=== PATIENT | female | born 1930 | race Caucasian/White ===

== ENCOUNTER 2016-12-11 10:25 | Inpatient (IN) | payer OTHER ==
--- NOTE | 2016-12-11 10:34 | PDOC ---
History of Present Illness - General History Source: EMS, Old Records Exam Limitations: Clinical Condition - History of Present Illness Initial Comments: 12/11/16 10:40 The patient is a year old female, BIBA from [facility] with a significant past medical history of HTN, lung cancer, dementia, schizophrenia, respiratory failure s/p tracheostomy, and peg tube who presents to the emergency department with rapid heartbeat. EMS reports being called originally for an outpatient G tube replacement due to dislodgement (12/08/16). EMS reports when put on a monitor her HR was elevated, which prompted EMS diversion to the ER. Upon ED arrival the patient is febrile. PCP: Dr. Cruz <Jorje Doherty - Last Filed: 12/11/16 11:03> - General History Source: EMS, Old Records Exam Limitations: Clinical Condition <Angy Willis - Last Filed: 12/12/16 16:24> - General Stated Complaint: A FIB Past History <Jorje Doherty - Last Filed: 12/11/16 11:03> - Past Medical History Anemia: No Asthma: No Cancer: No Cardiac Disorders: No CVA: No COPD: No CHF: No Dementia: Yes Diabetes: No GI Disorders: No Disorders: Yes (UTI) HTN: Yes Hypercholesterolemia: No Liver Disease: No Psychiatric Problems: Yes (Psychosis) Seizures: No Thyroid Disease: No - Psycho/Social/Smoking Cessation Hx Anxiety: No Suicidal Ideation: No Smoking Status: No Smoking History: Never smoked Have you smoked in the past 12 months: No Number of Cigarettes Smoked Daily: 0 Hx Alcohol Use: No Drug/Substance Use Hx: No Substance Use Type: None Hx Substance Use Treatment: No <Angy Willis - Last Filed: 12/12/16 16:24> - Past Medical History Allergies/Adverse Reactions: Allergies Allergy/AdvReac Type Severity Reaction Status Date / Time cefuroxime axetil Allergy Mild Rash Verified 12/11/16 10:43 [From Ceftin] Home Medications: Ambulatory Orders Acetaminophen [Tylenol .Regular Strength -] 325 mg PO Q6H PRN 01/29/14 Vit A/Vitamin D3/E/Aloe V/Znox [Periguard Ointment] 5 gm TP TID 01/29/14 Zinc Oxide 20% Topical Oint 454 gm TP DAILY 10/15/15 Zinc Sulfate 220 mg GT DAILY 10/15/15 Ascorbate Calcium [Vitamin C] 500 mg PEG DAILY #0 11/17/15 Aspirin [ASA -] 81 mg PO DAILY #30 tab.chew 11/17/15 Diltiazem [Cardizem -] 60 mg NGT Q6HPO #30 tablet 11/17/15 Metoprolol Tartrate [Lopressor -] 50 mg NGT TID #60 tablet 11/17/15 Nystatin Cream [Mycostatin Cream -] 1 applic TP BID applic 11/17/15 Polyethylene Glycol 3350 [Miralax 119 gm Btl -] 17 gm PEG DAILY #14 bottle 11/17 Docusate Liquid [Colace Liquid -] 50 mg GT DAILY 12/11/16 Review of Systems - Review of Systems Able to Perform ROS?: No (Clincal condition.) <Jorje Doherty - Last Filed: 12/11/16 11:03> *Physical Exam - Physical Exam Comments: 12/11/16 10:55 GENERAL: The patient is in no acute distress. HEAD: Normal with no signs of trauma. EYES: PERRLA, EOMI, sclera anicteric, conjunctiva clear. ENT: Ears normal, nares patent, oropharynx clear without exudates. Dry mucous membranes. Trach is in place. NECK: Normal range of motion, supple without lymphadenopathy, JVD, or masses. CHEST: Bilateral mastectomy LUNGS: Rhonchorous breath sounds. No wheezes, and no crackles. HEART: Tachycardia, Irregular, normal S1 and S2 without murmur, rub or gallop. ABDOMEN: Soft, nontender, normoactive bowel sounds. No guarding, no rebound. No masses palpable. Rectal temp was 102. EXTREMITIES: Normal range of motion, no edema. No clubbing or cyanosis. No erythema, or tenderness. NEUROLOGICAL: Cranial nerves II through XII grossly intact. MUSCULOSKELETAL: Back non-tender to palpation, no CVA tenderness SKIN: Warm, Dry, normal turgor, or lesions noted. Some erythema of her scarum but no skin breakdown. <Jorje Doherty - Last Filed: 12/11/16 11:03> Heart Score/ECG Review #1 ECG reviewed & interpreted by me at: 10:55 12/11/16 10:55 Twelve-lead EKG was performed and reviewed by me. Afib with rapid ventricular response, rate of 174bpm. The axis is normal. The intervals are normal - QRS: 72ms, QTc:364ms. There are no ST elevations. ST depressions v4-v6. No T wave abnormalities. <Angy Willis - Last Filed: 12/12/16 16:24> ED Treatment Course - LABORATORY CBC & Chemistry Diagram: 12/11/16 10:50 12/11/16 10:50 - RADIOLOGY Radiograph Interpretation: 12/11/16 11:03 CHEST X-RAY impressions reported by : Increasing left base density and left pleural effusion. Right upper lobe opacity is now noted and possibly also left uper lobe opacity. <Jorje Doherty - Last Filed: 12/11/16 11:03> - LABORATORY CBC & Chemistry Diagram: 12/12/16 05:20 12/12/16 13:30 <Angy Willis - Last Filed: 12/12/16 16:24> Medical Decision Making - Critical Care Time Total Critical Care Time (minutes): 60 Critical Care Statement: The care of this patient involved high complexity decision making to prevent further life threatening deterioration of the patient 's condition and/or to evalute & treat vital organ system(s) failure or risk of failure. - Medical Decision Making 12/11/16 10:34 A portion of this note was documented by scribe services under my direction. I have reviewed the details of the note, within reason, and agree with the documentation with the following case summary and management plan written by me. Nursing documentation reviewed and incorporated into medical decision making 12/11/16 10:43 THis is an 86 yo F, resident of [facility] H/o HTN, HTN, lung cancer, dementia, schizophrenia, respiratory failure s/p tracheostomy, and peg tube who presents to the emergency department vai EMS due to rapid heart rate. Briefly, the patient's g tube fell out There was an order placed for g tube replacement on 12/08 Consent obtained on 12/09 Pt was supposed to come to the hospital today for g tube replacement When EMS assesed this patient, they noted an elevated heart rate She was given Adenosine 6, 12, 12 enroute with minimal improvement in her heart rate On examination Pt is irregularly irregular Pt is tachycardiac Pt is not responsive to pain or verbal stimulation Heart is irregularly irregular and tachycardiac no murmur appreciated lungs rhoncherous bilaterally no abd tenderness? No skin break doawn 12/11/16 10:45 Pt rectal temp 102. 4 Per chart review, pt has had MRSA When she was previously admitted for sepsis, she had a drug reaction to Cephalosporins, will avoid today Will give Tylenol for fever Pt septic Source unknow at this time Awaiting CXR, UA Possibly CT abd and pelvis 12/11/16 11:08 Laboratory Tests 12/11/16 11:00 VBG pH 7.35 POC VBG pCO2 43.1 D POC VBG pO2 38.4 D 12/11/16 11:09 CXR: left basilar density, RUL opacity Prior CXR: LLL nodule and pleural effusion Given Vanc and Doripenem (given new CXR findings and fever) 12/11/16 11:11 EKG today Afib with RVR Afib not listed in her PMD Prior EKG pulled, pt had Afib on this EKG Will given small dose cardizem with improvement of HR from 180s to 120s 12/11/16 11:14 12/11/16 11:44 Laboratory Tests 12/11/16 12/11/16 10:50 10:50 Sodium 158 H D Potassium 5.7 H D Chloride 125 H D Carbon Dioxide 24 BUN 74 H D Creatinine 1.3 H D Random Glucose 134 H Lactic Acid 3.068 H* AST 248 H D ALT 147 H D Troponin I 0.24 H Call placed to Dr. Zenaida Cruz requests hospitalist admission case reviewed with Dr Baldwin Will admit to ICU CTs of head, chest abd and pelvis ordered Pt placed on cardizem drip given persistent elevation of HR despite cardizem pushes and NO means of giving po medications <Angy Willis - Last Filed: 12/12/16 16:24> *DC/Admit/Observation/Transfer - Attestations Scribe Attestion: 12/11/16 10:40 Documentation prepared by Jorje Doherty, acting as medical transport specialist for Emergency Dept,Physician, . <Jorje Doherty - Last Filed: 12/11/16 11:03> - Discharge Dispostion Admit: Yes <Angy Willis - Last Filed: 12/12/16 16:24> Diagnosis at time of Disposition: Severe sepsis Pneumonia Qualifiers: Pneumonia type: due to unspecified organism Laterality: unspecified laterality Lung location: unspecified part of lung Qualified Code(s): J18.9 - Pneumonia, unspecified organism - Discharge Dispostion Condition at time of disposition: Guarded - Referrals
[2016-12-11] MEDS ORDERED: ACETAMINOPHEN 1000 MG/100 ML VIAL (NON FORMULARY) IVPB ONE (10:36)
[2016-12-11] MEDS ORDERED: SODIUM CHLORIDE 1,000 ML IV STA (10:39)
[2016-12-11] MEDS ORDERED: VANCOMYCIN 1,000 MG in DEXTROSE 5%-WATER - 250 ML IVPB ONE (10:40)
[2016-12-11] MEDS ORDERED: DORIPENEM 500 MG in SODIUM CHLORIDE 100 ML IVPB ONE (10:41)
[2016-12-11] MEDS ORDERED: dilTIAZem HCL 50 MG/10 ML - 10 ML VIAL IVPUSH ONE ×2 (10:44→11:56)
[2016-12-11] MEDS ORDERED: ADENOSINE 6 MG/2 ML VIAL IVPUSH ONE (10:55)
[2016-12-11] MEDS ORDERED: VANCOMYCIN 1 GRAM (PRE-DOCKED) 250 ML IVPB ONE (10:59)
[2016-12-11] MEDS ORDERED: ACETAMINOPHEN INJECTION 100 ML IVPB ONE (10:59)
[2016-12-11] MEDS ORDERED: dilTIAZem HCL 125 MG/25 ML - 25 ML VIAL ONE (11:00)
[2016-12-11 11:06] LABS: VENOUS PH 7.35 (7.31-7.41)
[2016-12-11 11:27] LABS: ALBUMIN 2.2 g/dl (3.4-5.0); BILIRUBIN,TOTAL 2.4 mg/dL (0.2-1.0); CALCIUM 11.4 mg/dL (8.5-10.1); CREATININE 1.3 mg/dL (0.55-1.02); TOT PROT 8.1 g/dl (6.4-8.2)
[2016-12-11 11:29] LABS: TROPONIN I 0.24 ng/ml (0.00-0.05)
[2016-12-11 11:46] LABS: MCH 27.9 pg (25.7-33.7); MCHC 29.8 g/dl (32.0-36.0); MEAN CELL VOLUME 93.8 fl (80-96); MEAN PLT VOLUME 11.4 fl (7.5-11.1); PLATELET COUNT 138 K/MM3 (134-434); RDW 19.4 % (11.6-15.6)
[2016-12-11 11:47] LABS: WHITE BLOOD COUNT 37.2 K/mm3 (4.0-10.0)
[2016-12-11 11:57] LABS: URINE APPEARANCE CLOUDY; URINE BILIRUBIN NEGATIVE (NEGATIVE); URINE COLOR AMBER; URINE GLUCOSE (UA) NEGATIVE (NEGATIVE); URINE KETONE NEGATIVE (NEGATIVE); URINE NITRITE NEGATIVE (NEGATIVE); URINE UROBILINOGEN 4.0 E.U/dl E.U./dl (0.2-1.0)
[2016-12-11 11:59] LABS: URINE BLOOD 2+ (NEGATIVE); URINE LEUK ESTERASE 3+ (NEGATIVE); URINE PROTEIN 1+ (NEGATIVE)
[2016-12-11 12:06] LABS: URINE BACTERIA MANY /hpf (NONE SEEN); URINE HYALINE CAST 23 /lpf; URINE MUCUS MODERATE; URINE RBC 7 /hpf (0-3); URINE WBC 994 /hpf (3-5)
[2016-12-11] MEDS ORDERED: ONDANSETRON 4 MG/2 ML VIAL IVPB PRN (12:07)
[2016-12-11] MEDS ORDERED: ACETAMINOPHEN 325 MG SUPP.RECT PR PRN (12:07)
--- NOTE | 2016-12-11 12:12 | HP ---
PCP: Zenaida Cruz CHIEF COMPLAINT: Tachycardia HISTORY OF PRESENT ILLNESS: This is an 86-year-old woman who resides at [facility] and was being sent to the hospital today for G-tube replacement when EMS noted she was tachycardic. She was given Adenosine 6 mg, 6 mg, 12 mg then brought to the ER. She is unable to provide any history which is obtained from prior records. The patient's PEG was noted to be dislodged and replacement was ordered on 12/08. She was scheduled to have it done today. PAST MEDICAL HISTORY Severe dementia Lung cancer Hypertension Schizophrenia Anxiety Aortic stenosis Mitral regurgitation Atrial fibrillation Chronic diastolic heart failure Chronic respiratory failure PAST SURGICAL HISTORY Tracheostomy PEG Allergies cefuroxime axetil [From Ceftin] Allergy (Mild, Verified 12/11/16 10:43) Rash HOME MEDICATIONS 3 Medication Instructions Recorded Acetaminophen [Tylenol .Regular 325 mg PO Q6H PRN 01/29/14 Strength -] Vit A/Vitamin D3/E/Aloe V/Znox 5 gm TP TID 01/29/14 [Periguard Ointment] Zinc Oxide 20% Topical Oint 454 gm TP DAILY 10/15/15 Zinc Sulfate 220 mg PO DAILY 10/15/15 Ascorbate Calcium [Vitamin C] 500 mg PEG DAILY #0 11/17/15 Aspirin [ASA -] 81 mg PO DAILY #30 tab.chew 11/17/15 Cefuroxime Axetil Suspension 250 mg PO BID 6 Days 11/17/15 [Ceftin Oral Suspension -] Diltiazem [Cardizem -] 60 mg NGT Q6HPO #30 tablet 11/17/15 Metoprolol Tartrate [Lopressor -] 50 mg NGT TID #60 tablet 11/17/15 Nystatin Cream [Mycostatin Cream -] 1 applic TP BID applic 11/17/15 Polyethylene Glycol 3350 [Miralax 17 gm PEG DAILY #14 bottle 11/17/15 119 gm Btl -] Social History: Smoking: Never smoked Alcohol: None Drugs: None Recent Travel: No Family History: Unobtainable REVIEW OF SYSTEMS Unable to obtain PHYSICAL EXAMINATION Vital Signs Period Temp Pulse Resp BP Sys/Chase Pulse Ox Last 24 Hr 102.4 F 149-184 16-20 149/106 100-100 GENERAL: Cachectic, unresponsive, in no acute distress. HEAD: Normal with no signs of trauma. EYES: Unable to assess. EARS, NOSE, THROAT: Ears normal, nares patent, oropharynx not visualized. NECK: Normal range of motion, supple without lymphadenopathy, JVD, or masses. LUNGS: Bilateral rhonchi. HEART: Irregular, tachycardic, (+) 2/6 systolic murmur. ABDOMEN: Soft, not distended, normoactive bowel sounds, [place] catheter in G- tube site. MUSCULOSKELETAL: Normal range of motion at all joints. No bony deformities or tenderness. No CVA tenderness. UPPER EXTREMITIES: 2+ pulses, warm, well-perfused. No cyanosis. No clubbing. Cap refill <2 seconds. No peripheral edema. LOWER EXTREMITIES: 2+ pulses, warm, well-perfused. No calf tenderness. No peripheral edema. NEUROLOGICAL: Unable to assess. PSYCHIATRIC: Unable to assess. SKIN: Warm, dry, normal turgor, no rashes or lesions noted. Laboratory Results - last 24 hr 12/11/16 12/11/16 12/11/16 10:50 10:50 10:50 WBC 37.2 H* D RBC 4.74 D Hgb 13.2 D Hct 44.4 D MCV 93.8 MCHC 29.8 L RDW 19.4 H Plt Count 138 MPV 11.4 H Neutrophils % Y Lymphocytes % Y INR Cancelled PTT (Actin FS) Cancelled VBG pH POC VBG pCO2 POC VBG pO2 Sodium 158 H D Potassium 5.7 H D Chloride 125 H D Carbon Dioxide 24 Anion Gap 9 BUN 74 H D Creatinine 1.3 H D Creat Clearance w eGFR 38.66 Random Glucose 134 H Lactic Acid Calcium 11.4 H D Total Bilirubin 2.4 H D AST 248 H D ALT 147 H D Alkaline Phosphatase 153 H D Creatine Kinase 151 D CK-MB (CK-2) 1.352 Troponin I 0.24 H Total Protein 8.1 D Albumin 2.2 L D Urine Color Urine Appearance Urine pH Ur Specific [place] Urine Protein Urine Glucose (UA) Urine Ketones Urine Blood Urine Nitrite Urine Bilirubin Urine Urobilinogen Ur Leukocyte Esterase Urine RBC Urine WBC Ur Epithelial Cells Urine Bacteria Hyaline Casts Urine Mucus Blood Type Antibody Screen 12/11/16 12/11/16 12/11/16 10:50 10:50 11:00 WBC RBC Hgb Hct MCV MCHC RDW Plt Count MPV Neutrophils % Lymphocytes % INR PTT (Actin FS) VBG pH 7.35 POC VBG pCO2 43.1 D POC VBG pO2 38.4 D Sodium Potassium Chloride Carbon Dioxide Anion Gap BUN Creatinine Creat Clearance w eGFR Random Glucose Lactic Acid 3.068 H* Calcium Total Bilirubin AST ALT Alkaline Phosphatase Creatine Kinase CK-MB (CK-2) Troponin I Total Protein Albumin Urine Color Urine Appearance Urine pH Ur Specific [place] Urine Protein Urine Glucose (UA) Urine Ketones Urine Blood Urine Nitrite Urine Bilirubin Urine Urobilinogen Ur Leukocyte Esterase Urine RBC Urine WBC Ur Epithelial Cells Urine Bacteria Hyaline Casts Urine Mucus Blood Type O POSITIVE Antibody Screen Negative 12/11/16 11:50 WBC RBC Hgb Hct MCV MCHC RDW Plt Count MPV Neutrophils % Lymphocytes % INR PTT (Actin FS) VBG pH POC VBG pCO2 POC VBG pO2 Sodium Potassium Chloride Carbon Dioxide Anion Gap BUN Creatinine Creat Clearance w eGFR Random Glucose Lactic Acid Calcium Total Bilirubin AST ALT Alkaline Phosphatase Creatine Kinase CK-MB (CK-2) Troponin I Total Protein Albumin Urine Color Yen Urine Appearance Cloudy Urine pH 5.0 Ur Specific [place] 1.015 Urine Protein 1+ H Urine Glucose (UA) Negative Urine Ketones Negative Urine Blood 2+ H Urine Nitrite Negative Urine Bilirubin Negative Urine Urobilinogen 4.0 e.u/dl H Ur Leukocyte Esterase 3+ H Urine RBC 7 Urine WBC 994 Ur Epithelial Cells Rare Urine Bacteria Many Hyaline Casts 23 Urine Mucus Moderate Blood Type Antibody Screen Chest x-ray: Increasing left base density and left pleural effusion. Right upper lobe opacity. Possible left upper lobe opacity. Head CT: Extensive periventricular white matter chronic microvascular ischemic changes. Left subinsular and left thalamic old lacunar infarct. Encephalomalacia /old infarct medial right occipital lobe. Acute/subacute infarct right temporal lobe. CT chest/abdomen/pelvis: Two large masses in RUL and JING. 7 mm RML nodule. Extensive LLL atelectasis and pleural effusion. Small right pleural effusion with basilar atelectasis. 3.7 cm distal AAA. EKG: Atrial fibrillation, ventricular response 174, old septal infarct. ASSESSMENT/PLAN: This is an 86-year-old woman from [facility] with a history of severe dementia, lung cancer, HTN, schizophrenia, anxiety, aortic stenosis, mitral regurgitation , atrial fibrillation, chronic diastolic heart failure, chronic respiratory failure who was brought in to the ER today after being found to be tachycardic. She was treated with Adenosine. She was found to have temp 102.4, HR WBC 37.2, Na 158, K 5.7, BUN 74, creatinine 1.3, calcium 11.4, total bilirubin 2.4, AST 248, ALT 147, alk phos 153, lactic acid 3.068. Urinalysis shows 1+ protein, 2+ blood, urobilinogen 4.0, 3+ leukocyte esterase, 994 WBC, many bacteria. 1. Severe sepsis secondary to UTI, possible healthcare-associated pneumonia - Admit to ICU - Doripenem, Vancomycin given in ER - IV fluid - Recheck lactic acid - Follow up CT chest - ID consult 2. Atrial fibrillation, permanent, with rapid ventricular response - Tachycardia secondary to sepsis and not receiving medications - Unable to give meds via G-tube at this time - Cardizem 5 mg IV x 2 given in ER - Cardizem IV drip - Cardiology consult 3. Acute kidney injury secondary to dehydration - IV fluid - Monitor BUN, creatinine 4. Elevated troponin, likely demand ischemia secondary to sepsis, tachycardia - Serial troponins 5. Hypernatremia, hyperkalemia, hypercalcemia secondary to dehydration - IV fluid - Monitor electrolytes, calcium 6. Hepatic transaminitis, hyperbilirubinemia - Possibly secondary to sepsis, metastatic disease - Follow up CT abdomen 7. Hypertension 8. Lung cancer 9. Dementia 10. Schizophrenia 11. Anxiety 12. Aortic stenosis, mitral regurgitation 12. Chronic diastolic heart failure - Stable 13. Chronic hypoxic respiratory failure - Patient is on vent via tracheostomy Problem List - Problem (1) Acute kidney injury Code(s): N17.9 - ACUTE KIDNEY FAILURE, UNSPECIFIED (2) Atrial fibrillation with rapid ventricular response Code(s): I48.91 - UNSPECIFIED ATRIAL FIBRILLATION (3) Dehydration Code(s): E86.0 - DEHYDRATION (4) Chronic respiratory failure with hypoxia Code(s): J96.11 - CHRONIC RESPIRATORY FAILURE WITH HYPOXIA (5) Hypercalcemia Code(s): E83.52 - HYPERCALCEMIA (6) Hyperkalemia Code(s): E87.5 - HYPERKALEMIA (7) Hypernatremia Code(s): E87.0 - HYPEROSMOLALITY AND HYPERNATREMIA (8) Chronic diastolic heart failure Code(s): I50.32 - CHRONIC DIASTOLIC (CONGESTIVE) HEART FAILURE Visit type - Emergency Visit Emergency Visit: Yes ED Registration Date: 12/11/16 Care time: The patient presented to the Emergency Department on the above date and was hospitalized for further evaluation of their emergent condition. - New Patient This patient is new to me today: Yes Date on this admission: 12/11/16 - Critical Care Critical Care patient: Yes Total Critical Care Time (in minutes): 45 Critical Care Statement: The care of this patient involved high complexity decision making to prevent further life threatening deterioration of the patient 's condition and/or to evalute & treat vital organ system(s) failure or risk of failure.
[2016-12-11 12:23] LABS: PLATELET ESTIMATE ADEQUATE (NORMAL)
[2016-12-11 12:26] LABS: INR 2.08 (0.82-1.09); PROTHROMBIN TIME (PATIENT) 23.2 SEC (9.98-11.88)
[2016-12-11 12:29] LABS: ANISOCYTOSIS 1+; POLYCHROMASIA 1+
[2016-12-11] MEDS: SODIUM CHLORIDE 1,000 ML IV SCH (12:55)
[2016-12-11] MEDS ORDERED: dilTIAZem HCL 50 MG/10 ML - 10 ML VIAL ONE (13:12)
[2016-12-11] MEDS: DILTIAZEM INJECTION 125 MG in DEXTROSE 5%-WATER - 100 ML IVPB SCH (13:29)
--- NOTE | 2016-12-11 15:01 | PN ---
Progress Note, Physician Chief Complaint: ID Full note dictated and discussed with Dr Baldwin - Current Medication List Current Medications: Active Medications Acetaminophen (Tylenol Suppository -) 325 mg AK Q4H PRN PRN Reason: FEVER OR PAIN Chlorhexidine Gluconate (Hibiclens For Decolonization -) 1 applic TP HS SELVIN Heparin Sodium (Porcine) (Heparin -) 5,000 unit SQ TID SELVIN Sodium Chloride (Normal Saline -) 1,000 mls @ 100 mls/hr IV ASDIR SELVIN Last Admin: 12/11/16 12:55 Dose: 100 mls/hr Diltiazem HCl 125 mg/ Dextrose 125 mls @ 5 mls/hr IVPB TITR SELVIN; 5 MG/HR PRN Reason: Protocol Last Admin: 12/11/16 13:29 Dose: 5 mls/hr Mupirocin (Bactroban Ointment (For Decolonization) -) 1 applic NS BID SELVIN Stop: 12/16/16 21:59 Ondansetron HCl (Zofran Injection) 4 mg IVPB Q6H PRN PRN Reason: NAUSEA - Objective Vital Signs: Vital Signs Temperature 99.2 F 12/11/16 12:59 Pulse Rate 130 H 12/11/16 13:29 Respiratory Rate 18 12/11/16 12:56 Blood Pressure 150/95 12/11/16 13:29 O2 Sat by Pulse Oximetry (%) 98 12/11/16 12:56 Labs: INR, PTT INR 2.08 (0.82-1.09) H D 12/11/16 12:00 Assessment/Plan Microbiology 11/20/15 13:00 Sputum - Endotracheal Suction W/O Vent Gram Stain - Final 11/20/15 13:00 Sputum - Endotracheal Suction W/O Vent Sputum Culture - Final Mr S Aureus 11/20/15 13:00 Nares - Mrsa Screen - Right MRSA Screen - Final Mr S Aureus 11/20/15 13:00 Nares - Mrsa Screen - Left MRSA Screen - Final Mr S Aureus 11/05/15 20:00 Sputum - Endotrachea Suction/Ventilator Gram Stain - Final 11/05/15 20:00 Sputum - Endotrachea Suction/Ventilator Sputum Culture - Final Proteus Mirabilis Mr S Aureus Laboratory Tests 12/11/16 12/11/16 12/11/16 10:50 10:50 10:50 Hgb 13.2 D Plt Count 138 BUN 74 H D Creatinine 1.3 H D Creat Clearance w eGFR 38.66 Lactic Acid 3.068 H* Total Bilirubin 2.4 H D AST 248 H D ALT 147 H D Alkaline Phosphatase 153 H D Ur Leukocyte Esterase Urine RBC Urine WBC Urine Bacteria 12/11/16 11:50 Hgb Plt Count BUN Creatinine Creat Clearance w eGFR Lactic Acid Total Bilirubin AST ALT Alkaline Phosphatase Ur Leukocyte Esterase 3+ H Urine RBC 7 Urine WBC 994 Urine Bacteria Many Assessment Sepsis UTI Pneumonia History of Lung CA MRSA colonization Elevated LFT History of cephalosporin rash in past Plan CulturesVancomyhcin 1 gr given and continue Doripenen pending c/s Avi VENTURA
--- NOTE | 2016-12-11 15:09 | CON.CARD ---
Consult Consult Specialty:: Cardiology Referred by:: Hospitalist Medicine Reason for Consultation:: Rapid afib - History of Present Illness Chief Complaint: PEG tube dislodged History of Present Illness: This is an 86-year-old woman who resides at [facility] and referred to the hospital today for G-tube replacement when EMS noted she was tachycardic. She was given Adenosine 6 mg, 6 mg, 12 mg then brought to the ER. She is unable to provide any history which is obtained from prior records. The patient's PEG was noted to be dislodged and replacement was ordered on 12/08. She was scheduled to have it done today. 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 Cardio/Vascular: Yes: HTN Pulmonary: Yes: Cancer (unsure about treatment) Psych: Yes: Anxiety, Schizophrenia - Alcohol/Substance Use Hx Alcohol Use: No - Smoking History Smoking history: Never smoked Have you smoked in the past 12 months: No Aproximately how many cigarettes per day: 0 Home Medications - Allergies Allergies/Adverse Reactions: Allergies Allergy/AdvReac Type Severity Reaction Status Date / Time cefuroxime axetil Allergy Mild Rash Verified 12/11/16 10:43 [From Ceftin] - Home Medications Home Medications: Ambulatory Orders Acetaminophen [Tylenol .Regular Strength -] 325 mg PO Q6H PRN 01/29/14 Vit A/Vitamin D3/E/Aloe V/Znox [Periguard Ointment] 5 gm TP TID 01/29/14 Zinc Oxide 20% Topical Oint 454 gm TP DAILY 10/15/15 Zinc Sulfate 220 mg GT DAILY 10/15/15 Ascorbate Calcium [Vitamin C] 500 mg PEG DAILY #0 11/17/15 Aspirin [ASA -] 81 mg PO DAILY #30 tab.chew 11/17/15 Diltiazem [Cardizem -] 60 mg NGT Q6HPO #30 tablet 11/17/15 Metoprolol Tartrate [Lopressor -] 50 mg NGT TID #60 tablet 11/17/15 Nystatin Cream [Mycostatin Cream -] 1 applic TP BID applic 11/17/15 Polyethylene Glycol 3350 [Miralax 119 gm Btl -] 17 gm PEG DAILY #14 bottle 11/17 Docusate Liquid [Colace Liquid -] 50 mg GT DAILY 12/11/16 Review of Systems Unable to obtain ROS, reason: Dementia Vital Signs: Vital Signs Temperature 99.2 F 12/11/16 12:59 Pulse Rate 130 H 12/11/16 13:29 Respiratory Rate 18 12/11/16 12:56 Blood Pressure 150/95 12/11/16 13:29 O2 Sat by Pulse Oximetry (%) 98 12/11/16 12:56 Respiratory: Yes: Regular, Diminished, Rhonchi Gastrointestinal: Yes: Normal Bowel Sounds, Soft Cardiovascular: Yes: Tachycardia, Pulse Irregular JVD: No Carotid Bruit: No Heart Sounds: Yes: S1, S2 Murmur: Yes: Systolic Murmur, Grade 2 Edema: No - Other Data Labs, Other Data: INR, PTT INR 2.08 (0.82-1.09) H D 12/11/16 12:00 Afib @ 120 Imaging - Results Chest X-ray: Report Reviewed (RUL, JING opacity) Cat Scan: Report Reviewed (2 large pulm masses RUL and JING, extensive LLL pleural effusion, 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) EKG: Report Reviewed (Afib) Problem List - Problems (1) Pneumonia Code(s): J18.9 - PNEUMONIA, UNSPECIFIED ORGANISM Qualifiers: Pneumonia type: due to unspecified organism Laterality: unspecified laterality Lung location: unspecified part of lung Qualified Code(s): J18.9 - Pneumonia, unspecified organism (2) Aortic stenosis Code(s): Q25.3 - SUPRAVALVULAR AORTIC STENOSIS (3) CVA (cerebral vascular accident) Code(s): I63.9 - CEREBRAL INFARCTION, UNSPECIFIED Qualifiers: CVA mechanism: unspecified Qualified Code(s): I63.9 - Cerebral infarction, unspecified (4) Dementia Code(s): F03.90 - UNSPECIFIED DEMENTIA WITHOUT BEHAVIORAL DISTURBANCE Qualifiers: Dementia type: unspecified type Dementia behavioral disturbance: without behavioral disturbance Qualified Code(s): F03.90 - Unspecified dementia without behavioral disturbance (5) Dysphagia Code(s): R13.10 - DYSPHAGIA, UNSPECIFIED (6) Hypertension Code(s): I10 - ESSENTIAL (PRIMARY) HYPERTENSION Qualifiers: Hypertension type: essential hypertension Qualified Code(s): I10 - Essential (primary) hypertension (7) Metastatic breast cancer Code(s): C50.919 - MALIGNANT NEOPLASM OF UNSP SITE OF UNSPECIFIED FEMALE BREAST C79.9 - SECONDARY MALIGNANT NEOPLASM OF UNSPECIFIED SITE (8) Mitral regurgitation Code(s): I34.0 - NONRHEUMATIC MITRAL (VALVE) INSUFFICIENCY Qualifiers: Cardiac valve disease etiology: nonrheumatic Qualified Code(s): I34.0 - Nonrheumatic mitral (valve) insufficiency (9) Tricuspid regurgitation Code(s): I07.1 - RHEUMATIC TRICUSPID INSUFFICIENCY Qualifiers: Cardiac valve disease etiology: nonrheumatic Qualified Code(s): I36.1 - Nonrheumatic tricuspid (valve) insufficiency (10) UTI (urinary tract infection) Code(s): N39.0 - URINARY TRACT INFECTION, SITE NOT SPECIFIED Qualifiers: Urinary tract infection type: site unspecified Hematuria presence: without hematuria Qualified Code(s): N39.0 - Urinary tract infection, site not specified (11) Atrial fibrillation Code(s): I48.91 - UNSPECIFIED ATRIAL FIBRILLATION Qualifiers: Atrial fibrillation type: persistent Qualified Code(s): I48.1 - Persistent atrial fibrillation (12) PEG tube malfunction Code(s): K94.23 - GASTROSTOMY MALFUNCTION (13) Demand ischemia Code(s): I24.8 - OTHER FORMS OF ACUTE ISCHEMIC HEART DISEASE Assessment/Plan 10/16/2015 Echo: Normal LV size and fxn, mild LOLY, mod-severe MR, severe TR, severe , mild AR, pleural effusion 1. Ventilator-dependent respiratory failure s/p trach with PEG dislodgment 2. Chronic LV diastolic dysfunction 3. Moderate-severe MR 4. Severe 5. Severe TR 6. Persistent atrial fibrillation on no A/C 7. HTN 8. H/o stroke 9. 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 History of schizophrenia 12. UTI, sepsis, PNA, h/o lung ca 13. Demand ischemia referable to above PLAN: 1. Continue ASA qd, ideally patient should be A/C unless it is absolutely contraindicated considering her [id number] score of 6 2. Continue Cardizem gtt for rate-control with titration to maintain HR<120 pending reinstatement of enteral feeds 4. Vent management as per primary team, PEG tube replacement once HR controlled 5. Empiric abx course per ID, f/u C&S 6. DVT/GI prophylaxis 7. Thank you for consultatuve opportunity
--- NOTE | 2016-12-11 15:48 | EKG ---
Test Reason : Blood Pressure : / mmHG Vent. Rate : 174 BPM Atrial Rate : 130 BPM P-R Int : 000 ms QRS Dur : 072 ms QT Int : 214 ms P-R-T Axes : 000 005 199 degrees QTc Int : 364 ms ATRIAL FIBRILLATION WITH RAPID VENTRICULAR RESPONSE SEPTAL INFARCT (CITED ON OR BEFORE 23-OCT-2015) MARKED ST ABNORMALITY, POSSIBLE ANTEROLATERAL SUBENDOCARDIAL INJURY ABNORMAL ECG Confirmed by RUBY JOHNS MD ([id number]) on 12/11/2016 3:47:36 PM Referred By: Confirmed By:RUBY JOHNS MD
[2016-12-11] MEDS: HEPARIN NA (PORCINE) 5,000 UNITS/ML 1ML VIAL SQ SCH ×2 (15:50→21:01)
[2016-12-11] MEDS ORDERED: HEPARIN NA (PORCINE) 5,000 UNITS/ML 1ML VIAL ONE (15:58)
--- NOTE | 2016-12-11 16:57 | CONS ---
DATE OF CONSULTATION: DATE OF DICTATION: 12/11/2016 INFECTIOUS DISEASE CONSULTATION HISTORY OF PRESENT ILLNESS: This is an 86-year-old female from [facility] sent to the hospital for G-tube replacement when she was noted to be tachycardic. She was apparently treated with adenosine according to the notes and brought to the emergency room. She can offer no history, but apparently has a known history of lung cancer, along with multiple other comorbidities including severe dementia, hypertension, schizophrenia, aortic stenosis, mitral regurgitation, atrial fibrillation, chronic diastolic heart failure, and chronic ventilatory failure with a tracheostomy. She also has a PEG tube. Here she was noted to have a markedly elevated WBC count. She apparently has a history of a prior admission to [facility], during which she developed a rash while on cephalosporins, specifically cefuroxime. The case was discussed with Dr. Baldwin who noted giving her vancomycin and a dose of carbapenem which appears perfectly appropriate. She has a history of MRSA from respiratory cultures in the past. PAST MEDICAL HISTORY: As noted above. HOME MEDICATIONS: Including diltiazem, Lopressor. ALLERGIES: CEPHALOSPORINS. SOCIAL HISTORY: Never smoked. No history of alcohol, drugs. FAMILY HISTORY: Unobtainable. REVIEW OF SYSTEMS: Respiratory: Tracheostomy with history of lung cancer. Cardiac: history of atrial fibrillation. No palpitations, syncope. Gastrointestinal: PEG feeding tube. No abdominal pain, vomiting, diarrhea, bleeding per rectum. Genitourinary: Incontinent of urine. PHYSICAL EXAMINATION: General: Revealed a chronically ill elderly woman. Vital signs: Temperature 102.4, pulse 150, respirations 16, blood pressure 149/106, oximetry 100%. Neck: With a tracheostomy. Lungs: Bilateral rhonchi. Heart: Irregular, tachycardic, 2/6 systolic murmur. Abdomen: The abdomen catheter G-tube site nondistended, normoactive bowel sounds, nontender. Extremities: Without clubbing, cyanosis, or edema. LABORATORY: The white count is 37.2, hemoglobin 13.2, platelets 138, INR of 2.08, BUN 74, creatinine 1.3, lactic acid 3.06, bilirubin 2.4, AST 248, ALT 147, alkaline phosphatase 153. Urinalysis with 3+ leukocyte esterase, 7 RBCs, [address] scan of the abdomen currently unable to access report. CT of the chest was reviewed, shows possible masses consistent with her diagnosis of lung cancer. ASSESSMENT: Sepsis syndrome. 2. Urinary tract infection. 3. Possible pneumonia. 4. History of lung cancer. 5. Elevated white blood cells. 6. History of CEPHALOSPORIN allergies. PLAN: Blood, urine and sputum cultures. Empiric therapy with vancomycin and doripenem. Pending multiple cultures, contact isolation. MRSA screening of nares. SYLVIE ADKINS M.D. KARRIE/[id number]
[2016-12-11 17:13] VITALS: BMI 22.6
[2016-12-11] MEDS: DEXTROSE 5% IVPB SCH (20:30)
[2016-12-11] MEDS: DORIPENEM IVPB SCH (20:30)
[2016-12-11] MEDS: WATER IVPB SCH (20:30)
[2016-12-11] MEDS: CHLORHEXIDINE GLUCONATE 4% CLEANSER FOR DECOLONIZATION TP SCH (21:01)
[2016-12-11] MEDS: MUPIROCIN 2% TOPICAL OINTMENT FOR DECOLONIZATION NS SCH (21:01)
--- NOTE | 2016-12-11 22:06 | CONSULT ---
Consult Consult Specialty:: Pulm/CCM Reason for Consultation:: urosepsis - History of Present Illness Chief Complaint: tachycardia History of Present Illness: 86-year-old woman, resident at [facility] for advanced dementia and chronic resp failure s/p trach and peg, non verbal at baseline, Was referred to the hospital today for G-tube dislodgement, due to be replaced today. EMS noted she was tachycardic, conversion with Adenosine 6 mg, 6 mg, 12 mg without effect, then brought to the ER. She is unable to provide any history which is obtained from prior records. In ED pt was tachycardic, UA was >182 WBC, +LE, CXR with bilateral opacifications---> CT showing likely lung CA without clear metastases. Leukocytosis with WBC 36K. Stable on her baseline MV settings. Lactate of 3 but with stable BP. ELLIE with hypernatremia, Cr 1.3, BUN 70. Started on volume resusitation and ABX. Started on Cardizem gtt by cardiology. Admitted to ICU. Down trending Lactate with volume. 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 Cardio/Vascular: Yes: HTN Pulmonary: Yes: Cancer (unsure about treatment) ...: No Psych: Yes: Anxiety, Schizophrenia - Alcohol/Substance Use Hx Alcohol Use: No - Smoking History Smoking history: Never smoked Have you smoked in the past 12 months: No Aproximately how many cigarettes per day: 0 - Social History Usual Living Arrangement: [facility] ADL: Support Services History of Recent Travel: No Home Medications - Allergies Allergies/Adverse Reactions: Allergies Allergy/AdvReac Type Severity Reaction Status Date / Time cefuroxime axetil Allergy Mild Rash Verified 12/11/16 10:43 [From Ceftin] - Home Medications Home Medications: Ambulatory Orders Acetaminophen [Tylenol .Regular Strength -] 325 mg PO Q6H PRN 01/29/14 Vit A/Vitamin D3/E/Aloe V/Znox [Periguard Ointment] 5 gm TP TID 01/29/14 Zinc Oxide 20% Topical Oint 454 gm TP DAILY 10/15/15 Zinc Sulfate 220 mg GT DAILY 10/15/15 Ascorbate Calcium [Vitamin C] 500 mg PEG DAILY #0 11/17/15 Aspirin [ASA -] 81 mg PO DAILY #30 tab.chew 11/17/15 Diltiazem [Cardizem -] 60 mg NGT Q6HPO #30 tablet 11/17/15 Metoprolol Tartrate [Lopressor -] 50 mg NGT TID #60 tablet 11/17/15 Nystatin Cream [Mycostatin Cream -] 1 applic TP BID applic 11/17/15 Polyethylene Glycol 3350 [Miralax 119 gm Btl -] 17 gm PEG DAILY #14 bottle 11/17 Docusate Liquid [Colace Liquid -] 50 mg GT DAILY 12/11/16 Family Disease History - Family Disease History Family History: Unable to Obtain Review of Systems Unable to obtain ROS, reason: Intubated, dementia Physical Exam Vital Signs: Vital Signs Temperature 98.5 F 12/11/16 18:00 Pulse Rate 91 H 12/11/16 20:00 Respiratory Rate 14 12/11/16 20:00 Blood Pressure 135/81 12/11/16 20:00 O2 Sat by Pulse Oximetry (%) 98 12/11/16 17:48 Constitutional: Yes: Other (Chronically critically ill appearing) Eyes: Yes: Conjunctiva Clear, EOM Intact HENT: Yes: Atraumatic Neck: Yes: Trachea Midline, Other (Trach CDI) Cardiovascular: Yes: Pulse Irregular, Murmur Respiratory: Yes: Diminished, Mechanically Ventilated, Rales (scattered rales). No: Accessory Muscle Use, Tachypnea, Wheezes Gastrointestinal: Yes: Normal Bowel Sounds, Soft. No: Tenderness ...Rectal Exam: Yes: Deferred Renal/: Yes: [place] Present Breast(s): Yes: WNL Musculoskeletal: Yes: Other (mild contracture) Extremities: No: Delayed Capillary Refill Edema: No (thin frail ) Integumentary: Yes: WNL Neurological: Yes: Unresponsive, Other (only withdrawal to noxious stimuli) ...Motor Strength: WNL Imaging - Results Chest X-ray: Report Reviewed, Image Reviewed Cat Scan: Report Reviewed, Image Reviewed EKG: Image Reviewed (Afib, no evidence of new ischemic changes, Rate 110) Problem List - Problems (1) Acute kidney injury Code(s): N17.9 - ACUTE KIDNEY FAILURE, UNSPECIFIED (2) Atrial fibrillation with rapid ventricular response Code(s): I48.91 - UNSPECIFIED ATRIAL FIBRILLATION (3) Dehydration Code(s): E86.0 - DEHYDRATION (4) Demand ischemia Code(s): I24.8 - OTHER FORMS OF ACUTE ISCHEMIC HEART DISEASE (5) Hypercalcemia Code(s): E83.52 - HYPERCALCEMIA (6) Hyperkalemia Code(s): E87.5 - HYPERKALEMIA (7) Hypernatremia Code(s): E87.0 - HYPEROSMOLALITY AND HYPERNATREMIA (8) PEG tube malfunction Code(s): K94.23 - GASTROSTOMY MALFUNCTION Assessment/Plan PULM/CCM Pt seen and examined in the ICU 86 y/o woman, chronic vent dependant with advanced dementia, psych disorder presented from [place] for replacement of PEG, noted to be tachycardic, Chest imaging with bilateral masses, ? PNA, + UTI, lactic acidosis and leukocytosis P/ -cont vent support, not candidate for weaning -Abx per ID, started on Echo -Cardizem gtt for rate control -trend lactate and Trop -volume resusitation, electrolytes and free water, likely chronic, correct slowly -restart BB in am once have PO access and titrate off cardizem as tolerated -given advanced dementia and poor funtional status further workup of lung mass not indicated -DVT prophy -OK for vent floor once off cardizem gtt David Saldaña ACNP [id number] CCT
[2016-12-12] MEDS: WATER IVPB SCH ×3 (02:03→17:39)
[2016-12-12] MEDS: DEXTROSE 5% IVPB SCH ×3 (02:03→17:39)
[2016-12-12] MEDS: DORIPENEM IVPB SCH ×3 (02:03→17:39)
[2016-12-12] MEDS ORDERED: dilTIAZem HCL 125 MG/25 ML - 5 ML VIAL ONE ×2 (02:07→16:07)
[2016-12-12] MEDS: DILTIAZEM INJECTION 125 MG in DEXTROSE 5%-WATER - 100 ML IVPB SCH ×2 (02:11→16:16)
[2016-12-12] MEDS: SODIUM CHLORIDE 1,000 ML IV SCH (04:19)
[2016-12-12] MEDS: HEPARIN NA (PORCINE) 5,000 UNITS/ML 1ML VIAL SQ SCH ×3 (06:17→22:00)
[2016-12-12 06:35] LABS: ALBUMIN 1.8 g/dl (3.4-5.0); ALK PHOS 127 U/L (45-117); ANION GAP 9 (8-16); BILIRUBIN,TOTAL 1.9 mg/dL (0.2-1.0); CALCIUM 10.4 mg/dL (8.5-10.1); CO2 24 mmol/L (21-32); CREATININE 0.7 mg/dL (0.55-1.02); GLUCOSE,RANDOM 128 mg/dL (74-106); SGOT/AST 68 U/L (15-37); SGPT/ALT 87 U/L (12-78); TOT PROT 6.4 g/dl (6.4-8.2)
[2016-12-12 06:40] LABS: TROPONIN I 0.15 ng/ml (0.00-0.05)
--- NOTE | 2016-12-12 07:09 | PN ---
Progress Note (short form) - Note Progress Note: Chief Complaint: Events noted, note reviewed, non responsive, remains in atrial fibrillation with periods of rapid ventricular response History of Present Illness: Seen and examined in the ICU. Events noted, note reviewed, non responsive, remains in atrial fibrillation with periods of rapid ventricular response Echocardiography dated 10/16/2015 revealed Normal LV size and function, mild bi- atrial enlargement, moderate-severe MR, severe TR, severe , mild AR Medications: Current Medications Acetaminophen (Tylenol Suppository -) 325 mg [place] Q4H PRN PRN Reason: FEVER OR PAIN Chlorhexidine Gluconate (Hibiclens For Decolonization -) 1 applic TP HS [facility] Last Admin: 12/11/16 21:01 Dose: 1 applic Heparin Sodium (Porcine) (Heparin -) 5,000 unit SQ TID SELVIN Last Admin: 12/12/16 06:17 Dose: 5,000 unit Diltiazem HCl 125 mg/ Dextrose 125 mls @ 5 mls/hr IVPB TITR SELVIN; 5 MG/HR PRN Reason: Protocol Last Admin: 12/12/16 02:11 Dose: 10 mls/hr Doripenem 250 mg/ Dextrose 100 mls @ 100 mls/hr IVPB Q8H-IV SELVIN Last Admin: 12/12/16 02:03 Dose: 100 mls/hr Mupirocin (Bactroban Ointment (For Decolonization) -) 1 applic NS BID SELVIN Stop: 12/16/16 21:59 Last Admin: 12/11/16 21:01 Dose: 1 applic Ondansetron HCl (Zofran Injection) 4 mg IVPB Q6H PRN PRN Reason: NAUSEA Review of Systems Unable to obtain ROS, reason: Advanced Dementia Vital Signs: Last Vital Signs Temp Pulse Resp BP Pulse Ox 98.6 F 106 H 20 124/80 95 12/12/16 06:00 12/12/16 06:00 12/12/16 06:36 12/12/16 06:00 12/11/16 22:00 Neck: Supple Negative JVD No Bruit Respiratory: Diminished Breath Sounds at the Bases Cardiovascular: S1 S2 Irregularly Irregular Grade 2-3/6 DYLAN Gastrointestinal: Soft Benign Normal Bowel Sounds Ext: No Edema Labs: Troponin, BNP 12/11/16 12/12/16 10:50 05:20 Troponin I 0.24 H 0.15 H CBC, BMP 12/12/16 05:20 Hepatic Panel Total Bilirubin 1.9 mg/dL (0.2-1.0) H D 12/12/16 05:20 AST 68 U/L (15-37) H D 12/12/16 05:20 ALT 87 U/L (12-78) H D 12/12/16 05:20 Alkaline Phosphatase 127 U/L (45-117) H 12/12/16 05:20 Albumin 1.8 g/dl (3.4-5.0) L 12/12/16 05:20 CBC from this AM pending Assessment/Plan ASSESSMENT: 1. Ventilator-dependent respiratory failure post trach, pneumonia 2. 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 Chronic LV diastolic dysfunction with class I NYHA classification LV failure , compensated 4. Moderate-severe MR 5. Severe 6. Severe TR 7. Persistent atrial fibrillation [id number] score of 7, on no A/C 8. HTN 9. 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 Pre-renal ELLIE with Hypernatremia and Hypokalemia PLAN: 1. Correction of Hypernatremia and Hypokalemia, switch fluids to D5W 1/3 NS with KCL + supplemental KCL 2. Ideally should be A/C unless it is absolutely contraindicated otherwise Continue ASA 3. Continue IV Cardizem for rate-control pending re-utilization of PEG tube at which point initiate B-Blockers +/- Cardizem 4. Vent management as per primary/critical care teams 5. Antibiotics as per the ID team 6. Repeat BMP later toroger Lord M.D.
[2016-12-12] MEDS ORDERED: D5-1/3NS+20 MEQ KCL - 1,000 ML IV SCH (07:15)
[2016-12-12 07:30] LABS: BASOPHIL 0.2 % (0-2.0); EOSINOPHIL 0.1 % (0-4.5); MCH 28.1 pg (25.7-33.7); MCHC 30.5 g/dl (32.0-36.0); MEAN CELL VOLUME 92.1 fl (80-96); MEAN PLT VOLUME 10.5 fl (7.5-11.1); NEUTROPHILS 93.6 % (42.8-82.8); PLATELET COUNT 92 K/MM3 (134-434); RDW 19.5 % (11.6-15.6); WHITE BLOOD COUNT 24.3 K/mm3 (4.0-10.0)
--- NOTE | 2016-12-12 08:23 | PN ---
Progress Note, Physician Chief Complaint: ID Case was discussed wit Dr Baldwin admitted with sepsis diagnosis Empiric Vancomcyin and Doripenem day 1 therapy - Current Medication List Current Medications: Active Medications Acetaminophen (Tylenol Suppository -) 325 mg [place] Q4H PRN PRN Reason: FEVER OR PAIN Chlorhexidine Gluconate (Hibiclens For Decolonization -) 1 applic TP HS [facility] Last Admin: 12/11/16 21:01 Dose: 1 applic Heparin Sodium (Porcine) (Heparin -) 5,000 unit SQ TID [facility] Last Admin: 12/12/16 06:17 Dose: 5,000 unit Diltiazem HCl 125 mg/ Dextrose 125 mls @ 5 mls/hr IVPB TITR SELVIN; 5 MG/HR PRN Reason: Protocol Last Admin: 12/12/16 02:11 Dose: 10 mls/hr Doripenem 250 mg/ Dextrose 100 mls @ 100 mls/hr IVPB Q8H-IV [facility] Last Admin: 12/12/16 02:03 Dose: 100 mls/hr Dextrose/Sodium Chloride (D5-1/3ns+20 Meq Kcl -) 1,000 mls @ 100 mls/hr IV ASDIR SELVIN Potassium Chloride (Potassium Chloride 10 Meq Premix Ivpb -) 100 mls @ 100 mls/ hr IVPB Q60M [facility] Stop: 12/12/16 09:14 Mupirocin (Bactroban Ointment (For Decolonization) -) 1 applic NS BID [facility] Stop: 12/16/16 21:59 Last Admin: 12/11/16 21:01 Dose: 1 applic Ondansetron HCl (Zofran Injection) 4 mg IVPB Q6H PRN PRN Reason: NAUSEA - Objective Vital Signs: Vital Signs Temperature 98.6 F 12/12/16 06:00 Pulse Rate 106 H 12/12/16 06:00 Respiratory Rate 20 12/12/16 06:36 Blood Pressure 124/80 12/12/16 06:00 O2 Sat by Pulse Oximetry (%) 95 12/11/16 22:00 Neck: Yes: Other (Trach) Cardiovascular: Yes: Pulse Irregular, S1, S2 Respiratory: Yes: Rhonchi Gastrointestinal: Yes: Soft Edema: No Labs: CBC, BMP 12/12/16 05:20 12/12/16 05:20 INR, PTT INR 2.08 (0.82-1.09) H D 12/11/16 12:00 Assessment/Plan Laboratory Tests 12/11/16 12/11/16 12/12/16 10:50 11:50 05:20 WBC 37.2 H* D 24.3 H D Hgb 12.7 Hct 41.8 Plt Count 92 L D BUN Creatinine Creat Clearance w eGFR Calcium Total Bilirubin AST ALT Alkaline Phosphatase Troponin I Ur Leukocyte Esterase 3+ H Urine RBC 7 Urine WBC 994 12/12/16 12/12/16 05:20 05:20 WBC Hgb Hct Plt Count BUN 53 H D Creatinine 0.7 D Creat Clearance w eGFR > 60 Calcium 10.4 H Total Bilirubin 1.9 H D AST 68 H D ALT 87 H D Alkaline Phosphatase 127 H Troponin I 0.15 H Ur Leukocyte Esterase Urine RBC Urine WBC Assessment Respiratory failure Atrial fibrillation Sepsis syndrome ( blood cultures neg this morning) urinary source History of MRSA culture positive Elevated LFT sepsis related Lung CA with lung masses and effusions seen on CT chest Plan Continue current antibiotics pending final c/s 38 minutes spent critical care time Avi VENTURA
[2016-12-12] MEDS: KCL 10 MEQ IVPB 100 ML IVPB SCH ×5 (08:47→18:29)
[2016-12-12] MEDS: POTASSIUM CHLORIDE 10 MEQ in DEXTROSE 5%-1/3 NS - 500 ML IVPB SCH ×3 (10:17→17:43)
[2016-12-12] MEDS ORDERED: PT OWN MED DRAWER 7, Y5N ONE (10:52)
[2016-12-12] MEDS: MUPIROCIN 2% TOPICAL OINTMENT FOR DECOLONIZATION NS SCH ×2 (10:56→22:00)
--- NOTE | 2016-12-12 11:01 | PN ---
Progress Note (short form) - Note Progress Note: PULMONARY/CCM Pt seen and examined in the ICU. Vented on volume assist control, poorly responsive. No fevers since admission. Remains on cardizem gtt. Last Vital Signs Temp Pulse Resp BP Pulse Ox 98.6 F 103 H 20 128/87 97 12/12/16 06:00 12/12/16 09:49 12/12/16 09:49 12/12/16 08:00 12/12/16 09:49 Intake & Output 12/09/16 12/10/16 12/11/16 12/12/16 23:59 23:59 23:59 23:59 Intake Total 2610 870 Output Total 800 400 Balance 1810 470 Weight 123 lb 11.2 oz 119 lb 11.2 oz Gen: vented, poorly responsive Heart: tachycardic, +systolic murmur at base Lung: scattered rhonchi Abd: soft, nontender Ext: no edema CBC, BMP 12/12/16 05:20 12/12/16 05:20 Active Medications Acetaminophen (Tylenol Suppository -) 325 mg [place] Q4H PRN PRN Reason: FEVER OR PAIN Aspirin (Asa -) 81 mg NC DAILY SELVIN Chlorhexidine Gluconate (Hibiclens For Decolonization -) 1 applic TP HS [facility] Last Admin: 12/11/16 21:01 Dose: 1 applic Heparin Sodium (Porcine) (Heparin -) 5,000 unit SQ TID [facility] Last Admin: 12/12/16 06:17 Dose: 5,000 unit Diltiazem HCl 125 mg/ Dextrose 125 mls @ 5 mls/hr IVPB TITR SELVIN; 5 MG/HR PRN Reason: Protocol Last Admin: 12/12/16 02:11 Dose: 10 mls/hr Doripenem 250 mg/ Dextrose 100 mls @ 100 mls/hr IVPB Q8H-IV [facility]EL[facility] Last Admin: 12/12/16 10:56 Dose: 100 mls/hr Potassium Chloride 10 meq/ (Dextrose/Sodium Chloride) 505 mls @ 100 mls/hr IVPB Q5H [facility]EL[facility] Last Admin: 12/12/16 10:17 Dose: 100 mls/hr Mupirocin (Bactroban Ointment (For Decolonization) -) 1 applic NS BID [facility]IN Stop: 12/16/16 21:59 Last Admin: 12/12/16 10:56 Dose: 1 applic Ondansetron HCl (Zofran Injection) 4 mg IVPB Q6H PRN PRN Reason: NAUSEA A/P Chronic Respiratory Failure UTI r/o Pneumonia Severe Sepsis Lactic Acidosis Acute Kidney Injury Hypernatremia/Dehydration Atrial Fibrillation with RVR Hypokalemia LV Diastolic Dysfunction Pleural Effusion HTN Severe h/o CVA Lung Masses likely malignant Dementia - continue antibiotics - f/u cultures - IVF - monitor urine output, creatinine - cardizem gtt - increase free water replacement - replete lytes - continue volume assist control - poor candidate for weaning at this time - enteral feeds - DVT/GI prophylaxis
[2016-12-12] MEDS ORDERED: ASPIRIN 300 MG SUPP.RECT RC SCH (11:25)
--- NOTE | 2016-12-12 11:30 | PN ---
Physical Exam: SUBJECTIVE: Patient seen and examined in the ICU. She slept for the entire exam. Appeared comfortable, no pain behaviours She is vented on volume assist control. On a Cardizem drip. I attempted to call her daughter Amada Bryan [phone], did not leave voicemail. Will attempt to call daughter later. OBJECTIVE Vital Signs Period Temp Pulse Resp BP Sys/Chase Pulse Ox Last 24 Hr 98.3 F-99.2 F 16-130 14-20 120-168/71-100 95-98 GENERAL: Lethargic, minimally responsive to tactile stimuli HEAD: Normal with no signs of trauma. ENT: Ears normal, nares patent, oropharynx clear without exudates NECK:She is vented on volume assist control. LUNGS: anterior breath sounds diminished but clear HEART: heart rate irregular, on cardizem drip ABDOMEN: Soft, nontender, nondistended, G tube present EXTREMITIES: 2+ pulses, warm, well-perfused, no edema. NEUROLOGICAL: minimally responsive to tactile stimuli PSYCH:Minimall responsive SKIN: G tube present Laboratory Results - last 24 hr 12/11/16 12/11/16 12/12/16 12:00 12:00 05:20 WBC 24.3 H D RBC 4.54 Hgb 12.7 Hct 41.8 MCV 92.1 MCHC 30.5 L RDW 19.5 H Plt Count 92 L D MPV 10.5 Neutrophils % 93.6 H Lymphocytes % 2.4 L D Monocytes % 3.7 L Eosinophils % 0.1 D Basophils % 0.2 INR 2.08 H D Sodium Potassium Chloride Carbon Dioxide Anion Gap BUN Creatinine Creat Clearance w eGFR Random Glucose Lactic Acid 2.245 H* Calcium Total Bilirubin AST ALT Alkaline Phosphatase Creatine Kinase Troponin I Total Protein Albumin Random Vancomycin 12/12/16 12/12/16 12/12/16 05:20 05:20 08:15 WBC RBC Hgb Hct MCV MCHC RDW Plt Count MPV Neutrophils % Lymphocytes % Monocytes % Eosinophils % Basophils % INR Sodium 162 H* Potassium 2.2 L* D Chloride 129 H Carbon Dioxide 24 Anion Gap 9 BUN 53 H D Creatinine 0.7 D Creat Clearance w eGFR > 60 Random Glucose 128 H Lactic Acid 1.374 Calcium 10.4 H Total Bilirubin 1.9 H D AST 68 H D ALT 87 H D Alkaline Phosphatase 127 H Creatine Kinase 28 Troponin I 0.15 H Total Protein 6.4 D Albumin 1.8 L Random Vancomycin 12/12/16 09:00 WBC RBC Hgb Hct MCV MCHC RDW Plt Count MPV Neutrophils % Lymphocytes % Monocytes % Eosinophils % Basophils % INR Sodium Potassium Chloride Carbon Dioxide Anion Gap BUN Creatinine Creat Clearance w eGFR Random Glucose Lactic Acid Calcium Total Bilirubin AST ALT Alkaline Phosphatase Creatine Kinase Troponin I Total Protein Albumin Random Vancomycin 8.086 Active Medications Generic Name Dose Route Start Last Admin Trade Name Freq PRN Reason Stop Dose Admin Acetaminophen 325 mg 12/11/16 12:07 Tylenol Suppository - ID Q4H PRN FEVER OR PAIN Aspirin 300 mg 12/12/16 11:25 Asa - RC DAILY SELVIN Chlorhexidine Gluconate 1 applic 12/11/16 22:00 12/11/16 21:01 Hibiclens For Decolonization - TP 1 applic HS SELVIN Administration Heparin Sodium (Porcine) 5,000 unit 12/11/16 14:00 12/12/16 06:17 Heparin - SQ 5,000 unit TID SELVIN Administration Diltiazem HCl 125 mg/ Dextrose 125 mls @ 5 mls/hr 12/11/16 13:15 12/12/16 02:11 IVPB 10 mls/hr TITR SELVIN Administration Protocol 5 MG/HR Doripenem 250 mg/ Dextrose 100 mls @ 100 mls/hr 12/11/16 18:00 12/12/16 10:56 IVPB 100 mls/hr Q8H-IV SELVIN Administration Potassium Chloride 10 meq/ 505 mls @ 100 mls/hr 12/12/16 09:00 12/12/16 10:17 Dextrose/Sodium Chloride IVPB 100 mls/hr Q5H SELVIN Administration Pantoprazole Sodium 40 mg/ 100 mls @ 200 mls/hr 12/13/16 10:00 Sodium Chloride IVPB DAILY SELVIN Mupirocin 1 applic 12/11/16 22:00 12/12/16 10:56 Bactroban Ointment (For Decolonization) - NS 12/16/16 21:59 1 applic BID SELVIN Administration Ondansetron HCl 4 mg 12/11/16 12:07 Zofran Injection IVPB Q6H PRN NAUSEA Potassium Chloride 40 meq 12/12/16 11:15 Kcl Oral Solution - PO 12/12/16 15:16 Q4H SELVIN ASSESSMENT/PLAN: Patient is an 86 year old female who resides at the [facility]. She has a significant past medical history of severe dementia, lung cancer ( stage?), hypertension, schizophrenia, anxiety, aortic stenosis, mitral regurgitation, atrial fibrillation, chronic diastolic heart failure and chronic respiratory failure (had percutaneous trach placed on 11/12/2015). She was being sent to the hospital via EMS for a scheduled G tube replacement when EMS noted patient to have tachycardia. She was given Adenosine various times and then brought into the ER. In the ER, she was found to have a temperature of 102.4 and a WBC of 37.2. Her electrolytes on admission: Sodium 158, K 5.7, BUN 74, creatinine 1.3, calcium 11.4 and lactic acid was 3.068. Further her UA showed 1+ protein, 2+ blood, urobilinogen 4.0, 3+ leukocyte esterase and WBC of 994. She was admitted to the ICU. Imaging: Chest Xray - 12/11/16 increasing left bone density and left pleural effusion, right upper lobe opacity is now noted and possbility also left upper lobe opacity. CT/Head CT without contrast 12/11/16 - extensive periventricular white matter chronic microvascular ischemic changes. left subinsular and left thalamic old lacunar infarct. Encephalomalacia/old infarct in the right occipital lobe, medially. Findings suspicious for interval acute/subacute infarct in the right temporal lobe. CT/Abdomen & Pelvis CT w/o contrast 12/11/2016 CT/Chest CT without contrast 12/11/2016 (1) 2 large pulmonary masses w/in the right and left upper lobes consistent with malignancy with additional 7mm right mid lobe nodule (2) extensive left lower lobe atelectasis and pleural effusion (3) small right pleural effusion with basilar atelactasis (4) 3.7cm distal AAA (5) no acute evidence of metastatic disease or acute path. within abdomen/ pelvis. ID: Severe sepsis likely secondary to UTI and/or Health care associated pneumonia Assessment/Plan: Lactic acidosis on admission, now has since resolved. Leukocytosis with some improvement 37.2 > 24.3 She was started on Vancomycin and Doripenum in the ER. ID following Urinary Tract Infection - acute Assessment/Plan: UA showed 1+ protein, 2+ blood, urobilinogen 4.0, 3+ leukocyte esterase and WBC of 994. Afebrile since admission Urine culture with non lactose fermenting grib - pending organism Pneumonia - possible health care associated - acute Assessment/Plan: Chest Xray - 12/11/16 increasing left bone density and left pleural effusion, right upper lobe opacity is now noted and possibility also left upper lobe opacity. On Doripenum as per ID She is vented on volume assist control for chronic hypoxic respiratory failure - had trach placed 11/2015 Cardiology: Hypertension - chronic Assessment/Plan: HTN currently controlled Monitor BP trend Aortic stenosis, mitral regurgitation/CHF - chronic Assessment/Plan: On IV Cardizem for rate control pending PEG tube replacement when stable beta blockers as per cardiology Neuro: CT/Head CT without contrast with Encephalomalacia/old infarct in the right occipital lobe, medially. Findings suspicious for interval acute/subacute infarct in the right temporal lobe. Assessment/Plan: CT suggestive of acute/subacute infart in right temporal lobe. Started on ASA 300mg ID Neurology consulted : Acute Kidney Injury - improving Assessment/Plan: BUN 74 > 53, Creatinine 1.3 > 0.7 Monitor trend Psyche: Anxiety/Schizophrenia Assessment/Plan: Monitor, for now, unable to assess as pt is lethargic Oncology: Lung cancer - chronic Assessment/Plan: Not on any active chemo/treatment F.E.N. Fluids: D5W 1/3 NS with 10 MEQ Electrolytes: Hypernatremia: treat with D5W 1/3 NS with 10 MEQ HypoKalemia: supplemental KCL riders ordered by cardiology and on IVF with continuous K- recheck BMP this afternoon Nutrition: NPO Prophylaxis: DVT: Heparin TID GI: Protonix Visit type - Emergency Visit Emergency Visit: Yes ED Registration Date: 12/11/16 Care time: The patient presented to the Emergency Department on the above date and was hospitalized for further evaluation of their emergent condition. - New Patient This patient is new to me today: Yes Date on this admission: 12/12/16 - Critical Care Critical Care patient: Yes Total Critical Care Time (in minutes): 60 Critical Care Statement: The care of this patient involved high complexity decision making to prevent further life threatening deterioration of the patient 's condition and/or to evalute & treat vital organ system(s) failure or risk of failure.
[2016-12-12 14:26] LABS: ALBUMIN 1.8 g/dl (3.4-5.0); ALK PHOS 120 U/L (45-117); ANION GAP 8 (8-16); BILIRUBIN,TOTAL 1.7 mg/dL (0.2-1.0); CALCIUM 10.4 mg/dL (8.5-10.1); CO2 22 mmol/L (21-32); CREATININE 0.7 mg/dL (0.55-1.02); GLUCOSE,RANDOM 168 mg/dL (74-106); SGOT/AST 48 U/L (15-37); SGPT/ALT 72 U/L (12-78); TOT PROT 6.3 g/dl (6.4-8.2)
[2016-12-12] MEDS ORDERED: KCL 10 MEQ IVPB 100 ML IVPB SCH (15:00)
[2016-12-12] MEDS: POTASSIUM CHLORIDE 40 MEQ/30 ML UNIT DOSE CUP PO SCH ×2 (16:04→16:24)
[2016-12-12] MEDS: ASPIRIN 300 MG SUPP.RECT RC SCH (17:21)
--- NOTE | 2016-12-12 19:54 | CONSULT ---
Consult Consult Specialty:: Neurology Reason for Consultation:: subacute temporal lobe infarction - History of Present Illness History of Present Illness: 86 yo with atrial fib., lung cancer and severe dementia, likely multi-infarct with CT demonstrating multiple large vessel territory infrarction likely embolic admitted with sepsis and respiratory failure. She was noted to be more lethargic with CT of head revealing new subacute infarct in right temporal lobe. 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 Cardio/Vascular: Yes: HTN Pulmonary: Yes: Cancer (unsure about treatment) ...: No Psych: Yes: Anxiety, Schizophrenia - Alcohol/Substance Use Hx Alcohol Use: No - Smoking History Smoking history: Never smoked Have you smoked in the past 12 months: No Aproximately how many cigarettes per day: 0 - Social History Usual Living Arrangement: Senior Care ADL: Support Services History of Recent Travel: No Home Medications - Allergies Allergies/Adverse Reactions: Allergies Allergy/AdvReac Type Severity Reaction Status Date / Time cefuroxime axetil Allergy Mild Rash Verified 12/11/16 10:43 [From Ceftin] - Home Medications Home Medications: Ambulatory Orders Acetaminophen [Tylenol .Regular Strength -] 325 mg PO Q6H PRN 01/29/14 Vit A/Vitamin D3/E/Aloe V/Znox [Periguard Ointment] 5 gm TP TID 01/29/14 Zinc Oxide 20% Topical Oint 454 gm TP DAILY 10/15/15 Zinc Sulfate 220 mg GT DAILY 10/15/15 Ascorbate Calcium [Vitamin C] 500 mg PEG DAILY #0 11/17/15 Aspirin [ASA -] 81 mg PO DAILY #30 tab.chew 11/17/15 Diltiazem [Cardizem -] 60 mg NGT Q6HPO #30 tablet 11/17/15 Metoprolol Tartrate [Lopressor -] 50 mg NGT TID #60 tablet 11/17/15 Nystatin Cream [Mycostatin Cream -] 1 applic TP BID applic 11/17/15 Polyethylene Glycol 3350 [Miralax 119 gm Btl -] 17 gm PEG DAILY #14 bottle 11/17 Docusate Liquid [Colace Liquid -] 50 mg GT DAILY 12/11/16 Physical Exam Vital Signs: Vital Signs Temperature 99.9 F H 12/12/16 17:58 Pulse Rate 100 H 12/12/16 17:58 Respiratory Rate 27 H 12/12/16 19:17 Blood Pressure 116/87 12/12/16 17:58 O2 Sat by Pulse Oximetry (%) 97 12/12/16 09:49 Constitutional: Yes: Other (responds only to pain on the left with grimace and withdrawal) HENT: Yes: Atraumatic (Dolls eyes present. no facial asymmtry. 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 No further neuro-investigative studies are medically necessary. Treatment of embolic stroke per the expertise of cardiology with co-morbid Afib Expect poor neurological outcome
--- NOTE | 2016-12-12 19:55 | CONSULT ---
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 Cardio/Vascular: Yes: HTN Pulmonary: Yes: Cancer (unsure about treatment) ...: No Psych: Yes: Anxiety, Schizophrenia - Alcohol/Substance Use Hx Alcohol Use: No - Smoking History Smoking history: Never smoked Have you smoked in the past 12 months: No Aproximately how many cigarettes per day: 0 - Social History Usual Living Arrangement: Long Term ADL: Support Services History of Recent Travel: No Home Medications - Allergies Allergies/Adverse Reactions: Allergies Allergy/AdvReac Type Severity Reaction Status Date / Time cefuroxime axetil Allergy Mild Rash Verified 12/11/16 10:43 [From Ceftin] - Home Medications Home Medications: Ambulatory Orders Acetaminophen [Tylenol .Regular Strength -] 325 mg PO Q6H PRN 01/29/14 Vit A/Vitamin D3/E/Aloe V/Znox [Periguard Ointment] 5 gm TP TID 01/29/14 Zinc Oxide 20% Topical Oint 454 gm TP DAILY 10/15/15 Zinc Sulfate 220 mg GT DAILY 10/15/15 Ascorbate Calcium [Vitamin C] 500 mg PEG DAILY #0 11/17/15 Aspirin [ASA -] 81 mg PO DAILY #30 tab.chew 11/17/15 Diltiazem [Cardizem -] 60 mg NGT Q6HPO #30 tablet 11/17/15 Metoprolol Tartrate [Lopressor -] 50 mg NGT TID #60 tablet 11/17/15 Nystatin Cream [Mycostatin Cream -] 1 applic TP BID applic 11/17/15 Polyethylene Glycol 3350 [Miralax 119 gm Btl -] 17 gm PEG DAILY #14 bottle 11/17 Docusate Liquid [Colace Liquid -] 50 mg GT DAILY 12/11/16 Physical Exam Vital Signs: Vital Signs Temperature 99.9 F H 12/12/16 17:58 Pulse Rate 100 H 12/12/16 17:58 Respiratory Rate 27 H 12/12/16 19:17 Blood Pressure 116/87 12/12/16 17:58 O2 Sat by Pulse Oximetry (%) 97 12/12/16 09:49 Labs: CBC, BMP 12/12/16 05:20 12/12/16 13:30
[2016-12-12] MEDS: CHLORHEXIDINE GLUCONATE 4% CLEANSER FOR DECOLONIZATION TP SCH (22:00)
[2016-12-13] MEDS ORDERED: PT OWN MED DRAWER 7, Y5N ONE ×3 (01:11→17:19)
[2016-12-13] MEDS: WATER IVPB SCH ×3 (01:14→17:19)
[2016-12-13] MEDS: DEXTROSE 5% IVPB SCH ×3 (01:14→17:19)
[2016-12-13] MEDS: DORIPENEM IVPB SCH ×3 (01:14→17:19)
[2016-12-13] MEDS: POTASSIUM CHLORIDE 10 MEQ in DEXTROSE 5%-1/3 NS - 500 ML IVPB SCH ×3 (01:35→09:57)
[2016-12-13] MEDS ORDERED: dilTIAZem HCL 125 MG/25 ML - 5 ML VIAL ONE ×2 (01:42→16:16)
[2016-12-13] MEDS: HEPARIN NA (PORCINE) 5,000 UNITS/ML 1ML VIAL SQ SCH ×3 (06:00→22:00)
[2016-12-13 06:50] LABS: BASOPHIL 0.6 % (0-2.0); EOSINOPHIL 0.5 % (0-4.5); MCH 28.3 pg (25.7-33.7); MCHC 30.9 g/dl (32.0-36.0); MEAN CELL VOLUME 91.5 fl (80-96); NEUTROPHILS 92.9 % (42.8-82.8); PLATELET COUNT 91 K/MM3 (134-434); RDW 19.7 % (11.6-15.6); WHITE BLOOD COUNT 22.6 K/mm3 (4.0-10.0)
[2016-12-13] MEDS: DILTIAZEM INJECTION 125 MG in DEXTROSE 5%-WATER - 100 ML IVPB SCH ×2 (06:54→13:35)
[2016-12-13 07:09] LABS: CALCIUM 9.8 mg/dL (8.5-10.1); MAGNESIUM 1.9 mg/dL (1.8-2.4)
[2016-12-13 07:19] LABS: CREATININE 0.7 mg/dL (0.55-1.02)
[2016-12-13 07:47] LABS: PHOSPHOROUS 0.8 mg/dL (2.5-4.9)
--- NOTE | 2016-12-13 07:58 | PN ---
Progress Note (short form) - Note Progress Note: Chief Complaint: Events noted, note reviewed, opening eyes and grimaces, remains in atrial fibrillation with periods of rapid ventricular response, remains on IV Cardizem History of Present Illness: Seen and examined in the ICU. Events noted, note reviewed, opening eyes and grimaces, remains in atrial fibrillation with periods of rapid ventricular response, remains on IV Cardizem Echocardiography dated 10/16/2015 revealed Normal LV size and function, mild bi- atrial enlargement, moderate-severe MR, severe TR, severe , mild AR Medications: Current Medications Acetaminophen (Tylenol Suppository -) 325 mg MA Q4H PRN PRN Reason: FEVER OR PAIN Aspirin (Asa -) 300 mg RC DAILY [facility] Last Admin: 12/12/16 17:21 Dose: 300 mg Chlorhexidine Gluconate (Hibiclens For Decolonization -) 1 applic TP HS [facility] Last Admin: 12/12/16 22:00 Dose: 1 applic Heparin Sodium (Porcine) (Heparin -) 5,000 unit SQ TID [facility] Last Admin: 12/13/16 06:00 Dose: 5,000 unit Diltiazem HCl 125 mg/ Dextrose 125 mls @ 5 mls/hr IVPB TITR SELVIN; 5 MG/HR PRN Reason: Protocol Last Admin: 12/13/16 06:54 Dose: 10 mls/hr Doripenem 250 mg/ Dextrose 100 mls @ 100 mls/hr IVPB Q8H-IV [facility] Last Admin: 12/13/16 01:14 Dose: 100 mls/hr Pantoprazole Sodium 40 mg/ (Sodium Chloride) 100 mls @ 200 mls/hr IVPB DAILY [facility] Potassium Chloride 10 meq/ (Dextrose/Sodium Chloride) 505 mls @ 100 mls/hr IVPB Q5H [facility] Last Admin: 12/13/16 06:54 Dose: 100 mls/hr Mupirocin (Bactroban Ointment (For Decolonization) -) 1 applic NS BID [facility] Stop: 12/16/16 21:59 Last Admin: 12/12/16 22:00 Dose: 1 applic Ondansetron HCl (Zofran Injection) 4 mg IVPB Q6H PRN PRN Reason: NAUSEA Review of Systems Unable to obtain ROS, reason: Advanced Dementia Vital Signs: Last Vital Signs Temp Pulse Resp BP Pulse Ox 98.6 F 88 22 136/79 97 12/13/16 06:00 12/13/16 06:00 12/13/16 06:00 12/13/16 06:00 12/12/16 22:00 Neck: Supple Negative JVD No Bruit Respiratory: Diminished Breath Sounds at the Bases Cardiovascular: S1 S2 Irregularly Irregular Grade 2-3/6 DYLAN Gastrointestinal: Soft Benign Normal Bowel Sounds Ext: No Edema Labs: CBC, BMP 12/13/16 05:20 12/13/16 05:20 Assessment/Plan ASSESSMENT: 1. Ventilator-dependent respiratory failure post trach, pneumonia 2. 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 Chronic LV diastolic dysfunction with class I NYHA classification LV failure , compensated 4. Moderate-severe MR 5. Severe 6. Severe TR 7. Persistent atrial fibrillation [id number] score of 7, on no A/C 8. HTN 9. 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 Pre-renal ELLIE with Hypernatremia (persistent) and Hypokalemia (resolved) PLAN: 1. Continue IV fluids as ordered for correction of Hypernatremia repeat BMP later toady 2. Ideally should be A/C unless it is absolutely contraindicated considering the above noted [id number] score of 7 otherwise Continue ASA 3. Continue IV Cardizem for rate-control pending re-utilization of PEG tube at which point initiate B-Blockers +/- Cardizem 4. Vent management as per primary/critical care teams 5. Antibiotics as per the ID team Polina Lord M.D.
[2016-12-13] MEDS ORDERED: ASPIRIN 81 MG CHEWABLE TABLETS ONE (09:24)
[2016-12-13] MEDS: PANTOPRAZOLE SODIUM 100 ML IVPB SCH (09:57)
[2016-12-13] MEDS: MUPIROCIN 2% TOPICAL OINTMENT FOR DECOLONIZATION NS SCH ×2 (09:57→22:00)
[2016-12-13] MEDS ORDERED: ASPIRIN 300 MG SUPP.RECT RC SCH ×2 (10:00)
[2016-12-13] MEDS ORDERED: PANTOPRAZOLE SODIUM 40 MG in SODIUM CHLORIDE 100 ML IVPB SCH (10:00)
[2016-12-13] MEDS ORDERED: ASPIRIN 300 MG SUPP.RECT PR SCH (10:00)
[2016-12-13] MEDS ORDERED: POTASSIUM PHOSPHATE 45 MM in DEXTROSE 5%-WATER - 500 ML IVPB ONE (10:30)
--- NOTE | 2016-12-13 11:24 | PN ---
Progress Note (short form) - Note Progress Note: PULMONARY/CCM Pt seen and examined in the ICU. Vented on volume assist control, poorly responsive but eyes open today. Remains on cardizem gtt with better heart rates. Last Vital Signs Temp Pulse Resp BP Pulse Ox 97.5 F L 84 23 112/80 97 12/13/16 09:35 12/13/16 09:35 12/13/16 11:12 12/13/16 09:35 12/12/16 22:00 Intake & Output 12/10/16 12/11/16 12/12/16 12/13/16 23:59 23:59 23:59 23:59 Intake Total 2610 2530 870 Output Total 800 600 250 Balance 1810 1930 620 Weight 123 lb 11.2 oz 119 lb 11.2 oz 124 lb 9.6 oz Gen: vented, poorly responsive Heart: tachycardic, +systolic murmur at base Lung: scattered rhonchi Abd: soft, nontender Ext: no edema CBC, BMP 12/13/16 05:20 12/13/16 05:20 Active Medications Acetaminophen (Tylenol Suppository -) 325 mg NE Q4H PRN PRN Reason: FEVER OR PAIN Aspirin (Asa -) 300 mg RC DAILY [facility] Last Admin: 12/12/16 17:21 Dose: 300 mg Chlorhexidine Gluconate (Hibiclens For Decolonization -) 1 applic TP HS [facility] Last Admin: 12/12/16 22:00 Dose: 1 applic Heparin Sodium (Porcine) (Heparin -) 5,000 unit SQ TID SELVIN Last Admin: 12/13/16 06:00 Dose: 5,000 unit Diltiazem HCl 125 mg/ Dextrose 125 mls @ 5 mls/hr IVPB TITR SELVIN; 5 MG/HR PRN Reason: Protocol Last Admin: 12/13/16 06:54 Dose: 10 mls/hr Doripenem 250 mg/ Dextrose 100 mls @ 100 mls/hr IVPB Q8H-IV SELVIN Last Admin: 12/13/16 09:48 Dose: 100 mls/hr Potassium Chloride 10 meq/ (Dextrose/Sodium Chloride) 505 mls @ 100 mls/hr IVPB Q5H SELVIN Last Admin: 12/13/16 09:57 Dose: 100 mls/hr Pantoprazole Sodium (Protonix 40mg Ivpb (Pre-Docked)) 100 mls @ 200 mls/hr IVPB DAILY [facility] Last Admin: 12/13/16 09:57 Dose: 200 mls/hr Potassium Phosphate 45 mm/ (Dextrose) 515 mls @ 62.5 mls/hr IVPB ONCE ONE Stop: 12/13/16 18:44 Mupirocin (Bactroban Ointment (For Decolonization) -) 1 applic NS BID [facility] Stop: 12/16/16 21:59 Last Admin: 12/13/16 09:57 Dose: 1 applic Ondansetron HCl (Zofran Injection) 4 mg IVPB Q6H PRN PRN Reason: NAUSEA A/P Chronic Respiratory Failure UTI Pneumonia Severe Sepsis Lactic Acidosis Acute Kidney Injury improving Hypernatremia/Dehydration Atrial Fibrillation with RVR Hypokalemia LV Diastolic Dysfunction Pleural Effusion HTN Severe h/o CVA Lung Masses likely malignant Dementia - continue antibiotics - f/u cultures - IVF - monitor urine output, creatinine - cardizem gtt - increase free water replacement - continue volume assist control - poor candidate for weaning at this time - enteral feeds - DVT/GI prophylaxis - continue discussions regarding advanced directives/goals of care
[2016-12-13] MEDS: ASPIRIN 300 MG SUPP.RECT RC SCH (11:33)
--- NOTE | 2016-12-13 11:41 | PN ---
Physical Exam: SUBJECTIVE: Patient seen and examined. Eyes open, breathing labored. At 11am, again attempted to reach out to patient's daughter Amada Bryan @ [phone], left voice mail. Provided my cell phone no. Purpose of call was to discuss goals of care, advance directives. OBJECTIVE: Vital Signs Period Temp Pulse Resp BP Sys/Chase Pulse Ox Last 24 Hr 97.5 F-100.6 F 62-102 16-27 110-136/72-94 97-100 GENERAL: Lethargic, eyes open today, non verbal HEAD: Normal with no signs of trauma. ENT: Ears normal, nares patent, oropharynx clear without exudates NECK:She is vented on volume assist control. LUNGS: anterior breath sounds with congestion, rhonchi anteriorly HEART: heart rate irregular, on cardizem drip ABDOMEN: Soft, nontender, nondistended, G tube present EXTREMITIES: 2+ pulses, warm, well-perfused, no edema. NEUROLOGICAL: minimally responsive to tactile stimuli PSYCH:lethargic,unable to fully assess SKIN: G tube present Laboratory Results - last 24 hr 12/12/16 12/12/16 12/13/16 13:30 21:39 05:20 WBC 22.6 H RBC 4.30 Hgb 12.2 Hct 39.4 MCV 91.5 MCHC 30.9 L RDW 19.7 H Plt Count 91 L MPV 11.0 Neutrophils % 92.9 H Lymphocytes % 2.5 L Monocytes % 3.5 L Eosinophils % 0.5 D Basophils % 0.6 Sodium 158 H Potassium 2.9 L* D 4.5 D Chloride 128 H Carbon Dioxide 22 Anion Gap 8 BUN 46 H Creatinine 0.7 Creat Clearance w eGFR > 60 Random Glucose 168 H D Calcium 10.4 H Phosphorus Magnesium Total Bilirubin 1.7 H AST 48 H D ALT 72 Alkaline Phosphatase 120 H Total Protein 6.3 L Albumin 1.8 L 12/13/16 05:20 WBC RBC Hgb Hct MCV MCHC RDW Plt Count MPV Neutrophils % Lymphocytes % Monocytes % Eosinophils % Basophils % Sodium 156 H Potassium 4.1 Chloride 126 H Carbon Dioxide 24 Anion Gap 6 L BUN 44 H Creatinine 0.7 Creat Clearance w eGFR Random Glucose 198 H Calcium 9.8 Phosphorus 0.8 L* Magnesium 1.9 Total Bilirubin AST ALT Alkaline Phosphatase Total Protein Albumin Active Medications Generic Name Dose Route Start Last Admin Trade Name Freq PRN Reason Stop Dose Admin Acetaminophen 325 mg 12/11/16 12:07 Tylenol Suppository - KS Q4H PRN FEVER OR PAIN Aspirin 300 mg 12/12/16 16:30 12/13/16 11:33 Asa - RC 300 mg DAILY SELVIN Administration Chlorhexidine Gluconate 1 applic 12/11/16 22:00 12/12/16 22:00 Hibiclens For Decolonization - TP 1 applic HS SELVIN Administration Heparin Sodium (Porcine) 5,000 unit 12/11/16 14:00 12/13/16 06:00 Heparin - SQ 5,000 unit TID SELVIN Administration Diltiazem HCl 125 mg/ Dextrose 125 mls @ 5 mls/hr 12/11/16 13:15 12/13/16 06:54 IVPB 10 mls/hr TITR SELVIN Administration Protocol 5 MG/HR Doripenem 250 mg/ Dextrose 100 mls @ 100 mls/hr 12/11/16 18:00 12/13/16 09:48 IVPB 100 mls/hr Q8H-IV SELVIN Administration Potassium Chloride 10 meq/ 505 mls @ 100 mls/hr 12/12/16 15:30 12/13/16 09:57 Dextrose/Sodium Chloride IVPB 100 mls/hr Q5H SELVIN Administration Pantoprazole Sodium 100 mls @ 200 mls/hr 12/13/16 10:00 12/13/16 09:57 Protonix 40mg Ivpb (Pre-Docked) IVPB 200 mls/hr DAILY SELVIN Administration Potassium Phosphate 45 mm/ 515 mls @ 62.5 mls/hr 12/13/16 10:30 12/13/16 11:32 Dextrose IVPB 12/13/16 18:44 62.5 mls/hr ONCE ONE Administration Mupirocin 1 applic 12/11/16 22:00 12/13/16 09:57 Bactroban Ointment (For Decolonization) - NS 12/16/16 21:59 1 applic BID SELVIN Administration Ondansetron HCl 4 mg 12/11/16 12:07 Zofran Injection IVPB Q6H PRN NAUSEA ASSESSMENT/PLAN Patient is an 86 year old female who resides at the [facility]. She has a significant past medical history of severe dementia, lung cancer ( stage?), hypertension, schizophrenia, anxiety, aortic stenosis, mitral regurgitation, atrial fibrillation, chronic diastolic heart failure and chronic respiratory failure (had percutaneous trach placed on 11/12/2015). She was being sent to the hospital via EMS for a scheduled G tube replacement when EMS noted patient to have tachycardia. She was given Adenosine various times and then brought into the ER. In the ER, she was found to have a temperature of 102.4 and a WBC of 37.2. Her electrolytes on admission: Sodium 158, K 5.7, BUN 74, creatinine 1.3, calcium 11.4 and lactic acid was 3.068. Further her UA showed 1+ protein, 2+ blood, urobilinogen 4.0, 3+ leukocyte esterase and WBC of 994. She was admitted to the ICU. Imaging: Chest Xray - 12/11/16 increasing left bone density and left pleural effusion, right upper lobe opacity is now noted and possbility also left upper lobe opacity. CT/Head CT without contrast 12/11/16 - extensive periventricular white matter chronic microvascular ischemic changes. left subinsular and left thalamic old lacunar infarct. Encephalomalacia/old infarct in the right occipital lobe, medially. Findings suspicious for interval acute/subacute infarct in the right temporal lobe. CT/Abdomen & Pelvis CT w/o contrast 12/11/2016 CT/Chest CT without contrast 12/11/2016 (1) 2 large pulmonary masses w/in the right and left upper lobes consistent with malignancy with additional 7mm right mid lobe nodule (2) extensive left lower lobe atelectasis and pleural effusion (3) small right pleural effusion with basilar atelactasis (4) 3.7cm distal AAA (5) no acute evidence of metastatic disease or acute path. within abdomen/ pelvis. ID: Severe sepsis likely secondary to UTI and/or Health care associated pneumonia Assessment/Plan: Lactic acidosis on admission, now has since resolved. Leukocytosis with some improvement 37.2 > 24.3 > 22.6 On Doripenum per ID Urinary Tract Infection - acute Assessment/Plan: UA showed 1+ protein, 2+ blood, urobilinogen 4.0, 3+ leukocyte esterase and WBC of 994. Afebrile since admission Urine culture with non lactose fermenting grib - pending organism Pneumonia - possible health care associated - acute Assessment/Plan: Chest Xray - 12/11/16 increasing left bone density and left pleural effusion, right upper lobe opacity is now noted and possibility also left upper lobe opacity. On Doripenum as per ID She is vented on volume assist control for chronic hypoxic respiratory failure - had trach placed 11/2015 + MRSA in nares Cardiology: Hypertension - chronic Assessment/Plan: HTN currently controlled Monitor BP trend Aortic stenosis, mitral regurgitation/CHF - chronic Assessment/Plan: On IV Cardizem for rate control pending PEG tube replacement when stable beta blockers as per cardiology Neuro: CT/Head CT without contrast with Encephalomalacia/old infarct in the right occipital lobe, medially. Findings suspicious for interval acute/subacute infarct in the right temporal lobe. Assessment/Plan: CT suggestive of acute/subacute infarct in right temporal lobe. Started on ASA 300mg KS Neurology notes reviewed : Acute Kidney Injury - improving Assessment/Plan: Monitor trend GI: Peg tube dislodgment - acute Assessment/Plan: No meds through peg tube until seen by GI Psyche: Anxiety/Schizophrenia Assessment/Plan: Monitor, for now, unable to assess as pt is lethargic Oncology: Lung cancer - chronic Assessment/Plan: Not on any active chemo/treatment F.E.N. Fluids: D5W 1/3 NS with 10 MEQ Electrolytes: Hypernatremia: slightly improving HypoKalemia: resolved Phosphours: 0.8 - replete with potassium phosphate Nutrition: NPO Prophylaxis: DVT: Heparin TID GI: Protonix Visit type - Emergency Visit Emergency Visit: Yes ED Registration Date: 12/11/16 Care time: The patient presented to the Emergency Department on the above date and was hospitalized for further evaluation of their emergent condition. - New Patient This patient is new to me today: No - Critical Care Critical Care patient: Yes Total Critical Care Time (in minutes): 45 Critical Care Statement: The care of this patient involved high complexity decision making to prevent further life threatening deterioration of the patient 's condition and/or to evalute & treat vital organ system(s) failure or risk of failure. - Discharge Referral Referred to [facility] No
[2016-12-13 18:59] LABS: CALCIUM 9.7 mg/dL (8.5-10.1); CREATININE 0.8 mg/dL (0.55-1.02)
[2016-12-13] MEDS: DEXTROSE 5%-0.45% SALINE 1,000 ML IV SCH (20:00)
[2016-12-13] MEDS: CHLORHEXIDINE GLUCONATE 4% CLEANSER FOR DECOLONIZATION TP SCH (22:00)
[2016-12-14] MEDS: DEXTROSE 5% IVPB SCH (01:55)
[2016-12-14] MEDS: WATER IVPB SCH (01:55)
[2016-12-14] MEDS ORDERED: PT OWN MED DRAWER 7, Y5N ONE ×5 (01:55→23:26)
[2016-12-14] MEDS: DORIPENEM IVPB SCH (01:55)
[2016-12-14] MEDS ORDERED: morphine CARPU-JECT 2 MG/1 ML DISP.SYRIN IVPUSH PRN (02:29)
[2016-12-14] MEDS: DEXTROSE 5%-0.45% SALINE 1,000 ML IV SCH ×2 (05:03→23:45)
[2016-12-14] MEDS: HEPARIN NA (PORCINE) 5,000 UNITS/ML 1ML VIAL SQ SCH (05:04)
[2016-12-14 06:13] LABS: MCH 28.2 pg (25.7-33.7); MCHC 30.7 g/dl (32.0-36.0); MEAN PLT VOLUME 11.3 fl (7.5-11.1); PLATELET COUNT 83 K/MM3 (134-434); RDW 20.4 % (11.6-15.6); WHITE BLOOD COUNT 21.6 K/mm3 (4.0-10.0)
[2016-12-14] MEDS ORDERED: dilTIAZem HCL 125 MG/25 ML - 5 ML VIAL ONE ×3 (06:37→17:48)
[2016-12-14] MEDS: DILTIAZEM INJECTION 125 MG in DEXTROSE 5%-WATER - 100 ML IVPB SCH (06:39)
[2016-12-14 06:49] LABS: CALCIUM 8.7 mg/dL (8.5-10.1); CREATININE 0.8 mg/dL (0.55-1.02); MAGNESIUM 1.6 mg/dL (1.8-2.4); PHOSPHOROUS 3.5 mg/dL (2.5-4.9)
--- NOTE | 2016-12-14 08:09 | PN ---
Progress Note, Physician Chief Complaint: ID Doripenem day 3 therapy with Vanco Respiratory failure/ Trach - Current Medication List Current Medications: Active Medications Acetaminophen (Tylenol Suppository -) 325 mg SC Q4H PRN PRN Reason: FEVER OR PAIN Aspirin (Asa -) 300 mg RC DAILY [facility] Last Admin: 12/13/16 11:33 Dose: 300 mg Chlorhexidine Gluconate (Hibiclens For Decolonization -) 1 applic TP HS [facility] Last Admin: 12/13/16 22:00 Dose: 1 applic Heparin Sodium (Porcine) (Heparin -) 5,000 unit SQ TID [facility] Last Admin: 12/14/16 05:04 Dose: 5,000 unit Diltiazem HCl 125 mg/ Dextrose 125 mls @ 5 mls/hr IVPB TITR SELVIN; 5 MG/HR PRN Reason: Protocol Last Admin: 12/14/16 06:39 Dose: 10 mls/hr Doripenem 250 mg/ Dextrose 100 mls @ 100 mls/hr IVPB Q8H-IV [facility] Last Admin: 12/14/16 01:55 Dose: 100 mls/hr Pantoprazole Sodium (Protonix 40mg Ivpb (Pre-Docked)) 100 mls @ 200 mls/hr IVPB DAILY [facility] Last Admin: 12/13/16 09:57 Dose: 200 mls/hr Dextrose/Sodium Chloride (D5-1/2ns -) 1,000 mls @ 100 mls/hr IV ASDIR [facility] Last Admin: 12/14/16 05:03 Dose: 100 mls/hr Morphine Sulfate (Morphine Injection -) 1 mg IVPUSH Q4H PRN PRN Reason: PAIN Last Admin: 12/14/16 04:54 Dose: 1 mg Mupirocin (Bactroban Ointment (For Decolonization) -) 1 applic NS BID [facility] Stop: 12/16/16 21:59 Last Admin: 12/13/16 22:00 Dose: 1 applic Ondansetron HCl (Zofran Injection) 4 mg IVPB Q6H PRN PRN Reason: NAUSEA - Objective Vital Signs: Vital Signs Temperature 99.8 F H 12/14/16 06:00 Pulse Rate 78 12/14/16 06:39 Respiratory Rate 22 12/14/16 06:10 Blood Pressure 127/61 12/14/16 06:39 O2 Sat by Pulse Oximetry (%) 99 02/12/17 22:00 Constitutional: Yes: Other (Vent dependent) Cardiovascular: Yes: S1, S2 Respiratory: Yes: Rhonchi Gastrointestinal: Yes: WNL, Normal Bowel Sounds, Soft. No: Tenderness, Tenderness, Rebound Edema: No Labs: CBC, BMP 12/14/16 05:00 12/14/16 05:00 INR, PTT INR 2.08 (0.82-1.09) H D 12/11/16 12:00 Problem List - Problems (1) Acute kidney injury Code(s): N17.9 - ACUTE KIDNEY FAILURE, UNSPECIFIED (2) Atrial fibrillation with rapid ventricular response Code(s): I48.91 - UNSPECIFIED ATRIAL FIBRILLATION (3) Lung cancer Code(s): C34.90 - MALIGNANT NEOPLASM OF UNSP PART OF UNSP BRONCHUS OR LUNG (4) UTI (urinary tract infection), bacterial Code(s): N39.0 - URINARY TRACT INFECTION, SITE NOT SPECIFIED A49.9 - BACTERIAL INFECTION, UNSPECIFIED Assessment/Plan Microbiology 12/12/16 06:00 Sputum - Endotrachea Suction/Ventilator Gram Stain - Final 12/12/16 06:00 Nares - Mrsa Screen - Left MRSA Screen - Final Mr S Aureus 12/11/16 16:10 Nose MRSA Screen - Final Mr S Aureus 12/11/16 16:10 Nasopharyngeal Swab Influenza Types A,B Antigen (CRISTINA) - Final 12/11/16 16:10 Nasopharyngeal Swab - Final 12/11/16 11:50 Urine - Urine - Catheterized Urine Culture - Final Klebsiella Pneumoniae 12/12/16 06:00 Sputum - Endotrachea Suction/Ventilator Sputum Culture - Preliminary Proteus Species Lactose Fermenting Neg Bacilli 12/11/16 10:50 Blood - Peripheral Venous Blood Culture - Preliminary NO GROWTH OBTAINED AFTER 48 HOURS, INCUBATION TO CONTINUE FOR 3 DAYS. 12/11/16 10:50 Blood - Peripheral Venous Blood Culture - Preliminary NO GROWTH OBTAINED AFTER 48 HOURS, INCUBATION TO CONTINUE FOR 3 DAYS. Laboratory Tests 12/11/16 12/11/16 12/12/16 11:50 12:00 13:30 WBC Hgb Hct Plt Count INR 2.08 H D BUN Creatinine ALT 72 Alkaline Phosphatase 120 H Ur Leukocyte Esterase 3+ H Urine RBC 7 Urine WBC 994 Urine Bacteria Many 12/14/16 12/14/16 05:00 05:00 WBC 21.6 H Hgb 11.7 Hct 38.2 Plt Count 83 L INR BUN 40 H Creatinine 0.8 ALT Alkaline Phosphatase Ur Leukocyte Esterase Urine RBC Urine WBC Urine Bacteria Assessment Respiratory failure Lung masses malignancy likely Pneumonia MRSA coloniczation vs infection Klebsiella urinary infection Tracheostomy Leukomoid response ? malignancy related LEft pleural effusion Plan Continue antibiotics but stop Doripenem as not needed Ceftriaxone fine her for urineary tract Resume Vancomycin Avi VENTURA
[2016-12-14] MEDS: PANTOPRAZOLE SODIUM 100 ML IVPB SCH (09:01)
[2016-12-14] MEDS: MUPIROCIN 2% TOPICAL OINTMENT FOR DECOLONIZATION NS SCH ×2 (09:02→23:44)
[2016-12-14] MEDS ORDERED: MAGNESIUM SULF 50% (8.12 MEQ/2 ML-1 GM VIAL) IVPB ONE ×2 (09:30→16:55)
[2016-12-14] MEDS: ASPIRIN 300 MG SUPP.RECT RC SCH (10:34)
[2016-12-14] MEDS: IMIPENEM/CILASTATIN SODIUM 500 MG in SODIUM CHLORIDE 100 ML IVPB SCH ×2 (10:34→18:55)
--- NOTE | 2016-12-14 10:43 | PN ---
Progress Note, Physician Chief Complaint: Events noted Remains on vent via trache Atrial fibrillation - rate controlled on Cardizem drip History of Present Illness: Patient was seen and examined in ICU. Remains on vent via trache - underlying dementia. Chart was reviewed - Current Medication List Current Medications: Active Medications Acetaminophen (Tylenol Suppository -) 325 mg [place] Q4H PRN PRN Reason: FEVER OR PAIN Aspirin (Asa -) 300 mg RC DAILY [facility] Last Admin: 12/14/16 10:34 Dose: 300 mg Chlorhexidine Gluconate (Hibiclens For Decolonization -) 1 applic TP HS [facility] Last Admin: 12/13/16 22:00 Dose: 1 applic Heparin Sodium (Porcine) (Heparin -) 5,000 unit SQ TID [facility] Last Admin: 12/14/16 05:04 Dose: 5,000 unit Diltiazem HCl 125 mg/ Dextrose 125 mls @ 5 mls/hr IVPB TITR SELVIN; 5 MG/HR PRN Reason: Protocol Last Admin: 12/14/16 06:39 Dose: 10 mls/hr Pantoprazole Sodium (Protonix 40mg Ivpb (Pre-Docked)) 100 mls @ 200 mls/hr IVPB DAILY [facility] Last Admin: 12/14/16 09:01 Dose: 200 mls/hr Dextrose/Sodium Chloride (D5-1/2ns -) 1,000 mls @ 100 mls/hr IV ASDIR [facility] Last Admin: 12/14/16 05:03 Dose: 100 mls/hr Imipenem/Cilastatin Sodium 500 (mg/ Sodium Chloride) 100 mls @ 100 mls/hr IVPB Q8H-IV SELVIN PRN Reason: Protocol Last Admin: 12/14/16 10:34 Dose: 100 mls/hr Morphine Sulfate (Morphine Injection -) 1 mg IVPUSH Q4H PRN PRN Reason: PAIN Last Admin: 12/14/16 04:54 Dose: 1 mg Mupirocin (Bactroban Ointment (For Decolonization) -) 1 applic NS BID [facility] Stop: 12/16/16 21:59 Last Admin: 12/14/16 09:02 Dose: 1 applic Ondansetron HCl (Zofran Injection) 4 mg IVPB Q6H PRN PRN Reason: NAUSEA - Objective Vital Signs: Vital Signs Temperature 99.8 F H 12/14/16 06:00 Pulse Rate 62 02/13/17 08:00 Respiratory Rate 23 12/14/16 09:40 Blood Pressure 96/56 12/14/16 08:00 O2 Sat by Pulse Oximetry (%) 99 12/13/16 22:00 Cardiovascular: Yes: Pulse Irregular, Murmur (2/6 DYLAN), S1, S2 Respiratory: Yes: Diminished, Mechanically Ventilated Gastrointestinal: Yes: Normal Bowel Sounds, Soft. No: Tenderness Edema: No Labs: CBC, BMP 12/14/16 05:00 12/14/16 05:00 INR, PTT INR 2.08 (0.82-1.09) H D 12/11/16 12:00 Problem List - Problems (1) Atrial fibrillation with rapid ventricular response Code(s): I48.91 - UNSPECIFIED ATRIAL FIBRILLATION (2) Demand ischemia Code(s): I24.8 - OTHER FORMS OF ACUTE ISCHEMIC HEART DISEASE (3) Hyperkalemia Code(s): E87.5 - HYPERKALEMIA (4) Hypernatremia Code(s): E87.0 - HYPEROSMOLALITY AND HYPERNATREMIA (5) PEG tube malfunction Code(s): K94.23 - GASTROSTOMY MALFUNCTION (6) Aortic stenosis Code(s): Q25.3 - SUPRAVALVULAR AORTIC STENOSIS (7) CVA (cerebral vascular accident) Code(s): I63.9 - CEREBRAL INFARCTION, UNSPECIFIED Qualifiers: CVA mechanism: unspecified Qualified Code(s): I63.9 - Cerebral infarction, unspecified (8) Chronic diastolic heart failure Code(s): I50.32 - CHRONIC DIASTOLIC (CONGESTIVE) HEART FAILURE (9) Chronic respiratory failure with hypoxia Code(s): J96.11 - CHRONIC RESPIRATORY FAILURE WITH HYPOXIA (10) Dementia Code(s): F03.90 - UNSPECIFIED DEMENTIA WITHOUT BEHAVIORAL DISTURBANCE Qualifiers: Dementia type: unspecified type Dementia behavioral disturbance: without behavioral disturbance Qualified Code(s): F03.90 - Unspecified dementia without behavioral disturbance (11) Hypertension Code(s): I10 - ESSENTIAL (PRIMARY) HYPERTENSION Qualifiers: Hypertension type: essential hypertension Qualified Code(s): I10 - Essential (primary) hypertension (12) Mitral regurgitation Code(s): I34.0 - NONRHEUMATIC MITRAL (VALVE) INSUFFICIENCY Qualifiers: Cardiac valve disease etiology: nonrheumatic Qualified Code(s): I34.0 - Nonrheumatic mitral (valve) insufficiency (13) Tricuspid regurgitation Code(s): I07.1 - RHEUMATIC TRICUSPID INSUFFICIENCY Qualifiers: Cardiac valve disease etiology: nonrheumatic Qualified Code(s): I36.1 - Nonrheumatic tricuspid (valve) insufficiency (14) Pneumonia Code(s): J18.9 - PNEUMONIA, UNSPECIFIED ORGANISM Qualifiers: Pneumonia type: due to unspecified organism Laterality: unspecified laterality Lung location: unspecified part of lung Qualified Code(s): J18.9 - Pneumonia, unspecified organism Assessment/Plan 1. Ventilator-dependent respiratory failure post tracheostomy - pneumonia 2. 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 Chronic LV diastolic dysfunction with class I NYHA classification LV failure , compensated 4. Moderate to severe MR 5. Severe 6. Severe TR 7. Persistent atrial fibrillation [id number] score of 7 8. HTN 9. 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 Pre-renal ELLIE with Hypernatremia (persistent) and episode of hyperkalemia now better PLAN: 1. Continue IV fluids as ordered for correction of Hypernatremia - follow Na as well as all electrolytes 2. Ideally should be A/C unless it is absolutely contraindicated considering the above noted [id number] score of 7 otherwise Continue ASA - currently with INR of 2.0, but not on Coumadin ?etiology ?liver disease 3. Continue IV Cardizem for rate-control pending re-utilization of PEG tube at which point initiate B-Blockers +/- Cardizem 4. Vent management 5. Antibiotics as per the ID service Further plans are to follow Umer Fritz MD
--- NOTE | 2016-12-14 10:56 | CON.GI ---
Consult Consult Specialty:: Gastroenterology Referred by:: Cary Li NP Reason for Consultation:: G tube change, ? dislodged - History of Present Illness Chief Complaint: Patient offers no history due to OMS History of Present Illness: 86W [place] the [place] the hospital when she was found to be tachycardic and required adenosine. She was found to have leukocytosis and felt to be septic from Klebsiella UTI and possible pneumonias as well. She has a trachestomy and indwelling Barajas catheter gastrostomy tube. She has abdominal RUQ and vertical suprapubic incisions suggesting a cholecystectomy and hysterectomy. 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: Dementia Cardio/Vascular: Yes: AFIB, Aortic Stenosis, CHF, HTN, Mitral Insufficiency Pulmonary: Yes: Cancer (bilatreal suspicious lung masses and effusions as well as infiltates ), Pneumonia, Other (trachestomy for presumed chronic pulmonary probems) Gastrointestinal: Yes: Other (indwelling G tube) ...: No Infectious Disease: Yes: MRSA Psych: Yes: Anxiety, Schizophrenia Dermatology: Yes: Other (suspect excision of left cheek skin cancer by the scar left behind) - Past Surgical History Additional Surgical History: Oblique RUQ and vertical suprapubic incisions suggest GB surgery and a hystrectomy or C section. Has G tube LUQ - Alcohol/Substance Use Hx Alcohol Use: No - Smoking History Smoking history: Never smoked Have you smoked in the past 12 months: No Aproximately how many cigarettes per day: 0 - Social History Usual Living Arrangement: Senior Living ADL: Support Services History of Recent Travel: No Home Medications - Allergies Allergies/Adverse Reactions: Allergies Allergy/AdvReac Type Severity Reaction Status Date / Time cefuroxime axetil Allergy Mild Rash Verified 12/11/16 10:43 [From Ceftin] - Home Medications Home Medications: Ambulatory Orders Acetaminophen [Tylenol .Regular Strength -] 325 mg PO Q6H PRN 01/29/14 Vit A/Vitamin D3/E/Aloe V/Znox [Periguard Ointment] 5 gm TP TID 01/29/14 Zinc Oxide 20% Topical Oint 454 gm TP DAILY 10/15/15 Zinc Sulfate 220 mg GT DAILY 10/15/15 Ascorbate Calcium [Vitamin C] 500 mg PEG DAILY #0 11/17/15 Aspirin [ASA -] 81 mg PO DAILY #30 tab.chew 11/17/15 Diltiazem [Cardizem -] 60 mg NGT Q6HPO #30 tablet 11/17/15 Metoprolol Tartrate [Lopressor -] 50 mg NGT TID #60 tablet 11/17/15 Nystatin Cream [Mycostatin Cream -] 1 applic TP BID applic 11/17/15 Polyethylene Glycol 3350 [Miralax 119 gm Btl -] 17 gm PEG DAILY #14 bottle 11/17 Docusate Liquid [Colace Liquid -] 50 mg GT DAILY 12/11/16 Family Disease History - Family Disease History Family History: Unable to Obtain Review of Systems Unable to obtain ROS, reason: unable to obtain- OMS Physical Exam-GI Vital Signs: Vital Signs Temperature 99.8 F H 12/14/16 06:00 Pulse Rate 62 12/14/16 08:00 Respiratory Rate 23 12/14/16 09:40 Blood Pressure 96/56 12/14/16 08:00 O2 Sat by Pulse Oximetry (%) 99 12/13/16 22:00 CBC,CMP WBC 21.6 K/mm3 (4.0-10.0) H 12/14/16 05:00 RBC 4.15 M/mm3 (3.60-5.2) 12/14/16 05:00 Hgb 11.7 GM/dL (10.7-15.3) 12/14/16 05:00 Hct 38.2 % (32.4-45.2) 12/14/16 05:00 MCV 92.0 fl (80-96) 12/14/16 05:00 MCHC 30.7 g/dl (32.0-36.0) L 12/14/16 05:00 RDW 20.4 % (11.6-15.6) H 12/14/16 05:00 Plt Count 83 K/MM3 (134-434) L 12/14/16 05:00 MPV 11.3 fl (7.5-11.1) H 12/14/16 05:00 Neutrophils % Y 12/14/16 05:00 Lymphocytes % Y 12/14/16 05:00 Monocytes % 3.5 % (3.8-10.2) L 12/13/16 05:20 Eosinophils % 0.5 % (0-4.5) D 12/13/16 05:20 Basophils % 0.6 % (0-2.0) 12/13/16 05:20 Band Neutrophils 5.0 % (0-10) D 12/11/16 10:50 Nucleated RBCs 3 % (0-0) H 12/11/16 10:50 Platelet Estimate Adequate (NORMAL) 12/11/16 10:50 Platelet Comment No clumping noted 12/11/16 10:50 Polychromasia 1+ 12/11/16 10:50 Anisocytosis 1+ 12/11/16 10:50 Macrocytosis 1+ 12/11/16 10:50 Sodium 153 mmol/L (136-145) H 12/14/16 05:00 Potassium 4.9 mmol/L (3.5-5.1) 12/14/16 05:00 Chloride 122 mmol/L (98-107) H 12/14/16 05:00 Carbon Dioxide 22 mmol/L (21-32) 12/14/16 05:00 Anion Gap 9 (8-16) 12/14/16 05:00 BUN 40 mg/dL (7-18) H 12/14/16 05:00 Creatinine 0.8 mg/dL (0.55-1.02) 12/14/16 05:00 Creat Clearance w eGFR > 60 (>60) 12/12/16 13:30 Random Glucose 198 mg/dL (74-106) H 12/14/16 05:00 Lactic Acid 1.374 mmol/L (0.4-2.0) 12/12/16 08:15 Calcium 8.7 mg/dL (8.5-10.1) 12/14/16 05:00 Phosphorus 3.5 mg/dL (2.5-4.9) D 12/14/16 05:00 Magnesium 1.6 mg/dL (1.8-2.4) L 12/14/16 05:00 Total Bilirubin 1.7 mg/dL (0.2-1.0) H 12/12/16 13:30 AST 48 U/L (15-37) H D 12/12/16 13:30 ALT 72 U/L (12-78) 12/12/16 13:30 Alkaline Phosphatase 120 U/L (45-117) H 12/12/16 13:30 Creatine Kinase 28 IU/L (26-192) 12/12/16 05:20 CK-MB (CK-2) 1.352 ng/ml (0.5-3.6) 12/11/16 10:50 Troponin I 0.15 ng/ml (0.00-0.05) H 12/12/16 05:20 Total Protein 6.3 g/dl (6.4-8.2) L 12/12/16 13:30 Albumin 1.8 g/dl (3.4-5.0) L 12/12/16 13:30 Current Medications Generic Name Dose Route Start Last Admin Trade Name Freq PRN Reason Stop Dose Admin Acetaminophen 325 mg 12/11/16 12:07 Tylenol Suppository - MT Q4H PRN FEVER OR PAIN Aspirin 300 mg 12/12/16 16:30 12/14/16 10:34 Asa - RC 300 mg DAILY SELVIN Administration Chlorhexidine Gluconate 1 applic 12/11/16 22:00 12/13/16 22:00 Hibiclens For Decolonization - TP 1 applic HS SELVIN Administration Heparin Sodium (Porcine) 5,000 unit 12/11/16 14:00 12/14/16 05:04 Heparin - SQ 5,000 unit TID SELVIN Administration Diltiazem HCl 125 mg/ Dextrose 125 mls @ 5 mls/hr 12/11/16 13:15 12/14/16 06:39 IVPB 10 mls/hr TITR SELVIN Administration Protocol 5 MG/HR Pantoprazole Sodium 100 mls @ 200 mls/hr 12/13/16 10:00 12/14/16 09:01 Protonix 40mg Ivpb (Pre-Docked) IVPB 200 mls/hr DAILY SELVIN Administration Dextrose/Sodium Chloride 1,000 mls @ 100 mls/hr 12/13/16 19:45 12/14/16 05:03 D5-1/2ns - IV 100 mls/hr ASDIR SELVIN Administration Imipenem/Cilastatin Sodium 500 100 mls @ 100 mls/hr 12/14/16 10:00 12/14/16 10: 34 mg/ Sodium Chloride IVPB 100 mls/hr Q8H-IV SELVIN Administration Protocol Morphine Sulfate 1 mg 12/14/16 02:29 12/14/16 04:54 Morphine Injection - IVPUSH 1 mg Q4H PRN Administration PAIN Mupirocin 1 applic 12/11/16 22:00 12/14/16 09:02 Bactroban Ointment (For Decolonization) - NS 12/16/16 21:59 1 applic BID SELVIN Administration Ondansetron HCl 4 mg 12/11/16 12:07 Zofran Injection IVPB Q6H PRN NAUSEA Constitutional: Yes: Other (Not interactive- advanced dementia) Eyes: Yes: Conjunctiva Clear HENT: Yes: Other (left cheek scar suggesting previous surgery for skin cancer) Neck: Yes: Supple Cardiovascular: Yes: Tachycardia, Murmur (2/6 DYLAN) Respiratory: Yes: Dullness (at bases), Rhonchi (bilaterally) Gastrointestinal Inspection: Yes: Scars (healed oblique RUQ and vertical suprapubic incisions), Other (indwelling LUQ G tube ( Barajas)) ...Auscultate: Yes: Hypoactive Bowel Sounds ...Palpate: Yes: Soft, Other (nontender) ...Percussion: Yes: Tympanitic ...Rectal Exam: Yes: Deferred Edema: No Neurological: Yes: Other (not interactive) Labs: CBC, BMP 12/14/16 05:00 12/14/16 05:00 INR, PTT INR 2.08 (0.82-1.09) H D 12/11/16 12:00 Laboratory Tests 12/11/16 12/11/16 12/12/16 10:50 12:00 13:30 WBC 37.2 H* D Hgb 13.2 D Plt Count 138 INR 2.08 H D Carbon Dioxide 22 BUN 46 H Creatinine 0.7 Total Bilirubin 1.7 H AST 48 H D ALT 72 Alkaline Phosphatase 120 H Albumin 1.8 L 12/14/16 05:00 WBC 21.6 H Hgb 11.7 Plt Count 83 L INR Carbon Dioxide BUN Creatinine Total Bilirubin AST ALT Alkaline Phosphatase Albumin Imaging - Results Cat Scan: Image Reviewed (liver calcifications suggest granulomatous liver disease, AAA) Problem List - Problems (1) Hypoalbuminemia due to protein-calorie malnutrition Code(s): E46 - UNSPECIFIED PROTEIN-CALORIE MALNUTRITION (2) Granuloma of liver Code(s): K75.3 - GRANULOMATOUS HEPATITIS, NOT ELSEWHERE CLASSIFIED Assessment/Plan Klebsiella urosepsis causing tachycardia and apparent DIC with falling platelet count and elevated INR. Will not manipulate G tube until I have replacements in 2 sizes available ( 20 and 24mm ) to replace existing tube. Suspect that LFTs elevations are reactive to sepsis. Liver granulomas raise possibility of sarcoidosis. At this point the patient's prognosis in the with coeistiong lung cancer is grim.
[2016-12-14 12:18] LABS: METAMYELOCYTE 1 % (0-2)
[2016-12-14 12:19] LABS: PLATELET ESTIMATE DECREASED (NORMAL)
--- NOTE | 2016-12-14 13:05 | PN ---
Physical Exam: SUBJECTIVE: Patient seen and examined. She is very lethargic, not opening her eyes today. unresponsive to tactile stimuli OBJECTIVE: GENERAL: Lethargic, not responsive to tactile stimuli HEAD: Normal with no signs of trauma. ENT: Ears normal, nares patent, oropharynx clear without exudates NECK:She is vented on volume assist control. LUNGS: anterior breath sounds with congestion, rhonchi anteriorly HEART: heart rate irregular 60s, on cardizem drip - distant heart sounds ABDOMEN: Soft, nontender, nondistended, G tube present - LUQ EXTREMITIES: 2+ pulses, warm, well-perfused, no edema. NEUROLOGICAL: unresponsive to tactile stimuli PSYCH:lethargic,unable to fully assess SKIN: G tube present LUQ Vital Signs Period Temp Pulse Resp BP Sys/Chase Pulse Ox Last 24 Hr 98 F-100.3 F 62-86 14-28 77-134/22-90 99-99 Laboratory Results - last 24 hr 12/13/16 12/13/16 12/14/16 16:50 18:20 05:00 WBC 21.6 H RBC 4.15 Hgb 11.7 Hct 38.2 MCV 92.0 MCHC 30.7 L RDW 20.4 H Plt Count 83 L MPV 11.3 H Neutrophils % 82.0 Lymphocytes % 10.0 D Monocytes % 5.0 Metamyelocytes 1 D Myelocytes 2 D Differential Comment Manual diff done Platelet Estimate Decreased Sodium Cancelled 153 H Potassium Cancelled 6.1 H* D Chloride Cancelled 125 H Carbon Dioxide Cancelled 19 L D Anion Gap Cancelled 9 BUN Cancelled 42 H Creatinine Cancelled 0.8 Random Glucose Cancelled 210 H Calcium Cancelled 9.7 Phosphorus Magnesium 12/14/16 05:00 WBC RBC Hgb Hct MCV MCHC RDW Plt Count MPV Neutrophils % Lymphocytes % Monocytes % Metamyelocytes Myelocytes Differential Comment Platelet Estimate Sodium 153 H Potassium 4.9 Chloride 122 H Carbon Dioxide 22 Anion Gap 9 BUN 40 H Creatinine 0.8 Random Glucose 198 H Calcium 8.7 Phosphorus 3.5 D Magnesium 1.6 L Active Medications Generic Name Dose Route Start Last Admin Trade Name Freq PRN Reason Stop Dose Admin Acetaminophen 325 mg 12/11/16 12:07 Tylenol Suppository - [place] Q4H PRN FEVER OR PAIN Aspirin 300 mg 12/12/16 16:30 12/14/16 10:34 Asa - RC 300 mg DAILY SELVIN Administration Chlorhexidine Gluconate 1 applic 12/11/16 22:00 12/13/16 22:00 Hibiclens For Decolonization - TP 1 applic HS SELVIN Administration Diltiazem HCl 125 mg/ Dextrose 125 mls @ 5 mls/hr 12/11/16 13:15 12/14/16 06:39 IVPB 10 mls/hr TITR SELVIN Administration Protocol 5 MG/HR Pantoprazole Sodium 100 mls @ 200 mls/hr 12/13/16 10:00 12/14/16 09:01 Protonix 40mg Ivpb (Pre-Docked) IVPB 200 mls/hr DAILY SELVIN Administration Dextrose/Sodium Chloride 1,000 mls @ 100 mls/hr 12/13/16 19:45 12/14/16 05:03 D5-1/2ns - IV 100 mls/hr ASDIR SELVIN Administration Imipenem/Cilastatin Sodium 500 100 mls @ 100 mls/hr 12/14/16 10:00 12/14/16 10: 34 mg/ Sodium Chloride IVPB 100 mls/hr Q8H-IV SELVIN Administration Protocol Morphine Sulfate 1 mg 12/14/16 02:29 12/14/16 04:54 Morphine Injection - IVPUSH 1 mg Q4H PRN Administration PAIN Mupirocin 1 applic 12/11/16 22:00 12/14/16 09:02 Bactroban Ointment (For Decolonization) - NS 12/16/16 21:59 1 applic BID SELVIN Administration Ondansetron HCl 4 mg 12/11/16 12:07 Zofran Injection IVPB Q6H PRN NAUSEA Phytonadione 10 mg 12/15/16 10:00 Aqua Mephyton Injection - IM 12/17/16 10:01 DAILY SELVIN ASSESSMENT/PLAN: Patient is an 86 year old female who resides at the [facility]. She has a significant past medical history of severe dementia,schizophrenia, anxiety, lung cancer (stage?), uterine cancer with hysterectomy, malignant melanoma, hypertension, aortic stenosis, mitral regurgitation, atrial fibrillation, chronic diastolic heart failure and chronic respiratory failure ( had percutaneous trach placed on 11/12/2015). She was being sent to the hospital via EMS for a scheduled G tube replacement when EMS noted patient to have tachycardia. She was given Adenosine various times and then brought into the ER. In the ER, she was found to have a temperature of 102.4 and a WBC of 37.2. Her electrolytes on admission: Sodium 158, K 5.7, BUN 74, creatinine 1.3, calcium 11.4 and lactic acid was 3.068. Further her UA showed 1+ protein, 2+ blood, urobilinogen 4.0, 3+ leukocyte esterase and WBC of 994. She was admitted to the ICU. Imaging: Chest Xray - 12/11/16 increasing left bone density and left pleural effusion, right upper lobe opacity is now noted and possbility also left upper lobe opacity. Chest Xray - 12/14/16 with persistent left pleural effusion and left base density - focal opacity in upper lobes are seen corresponding to pulmonary masses. CT/Head CT without contrast 12/11/16 - extensive periventricular white matter chronic microvascular ischemic changes. left subinsular and left thalamic old lacunar infarct. Encephalomalacia/old infarct in the right occipital lobe, medially. Findings suspicious for interval acute/subacute infarct in the right temporal lobe. CT/Abdomen & Pelvis CT w/o contrast 12/11/2016 CT/Chest CT without contrast 12/11/2016 (1) 2 large pulmonary masses w/in the right and left upper lobes consistent with malignancy with additional 7mm right mid lobe nodule (2) extensive left lower lobe atelectasis and pleural effusion (3) small right pleural effusion with basilar atelactasis (4) 3.7cm distal AAA (5) no acute evidence of metastatic disease or acute path. within abdomen/ pelvis. ID: Severe sepsis likely secondary to UTI and/or Health care associated pneumonia Assessment/Plan: Lactic acidosis on admission, now has since resolved. Leukocytosis with some improvement 37.2 > 24.3 > 22.6 > 21.6 On Imipenem per ID Urinary Tract Infection - acute Assessment/Plan: UA showed 1+ protein, 2+ blood, urobilinogen 4.0, 3+ leukocyte esterase and WBC of 994. Afebrile since admission Urine culture with Klebsilella Pneumoniae Pneumonia - possible health care associated - acute Assessment/Plan: She is vented on volume assist control for chronic hypoxic respiratory failure - had trach placed 11/2015 + Proteus Mirabilis in sputum + MRSA in nares Hematology: Probable DIC Thrombocytopenia - acute Assessment/Plan: heparin stopped secondary to thrombocytopenia INR. 2.08, PTT, fibrinogen ordered Hematology consulted Cardiology: Hypertension - chronic Assessment/Plan: HTN currently controlled Monitor BP trend Aortic stenosis, mitral regurgitation/CHF - chronic Assessment/Plan: On IV Cardizem for rate control Neuro: CT/Head CT without contrast with Encephalomalacia/old infarct in the right occipital lobe, medially. Findings suspicious for interval acute/subacute infarct in the right temporal lobe. Assessment/Plan: CT suggestive of acute/subacute infarct in right temporal lobe. Started on ASA 300mg VT Neurology notes reviewed : Acute Kidney Injury - improving Assessment/Plan: Monitor trend GI: Peg tube dislodgment - acute Assessment/Plan: No meds through peg tube until seen by GI Psyche: Anxiety/Schizophrenia Assessment/Plan: Monitor, for now, unable to assess as pt is lethargic Oncology: Lung cancer - chronic Assessment/Plan: Not on any active chemo/treatment As per her daughter, pt has been treated for uterine cancer and malignant melanoma in the past F.E.N. Fluids: D5 1/2 NS @100cc/hr Electrolytes: Hypernatremia: monitor HypoKalemia: resolved Phosp: within normal limits Nutrition: NPO - peg tube dislodgement Prophylaxis: DVT: SCDs GI: Protonix Visit type - Emergency Visit Emergency Visit: Yes ED Registration Date: 12/11/16 Care time: The patient presented to the Emergency Department on the above date and was hospitalized for further evaluation of their emergent condition. - New Patient This patient is new to me today: No - Critical Care Critical Care patient: Yes Total Critical Care Time (in minutes): 45 Critical Care Statement: The care of this patient involved high complexity decision making to prevent further life threatening deterioration of the patient 's condition and/or to evalute & treat vital organ system(s) failure or risk of failure. - Discharge Referral Referred to [facility] Med [facility].: No
[2016-12-14] MEDS ORDERED: DILTIAZEM INJECTION 125 MG in DEXTROSE 5%-WATER - 100 ML IVPB SCH ×2 (13:13→23:40)
[2016-12-14] MEDS ORDERED: dilTIAZem HCL 50 MG/10 ML - 10 ML VIAL ONE (13:22)
[2016-12-14] MEDS ORDERED: dilTIAZem HCL 125 MG/25 ML - 25 ML VIAL ONE (13:23)
--- NOTE | 2016-12-14 13:30 | PN ---
Teaching Attending Note Name of Resident: Vernon Menezes ATTENDING PHYSICIAN STATEMENT I saw and evaluated the patient. I reviewed the resident's note and discussed the case with the resident. I agree with the resident's findings and plan as documented. SUBJECTIVE: Pt seen and examined in the ICU. Vented on volume assist control. On cardizem gtt. Low grade temp this AM. OBJECTIVE: Last Vital Signs Temp Pulse Resp BP Pulse Ox 98.8 F 68 21 118/69 99 12/14/16 10:00 12/14/16 12:00 12/14/16 12:00 12/14/16 12:00 12/13/16 22:00 Intake & Output 12/11/16 12/12/16 12/13/16 12/14/16 23:59 23:59 23:59 23:59 Intake Total 2610 2530 2130 870 Output Total 800 600 600 200 Balance 1810 1930 1530 670 Weight 123 lb 11.2 oz 119 lb 11.2 oz 124 lb 9.6 oz 127 lb 8 oz Gen: vented, awake Heart: irregular Lung: decreased breath sounds at the bases Abd: soft, nontender Ext: no edema CBC, BMP 12/14/16 05:00 12/14/16 05:00 Active Medications Acetaminophen (Tylenol Suppository -) 325 mg [place] Q4H PRN PRN Reason: FEVER OR PAIN Aspirin (Asa -) 300 mg RC DAILY [facility] Last Admin: 12/14/16 10:34 Dose: 300 mg Chlorhexidine Gluconate (Hibiclens For Decolonization -) 1 applic TP HS [facility] Last Admin: 12/13/16 22:00 Dose: 1 applic Pantoprazole Sodium (Protonix 40mg Ivpb (Pre-Docked)) 100 mls @ 200 mls/hr IVPB DAILY [facility] Last Admin: 12/14/16 09:01 Dose: 200 mls/hr Dextrose/Sodium Chloride (D5-1/2ns -) 1,000 mls @ 100 mls/hr IV ASDIR [facility] Last Admin: 12/14/16 05:03 Dose: 100 mls/hr Imipenem/Cilastatin Sodium 500 (mg/ Sodium Chloride) 100 mls @ 100 mls/hr IVPB Q8H-IV SELVIN PRN Reason: Protocol Last Admin: 12/14/16 10:34 Dose: 100 mls/hr Diltiazem HCl 60 mg/ Dextrose 112 mls @ 9.33 mls/hr IVPB TITR SELVIN; 5 MG/HR PRN Reason: Protocol Morphine Sulfate (Morphine Injection -) 1 mg IVPUSH Q4H PRN PRN Reason: PAIN Last Admin: 12/14/16 04:54 Dose: 1 mg Mupirocin (Bactroban Ointment (For Decolonization) -) 1 applic NS BID SELVIN Stop: 12/16/16 21:59 Last Admin: 12/14/16 09:02 Dose: 1 applic Ondansetron HCl (Zofran Injection) 4 mg IVPB Q6H PRN PRN Reason: NAUSEA Phytonadione (Aqua Mephyton Injection -) 10 mg IM DAILY [facility] Stop: 12/17/16 10:01 ASSESSMENT AND PLAN: Chronic Respiratory Failure UTI Pneumonia Severe Sepsis Lactic Acidosis Acute Kidney Injury improving Hypernatremia/Dehydration Atrial Fibrillation with RVR Hypokalemia LV Diastolic Dysfunction Pleural Effusion HTN Severe h/o CVA Lung Masses likely malignant Dementia - continue antibiotics - IVF - monitor urine output, creatinine - cardizem gtt - increase free water replacement - continue volume assist control - poor candidate for weaning at this time - GI f/u to replace G tube - DVT/GI prophylaxis - continue discussions regarding advanced directives/goals of care
--- NOTE | 2016-12-14 13:55 | PN ---
Progress Note (short form) - Note Progress Note: Neurology follow up note: Patient seen previously by Dr. Khan, seen by me with resident on rounds today. Patient with tracheostomy on vent, remains non verbal, minimally responsive though opened eyes briefly during encounter. Remains in ICU in critical care for sepsis, CVA, respiratory depression, Afib. No significant neurologic changes. Active Medications Acetaminophen (Tylenol Suppository -) 325 mg [place] Q4H PRN PRN Reason: FEVER OR PAIN Aspirin (Asa -) 300 mg RC DAILY [facility] Last Admin: 12/14/16 10:34 Dose: 300 mg Chlorhexidine Gluconate (Hibiclens For Decolonization -) 1 applic TP HS [facility] Last Admin: 12/13/16 22:00 Dose: 1 applic Pantoprazole Sodium (Protonix 40mg Ivpb (Pre-Docked)) 100 mls @ 200 mls/hr IVPB DAILY [facility] Last Admin: 12/14/16 09:01 Dose: 200 mls/hr Dextrose/Sodium Chloride (D5-1/2ns -) 1,000 mls @ 100 mls/hr IV ASDIR [facility] Last Admin: 12/14/16 05:03 Dose: 100 mls/hr Imipenem/Cilastatin Sodium 500 (mg/ Sodium Chloride) 100 mls @ 100 mls/hr IVPB Q8H-IV SELVIN PRN Reason: Protocol Last Admin: 12/14/16 10:34 Dose: 100 mls/hr Diltiazem HCl 60 mg/ Dextrose 112 mls @ 9.33 mls/hr IVPB TITR SELVIN; 5 MG/HR PRN Reason: Protocol Morphine Sulfate (Morphine Injection -) 1 mg IVPUSH Q4H PRN PRN Reason: PAIN Last Admin: 12/14/16 04:54 Dose: 1 mg Mupirocin (Bactroban Ointment (For Decolonization) -) 1 applic NS BID [facility] Stop: 12/16/16 21:59 Last Admin: 12/14/16 09:02 Dose: 1 applic Ondansetron HCl (Zofran Injection) 4 mg IVPB Q6H PRN PRN Reason: NAUSEA Phytonadione (Aqua Mephyton Injection -) 10 mg IM DAILY [facility] Stop: 12/17/16 10:01 Last Vital Signs Temp Pulse Resp BP Pulse Ox 98.8 F 68 21 118/69 99 12/14/16 10:00 02/13/17 12:00 12/14/16 12:00 12/14/16 12:00 12/13/16 22:00 GENERAL: Intubated, sedated, look uncomfortable . HEENT: Normocephalic, atraumatic. Pinpoint pupil, sluggish, dry mucus membrane, right facial droop. CARDIOVASCULAR: irregular S1, S2. rate and rhythm. PULMONARY: b/l ronchi. ABDOMEN: Soft, non-distended, non-tender. peg tube in place EXTREMITIES: limited ROM in all four extremities. b/l hands contracted . SKIN: Warm, dry. No rash NEUROLOGICAL: Awake, respond to tactile stimuli only by open eye. non verbal, no purposeful movement. Unable to assess Cranial nerves 2-12 intact. light touch and temperature .left sided paralysis. plantar reflex intact in right foot. no reflex in left PSYCHIATRIC: Unable to cooperate. No eye contact. Imaging: CT head 12/12/15 Extensive periventricular white matter chronic microvascular ischemic changes. Left subinsular and left thalamic old lacunar infarct. Encephalomalacia/old infarct in the right occipital lobe, medially. Findings suspicious for interval acute/subacute infarct in the right temporal lobe. Correlation with noncontrast MRI of the brain would be the study of choice for further evaluation CT chest/Abdomen/Pelvis 12/12/15: 1. 2 large pulmonary masses within the right and left upper lobes consistent with malignancy. There is an additional 7 mm right middle lobe nodule. 2. Extensive left lower lobe atelectasis and pleural effusion. 3. Small right pleural effusion with basilar atelectasis. 4. 3.7 cm distal AAA. 5. No evidence of metastatic disease or acute pathology within the abdomen or pelvis. Limited study as described above. Assessment/plan 86 year old female with severe Dementia, lung cancer, schizophrenia, multiple CVA, non verbal, on ventilator via tracheostomy is admitted for Sepsis rt UTI/ HCAP, AFIB with RVR, Acute on chronic hypoxic respiratory failure present with Acute/subacute infarct in right temporal lobe. [id number] score 7 Continue ASA 300mg Can Consider anticoagulant though bleed risk does exist Monitor blood pressure, goal <140/90 chronically Continue IV abx for sepsis No acute neurological intervention necessary at this point. No brain MRI necessary Due to severity of overall medical and neurological condition and poor prognosis. Palliative care consult would be appropriate to discuss goal of care and end of life care Critical care 45 mins
--- NOTE | 2016-12-14 14:17 | PN ---
Progress Note (short form) - Note Progress Note: GI: 18Fr. connolly catheter in place maintaining stomal patency: balloon deflated, connolly removed and a 20Fr. BOLD Guidance scientific replcement balloon G-Tube was place through the stoma without difficulty. 6cc of NS was instilled into the balloon. This was tested prior to inserting the G-Tube. The external bolster was noted to be at the 3cm viviana at the level of the abdominal wall. Gastric content was aspirated. - G-tube study to confirm placement - Aspiration precautions. Keep head of bed elevated 35-40degreees at all times - No dressing between external bolster of G-Tube and abdominal wall
--- NOTE | 2016-12-14 17:08 | PN ---
Physical Exam: SUBJECTIVE: Patient seen and examined at bedside in ICU. Low grade fever noted overnight. With trach on vent. OBJECTIVE: Vital Signs Period Temp Pulse Resp BP Sys/Chase Pulse Ox Last 24 Hr 98.8 F-100.3 F 62-80 14-28 96-134/56-82 99-99 GENERAL: The patient is non-verbal, on trach and vent, sedated, minimally responsive LUNGS: bilateral bronchi HEART: Irregularly irregular rate and rhythm without murmur, rub or gallop. ABDOMEN: Soft, nondistended, hypoactive bowel sounds, tympanic, G tube in LUQ, scars in RUQ and suprapubic areas. EXTREMITIES: no edema. Laboratory Results - last 24 hr 12/13/16 12/13/16 12/14/16 16:50 18:20 05:00 WBC 21.6 H RBC 4.15 Hgb 11.7 Hct 38.2 MCV 92.0 MCHC 30.7 L RDW 20.4 H Plt Count 83 L MPV 11.3 H Neutrophils % 82.0 Lymphocytes % 10.0 D Monocytes % 5.0 Metamyelocytes 1 D Myelocytes 2 D Differential Comment Manual diff done Platelet Estimate Decreased Sodium Cancelled 153 H Potassium Cancelled 6.1 H* D Chloride Cancelled 125 H Carbon Dioxide Cancelled 19 L D Anion Gap Cancelled 9 BUN Cancelled 42 H Creatinine Cancelled 0.8 Random Glucose Cancelled 210 H Calcium Cancelled 9.7 Phosphorus Magnesium 12/14/16 05:00 WBC RBC Hgb Hct MCV MCHC RDW Plt Count MPV Neutrophils % Lymphocytes % Monocytes % Metamyelocytes Myelocytes Differential Comment Platelet Estimate Sodium 153 H Potassium 4.9 Chloride 122 H Carbon Dioxide 22 Anion Gap 9 BUN 40 H Creatinine 0.8 Random Glucose 198 H Calcium 8.7 Phosphorus 3.5 D Magnesium 1.6 L Active Medications Generic Name Dose Route Start Last Admin Trade Name Freq PRN Reason Stop Dose Admin Acetaminophen 325 mg 12/11/16 12:07 Tylenol Suppository - ME Q4H PRN FEVER OR PAIN Aspirin 300 mg 12/12/16 16:30 12/14/16 10:34 Asa - RC 300 mg DAILY SELVIN Administration Chlorhexidine Gluconate 1 applic 12/11/16 22:00 12/13/16 22:00 Hibiclens For Decolonization - TP 1 applic HS SELVIN Administration Pantoprazole Sodium 100 mls @ 200 mls/hr 12/13/16 10:00 12/14/16 09:01 Protonix 40mg Ivpb (Pre-Docked) IVPB 200 mls/hr DAILY SELVIN Administration Dextrose/Sodium Chloride 1,000 mls @ 100 mls/hr 12/13/16 19:45 12/14/16 05:03 D5-1/2ns - IV 100 mls/hr ASDIR SELVIN Administration Imipenem/Cilastatin Sodium 500 100 mls @ 100 mls/hr 12/14/16 10:00 12/14/16 10: 34 mg/ Sodium Chloride IVPB 100 mls/hr Q8H-IV SELVIN Administration Protocol Diltiazem HCl 125 mg/ Dextrose 125 mls @ 5 mls/hr 12/14/16 13:13 IVPB TITR SELVIN Protocol 5 MG/HR Morphine Sulfate 1 mg 12/14/16 02:29 12/14/16 04:54 Morphine Injection - IVPUSH 1 mg Q4H PRN Administration PAIN Mupirocin 1 applic 12/11/16 22:00 12/14/16 09:02 Bactroban Ointment (For Decolonization) - NS 12/16/16 21:59 1 applic BID SELVIN Administration Ondansetron HCl 4 mg 12/11/16 12:07 Zofran Injection IVPB Q6H PRN NAUSEA Phytonadione 10 mg 12/15/16 10:00 Aqua Mephyton Injection - IM 12/17/16 10:01 DAILY SELVIN ASSESSMENT/PLAN: 86 year old female w/ h/o severe dementia, lung cancer, hypertension, schizophrenia, anxiety, aortic stenosis, mitral regurgitation, atrial fibrillation, chronic diastolic heart failure and chronic respiratory failure ( had percutaneous trach placed on 11/12/2015). She's admitted to the ICU for severe sepsis 2/2 UTI and pneumonia. Severe sepsis 2/2 UTI and pneumonia - cont. imipenem/cilastatin Atrial fibrillation, rated controlled - cardizem gtt 60 mg IVPB Q6H ELLIE, pre-renal - IVF Hypernatremia, hyperkalemia, hypercalcemia 2/2 dehydration - IV fluid - cont. to monitor electrolytes Elevated troponin, likely demand ischemia 2/2 sepsis - trended down - not in active cardiac distress HTN - restart lopressor 50 mg TID via NGT after PEG confirmed patent h/o CVA - hold asa till PEG confirmed patent FEN - D5-1/2NS 100ml/hr - low Mg2+, replete with 2gm MgSO4 - tube feed jevity Prophylaxis - DVT: heparin - GI: protonix Dispo: transfer to med-surg after PEG placement study and cardio clearance Visit type - Emergency Visit Emergency Visit: No - New Patient This patient is new to me today: Yes Date on this admission: 12/14/16 - Critical Care Critical Care patient: Yes Total Critical Care Time (in minutes): 35 Critical Care Statement: The care of this patient involved high complexity decision making to prevent further life threatening deterioration of the patient 's condition and/or to evalute & treat vital organ system(s) failure or risk of failure. - Discharge Referral Referred to [facility] Med [facility] No
--- NOTE | 2016-12-14 17:12 | CONSULT ---
Consult - text type - Consultation Consultation Note: 86W was being transferred from the [place] to the hospital when she was found to be tachycardic and required adenosine. She was found to have leukocytosis and felt to be septic from Klebsiella UTI and possible pneumonias as well. She has a trachestomy and indwelling Barajas catheter gastrostomy tube. She has abdominal RUQ and vertical suprapubic incisions suggesting a cholecystectomy and hysterectomy. 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 Has G tube LUQ - Smoking History Smoking history: Never smoked - Social History Usual Living Arrangement: Half-Way ADL: Support Services Home Medications - Allergies Allergies/Adverse Reactions: Allergies Allergy/AdvReac Type Severity Reaction Status Date / Time cefuroxime axetil Allergy Mild Rash Verified 12/11/16 10:43 [From Ceftin] - Home Medications Home Medications: Ambulatory Orders Acetaminophen [Tylenol .Regular Strength -] 325 mg PO Q6H PRN 01/29/14 Vit A/Vitamin D3/E/Aloe V/Znox [Periguard Ointment] 5 gm TP TID 01/29/14 Zinc Oxide 20% Topical Oint 454 gm TP DAILY 10/15/15 Zinc Sulfate 220 mg GT DAILY 10/15/15 Ascorbate Calcium [Vitamin C] 500 mg PEG DAILY #0 11/17/15 Aspirin [ASA -] 81 mg PO DAILY #30 tab.chew 11/17/15 Diltiazem [Cardizem -] 60 mg NGT Q6HPO #30 tablet 11/17/15 Metoprolol Tartrate [Lopressor -] 50 mg NGT TID #60 tablet 11/17/15 Nystatin Cream [Mycostatin Cream -] 1 applic TP BID applic 11/17/15 Polyethylene Glycol 3350 [Miralax 119 gm Btl -] 17 gm PEG DAILY #14 bottle 11/17 Docusate Liquid [Colace Liquid -] 50 mg GT DAILY 12/11/16 Current Medications Acetaminophen (Tylenol Suppository -) 325 mg [place] Q4H PRN PRN Reason: FEVER OR PAIN Aspirin (Asa -) 300 mg RC DAILY [facility] Last Admin: 12/14/16 10:34 Dose: 300 mg Chlorhexidine Gluconate (Hibiclens For Decolonization -) 1 applic TP HS [facility] Last Admin: 12/13/16 22:00 Dose: 1 applic Pantoprazole Sodium (Protonix 40mg Ivpb (Pre-Docked)) 100 mls @ 200 mls/hr IVPB DAILY [facility] Last Admin: 12/14/16 09:01 Dose: 200 mls/hr Dextrose/Sodium Chloride (D5-1/2ns -) 1,000 mls @ 100 mls/hr IV ASDIR [facility] Last Admin: 12/14/16 05:03 Dose: 100 mls/hr Imipenem/Cilastatin Sodium 500 (mg/ Sodium Chloride) 100 mls @ 100 mls/hr IVPB Q8H-IV SELVIN PRN Reason: Protocol Last Admin: 12/14/16 10:34 Dose: 100 mls/hr Diltiazem HCl 125 mg/ Dextrose 125 mls @ 5 mls/hr IVPB TITR SELVIN; 5 MG/HR PRN Reason: Protocol Magnesium Sulfate (Magnesium Sulfate) 2 gm IVPB ONCE ONE Stop: 12/14/16 16:56 Morphine Sulfate (Morphine Injection -) 1 mg IVPUSH Q4H PRN PRN Reason: PAIN Last Admin: 12/14/16 04:54 Dose: 1 mg Mupirocin (Bactroban Ointment (For Decolonization) -) 1 applic NS BID [facility] Stop: 12/16/16 21:59 Last Admin: 12/14/16 09:02 Dose: 1 applic Ondansetron HCl (Zofran Injection) 4 mg IVPB Q6H PRN PRN Reason: NAUSEA Phytonadione (Aqua Mephyton Injection -) 10 mg IM DAILY [facility] Stop: 12/17/16 10:01 Physical Exam-GI Last Vital Signs Temp Pulse Resp BP Pulse Ox 98.9 F 65 24 104/62 99 12/14/16 14:00 12/14/16 14:00 12/14/16 16:00 12/14/16 14:00 12/13/16 22:00 Constitutional: Yes: Other (Not interactive- advanced dementia) Eyes: Yes: Conjunctiva Clear HENT: Yes: Other (left cheek scar suggesting previous surgery for skin cancer) Neck: Yes: Supple Cardiovascular: Yes: Tachycardia, Murmur (2/6 DYLAN) Respiratory: Yes: Dullness (at bases), Rhonchi (bilaterally) Gastrointestinal Inspection: Yes: Scars (healed oblique RUQ and vertical suprapubic incisions), Other (indwelling LUQ G tube ( Barajas)) Neurological: Yes: Other (not interactive) Abnormal Lab Results 12/13/16 12/14/16 12/14/16 18:20 05:00 05:00 WBC 21.6 H MCHC 30.7 L RDW 20.4 H Plt Count 83 L MPV 11.3 H Sodium 153 H 153 H Potassium 6.1 H* D Chloride 125 H 122 H Carbon Dioxide 19 L D BUN 42 H 40 H Random Glucose 210 H 198 H Magnesium 1.6 L Assessment/Plan Klebsiella urosepsis causing tachycardia and apparent DIC with falling platelet count and elevated INR. will give trial of Vit. k On imipenem Unlikely HIT given clinical scenario CT scan findings show large Lt. and RUL masses highly suspicious for cancer Also with advanced dementia, age, poor performance status Agree with palliative care consult
[2016-12-14] MEDS: PHYTONADIONE 10 MG/1 ML AMP SQ SCH (18:02)
[2016-12-14] MEDS ORDERED: DILTIAZEM IVPB SCH (21:49)
[2016-12-14] MEDS ORDERED: WATER IVPB SCH (21:49)
[2016-12-14] MEDS ORDERED: DEXTROSE 5% IVPB SCH (21:49)
[2016-12-14] MEDS: NYSTATIN 100,000 UNIT/GM TOPICAL CREAM 15 GM TUBE TP SCH (22:00)
[2016-12-14] MEDS ORDERED: VIT A TP SCH (22:00)
[2016-12-14] MEDS ORDERED: ALOE V TP SCH (22:00)
[2016-12-14] MEDS ORDERED: ZNOX TP SCH (22:00)
[2016-12-14] MEDS ORDERED: VITAMIN D3 TP SCH (22:00)
[2016-12-14] MEDS ORDERED: [UNRECOGNIZED DRUG - OTHER] TP SCH (22:00)
[2016-12-14] MEDS ORDERED: METOPROLOL TARTRATE 25 MG TABLET (FP) ONE (23:27)
[2016-12-14] MEDS: METOPROLOL TARTRATE 50 MG TABLET (FP) NGT SCH (23:30)
[2016-12-14] MEDS: CHLORHEXIDINE GLUCONATE 4% CLEANSER FOR DECOLONIZATION TP SCH (23:43)
[2016-12-15] MEDS: IMIPENEM/CILASTATIN SODIUM 500 MG in SODIUM CHLORIDE 100 ML IVPB SCH ×3 (02:00→17:40)
[2016-12-15] MEDS: METOPROLOL TARTRATE 50 MG TABLET (FP) NGT SCH ×3 (06:00→21:27)
[2016-12-15 06:11] LABS: MCHC 30.8 g/dl (32.0-36.0); MEAN CELL VOLUME 91.1 fl (80-96); PLATELET COUNT 80 K/MM3 (134-434); RDW 21.2 % (11.6-15.6); WHITE BLOOD COUNT 29.2 K/mm3 (4.0-10.0)
[2016-12-15 06:25] LABS: INR 1.34 (0.82-1.09)
--- NOTE | 2016-12-15 06:29 | PN ---
Progress Note (short form) - Note Progress Note: Chief Complaint: Events noted, note reviewed, opening eyes and grimaces, remains in atrial fibrillation with improved ventricular rates, off of IV Cardizem History of Present Illness: Seen and examined in the ICU. Events noted, note reviewed, opening eyes and grimaces, remains in atrial fibrillation with improved ventricular rates, off of IV Cardizem Echocardiography dated 10/16/2015 revealed Normal LV size and function, mild bi- atrial enlargement, moderate-severe MR, severe TR, severe , mild AR Medications: Current Medications Acetaminophen (Tylenol Suppository -) 325 mg [place] Q4H PRN PRN Reason: FEVER OR PAIN Ascorbic Acid (Vitamin C Oral Solution -) 500 mg PEG DAILY [facility] Aspirin (Asa -) 300 mg RC DAILY [facility] Last Admin: 12/14/16 10:34 Dose: 300 mg Chlorhexidine Gluconate (Hibiclens For Decolonization -) 1 applic TP HS [facility] Last Admin: 12/14/16 23:43 Dose: 1 applic Pantoprazole Sodium (Protonix 40mg Ivpb (Pre-Docked)) 100 mls @ 200 mls/hr IVPB DAILY [facility] Last Admin: 12/14/16 09:01 Dose: 200 mls/hr Dextrose/Sodium Chloride (D5-1/2ns -) 1,000 mls @ 100 mls/hr IV ASDIR [facility]ELVIN Last Admin: 12/14/16 23:45 Dose: 100 mls/hr Imipenem/Cilastatin Sodium 500 (mg/ Sodium Chloride) 100 mls @ 100 mls/hr IVPB Q8H-IV SELVIN PRN Reason: Protocol Last Admin: 12/15/16 02:00 Dose: 100 mls/hr Diltiazem HCl 125 mg/ Dextrose 125 mls @ 5 mls/hr IVPB TITR SELVIN; 5 MG/HR PRN Reason: Protocol Metoprolol Tartrate (Lopressor -) 50 mg NGT TID [facility]ELVIN Last Admin: 12/14/16 23:30 Dose: 50 mg Morphine Sulfate (Morphine Injection -) 1 mg IVPUSH Q4H PRN PRN Reason: PAIN Last Admin: 12/14/16 04:54 Dose: 1 mg Multi-Ingredient Ointment (Zinc Oxide) 1 applic TP DAILY [facility] Mupirocin (Bactroban Ointment (For Decolonization) -) 1 applic NS BID [facility] Stop: 12/16/16 21:59 Last Admin: 12/14/16 23:44 Dose: 1 applic Non-Formulary Medication (Docusate Liquid [Colace Liquid -]) 50 mg GT DAILY [facility] Non-Formulary Medication (Vit A/Vitamin D3/E/Aloe V/Znox [Periguard Ointment]) 5 gm TP TID SELVIN Nystatin (Mycostatin Cream -) 1 applic TP BID SELVIN Ondansetron HCl (Zofran Injection) 4 mg IVPB Q6H PRN PRN Reason: NAUSEA Phytonadione (Aqua Mephyton Injection -) 5 mg SQ DAILY [facility] Stop: 12/16/16 10:01 Last Admin: 12/14/16 18:02 Dose: 5 mg Polyethylene Glycol (Miralax (For Daily Use) -) 17 gm PEG DAILY SELVIN Zinc Sulfate (Orazinc -) 220 mg GT DAILY [facility] Review of Systems Unable to obtain ROS, reason: Advanced Dementia Vital Signs: Last Vital Signs Temp Pulse Resp BP Pulse Ox 98.9 F 58 L 26 H 108/60 100 12/15/16 02:00 12/15/16 04:00 12/15/16 04:00 12/15/16 04:00 12/14/16 20:03 Neck: Supple Negative JVD No Bruit Respiratory: Diminished Breath Sounds at the Bases Cardiovascular: S1 S2 Irregularly Irregular Grade 2-3/6 DYLAN Gastrointestinal: Soft Benign Normal Bowel Sounds Ext: No Edema Labs: CBC, BMP 12/15/16 05:00 BMP from this AM pending Assessment/Plan ASSESSMENT: 1. Ventilator-dependent respiratory failure post trach, pneumonia 2. 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 Chronic LV diastolic dysfunction with class I NYHA classification LV failure , compensated 4. Moderate-severe MR 5. Severe 6. Severe TR 7. Persistent atrial fibrillation [id number] score of 7, on no A/C 8. HTN 9. 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 Pre-renal ELLIE with Hypernatremia PLAN: 1. Await AM BMP and adjust IV fluids accordingly 2. As outlined in prior notes ideally should be A/C unless it is absolutely contraindicated considering the above noted [id number] score of 7 otherwise Continue ASA 3. Continue Lopressor 4. Vent management as per primary/critical care teams 5. Antibiotics as per the ID team 6. Echocardiography to evaluate LV size and function and the above noted valvular pathology 7. Can be transferred to floor care from cardiovascular point of view Polina Lord M.D.
[2016-12-15 06:42] LABS: ALBUMIN 1.4 g/dl (3.4-5.0); BILIRUBIN,DIRECT 1.1 mg/dL (0.0-0.2); CALCIUM 8.4 mg/dL (8.5-10.1); CREATININE 0.7 mg/dL (0.55-1.02); MAGNESIUM 2.3 mg/dL (1.8-2.4); PHOSPHOROUS 2.3 mg/dL (2.5-4.9)
[2016-12-15 06:44] LABS: BILIRUBIN,TOTAL 1.6 mg/dL (0.2-1.0); TOT PROT 5.2 g/dl (6.4-8.2)
[2016-12-15 06:46] LABS: ACTIVATED PTT 32.2 SECONDS (26.9-34.4)
[2016-12-15] MEDS ORDERED: METOPROLOL TARTRATE 25 MG TABLET (FP) ONE (07:10)
[2016-12-15 09:32] LABS: POLYCHROMASIA FEW
[2016-12-15] MEDS ORDERED: PT OWN MED DRAWER 7, Y5N ONE ×3 (09:52→21:23)
[2016-12-15] MEDS: PHYTONADIONE 10 MG/1 ML AMP SQ SCH (09:58)
[2016-12-15] MEDS: PANTOPRAZOLE SODIUM 100 ML IVPB SCH (09:59)
[2016-12-15] MEDS: NYSTATIN 100,000 UNIT/GM TOPICAL CREAM 15 GM TUBE TP SCH ×2 (09:59→21:27)
[2016-12-15] MEDS ORDERED: PHYTONADIONE 10 MG/1 ML AMP IM SCH (10:00)
[2016-12-15] MEDS ORDERED: ZINC OXIDE 20% TOPICAL OINTMENT 30 GM TUBE TP SCH (10:00)
[2016-12-15] MEDS ORDERED: ZINC SULFATE 220 MG CAPSULE (FP) GT SCH (10:00)
[2016-12-15] MEDS ORDERED: ASCORBIC ACID 500 MG/5 ML UNIT DOSE CUP PEG SCH (10:00)
[2016-12-15] MEDS ORDERED: POLYETHYLENE GLYCOL 3350 119 GM BTL PEG SCH (10:00)
[2016-12-15] MEDS ORDERED: DOCUSATE GT SCH (10:00)
[2016-12-15] MEDS ORDERED: PATIENT'S OWN MEDICATION (NON-FORMULARY) (Ascorbate Calcium [Vitamin C] 500 MG) PEG SCH (10:00)
[2016-12-15] MEDS: ASPIRIN 300 MG SUPP.RECT RC SCH (10:01)
[2016-12-15] MEDS: MUPIROCIN 2% TOPICAL OINTMENT FOR DECOLONIZATION NS SCH (10:01)
--- NOTE | 2016-12-15 11:30 | PN ---
Progress Note (short form) - Note Progress Note: Neurology follow up note: Patient seen previously by Dr. Khan, seen by me with resident on rounds today. Patient with tracheostomy on vent, remains non verbal, minimally responsive though opened eyes briefly during encounter. Remains in ICU in critical care for sepsis, CVA, respiratory depression, Afib. No significant neurologic changes. Remains on Abx. Active Medications Acetaminophen (Tylenol Suppository -) 325 mg [place] Q4H PRN PRN Reason: FEVER OR PAIN Ascorbic Acid (Vitamin C Oral Solution -) 500 mg PEG DAILY [facility] Last Admin: 12/15/16 10:00 Dose: 500 mg Aspirin (Asa -) 300 mg RC DAILY [facility] Last Admin: 12/15/16 10:01 Dose: 300 mg Chlorhexidine Gluconate (Hibiclens For Decolonization -) 1 applic TP HS [facility] Last Admin: 12/14/16 23:43 Dose: 1 applic Pantoprazole Sodium (Protonix 40mg Ivpb (Pre-Docked)) 100 mls @ 200 mls/hr IVPB DAILY [facility] Last Admin: 12/15/16 09:59 Dose: 200 mls/hr Dextrose/Sodium Chloride (D5-1/2ns -) 1,000 mls @ 100 mls/hr IV ASDIR [facility] Last Admin: 12/14/16 23:45 Dose: 100 mls/hr Imipenem/Cilastatin Sodium 500 (mg/ Sodium Chloride) 100 mls @ 100 mls/hr IVPB Q8H-IV SELVIN PRN Reason: Protocol Last Admin: 12/15/16 09:59 Dose: 100 mls/hr Diltiazem HCl 125 mg/ Dextrose 125 mls @ 5 mls/hr IVPB TITR SELVIN; 5 MG/HR PRN Reason: Protocol Last Admin: 12/14/16 22:00 Dose: Not Given Metoprolol Tartrate (Lopressor -) 50 mg NGT TID [facility] Last Admin: 12/15/16 06:00 Dose: 50 mg Morphine Sulfate (Morphine Injection -) 1 mg IVPUSH Q4H PRN PRN Reason: PAIN Last Admin: 12/14/16 04:54 Dose: 1 mg Multi-Ingredient Ointment (Zinc Oxide) 1 applic TP DAILY [facility] Last Admin: 12/15/16 10:02 Dose: 1 applic Mupirocin (Bactroban Ointment (For Decolonization) -) 1 applic NS BID [facility] Stop: 12/16/16 21:59 Last Admin: 12/15/16 10:01 Dose: 1 applic Nystatin (Mycostatin Cream -) 1 applic TP BID [facility] Last Admin: 12/15/16 09:59 Dose: 1 applic Ondansetron HCl (Zofran Injection) 4 mg IVPB Q6H PRN PRN Reason: NAUSEA Phytonadione (Aqua Mephyton Injection -) 5 mg SQ DAILY [facility] Stop: 12/16/16 10:01 Last Admin: 12/15/16 09:58 Dose: 5 mg Polyethylene Glycol (Miralax (For Daily Use) -) 17 gm PEG DAILY [facility] Last Admin: 12/15/16 10:04 Dose: 17 gm Senna (Senna Oral Solution -) 8.8 mg PO HS [facility] Zinc Sulfate (Orazinc -) 220 mg GT DAILY [facility] Last Admin: 12/15/16 09:59 Dose: 220 mg Last Vital Signs Temp Pulse Resp BP Pulse Ox 99.0 F 77 24 125/71 99 12/15/16 10:00 12/15/16 11:03 12/15/16 10:08 12/15/16 10:00 12/15/16 11:03 GENERAL: Intubated, sedated, look uncomfortable . HEENT: Normocephalic, atraumatic. Pinpoint pupil, sluggish, dry mucus membrane, right facial droop. CARDIOVASCULAR: irregular S1, S2. rate and rhythm. PULMONARY: b/l ronchi. ABDOMEN: Soft, non-distended, non-tender. peg tube in place EXTREMITIES: limited ROM in all four extremities. b/l hands contracted . SKIN: Warm, dry. No rash NEUROLOGICAL: Awake, respond to tactile stimuli only by open eye. non verbal, no purposeful movement. Unable to assess Cranial nerves 2-12 intact. light touch and temperature .left sided paralysis. plantar reflex intact in right foot. no reflex in left PSYCHIATRIC: Unable to cooperate. No eye contact. Imaging: CT head 12/12/15 Extensive periventricular white matter chronic microvascular ischemic changes. Left subinsular and left thalamic old lacunar infarct. Encephalomalacia/old infarct in the right occipital lobe, medially. Findings suspicious for interval acute/subacute infarct in the right temporal lobe. Correlation with noncontrast MRI of the brain would be the study of choice for further evaluation CT chest/Abdomen/Pelvis 12/12/15: 1. 2 large pulmonary masses within the right and left upper lobes consistent with malignancy. There is an additional 7 mm right middle lobe nodule. 2. Extensive left lower lobe atelectasis and pleural effusion. 3. Small right pleural effusion with basilar atelectasis. 4. 3.7 cm distal AAA. 5. No evidence of metastatic disease or acute pathology within the abdomen or pelvis. Limited study as described above. Assessment/plan 86 year old female with severe Dementia, lung cancer, schizophrenia, multiple CVA, non verbal, on ventilator via tracheostomy is admitted for Sepsis rt UTI/ HCAP, AFIB with RVR, Acute on chronic hypoxic respiratory failure present with Acute/subacute infarct in right temporal lobe. [id number] score 7 Continue ASA 300mg Can Consider anticoagulant though bleed risk does exist Monitor blood pressure, goal <140/90 chronically Continue IV abx for sepsis No acute neurological intervention necessary at this point. No brain MRI necessary Due to severity of overall medical and neurological condition and poor prognosis. Palliative care consult would be appropriate to discuss goal of care and end of life care Critical care 35 mins
--- NOTE | 2016-12-15 12:23 | PN ---
Progress Note, Physician History of Present Illness: Intubated No acute distress Low grade temps overnight WBC remains elevated - Current Medication List Current Medications: Active Medications Acetaminophen (Tylenol Suppository -) 325 mg [place] Q4H PRN PRN Reason: FEVER OR PAIN Ascorbic Acid (Vitamin C Oral Solution -) 500 mg PEG DAILY [facility] Last Admin: 12/15/16 10:00 Dose: 500 mg Aspirin (Asa -) 300 mg RC DAILY [facility] Last Admin: 12/15/16 10:01 Dose: 300 mg Chlorhexidine Gluconate (Hibiclens For Decolonization -) 1 applic TP HS [facility] Last Admin: 12/14/16 23:43 Dose: 1 applic Pantoprazole Sodium (Protonix 40mg Ivpb (Pre-Docked)) 100 mls @ 200 mls/hr IVPB DAILY [facility] Last Admin: 12/15/16 09:59 Dose: 200 mls/hr Dextrose/Sodium Chloride (D5-1/2ns -) 1,000 mls @ 100 mls/hr IV ASDIR [facility] Last Admin: 12/14/16 23:45 Dose: 100 mls/hr Imipenem/Cilastatin Sodium 500 (mg/ Sodium Chloride) 100 mls @ 100 mls/hr IVPB Q8H-IV SELVIN PRN Reason: Protocol Last Admin: 12/15/16 09:59 Dose: 100 mls/hr Diltiazem HCl 125 mg/ Dextrose 125 mls @ 5 mls/hr IVPB TITR SELVIN; 5 MG/HR PRN Reason: Protocol Last Admin: 12/14/16 22:00 Dose: Not Given Metoprolol Tartrate (Lopressor -) 50 mg NGT TID [facility] Last Admin: 12/15/16 06:00 Dose: 50 mg Morphine Sulfate (Morphine Injection -) 1 mg IVPUSH Q4H PRN PRN Reason: PAIN Last Admin: 12/14/16 04:54 Dose: 1 mg Multi-Ingredient Ointment (Zinc Oxide) 1 applic TP DAILY [facility] Last Admin: 12/15/16 10:02 Dose: 1 applic Mupirocin (Bactroban Ointment (For Decolonization) -) 1 applic NS BID [facility] Stop: 12/16/16 21:59 Last Admin: 12/15/16 10:01 Dose: 1 applic Nystatin (Mycostatin Cream -) 1 applic TP BID [facility] Last Admin: 12/15/16 09:59 Dose: 1 applic Ondansetron HCl (Zofran Injection) 4 mg IVPB Q6H PRN PRN Reason: NAUSEA Phytonadione (Aqua Mephyton Injection -) 5 mg SQ DAILY [facility] Stop: 12/16/16 10:01 Last Admin: 12/15/16 09:58 Dose: 5 mg Polyethylene Glycol (Miralax (For Daily Use) -) 17 gm PEG DAILY [facility] Last Admin: 12/15/16 10:04 Dose: 17 gm Senna (Senna Oral Solution -) 8.8 mg PO HS [facility] Zinc Sulfate (Orazinc -) 220 mg GT DAILY [facility] Last Admin: 12/15/16 09:59 Dose: 220 mg - Objective Vital Signs: Vital Signs Temperature 99.0 F 12/15/16 10:00 Pulse Rate 77 12/15/16 11:03 Respiratory Rate 21 12/15/16 12:08 Blood Pressure 125/71 12/15/16 10:00 O2 Sat by Pulse Oximetry (%) 99 12/15/16 11:03 Constitutional: Yes: No Distress Eyes: Yes: Conjunctiva Clear Cardiovascular: Yes: Regular Rate and Rhythm, S1, S2 Respiratory: Yes: Mechanically Ventilated Gastrointestinal: Yes: Normal Bowel Sounds, Soft. No: Tenderness Labs: CBC, BMP 12/15/16 05:00 12/15/16 05:00 INR, PTT INR 1.34 (0.82-1.09) H D 12/15/16 05:00 Fibrinogen 350.0 mg/dL (238-498) 12/15/16 05:00 Assessment/Plan Respiratory failure Lung masses/ pneumonia UTI Leukocytosis- possible leukemoid reaction Thrombocytopenia Cephalosporin allergy Continue imipenem/ vancomycin
--- NOTE | 2016-12-15 12:45 | PN ---
Teaching Attending Note Name of Resident: Vernon Menezes ATTENDING PHYSICIAN STATEMENT I saw and evaluated the patient. I reviewed the resident's note and discussed the case with the resident. I agree with the resident's findings and plan as documented. SUBJECTIVE: Pt seen and examined in the ICU. G tube replaced by GI yesterday with xray confirmation. Growing multiresistant acinetobacter in sputum OBJECTIVE: Last Vital Signs Temp Pulse Resp BP Pulse Ox 99.0 F 90 21 146/79 99 12/15/16 10:00 12/15/16 12:00 12/15/16 12:08 12/15/16 12:00 12/15/16 11:03 Intake & Output 12/12/16 12/13/16 12/14/16 12/15/16 23:59 23:59 23:59 23:59 Intake Total 2530 2130 2280 1090.6 Output Total 600 600 900 400 Balance 1930 1530 1380 690.6 Weight 119 lb 11.2 oz 124 lb 9.6 oz 127 lb 8 oz 131 lb 2.801 oz Gen: vented, awake Heart: RRR Lung: decreased breath sounds at the bases Abd: soft, nontender, +g tube Ext: + edema CBC, BMP 12/15/16 05:00 12/15/16 05:00 Active Medications Acetaminophen (Tylenol Suppository -) 325 mg SC Q4H PRN PRN Reason: FEVER OR PAIN Ascorbic Acid (Vitamin C Oral Solution -) 500 mg PEG DAILY [facility] Last Admin: 12/15/16 10:00 Dose: 500 mg Aspirin (Asa -) 300 mg RC DAILY [facility] Last Admin: 12/15/16 10:01 Dose: 300 mg Chlorhexidine Gluconate (Hibiclens For Decolonization -) 1 applic TP HS [facility] Last Admin: 12/14/16 23:43 Dose: 1 applic Diltiazem HCl (Cardizem -) 60 mg PEG Q6HPO [facility] Pantoprazole Sodium (Protonix 40mg Ivpb (Pre-Docked)) 100 mls @ 200 mls/hr IVPB DAILY [facility] Last Admin: 12/15/16 09:59 Dose: 200 mls/hr Dextrose/Sodium Chloride (D5-1/2ns -) 1,000 mls @ 100 mls/hr IV ASDIR [facility] Last Admin: 12/14/16 23:45 Dose: 100 mls/hr Imipenem/Cilastatin Sodium 500 (mg/ Sodium Chloride) 100 mls @ 100 mls/hr IVPB Q8H-IV SELVIN PRN Reason: Protocol Last Admin: 12/15/16 09:59 Dose: 100 mls/hr Vancomycin HCl (Vancomycin (Pre-Docked)) 250 mls @ 200 mls/hr IVPB DAILY@1300 [facility] Metoprolol Tartrate (Lopressor -) 50 mg NGT TID [facility] Last Admin: 12/15/16 06:00 Dose: 50 mg Morphine Sulfate (Morphine Injection -) 1 mg IVPUSH Q4H PRN PRN Reason: PAIN Last Admin: 12/14/16 04:54 Dose: 1 mg Multi-Ingredient Ointment (Zinc Oxide) 1 applic TP DAILY [facility] Last Admin: 12/15/16 10:02 Dose: 1 applic Mupirocin (Bactroban Ointment (For Decolonization) -) 1 applic NS BID [facility] Stop: 12/16/16 21:59 Last Admin: 12/15/16 10:01 Dose: 1 applic Nystatin (Mycostatin Cream -) 1 applic TP BID [facility] Last Admin: 12/15/16 09:59 Dose: 1 applic Ondansetron HCl (Zofran Injection) 4 mg IVPB Q6H PRN PRN Reason: NAUSEA Phytonadione (Aqua Mephyton Injection -) 5 mg SQ DAILY [facility] Stop: 12/16/16 10:01 Last Admin: 12/15/16 09:58 Dose: 5 mg Polyethylene Glycol (Miralax (For Daily Use) -) 17 gm PEG DAILY [facility] Last Admin: 12/15/16 10:04 Dose: 17 gm Senna (Senna Oral Solution -) 8.8 mg PO HS [facility] Zinc Sulfate (Orazinc -) 220 mg GT DAILY [facility] Last Admin: 12/15/16 09:59 Dose: 220 mg ASSESSMENT AND PLAN: Chronic Respiratory Failure UTI Pneumonia Severe Sepsis resolving Lactic Acidosis resolved Acute Kidney Injury improving Hypernatremia/Dehydration Atrial Fibrillation with RVR Hypokalemia resolved LV Diastolic Dysfunction Pleural Effusion HTN Severe h/o CVA Lung Masses likely malignant Dementia - continue antibiotics per ID - monitor urine output, creatinine - rate control with cardizem and metoprolol - d/c IVF - increase free water replacement via G tube - continue volume assist control - poor candidate for weaning at this time - enteral feeds - DVT/GI prophylaxis - continue discussions regarding advanced directives/goals of care - strict contact isolation - can monitor on vent floor
[2016-12-15] MEDS: dilTIAZem HCL 60 MG TABLET (FP) PEG SCH ×2 (12:52→17:40)
[2016-12-15] MEDS ORDERED: VANCOMYCIN 1 GRAM (PRE-DOCKED) 250 ML IVPB SCH (13:00)
--- NOTE | 2016-12-15 14:24 | PN ---
Physical Exam: SUBJECTIVE: Patient seen and examined at bedside in ICU. She's non-verbal and on vent via trach. Per night float nurse, no acute event noted. OBJECTIVE: Vital Signs Period Temp Pulse Resp BP Sys/Chase Pulse Ox Last 24 Hr 98.9 F-99.0 F 58-90 16-27 108-146/58-93 99-100 GENERAL: The patient is non-verbal, on trach and vent, minimally responsive LUNGS: bilateral bronchi HEART: Irregularly irregular with ejection murmur ABDOMEN: Soft, nondistended, hypoactive bowel sounds, tympanic, G tube in LUQ, scars in RUQ and suprapubic areas. EXTREMITIES: no edema. Laboratory Results - last 24 hr 12/15/16 12/15/16 12/15/16 05:00 05:00 05:00 WBC 29.2 H D RBC 4.02 Hgb 11.3 Hct 36.7 MCV 91.1 MCHC 30.8 L RDW 21.2 H Plt Count 80 L MPV 12.0 H Neutrophils % 93.0 H Lymphocytes % 1.0 L D Monocytes % 6.0 Differential Comment Manual diff done Polychromasia Few Macrocytosis 2+ INR 1.34 H D PTT (Actin FS) Fibrinogen 350.0 Fibrin Degrad Products Greater than 40 Sodium 151 H Potassium 3.8 D Chloride 120 H Carbon Dioxide 21 Anion Gap 10 BUN 30 H D Creatinine 0.7 Random Glucose 171 H Calcium 8.4 L Phosphorus 2.3 L D Magnesium 2.3 D Total Bilirubin 1.6 H Direct Bilirubin 1.1 H AST 16 D ALT 27 D Alkaline Phosphatase 133 H Total Protein 5.2 L Albumin 1.4 L D 12/15/16 05:00 WBC RBC Hgb Hct MCV MCHC RDW Plt Count MPV Neutrophils % Lymphocytes % Monocytes % Differential Comment Polychromasia Macrocytosis INR PTT (Actin FS) 32.2 D Fibrinogen Fibrin Degrad Products Sodium Potassium Chloride Carbon Dioxide Anion Gap BUN Creatinine Random Glucose Calcium Phosphorus Magnesium Total Bilirubin Direct Bilirubin AST ALT Alkaline Phosphatase Total Protein Albumin Active Medications Generic Name Dose Route Start Last Admin Trade Name Freq PRN Reason Stop Dose Admin Acetaminophen 325 mg 12/11/16 12:07 Tylenol Suppository - [place] Q4H PRN FEVER OR PAIN Ascorbic Acid 500 mg 12/15/16 10:00 12/15/16 10:00 Vitamin C Oral Solution - PEG 500 mg DAILY [facility] Administration Aspirin 300 mg 12/12/16 16:30 12/15/16 10:01 Asa - RC 300 mg DAILY [facility] Administration Chlorhexidine Gluconate 1 applic 12/11/16 22:00 12/14/16 23:43 Hibiclens For Decolonization - TP 1 applic HS S[facility]IN Administration Diltiazem HCl 60 mg 12/15/16 12:30 12/15/16 12:52 Cardizem - PEG 60 mg Q6HPO SELVIN Administration Pantoprazole Sodium 100 mls @ 200 mls/hr 12/13/16 10:00 12/15/16 09:59 Protonix 40mg Ivpb (Pre-Docked) IVPB 200 mls/hr DAILY [facility] Administration Imipenem/Cilastatin Sodium 500 100 mls @ 100 mls/hr 12/14/16 10:00 12/15/16 09: 59 mg/ Sodium Chloride IVPB 100 mls/hr Q8H-IV S[facility]VIN Administration Protocol Vancomycin HCl 250 mls @ 200 mls/hr 12/15/16 13:00 12/15/16 12:51 Vancomycin (Pre-Docked) IVPB 200 mls/hr DAILY@1300 [facility] Administration Metoprolol Tartrate 50 mg 12/14/16 22:00 12/15/16 13:15 Lopressor - NGT 50 mg TID SELVIN Administration Morphine Sulfate 1 mg 12/14/16 02:29 12/14/16 04:54 Morphine Injection - IVPUSH 1 mg Q4H PRN Administration PAIN Multi-Ingredient Ointment 1 applic 12/15/16 10:00 12/15/16 10:02 Zinc Oxide TP 1 applic DAILY [facility] Administration Mupirocin 1 applic 12/11/16 22:00 12/15/16 10:01 Bactroban Ointment (For Decolonization) - NS 12/16/16 21:59 1 applic BID [facility] Administration Nystatin 1 applic 12/14/16 22:00 12/15/16 09:59 Mycostatin Cream - TP 1 applic BID [facility] Administration Ondansetron HCl 4 mg 12/11/16 12:07 Zofran Injection IVPB Q6H PRN NAUSEA Phytonadione 5 mg 12/14/16 17:30 12/15/16 09:58 Aqua Mephyton Injection - SQ 12/16/16 10:01 5 mg DAILY [facility] Administration Polyethylene Glycol 17 gm 12/15/16 10:00 12/15/16 10:04 Miralax (For Daily Use) - PEG 17 gm DAILY [facility] Administration Senna 8.8 mg 12/15/16 22:00 Senna Oral Solution - PO HS [facility] Zinc Sulfate 220 mg 12/15/16 10:00 12/15/16 09:59 Orazinc - GT 220 mg DAILY [facility] Administration ASSESSMENT/PLAN: 86 year old female w/ h/o severe dementia, lung cancer, hypertension, schizophrenia, anxiety, aortic stenosis, mitral regurgitation, atrial fibrillation, chronic diastolic heart failure and chronic respiratory failure ( had percutaneous trach placed on 11/12/2015). She's admitted to the ICU for severe sepsis 2/2 UTI and pneumonia. Severe sepsis 2/2 UTI and pneumonia - cont. imipenem/cilastatin Atrial fibrillation, rated controlled - cardizem gtt 60 mg PEG Q6H ELLIE, pre-renal - IVF Hypernatremia, hyperkalemia, hypercalcemia 2/2 dehydration - IV fluid discontinued - cont. to monitor electrolytes Elevated troponin, likely demand ischemia 2/2 sepsis - trended down - not in active cardiac distress HTN - on lopressor 50 mg TID via h/o CVA - cont. asa FEN - no IVF - low PO4, replete phos - tube feed jevity Prophylaxis - DVT: heparin - GI: protonix Dispo: transfer to med-surg Visit type - Emergency Visit Emergency Visit: No - New Patient This patient is new to me today: No - Critical Care Critical Care patient: Yes Total Critical Care Time (in minutes): 45 Critical Care Statement: The care of this patient involved high complexity decision making to prevent further life threatening deterioration of the patient 's condition and/or to evalute & treat vital organ system(s) failure or risk of failure.
--- NOTE | 2016-12-15 14:29 | PN ---
Progress Note (short form) - Note Progress Note: Patient seen and examined Non responsive to verbal stimuli Remains on ventilator Last Vital Signs Temp Pulse Resp BP Pulse Ox 99.0 F 90 21 146/79 99 12/15/16 10:00 12/15/16 12:00 12/15/16 12:08 12/15/16 12:00 12/15/16 11:03 HEENT: MACIE, EOM Intact Neck-trach Cor: RSR, No murmurs, No gallops Lungs: Diffuse rhonchi Abd: Soft, Normal bowel sounds, No organomegaly Ext:No significant edema Skin: No rashes, Integument intact [place] with good output C-Xray- Lung Masses reviewed CBC, BMP 12/15/16 05:00 12/15/16 05:00 Abnormal Lab Results 12/15/16 12/15/16 12/15/16 05:00 05:00 05:00 WBC 29.2 H D MCHC 30.8 L RDW 21.2 H Plt Count 80 L MPV 12.0 H Neutrophils % 93.0 H Lymphocytes % 1.0 L D INR 1.34 H D Sodium 151 H Chloride 120 H BUN 30 H D Random Glucose 171 H Calcium 8.4 L Phosphorus 2.3 L D Total Bilirubin 1.6 H Direct Bilirubin 1.1 H Alkaline Phosphatase 133 H Total Protein 5.2 L Albumin 1.4 L D INR, PTT INR 1.34 (0.82-1.09) H D 12/15/16 05:00 Fibrinogen 350.0 mg/dL (238-498) 12/15/16 05:00 Microbiology 12/11/16 10:50 Blood - Peripheral Venous Blood Culture - Preliminary NO GROWTH OBTAINED AFTER 96 HOURS, INCUBATION TO CONTINUE FOR 1 DAYS. 12/11/16 10:50 Blood - Peripheral Venous Blood Culture - Preliminary NO GROWTH OBTAINED AFTER 96 HOURS, INCUBATION TO CONTINUE FOR 1 DAYS. 12/12/16 06:00 Sputum - Endotrachea Suction/Ventilator Gram Stain - Final 12/12/16 06:00 Sputum - Endotrachea Suction/Ventilator Sputum Culture - Final Proteus Mirabilis Current Medications Generic Name Dose Route Start Last Admin Trade Name Freq PRN Reason Stop Dose Admin Acetaminophen 325 mg 12/11/16 12:07 Tylenol Suppository - [place] Q4H PRN FEVER OR PAIN Ascorbic Acid 500 mg 12/15/16 10:00 12/15/16 10:00 Vitamin C Oral Solution - PEG 500 mg DAILY [facility] Administration Aspirin 300 mg 12/12/16 16:30 12/15/16 10:01 Asa - RC 300 mg DAILY [facility] Administration Chlorhexidine Gluconate 1 applic 12/11/16 22:00 12/14/16 23:43 Hibiclens For Decolonization - TP 1 applic HS S[facility]IN Administration Diltiazem HCl 60 mg 12/15/16 12:30 12/15/16 12:52 Cardizem - PEG 60 mg Q6HPO [facility]IN Administration Pantoprazole Sodium 100 mls @ 200 mls/hr 12/13/16 10:00 12/15/16 09:59 Protonix 40mg Ivpb (Pre-Docked) IVPB 200 mls/hr DAILY [facility] Administration Imipenem/Cilastatin Sodium 500 100 mls @ 100 mls/hr 12/14/16 10:00 12/15/16 09: 59 mg/ Sodium Chloride IVPB 100 mls/hr Q8H-IV [facility] Administration Protocol Vancomycin HCl 250 mls @ 200 mls/hr 12/15/16 13:00 12/15/16 12:51 Vancomycin (Pre-Docked) IVPB 200 mls/hr DAILY@1300 [facility] Administration Potassium Phosphate 15 mm/ 255 mls @ 62.5 mls/hr 12/15/16 14:26 Dextrose IVPB 12/15/16 18:30 ONCE ONE Metoprolol Tartrate 50 mg 12/14/16 22:00 12/15/16 13:15 Lopressor - NGT 50 mg TID S[facility]VIN Administration Morphine Sulfate 1 mg 12/14/16 02:29 12/14/16 04:54 Morphine Injection - IVPUSH 1 mg Q4H PRN Administration PAIN Multi-Ingredient Ointment 1 applic 12/15/16 10:00 12/15/16 10:02 Zinc Oxide TP 1 applic DAILY [facility] Administration Mupirocin 1 applic 12/11/16 22:00 12/15/16 10:01 Bactroban Ointment (For Decolonization) - NS 12/16/16 21:59 1 applic BID S[facility]IN Administration Nystatin 1 applic 12/14/16 22:00 12/15/16 09:59 Mycostatin Cream - TP 1 applic BID [facility] Administration Ondansetron HCl 4 mg 12/11/16 12:07 Zofran Injection IVPB Q6H PRN NAUSEA Phytonadione 5 mg 12/14/16 17:30 12/15/16 09:58 Aqua Mephyton Injection - SQ 12/16/16 10:01 5 mg DAILY [facility] Administration Polyethylene Glycol 17 gm 12/15/16 10:00 12/15/16 10:04 Miralax (For Daily Use) - PEG 17 gm DAILY [facility] Administration Senna 8.8 mg 12/15/16 22:00 Senna Oral Solution - PO HS [facility] Zinc Sulfate 220 mg 12/15/16 10:00 12/15/16 09:59 Orazinc - GT 220 mg DAILY [facility] Administration Acinetobacter Baumannii/Haemol Impression: Non responsive ?septic Respiratory Failure Hypernatremia Leucocytosis Thrombocytopenia Coagulopathy Hyperglycemia Lung masses Dementia Suspect sepsis with thrombocytopenia and coagulopathy secondary to same Leucocytosis ?? sepsis ?? secondary to likely malignancy Current treatment Conservative management
--- NOTE | 2016-12-15 15:14 | PN ---
Physical Exam: SUBJECTIVE: She was seen and examined in the ICU. No changes overnight, Spoke to her daughter today via telephone, Amada Bryan @ [phone].and updated her on patient status. I previously discussed advanced directives with daughter, daughter confirm she is the point of contact and HCP She confirmed previously that her mother is a Full Code. OBJECTIVE: Vital Signs Period Temp Pulse Resp BP Sys/Chase Pulse Ox Last 24 Hr 98.9 F-99.0 F 58-90 16-27 108-146/58-93 99-100 GENERAL: Lethargic, opens eyes, non responsive, non verbal HEAD: Normal with no signs of trauma. ENT: Ears normal, nares patent, oropharynx clear without exudates NECK:She is vented on volume assist control. LUNGS: anterior breath sounds with congestion, scattered rhonchi anteriorly HEART: heart rate irregular 60s, - distant heart sounds ABDOMEN: Soft, nontender, nondistended, new G tube present - LUQ EXTREMITIES: 2+ pulses, warm, well-perfused, no edema. NEUROLOGICAL: unresponsive to tactile stimuli - opens eyes intermittently PSYCH:lethargic,unable to fully assess SKIN: G tube present LUQ Laboratory Results - last 24 hr 12/15/16 12/15/16 12/15/16 05:00 05:00 05:00 WBC 29.2 H D RBC 4.02 Hgb 11.3 Hct 36.7 MCV 91.1 MCHC 30.8 L RDW 21.2 H Plt Count 80 L MPV 12.0 H Neutrophils % 93.0 H Lymphocytes % 1.0 L D Monocytes % 6.0 Differential Comment Manual diff done Polychromasia Few Macrocytosis 2+ INR 1.34 H D PTT (Actin FS) Fibrinogen 350.0 Fibrin Degrad Products Greater than 40 Sodium 151 H Potassium 3.8 D Chloride 120 H Carbon Dioxide 21 Anion Gap 10 BUN 30 H D Creatinine 0.7 Random Glucose 171 H Calcium 8.4 L Phosphorus 2.3 L D Magnesium 2.3 D Total Bilirubin 1.6 H Direct Bilirubin 1.1 H AST 16 D ALT 27 D Alkaline Phosphatase 133 H Total Protein 5.2 L Albumin 1.4 L D 12/15/16 05:00 WBC RBC Hgb Hct MCV MCHC RDW Plt Count MPV Neutrophils % Lymphocytes % Monocytes % Differential Comment Polychromasia Macrocytosis INR PTT (Actin FS) 32.2 D Fibrinogen Fibrin Degrad Products Sodium Potassium Chloride Carbon Dioxide Anion Gap BUN Creatinine Random Glucose Calcium Phosphorus Magnesium Total Bilirubin Direct Bilirubin AST ALT Alkaline Phosphatase Total Protein Albumin Active Medications Generic Name Dose Route Start Last Admin Trade Name Freq PRN Reason Stop Dose Admin Acetaminophen 325 mg 12/11/16 12:07 Tylenol Suppository - [place] Q4H PRN FEVER OR PAIN Ascorbic Acid 500 mg 12/15/16 10:00 12/15/16 10:00 Vitamin C Oral Solution - PEG 500 mg DAILY [facility] Administration Aspirin 300 mg 12/12/16 16:30 12/15/16 10:01 Asa - RC 300 mg DAILY S[facility]IN Administration Chlorhexidine Gluconate 1 applic 12/11/16 22:00 12/14/16 23:43 Hibiclens For Decolonization - TP 1 applic HS SELVIN Administration Diltiazem HCl 60 mg 12/15/16 12:30 12/15/16 12:52 Cardizem - PEG 60 mg Q6HPO S[facility]IN Administration Pantoprazole Sodium 100 mls @ 200 mls/hr 12/13/16 10:00 12/15/16 09:59 Protonix 40mg Ivpb (Pre-Docked) IVPB 200 mls/hr DAILY [facility] Administration Imipenem/Cilastatin Sodium 500 100 mls @ 100 mls/hr 12/14/16 10:00 12/15/16 09: 59 mg/ Sodium Chloride IVPB 100 mls/hr Q8H-IV [facility]VIN Administration Protocol Vancomycin HCl 250 mls @ 200 mls/hr 12/15/16 13:00 12/15/16 12:51 Vancomycin (Pre-Docked) IVPB 200 mls/hr DAILY@1300 [facility] Administration Potassium Phosphate 15 mm/ 255 mls @ 62.5 mls/hr 12/15/16 15:30 Dextrose IVPB 12/15/16 19:34 ONCE ONE Metoprolol Tartrate 50 mg 12/14/16 22:00 12/15/16 13:15 Lopressor - NGT 50 mg TID SELVIN Administration Morphine Sulfate 1 mg 12/14/16 02:29 12/14/16 04:54 Morphine Injection - IVPUSH 1 mg Q4H PRN Administration PAIN Multi-Ingredient Ointment 1 applic 12/15/16 10:00 12/15/16 10:02 Zinc Oxide TP 1 applic DAILY [facility] Administration Mupirocin 1 applic 12/11/16 22:00 12/15/16 10:01 Bactroban Ointment (For Decolonization) - NS 12/16/16 21:59 1 applic BID SELVIN Administration Nystatin 1 applic 12/14/16 22:00 12/15/16 09:59 Mycostatin Cream - TP 1 applic BID [facility]IN Administration Ondansetron HCl 4 mg 12/11/16 12:07 Zofran Injection IVPB Q6H PRN NAUSEA Phytonadione 5 mg 12/14/16 17:30 12/15/16 09:58 Aqua Mephyton Injection - SQ 12/16/16 10:01 5 mg DAILY SELVIN Administration Polyethylene Glycol 17 gm 12/15/16 10:00 12/15/16 10:04 Miralax (For Daily Use) - PEG 17 gm DAILY [facility] Administration Senna 8.8 mg 12/15/16 22:00 Senna Oral Solution - PO HS SEL[facility]IN Zinc Sulfate 220 mg 12/15/16 10:00 12/15/16 09:59 Orazinc - GT 220 mg DAILY [facility] Administration ASSESSMENT/PLAN: Patient is an 86 year old female who resides at the [facility]. She has a significant past medical history of severe dementia,schizophrenia, anxiety, lung cancer (stage?), uterine cancer with hysterectomy, malignant melanoma, hypertension, aortic stenosis, mitral regurgitation, atrial fibrillation, chronic diastolic heart failure and chronic respiratory failure ( had percutaneous trach placed on 11/12/2015). She was being sent to the hospital via EMS for a scheduled G tube replacement when EMS noted patient to have tachycardia. She was given Adenosine various times and then brought into the ER. In the ER, she was found to have a temperature of 102.4 and a WBC of 37.2. Her electrolytes on admission: Sodium 158, K 5.7, BUN 74, creatinine 1.3, calcium 11.4 and lactic acid was 3.068. Further her UA showed 1+ protein, 2+ blood, urobilinogen 4.0, 3+ leukocyte esterase and WBC of 994. She was admitted to the ICU. Imaging: Chest Xray - 12/11/16 increasing left bone density and left pleural effusion, right upper lobe opacity is now noted and possibility also left upper lobe opacity. Chest Xray - 12/14/16 with persistent left pleural effusion and left base density - focal opacity in upper lobes are seen corresponding to pulmonary masses. CT/Head CT without contrast 12/11/16 - extensive periventricular white matter chronic microvascular ischemic changes. left subinsular and left thalamic old lacunar infarct. Encephalomalacia/old infarct in the right occipital lobe, medially. Findings suspicious for interval acute/subacute infarct in the right temporal lobe. CT/Abdomen & Pelvis CT w/o contrast 12/11/2016 CT/Chest CT without contrast 12/11/2016 (1) 2 large pulmonary masses w/in the right and left upper lobes consistent with malignancy with additional 7mm right mid lobe nodule (2) extensive left lower lobe atelectasis and pleural effusion (3) small right pleural effusion with basilar atelactasis (4) 3.7cm distal AAA (5) no acute evidence of metastatic disease or acute path. within abdomen/ pelvis. ID: Severe sepsis likely secondary to UTI and/or Health care associated pneumonia Assessment/Plan: Lactic acidosis on admission, now has since resolved. Leukocytosis today @ 29.2 On Imipenem and Vanco per ID Urinary Tract Infection - acute Assessment/Plan: UA showed 1+ protein, 2+ blood, urobilinogen 4.0, 3+ leukocyte esterase and WBC of 994. Afebrile since admission, Urine culture with Klebsilella Pneumoniae Pneumonia - possible health care associated - acute Assessment/Plan: She is vented on volume assist control for chronic hypoxic respiratory failure - had trach placed 11/2015 + Proteus Mirabilis in sputum + MRSA in nares On contact precautions Hematology: Probable DIC Thrombocytopenia - acute, likely secondary to sepsis Assessment/Plan: SC heparin stopped secondary to thrombocytopenia, on SCDs bilaterally Hematology consulted, given Vitamin K for INR of 2.08 HIT panel pending Cardiology: Hypertension/atrial fibrillation/CHF - chronic Assessment/Plan: Started on Lopressor thru GT 50mg TID Neuro: CT/Head CT without contrast with Encephalomalacia/old infarct in the right occipital lobe, medially. Findings suspicious for interval acute/subacute infarct in the right temporal lobe. Assessment/Plan: CT suggestive of acute/subacute infarct in right temporal lobe. Started on ASA 300mg GA, Neurology notes reviewed : Acute Kidney Injury - improving Assessment/Plan: Monitor trend continue connolly catheter GI: Peg tube dislodgment - resolved Assessment/Plan: New peg tube placed, will start Jevity 1.5 feeds @60cc with water flushes Psyche: Anxiety/Schizophrenia Assessment/Plan: Monitor, for now, unable to assess as pt is lethargic Oncology: Lung cancer - chronic Assessment/Plan: Not on any active chemo/treatment As per her daughter, pt has been treated for uterine cancer and malignant melanoma in the past F.E.N. Fluids: no IVF, started on Jevity 1.5 @ 60cc with water flushes Electrolytes: Hypernatremia: monitor - trending down HypoKalemia: resolved Phosp: within normal limits - given potassium phos. - repeat labs in a.m. Nutrition: Jevity 1.5 @60cc/hr with water flushes Prophylaxis: DVT: SCDs - heparin stopped secondary to thrombocytopenia GI: Protonix Disposition: For transfer to medical surgical floor today. Full Code. *Palliative care consulted to continue discussions regarding goals of care and advance directives. Visit type - Emergency Visit Emergency Visit: Yes ED Registration Date: 12/11/16 Care time: The patient presented to the Emergency Department on the above date and was hospitalized for further evaluation of their emergent condition. - New Patient This patient is new to me today: No - Critical Care Critical Care patient: Yes Total Critical Care Time (in minutes): 45 Critical Care Statement: The care of this patient involved high complexity decision making to prevent further life threatening deterioration of the patient 's condition and/or to evalute & treat vital organ system(s) failure or risk of failure. - Discharge Referral Referred to [facility] Med [facility] No
[2016-12-15] MEDS ORDERED: POTASSIUM PHOSPHATE 15 MM in DEXTROSE 5%-WATER - 250 ML IVPB ONE (15:30)
[2016-12-15] MEDS: NAPH,MB-DB/K PH,MBDB POWDER PACKET PEG SCH ×2 (17:40→21:28)
[2016-12-15] MEDS ORDERED: ACETAMINOPHEN 325 MG SUPP.RECT PR PRN (19:31)
[2016-12-15] MEDS ORDERED: ONDANSETRON 4 MG/2 ML VIAL IVPB PRN (19:31)
[2016-12-15] MEDS ORDERED: morphine CARPU-JECT 2 MG/1 ML DISP.SYRIN IVPUSH PRN (19:31)
[2016-12-15] MEDS: SENNOSIDES 8.8 MG/5 ML BULK BOTTLE PO SCH (21:28)
[2016-12-15] MEDS ORDERED: CHLORHEXIDINE GLUCONATE 4% CLEANSER FOR DECOLONIZATION TP SCH (22:00)
[2016-12-15] MEDS ORDERED: SENNOSIDES 8.8 MG/5 ML BULK BOTTLE PO SCH (22:00)
[2016-12-15] MEDS ORDERED: MUPIROCIN 2% TOPICAL OINTMENT FOR DECOLONIZATION NS SCH (22:00)
[2016-12-16] MEDS: dilTIAZem HCL 60 MG TABLET (FP) PEG SCH ×6 (01:00→23:06)
[2016-12-16] MEDS: IMIPENEM/CILASTATIN SODIUM 500 MG in SODIUM CHLORIDE 100 ML IVPB SCH ×3 (03:04→17:48)
[2016-12-16] MEDS: NAPH,MB-DB/K PH,MBDB POWDER PACKET PEG SCH ×3 (07:34→22:49)
[2016-12-16] MEDS: METOPROLOL TARTRATE 50 MG TABLET (FP) NGT SCH ×3 (07:34→22:48)
[2016-12-16 08:00] LABS: MCHC 31.1 g/dl (32.0-36.0); MEAN PLT VOLUME 11.7 fl (7.5-11.1); PLATELET COUNT 68 K/MM3 (134-434); RDW 20.1 % (11.6-15.6); WHITE BLOOD COUNT 27.6 K/mm3 (4.0-10.0)
[2016-12-16 08:20] LABS: INR 1.2 (0.82-1.09); PROTHROMBIN TIME (PATIENT) 13.3 SEC (9.98-11.88)
[2016-12-16 09:16] LABS: HYPOCHROMIA 1+; METAMYELOCYTE 3 % (0-2); POLYCHROMASIA 1+
[2016-12-16 09:17] LABS: ANISOCYTOSIS 2+; FRAGMENTED CELL 1+; MICROCYTOSIS 1+; SCHISTOCYTES 1+; TEAR DROP CELLS RARE
[2016-12-16 09:29] LABS: ALBUMIN 1.3 g/dl (3.4-5.0); ALK PHOS 139 U/L (45-117); ANION GAP 11 (8-16); BILIRUBIN,TOTAL 1.9 mg/dL (0.2-1.0); CALCIUM 8.6 mg/dL (8.5-10.1); CO2 21 mmol/L (21-32); CREATININE 0.6 mg/dL (0.55-1.02); GLUCOSE,RANDOM 175 mg/dL (74-106); MAGNESIUM 1.9 mg/dL (1.8-2.4); PHOSPHOROUS 2.3 mg/dL (2.5-4.9); SGOT/AST 19 U/L (15-37); SGPT/ALT 19 U/L (12-78); TOT PROT 5.2 g/dl (6.4-8.2)
[2016-12-16] MEDS ORDERED: ASPIRIN 300 MG SUPP.RECT RC SCH (10:00)
[2016-12-16] MEDS ORDERED: POLYETHYLENE GLYCOL 3350 119 GM BTL PEG SCH (10:00)
[2016-12-16] MEDS ORDERED: PHYTONADIONE 10 MG/1 ML AMP SQ SCH (10:00)
[2016-12-16] MEDS: ZINC SULFATE 220 MG CAPSULE (FP) GT SCH (10:15)
[2016-12-16] MEDS: ASCORBIC ACID 500 MG/5 ML UNIT DOSE CUP PEG SCH (10:17)
[2016-12-16] MEDS ORDERED: PT OWN MED DRAWER 7, Y5N ONE ×2 (10:53→17:13)
[2016-12-16] MEDS: PANTOPRAZOLE SODIUM 100 ML IVPB SCH (11:18)
--- NOTE | 2016-12-16 11:45 | PN ---
Progress Note, Physician History of Present Illness: Non-verbal, minimal responsive. - Current Medication List Current Medications: Active Medications Acetaminophen (Tylenol Suppository -) 325 mg ID Q4H PRN PRN Reason: FEVER OR PAIN Ascorbic Acid (Vitamin C Oral Solution -) 500 mg PEG DAILY [facility] Last Admin: 12/16/16 10:17 Dose: 500 mg Aspirin (Asa -) 300 mg RC DAILY [facility] Diltiazem HCl (Cardizem -) 60 mg PEG Q6HPO [facility] Last Admin: 12/16/16 11:18 Dose: 60 mg Imipenem/Cilastatin Sodium 500 (mg/ Sodium Chloride) 100 mls @ 100 mls/hr IVPB Q8H-IV [facility] PRN Reason: Protocol Last Admin: 12/16/16 10:16 Dose: 100 mls/hr Pantoprazole Sodium (Protonix 40mg Ivpb (Pre-Docked)) 100 mls @ 200 mls/hr IVPB DAILY [facility] Last Admin: 12/16/16 11:18 Dose: 200 mls/hr Vancomycin HCl (Vancomycin (Pre-Docked)) 250 mls @ 200 mls/hr IVPB DAILY@1300 [facility] Metoprolol Tartrate (Lopressor -) 50 mg NGT TID [facility] Last Admin: 12/16/16 07:34 Dose: Not Given Morphine Sulfate (Morphine Injection -) 1 mg IVPUSH Q4H PRN PRN Reason: PAIN Multi-Ingredient Ointment (Zinc Oxide) 1 applic TP DAILY [facility] Nystatin (Mycostatin Cream -) 1 applic TP BID [facility] Last Admin: 12/15/16 21:27 Dose: 1 applic Ondansetron HCl (Zofran Injection) 4 mg IVPB Q6H PRN PRN Reason: NAUSEA Polyethylene Glycol (Miralax (For Daily Use) -) 17 gm PEG DAILY [facility] Last Admin: 12/16/16 10:13 Dose: 17 gm Potassium Phos/Sodium Phos (Phos-Nak Packet -) 1 packet PEG TID [facility] Last Admin: 12/16/16 07:34 Dose: 1 packet Senna (Senna Oral Solution -) 8.8 mg PO HS [facility] Last Admin: 12/15/16 21:28 Dose: Not Given Zinc Sulfate (Orazinc -) 220 mg GT DAILY [facility] Last Admin: 12/16/16 10:15 Dose: 220 mg - Objective Vital Signs: Vital Signs Temperature 100.5 F H 12/16/16 10:00 Pulse Rate 98 H 12/16/16 10:00 Respiratory Rate 24 12/16/16 10:00 Blood Pressure 105/56 12/16/16 10:00 O2 Sat by Pulse Oximetry (%) 100 12/15/16 21:00 Constitutional: Yes: No Distress, Calm Neck: Yes: Supple Cardiovascular: Yes: Pulse Irregular, Murmur (2/6 SM) Respiratory: Yes: Intubated, Mechanically Ventilated Gastrointestinal: Yes: Normal Bowel Sounds, Soft Edema: No Labs: CBC, BMP 12/16/16 06:15 12/16/16 06:15 INR, PTT INR 1.20 (0.82-1.09) H 12/16/16 06:15 Fibrinogen 350.0 mg/dL (238-498) 12/15/16 05:00 Problem List - Problems (1) Pneumonia Code(s): J18.9 - PNEUMONIA, UNSPECIFIED ORGANISM Qualifiers: Pneumonia type: due to unspecified organism Laterality: unspecified laterality Lung location: unspecified part of lung Qualified Code(s): J18.9 - Pneumonia, unspecified organism (2) Aortic stenosis Code(s): Q25.3 - SUPRAVALVULAR AORTIC STENOSIS (3) CVA (cerebral vascular accident) Code(s): I63.9 - CEREBRAL INFARCTION, UNSPECIFIED Qualifiers: CVA mechanism: unspecified Qualified Code(s): I63.9 - Cerebral infarction, unspecified (4) Dementia Code(s): F03.90 - UNSPECIFIED DEMENTIA WITHOUT BEHAVIORAL DISTURBANCE Qualifiers: Dementia type: unspecified type Dementia behavioral disturbance: without behavioral disturbance Qualified Code(s): F03.90 - Unspecified dementia without behavioral disturbance (5) Dysphagia Code(s): R13.10 - DYSPHAGIA, UNSPECIFIED (6) Hypertension Code(s): I10 - ESSENTIAL (PRIMARY) HYPERTENSION Qualifiers: Hypertension type: essential hypertension Qualified Code(s): I10 - Essential (primary) hypertension (7) Metastatic breast cancer Code(s): C50.919 - MALIGNANT NEOPLASM OF UNSP SITE OF UNSPECIFIED FEMALE BREAST C79.9 - SECONDARY MALIGNANT NEOPLASM OF UNSPECIFIED SITE (8) Mitral regurgitation Code(s): I34.0 - NONRHEUMATIC MITRAL (VALVE) INSUFFICIENCY Qualifiers: Cardiac valve disease etiology: nonrheumatic Qualified Code(s): I34.0 - Nonrheumatic mitral (valve) insufficiency (9) Tricuspid regurgitation Code(s): I07.1 - RHEUMATIC TRICUSPID INSUFFICIENCY Qualifiers: Cardiac valve disease etiology: nonrheumatic Qualified Code(s): I36.1 - Nonrheumatic tricuspid (valve) insufficiency (10) UTI (urinary tract infection) Code(s): N39.0 - URINARY TRACT INFECTION, SITE NOT SPECIFIED Qualifiers: Urinary tract infection type: site unspecified Hematuria presence: without hematuria Qualified Code(s): N39.0 - Urinary tract infection, site not specified (11) Atrial fibrillation Code(s): I48.91 - UNSPECIFIED ATRIAL FIBRILLATION Qualifiers: Atrial fibrillation type: persistent Qualified Code(s): I48.1 - Persistent atrial fibrillation (12) PEG tube malfunction Code(s): K94.23 - GASTROSTOMY MALFUNCTION (13) Demand ischemia Code(s): I24.8 - OTHER FORMS OF ACUTE ISCHEMIC HEART DISEASE Assessment/Plan 10/16/2015 Echo: Normal LV size and fxn, mild LOLY, mod-severe MR, severe TR, severe , mild AR, pleural effusion 12/15/2016 Echo: Normal LV size and fxn, mod MR and TR, mild AR, severe THIAGO 0.7 cm^2 1. Chronic ventilator-dependent respiratory failure post trach, pneumonia, UTI 2. 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 Chronic LV diastolic dysfunction with class I NYHA classification LV failure , compensated 4. Severe 5. Persistent atrial fibrillation [id number] score of 7, on no A/C 6. HTN 7. 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 Pre-renal ELLIE with Hypernatremia improving 10. Thrombocytopenia and Coagulopathy referable to sepsis 11. Lung masses PLAN: 1. Free water repletion with monitor Na, replete K 2. As outlined in prior notes ideally should be A/C unless it is absolutely contraindicated considering the above noted [id number] score of 7 otherwise Continue ASA 81 qd 3. Continue Lopressor 50 tid and cardizem 60 q6 4. Vent management as per primary/critical care teams 5. Antibiotics as per the ID team 6. Enteral feeds, DVT and GI prophylaxis
--- NOTE | 2016-12-16 11:47 | PN ---
Progress Note (short form) - Note Progress Note: Neurology follow up note: Patient seen previously by Dr. Khan. Patient with tracheostomy on vent, remains non verbal, minimally responsive though opened eyes briefly during encounter. Remains in ICU in critical care for sepsis, CVA, respiratory depression, Afib. No significant neurologic changes. Remains on Abx. Spoke with primary team and would consider ASA 81 instead of ASA 300. Platelet count downtrending. Active Medications Acetaminophen (Tylenol Suppository -) 325 mg PA Q4H PRN PRN Reason: FEVER OR PAIN Ascorbic Acid (Vitamin C Oral Solution -) 500 mg PEG DAILY [facility] Last Admin: 12/16/16 10:17 Dose: 500 mg Aspirin (Asa -) 300 mg RC DAILY [facility] Diltiazem HCl (Cardizem -) 60 mg PEG Q6HPO [facility] Last Admin: 12/16/16 11:18 Dose: 60 mg Imipenem/Cilastatin Sodium 500 (mg/ Sodium Chloride) 100 mls @ 100 mls/hr IVPB Q8H-IV [facility] PRN Reason: Protocol Last Admin: 12/16/16 10:16 Dose: 100 mls/hr Pantoprazole Sodium (Protonix 40mg Ivpb (Pre-Docked)) 100 mls @ 200 mls/hr IVPB DAILY [facility] Last Admin: 12/16/16 11:18 Dose: 200 mls/hr Vancomycin HCl (Vancomycin (Pre-Docked)) 250 mls @ 200 mls/hr IVPB DAILY@1300 [facility] Metoprolol Tartrate (Lopressor -) 50 mg NGT TID [facility] Last Admin: 12/16/16 07:34 Dose: Not Given Morphine Sulfate (Morphine Injection -) 1 mg IVPUSH Q4H PRN PRN Reason: PAIN Multi-Ingredient Ointment (Zinc Oxide) 1 applic TP DAILY [facility] Nystatin (Mycostatin Cream -) 1 applic TP BID [facility] Last Admin: 12/15/16 21:27 Dose: 1 applic Ondansetron HCl (Zofran Injection) 4 mg IVPB Q6H PRN PRN Reason: NAUSEA Polyethylene Glycol (Miralax (For Daily Use) -) 17 gm PEG DAILY [facility] Last Admin: 12/16/16 10:13 Dose: 17 gm Potassium Phos/Sodium Phos (Phos-Nak Packet -) 1 packet PEG TID [facility] Last Admin: 02/15/17 07:34 Dose: 1 packet Senna (Senna Oral Solution -) 8.8 mg PO HS [facility] Last Admin: 12/15/16 21:28 Dose: Not Given Zinc Sulfate (Orazinc -) 220 mg GT DAILY [facility] Last Admin: 12/16/16 10:15 Dose: 220 mg Vital Signs Temperature 100.5 F H 12/16/16 10:00 Pulse Rate 98 H 12/16/16 10:00 Respiratory Rate 24 12/16/16 10:00 Blood Pressure 105/56 12/16/16 10:00 O2 Sat by Pulse Oximetry (%) 100 12/15/16 21:00 GENERAL: Intubated, sedated, look uncomfortable . HEENT: Normocephalic, atraumatic. Pinpoint pupil, sluggish, dry mucus membrane, right facial droop. CARDIOVASCULAR: irregular S1, S2. rate and rhythm. PULMONARY: b/l ronchi. ABDOMEN: Soft, non-distended, non-tender. peg tube in place EXTREMITIES: limited ROM in all four extremities. b/l hands contracted . SKIN: Warm, dry. No rash NEUROLOGICAL: Awake, respond to tactile stimuli only by open eye. non verbal, no purposeful movement. Unable to assess Cranial nerves 2-12 intact. light touch and temperature .left sided paralysis. plantar reflex intact in right foot. no reflex in left PSYCHIATRIC: Unable to cooperate. No eye contact. Imaging: CT head 12/12/15 Extensive periventricular white matter chronic microvascular ischemic changes. Left subinsular and left thalamic old lacunar infarct. Encephalomalacia/old infarct in the right occipital lobe, medially. Findings suspicious for interval acute/subacute infarct in the right temporal lobe. Correlation with noncontrast MRI of the brain would be the study of choice for further evaluation CT chest/Abdomen/Pelvis 12/12/15: 1. 2 large pulmonary masses within the right and left upper lobes consistent with malignancy. There is an additional 7 mm right middle lobe nodule. 2. Extensive left lower lobe atelectasis and pleural effusion. 3. Small right pleural effusion with basilar atelectasis. 4. 3.7 cm distal AAA. 5. No evidence of metastatic disease or acute pathology within the abdomen or pelvis. Limited study as described above. Assessment/plan 86 year old female with severe Dementia, lung cancer, schizophrenia, multiple CVA, non verbal, on ventilator via tracheostomy is admitted for Sepsis rt UTI/ HCAP, AFIB with RVR, Acute on chronic hypoxic respiratory failure present with Acute/subacute infarct in right temporal lobe. [id number] score 7 ASA 300 can be decreased to 81 Monitor platelet count Monitor blood pressure, goal <140/90 chronically Continue IV abx for sepsis No acute neurological intervention necessary at this point. No brain MRI necessary
[2016-12-16] MEDS ORDERED: POTASSIUM CHLORIDE 40 MEQ/30 ML UNIT DOSE CUP PO ONE (12:23)
[2016-12-16] MEDS: NYSTATIN 100,000 UNIT/GM TOPICAL CREAM 15 GM TUBE TP SCH ×2 (13:16→22:48)
[2016-12-16] MEDS: VANCOMYCIN 1 GRAM (PRE-DOCKED) 250 ML IVPB SCH (13:17)
[2016-12-16 15:38] LABS: URINE APPEARANCE CLOUDY; URINE BLOOD NEGATIVE (NEGATIVE); URINE COLOR AMBER; URINE GLUCOSE (UA) 1+ (NEGATIVE); URINE KETONE TRACE (NEGATIVE); URINE NITRITE NEGATIVE (NEGATIVE); URINE UROBILINOGEN 4.0 E.U/dl E.U./dl (0.2-1.0)
[2016-12-16 15:42] LABS: URINE PROTEIN 1+ (NEGATIVE)
[2016-12-16 15:43] LABS: URINE LEUK ESTERASE 3+ (NEGATIVE)
[2016-12-16 15:49] LABS: GRANULAR CASTS 7 /lpf; URINE HYALINE CAST 11 /lpf; URINE MUCUS RARE; URINE RBC 27 /hpf (0-3); URINE WBC 192 /hpf (3-5); YEAST MANY
[2016-12-16] MEDS: ZINC OXIDE 20% TOPICAL OINTMENT 30 GM TUBE TP SCH (16:21)
--- NOTE | 2016-12-16 16:25 | PN ---
Progress Note (short form) - Note Progress Note: Subjective: The patient was seen and examined at the bedside, she is non-verbal , on the vent, appears comfortable. coughing noted Current Medications Generic Name Dose Route Start Last Admin Trade Name Freq PRN Reason Stop Dose Admin Acetaminophen 325 mg 12/15/16 19:31 Tylenol Suppository - [place] Q4H PRN FEVER OR PAIN Ascorbic Acid 500 mg 12/16/16 10:00 12/16/16 10:17 Vitamin C Oral Solution - PEG 500 mg DAILY [facility] Administration Diltiazem HCl 60 mg 12/16/16 00:00 12/16/16 11:18 Cardizem - PEG 60 mg Q6HPO [facility] Administration Imipenem/Cilastatin Sodium 500 100 mls @ 100 mls/hr 12/16/16 02:00 12/16/16 10: 16 mg/ Sodium Chloride IVPB 100 mls/hr Q8H-IV [facility] Administration Protocol Pantoprazole Sodium 100 mls @ 200 mls/hr 12/16/16 10:00 12/16/16 11:18 Protonix 40mg Ivpb (Pre-Docked) IVPB 200 mls/hr DAILY [facility] Administration Vancomycin HCl 250 mls @ 200 mls/hr 12/16/16 13:00 12/16/16 13:17 Vancomycin (Pre-Docked) IVPB 200 mls/hr DAILY@1300 [facility] Administration Metoprolol Tartrate 50 mg 12/15/16 22:00 12/16/16 14:03 Lopressor - NGT 50 mg TID [facility] Administration Morphine Sulfate 1 mg 12/15/16 19:31 Morphine Injection - IVPUSH Q4H PRN PAIN Multi-Ingredient Ointment 1 applic 12/16/16 10:00 Zinc Oxide TP DAILY [facility] Nystatin 1 applic 12/15/16 22:00 12/16/16 13:16 Mycostatin Cream - TP 1 applic BID [facility] Administration Ondansetron HCl 4 mg 12/15/16 19:31 Zofran Injection IVPB Q6H PRN [facility] Polyethylene Glycol 17 gm 12/16/16 10:00 12/16/16 10:13 Miralax (For Daily Use) - PEG 17 gm DAILY [facility] Administration Potassium Phos/Sodium Phos 1 packet 12/15/16 15:30 12/16/16 13:18 Phos-Nak Packet - PEG 1 packet TID [facility] Administration Senna 8.8 mg 12/15/16 22:00 12/15/16 21:28 Senna Oral Solution - PO Not Given HS [facility] Zinc Sulfate 220 mg 12/16/16 10:00 12/16/16 10:15 Orazinc - GT 220 mg DAILY [facility] Administration Objective: Vital Signs Period Temp Pulse Resp BP Sys/Chase Pulse Ox Last 24 Hr 97.9 F-100.5 F 68-100 12-27 95-150/46-80 100-100 Physical Exam: General: NAD, Non-verbal, on vent Lungs: Anterior breath sounds with rhonchi throughout Heart: Irregular rate and rhythm Abd: PEG tube in place. Normoactive bowel sounds Ext: Warm, well-perfused, 2+ DP/PT bilaterally Neuro: Opens eyes spontaneously CBCD WBC 27.6 K/mm3 (4.0-10.0) H 12/16/16 06:15 RBC 3.96 M/mm3 (3.60-5.2) 12/16/16 06:15 Hgb 11.1 GM/dL (10.7-15.3) 12/16/16 06:15 Hct 35.7 % (32.4-45.2) 12/16/16 06:15 MCV 90.0 fl (80-96) 12/16/16 06:15 MCHC 31.1 g/dl (32.0-36.0) L 12/16/16 06:15 RDW 20.1 % (11.6-15.6) H 12/16/16 06:15 Plt Count 68 K/MM3 (134-434) L 12/16/16 06:15 MPV 11.7 fl (7.5-11.1) H 12/16/16 06:15 CMP Sodium 148 mmol/L (136-145) H 12/16/16 06:15 Potassium 3.3 mmol/L (3.5-5.1) L 12/16/16 06:15 Chloride 116 mmol/L (98-107) H 12/16/16 06:15 Carbon Dioxide 21 mmol/L (21-32) 12/16/16 06:15 Anion Gap 11 (8-16) 12/16/16 06:15 BUN 24 mg/dL (7-18) H 12/16/16 06:15 Creatinine 0.6 mg/dL (0.55-1.02) 12/16/16 06:15 Creat Clearance w eGFR > 60 (>60) 12/16/16 06:15 Random Glucose 175 mg/dL (74-106) H 12/16/16 06:15 Calcium 8.6 mg/dL (8.5-10.1) 12/16/16 06:15 Total Bilirubin 1.9 mg/dL (0.2-1.0) H 12/16/16 06:15 AST 19 U/L (15-37) 12/16/16 06:15 ALT 19 U/L (12-78) D 12/16/16 06:15 Alkaline Phosphatase 139 U/L (45-117) H 12/16/16 06:15 Total Protein 5.2 g/dl (6.4-8.2) L 12/16/16 06:15 Albumin 1.3 g/dl (3.4-5.0) L 12/16/16 06:15 CARDIAC ENZYMES Creatine Kinase 28 IU/L (26-192) 12/12/16 05:20 Troponin I 0.15 ng/ml (0.00-0.05) H 12/12/16 05:20 Microbiology 12/11/16 10:50 Blood - Peripheral Venous Blood Culture - Final NO GROWTH AFTER 5 DAYS INCUBATION 12/11/16 10:50 Blood - Peripheral Venous Blood Culture - Final NO GROWTH AFTER 5 DAYS INCUBATION 12/11/16 16:10 Nasopharyngeal Swab Respiratory Virus Panel - Preliminary 12/12/16 06:00 Sputum - Endotrachea Suction/Ventilator Gram Stain - Final 12/12/16 06:00 Sputum - Endotrachea Suction/Ventilator Sputum Culture - Final Proteus Mirabilis Acinetobacter Baumannii/Haemol 12/11/16 11:50 Urine - Urine - Catheterized Urine Culture - Final Klebsiella Pneumoniae 12/12/16 06:00 Nares - Mrsa Screen - Right MRSA Screen - Final NO MRSA ISOLATED 12/12/16 06:00 Nares - Mrsa Screen - Left MRSA Screen - Final Mr S Aureus 12/11/16 16:10 Nose MRSA Screen - Final Mr S Aureus 12/11/16 16:10 Nasopharyngeal Swab Influenza Types A,B Antigen (CRISTINA) - Final 12/11/16 16:10 Nasopharyngeal Swab - Final Assessment: This is an 86 year old female with PMHx of severe dementia, lung cancer, HTN, schizophrenia, anxiety, aortic stenosis, mitral regurgitation, atrial fibrillation, chronic diastolic heart failure, chronic respiratory failure (on vent), who presented to the ED with tachycardia Plan: 1) ID: Severe sepsis 2/2 UTI, pneumonia - CT chest with extensive consolidation of the left lower lobe - Continue Primaxin - Continue Vancomycin - Remains febrile today - Chest x-ray on 12/16: remains consolidation with atelectasis in the left lower love with interval airspace disease and moderate pleural effusion. Mild bilateral increased interstitial markings suggestive of mild pulmonary venous congestion - UA still with 3+ leuks - Repeat UA and urine culture - Appreciate ID consult 2) Cardiology: A.fib with RVR - Per RN Carole (game farm supervisor at [facility]), the patient is not on any anticoagulation as an outpatient - Per daughter (Amada), the patient has never taking any anticoagulation for a.fib - [id number] score of 7, should be on anticoagulation, will defer starting to cardiology - Continue Lopressor - Continue Cardizem - Appreciate cardiology consult Elevated troponin - Per cards, trended down 3) : ELLIE - Resolved 4) GI: Transaminitis - Resolving - HCV Ab positive - Per GI, no treatment at this time 5) Pulmonary: Lung cancer, pleural effusions - Not on any active chemotherapy or radiation therapy - Appreciate pulmonary consult 6) Neuro: acute/subacute right temporal lobe infarct - CT head with Encephalomalacia/old infarct in the right occipital lobe, medially. Findings suspicious for interval acute/subacute infarct in the right temporal lobe - Hold ASA 81mg 2/2 thrombocytopenia - Appreciate neuro consult 7) Hematology: Worsening thrombocytopenia - Suspect 2/2 sepsis +/- coagulopathy - Platelets continue to drop, 68 today - Follow-up HIT Ab - Appreciate hematology consult 8) F/E/N: - Hypernatremia: improving, continue to trend. Continue free water flushes via G -tube - Hypokalemia: replete - Hypophosphatemia: replete - Jevity tube feeds 9) Prophylaxis: - Hold all chemical dvt prophylaxis 2/2 thrombocytopenia - SCDs bilaterally 10) Dispo: - Requires continued inpatient care CODE STATUS: FULL CODE Visit type - Emergency Visit Emergency Visit: Yes ED Registration Date: 12/11/16 Care time: The patient presented to the Emergency Department on the above date and was hospitalized for further evaluation of their emergent condition. - New Patient This patient is new to me today: Yes Date on this admission: 12/16/16 - Critical Care Critical Care patient: No
--- NOTE | 2016-12-16 16:36 | PN ---
Progress Note, Physician History of Present Illness: pulmonary no change unresponsive on vent support,ac mode,febrile t 100.5 - Current Medication List Current Medications: Active Medications Acetaminophen (Tylenol Suppository -) 325 mg [place] Q4H PRN PRN Reason: FEVER OR PAIN Last Admin: 12/16/16 16:21 Dose: 325 mg Ascorbic Acid (Vitamin C Oral Solution -) 500 mg PEG DAILY [facility] Last Admin: 12/16/16 10:17 Dose: 500 mg Diltiazem HCl (Cardizem -) 60 mg PEG Q6HPO [facility] Last Admin: 12/16/16 11:18 Dose: 60 mg Imipenem/Cilastatin Sodium 500 (mg/ Sodium Chloride) 100 mls @ 100 mls/hr IVPB Q8H-IV [facility] PRN Reason: Protocol Last Admin: 12/16/16 10:16 Dose: 100 mls/hr Pantoprazole Sodium (Protonix 40mg Ivpb (Pre-Docked)) 100 mls @ 200 mls/hr IVPB DAILY [facility] Last Admin: 12/16/16 11:18 Dose: 200 mls/hr Vancomycin HCl (Vancomycin (Pre-Docked)) 250 mls @ 200 mls/hr IVPB DAILY@1300 [facility] Last Admin: 12/16/16 13:17 Dose: 200 mls/hr Metoprolol Tartrate (Lopressor -) 50 mg NGT TID [facility] Last Admin: 12/16/16 14:03 Dose: 50 mg Morphine Sulfate (Morphine Injection -) 1 mg IVPUSH Q4H PRN PRN Reason: PAIN Multi-Ingredient Ointment (Zinc Oxide) 1 applic TP DAILY [facility] Last Admin: 12/16/16 16:21 Dose: 1 applic Nystatin (Mycostatin Cream -) 1 applic TP BID [facility] Last Admin: 12/16/16 13:16 Dose: 1 applic Ondansetron HCl (Zofran Injection) 4 mg IVPB Q6H PRN PRN Reason: NAUSEA Polyethylene Glycol (Miralax (For Daily Use) -) 17 gm PEG DAILY [facility] Last Admin: 12/16/16 10:13 Dose: 17 gm Potassium Phos/Sodium Phos (Phos-Nak Packet -) 1 packet PEG TID [facility] Last Admin: 12/16/16 13:18 Dose: 1 packet Senna (Senna Oral Solution -) 8.8 mg PO HS [facility] Last Admin: 12/15/16 21:28 Dose: Not Given Zinc Sulfate (Orazinc -) 220 mg GT DAILY [facility] Last Admin: 12/16/16 10:15 Dose: 220 mg - Objective Vital Signs: Vital Signs Temperature 100.5 F H 12/16/16 14:09 Pulse Rate 100 H 12/16/16 14:09 Respiratory Rate 24 12/16/16 14:30 Blood Pressure 95/49 12/16/16 14:09 O2 Sat by Pulse Oximetry (%) 100 12/15/16 21:00 Constitutional: Yes: Thin, Other (unresponsive) Eyes: Yes: WNL HENT: Yes: WNL Neck: Yes: Supple (trach) Cardiovascular: Yes: Pulse Irregular, S1, S2 Respiratory: Yes: Rhonchi (scattered rhonchi) Gastrointestinal: Yes: Normal Bowel Sounds, Soft Extremities: Yes: WNL Edema: No Labs: CBC, BMP 12/16/16 06:15 12/16/16 06:15 INR, PTT INR 1.20 (0.82-1.09) H 12/16/16 06:15 Fibrinogen 350.0 mg/dL (238-498) 12/15/16 05:00 Problem List - Problems (1) Atrial fibrillation with rapid ventricular response Code(s): I48.91 - UNSPECIFIED ATRIAL FIBRILLATION (2) Dehydration Code(s): E86.0 - DEHYDRATION (3) Demand ischemia Code(s): I24.8 - OTHER FORMS OF ACUTE ISCHEMIC HEART DISEASE (4) Hypercalcemia Code(s): E83.52 - HYPERCALCEMIA (5) PEG tube malfunction Code(s): K94.23 - GASTROSTOMY MALFUNCTION (6) UTI (urinary tract infection) Code(s): N39.0 - URINARY TRACT INFECTION, SITE NOT SPECIFIED Qualifiers: Urinary tract infection type: site unspecified Hematuria presence: without hematuria Qualified Code(s): N39.0 - Urinary tract infection, site not specified (7) Aortic stenosis Code(s): Q25.3 - SUPRAVALVULAR AORTIC STENOSIS (8) Atrial fibrillation Code(s): I48.91 - UNSPECIFIED ATRIAL FIBRILLATION Qualifiers: Atrial fibrillation type: persistent Qualified Code(s): I48.1 - Persistent atrial fibrillation (9) CVA (cerebral vascular accident) Code(s): I63.9 - CEREBRAL INFARCTION, UNSPECIFIED Qualifiers: CVA mechanism: unspecified Qualified Code(s): I63.9 - Cerebral infarction, unspecified (10) Chronic diastolic heart failure Code(s): I50.32 - CHRONIC DIASTOLIC (CONGESTIVE) HEART FAILURE (11) Chronic respiratory failure with hypoxia Code(s): J96.11 - CHRONIC RESPIRATORY FAILURE WITH HYPOXIA (12) Dementia Code(s): F03.90 - UNSPECIFIED DEMENTIA WITHOUT BEHAVIORAL DISTURBANCE Qualifiers: Dementia type: unspecified type Dementia behavioral disturbance: without behavioral disturbance Qualified Code(s): F03.90 - Unspecified dementia without behavioral disturbance (13) Dysphagia Code(s): R13.10 - DYSPHAGIA, UNSPECIFIED (14) Metastatic breast cancer Code(s): C50.919 - MALIGNANT NEOPLASM OF UNSP SITE OF UNSPECIFIED FEMALE BREAST C79.9 - SECONDARY MALIGNANT NEOPLASM OF UNSPECIFIED SITE (15) Pneumonia Code(s): J18.9 - PNEUMONIA, UNSPECIFIED ORGANISM Qualifiers: Pneumonia type: due to unspecified organism Laterality: unspecified laterality Lung location: unspecified part of lung Qualified Code(s): J18.9 - Pneumonia, unspecified organism Assessment/Plan ASSESSMENT AND PLAN: Chronic Respiratory Failure UTI Pneumonia Severe Sepsis resolving Lactic Acidosis resolved Acute Kidney Injury improving Hypernatremia/Dehydration Atrial Fibrillation with RVR Hypokalemia resolved LV Diastolic Dysfunction Pleural Effusion HTN Severe h/o CVA Lung Masses likely malignant Dementia - antibiotics per ID - monitor urine output, creatinine - rate control with cardizem and metoprolol - increase free water replacement via G tube - continue volume assist control - poor candidate for weaning at this time - enteral feeds - DVT/GI prophylaxis - continue discussions regarding advanced directives/goals of care - strict contact isolation DR RICHARDS
--- NOTE | 2016-12-16 20:35 | PN ---
Progress Note (short form) - Note Progress Note: PAtient seen and examined Denies any complaints Last Vital Signs Temp Pulse Resp BP Pulse Ox 100.5 F H 90 26 H 95/55 98 12/16/16 14:09 12/16/16 18:00 12/16/16 18:40 12/16/16 18:00 12/16/16 09:00 Cor: RSR, No murmurs, No gallops Lungs: Clear to P&A chest--mastectomies Abd: Soft, Normal bowel sounds, No organomegaly Ext:No significant edema Skin: No rashes, Integument intact Abnormal Lab Results 12/15/16 12/16/16 12/16/16 05:00 06:15 06:15 WBC 27.6 H MCHC 31.1 L RDW 20.1 H Plt Count 68 L MPV 11.7 H Neutrophils % 91.0 H Lymphocytes % 1.0 L Metamyelocytes 3 H D INR 1.20 H Sodium Potassium Chloride BUN Random Glucose Phosphorus Total Bilirubin Alkaline Phosphatase Total Protein Albumin Urine Protein Urine Glucose (UA) Urine Ketones Urine Urobilinogen Ur Leukocyte Esterase Hepatitis C Antibody >11.0 H 12/16/16 12/16/16 06:15 14:30 WBC MCHC RDW Plt Count MPV Neutrophils % Lymphocytes % Metamyelocytes INR Sodium 148 H Potassium 3.3 L Chloride 116 H BUN 24 H Random Glucose 175 H Phosphorus 2.3 L Total Bilirubin 1.9 H Alkaline Phosphatase 139 H Total Protein 5.2 L Albumin 1.3 L Urine Protein 1+ H Urine Glucose (UA) 1+ H Urine Ketones Trace H Urine Urobilinogen 4.0 e.u/dl H Ur Leukocyte Esterase 3+ H Hepatitis C Antibody Current Medications Acetaminophen (Tylenol Suppository -) 325 mg [place] Q4H PRN PRN Reason: FEVER OR PAIN Last Admin: 12/16/16 16:21 Dose: 325 mg Ascorbic Acid (Vitamin C Oral Solution -) 500 mg PEG DAILY [facility] Last Admin: 12/16/16 10:17 Dose: 500 mg Diltiazem HCl (Cardizem -) 60 mg PEG Q6HPO [facility] Last Admin: 12/16/16 17:48 Dose: 60 mg Imipenem/Cilastatin Sodium 500 (mg/ Sodium Chloride) 100 mls @ 100 mls/hr IVPB Q8H-IV [facility] PRN Reason: Protocol Last Admin: 12/16/16 17:48 Dose: 100 mls/hr Pantoprazole Sodium (Protonix 40mg Ivpb (Pre-Docked)) 100 mls @ 200 mls/hr IVPB DAILY [facility] Last Admin: 12/16/16 11:18 Dose: 200 mls/hr Vancomycin HCl (Vancomycin (Pre-Docked)) 250 mls @ 200 mls/hr IVPB DAILY@1300 [facility] Last Admin: 12/16/16 13:17 Dose: 200 mls/hr Metoprolol Tartrate (Lopressor -) 50 mg NGT TID [facility] Last Admin: 12/16/16 14:03 Dose: 50 mg Morphine Sulfate (Morphine Injection -) 1 mg IVPUSH Q4H PRN PRN Reason: PAIN Multi-Ingredient Ointment (Zinc Oxide) 1 applic TP DAILY [facility] Last Admin: 12/16/16 16:21 Dose: 1 applic Nystatin (Mycostatin Cream -) 1 applic TP BID [facility] Last Admin: 12/16/16 13:16 Dose: 1 applic Ondansetron HCl (Zofran Injection) 4 mg IVPB Q6H PRN PRN Reason: NAUSEA Polyethylene Glycol (Miralax (For Daily Use) -) 17 gm PEG DAILY [facility] Potassium Phos/Sodium Phos (Phos-Nak Packet -) 1 packet PEG TID [facility] Last Admin: 12/16/16 13:18 Dose: 1 packet Senna (Senna Oral Solution -) 8.8 mg PO HS [facility] Last Admin: 12/15/16 21:28 Dose: Not Given Zinc Sulfate (Orazinc -) 220 mg GT DAILY [facility] Last Admin: 12/16/16 10:15 Dose: 220 mg A/P 86 y/o patient with klebsiella urosepsis causing tachycardia and apparent DIC with falling platelet count and elevated INR. INR improved with Vit. 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 and RUL masses highly suspicious for cancer Also with advanced dementia, age, poor performance status ongoing discussions regarding goals of care
[2016-12-16] MEDS: SENNOSIDES 8.8 MG/5 ML BULK BOTTLE PO SCH (22:48)
[2016-12-17 00:06] LABS: HEP B SURFACE AB Non Reactive (.); HEPARIN INDUCED PLATELET AB. 0.255 OD (0.000-0.400)
[2016-12-17] MEDS: IMIPENEM/CILASTATIN SODIUM 500 MG in SODIUM CHLORIDE 100 ML IVPB SCH ×2 (01:27→09:39)
[2016-12-17] MEDS: dilTIAZem HCL 60 MG TABLET (FP) PEG SCH ×4 (05:30→23:39)
[2016-12-17] MEDS: METOPROLOL TARTRATE 50 MG TABLET (FP) NGT SCH ×3 (05:30→22:35)
[2016-12-17] MEDS: NAPH,MB-DB/K PH,MBDB POWDER PACKET PEG SCH ×3 (05:30→22:35)
[2016-12-17 08:16] LABS: MCH 28.1 pg (25.7-33.7); MCHC 31.4 g/dl (32.0-36.0); MEAN CELL VOLUME 89.7 fl (80-96); MEAN PLT VOLUME 11.3 fl (7.5-11.1); PLATELET COUNT 43 K/MM3 (134-434); RDW 20.6 % (11.6-15.6); WHITE BLOOD COUNT 14.4 K/mm3 (4.0-10.0)
[2016-12-17 08:38] LABS: ALBUMIN 1.1 g/dl (3.4-5.0); ANION GAP 10 (8-16); CALCIUM 7.5 mg/dL (8.5-10.1); CO2 21 mmol/L (21-32); CREATININE 0.5 mg/dL (0.55-1.02); GLUCOSE,RANDOM 138 mg/dL (74-106); MAGNESIUM 1.6 mg/dL (1.8-2.4); PHOSPHOROUS 1.7 mg/dL (2.5-4.9); SGOT/AST 21 U/L (15-37); SGPT/ALT 14 U/L (12-78)
[2016-12-17 08:40] LABS: ALK PHOS 125 U/L (45-117); BILIRUBIN,TOTAL 1.7 mg/dL (0.2-1.0); TOT PROT 4.5 g/dl (6.4-8.2)
[2016-12-17] MEDS ORDERED: PT OWN MED DRAWER 7, Y5N ONE (09:08)
[2016-12-17] MEDS: POLYETHYLENE GLYCOL 3350 119 GM BTL PEG SCH ×2 (09:39→12:49)
[2016-12-17] MEDS: ZINC SULFATE 220 MG CAPSULE (FP) GT SCH (09:39)
[2016-12-17] MEDS: ASCORBIC ACID 500 MG/5 ML UNIT DOSE CUP PEG SCH (09:40)
--- NOTE | 2016-12-17 10:09 | PN ---
Progress Note (short form) - Note Progress Note: Neurology follow up note: Patient seen previously by Dr. Khan. Patient with tracheostomy on vent, remains non verbal, minimally responsive though opened eyes briefly during encounter. Remains in ICU in critical care for sepsis, CVA, respiratory depression, Afib. No significant neurologic changes. Remains on Abx. Spoke with primary team and would consider ASA 81 instead of ASA 300. Platelet count downtrending and therefore may be help. Neurologically no changes overnight. Active Medications Acetaminophen (Tylenol Suppository -) 325 mg [place] Q4H PRN PRN Reason: FEVER OR PAIN Last Admin: 12/16/16 16:21 Dose: 325 mg Ascorbic Acid (Vitamin C Oral Solution -) 500 mg PEG DAILY [facility] Last Admin: 12/17/16 09:40 Dose: 500 mg Diltiazem HCl (Cardizem -) 60 mg PEG Q6HPO [facility] Last Admin: 12/17/16 05:30 Dose: 60 mg Imipenem/Cilastatin Sodium 500 (mg/ Sodium Chloride) 100 mls @ 100 mls/hr IVPB Q8H-IV [facility] PRN Reason: Protocol Last Admin: 12/17/16 09:39 Dose: 100 mls/hr Pantoprazole Sodium (Protonix 40mg Ivpb (Pre-Docked)) 100 mls @ 200 mls/hr IVPB DAILY [facility] Last Admin: 12/16/16 11:18 Dose: 200 mls/hr Vancomycin HCl (Vancomycin (Pre-Docked)) 250 mls @ 200 mls/hr IVPB DAILY@1300 [facility] Last Admin: 12/16/16 13:17 Dose: 200 mls/hr Metoprolol Tartrate (Lopressor -) 50 mg NGT TID [facility] Last Admin: 12/17/16 05:30 Dose: 50 mg Morphine Sulfate (Morphine Injection -) 1 mg IVPUSH Q4H PRN PRN Reason: PAIN Multi-Ingredient Ointment (Zinc Oxide) 1 applic TP DAILY [facility] Last Admin: 12/16/16 16:21 Dose: 1 applic Nystatin (Mycostatin Cream -) 1 applic TP BID [facility] Last Admin: 12/16/16 22:48 Dose: 1 applic Ondansetron HCl (Zofran Injection) 4 mg IVPB Q6H PRN PRN Reason: NAUSEA Polyethylene Glycol (Miralax (For Daily Use) -) 17 gm PEG DAILY [facility] Last Admin: 02/16/17 09:39 Dose: 17 gm Potassium Phos/Sodium Phos (Phos-Nak Packet -) 1 packet PEG TID [facility] Last Admin: 12/17/16 05:30 Dose: 1 packet Senna (Senna Oral Solution -) 8.8 mg PO HS [facility] Last Admin: 12/16/16 22:48 Dose: 8.8 mg Zinc Sulfate (Orazinc -) 220 mg GT DAILY [facility] Last Admin: 12/17/16 09:39 Dose: 220 mg Vital Signs Temperature 98.9 F 12/16/16 22:00 Pulse Rate 85 12/17/16 05:41 Respiratory Rate 23 12/17/16 06:47 Blood Pressure 141/78 12/17/16 05:41 O2 Sat by Pulse Oximetry (%) 96 12/16/16 22:00 GENERAL: Intubated, sedated, look uncomfortable . HEENT: Normocephalic, atraumatic. Pinpoint pupil, sluggish, dry mucus membrane, right facial droop. CARDIOVASCULAR: irregular S1, S2. rate and rhythm. PULMONARY: b/l ronchi. ABDOMEN: Soft, non-distended, non-tender. peg tube in place EXTREMITIES: limited ROM in all four extremities. b/l hands contracted . SKIN: Warm, dry. No rash NEUROLOGICAL: Awake, respond to tactile stimuli only by open eye. non verbal, no purposeful movement. Unable to assess Cranial nerves 2-12 intact. light touch and temperature .left sided paralysis. plantar reflex intact in right foot. no reflex in left PSYCHIATRIC: Unable to cooperate. No eye contact. CBCD WBC 14.4 K/mm3 (4.0-10.0) H D 12/17/16 06:00 RBC 2.91 M/mm3 (3.60-5.2) L D 12/17/16 06:00 Hgb 8.2 GM/dL (10.7-15.3) L D 12/17/16 06:00 Hct 26.1 % (32.4-45.2) L D 12/17/16 06:00 MCV 89.7 fl (80-96) 12/17/16 06:00 MCHC 31.4 g/dl (32.0-36.0) L 12/17/16 06:00 RDW 20.6 % (11.6-15.6) H 12/17/16 06:00 Plt Count 43 K/MM3 (134-434) L D 12/17/16 06:00 MPV 11.3 fl (7.5-11.1) H 12/17/16 06:00 CMP Sodium 142 mmol/L (136-145) 12/17/16 06:00 Potassium 3.6 mmol/L (3.5-5.1) 12/17/16 06:00 Chloride 111 mmol/L (98-107) H 12/17/16 06:00 Carbon Dioxide 21 mmol/L (21-32) 12/17/16 06:00 Anion Gap 10 (8-16) 12/17/16 06:00 BUN 23 mg/dL (7-18) H 12/17/16 06:00 Creatinine 0.5 mg/dL (0.55-1.02) L 12/17/16 06:00 Creat Clearance w eGFR > 60 (>60) 12/17/16 06:00 Calcium 7.5 mg/dL (8.5-10.1) L 12/17/16 06:00 Total Bilirubin 1.7 mg/dL (0.2-1.0) H 12/17/16 06:00 AST 21 U/L (15-37) 12/17/16 06:00 ALT 14 U/L (12-78) D 12/17/16 06:00 Alkaline Phosphatase 125 U/L (45-117) H 12/17/16 06:00 Total Protein 4.5 g/dl (6.4-8.2) L 12/17/16 06:00 Albumin 1.1 g/dl (3.4-5.0) L 12/17/16 06:00 Imaging: CT head 12/12/15 Extensive periventricular white matter chronic microvascular ischemic changes. Left subinsular and left thalamic old lacunar infarct. Encephalomalacia/old infarct in the right occipital lobe, medially. Findings suspicious for interval acute/subacute infarct in the right temporal lobe. Correlation with noncontrast MRI of the brain would be the study of choice for further evaluation CT chest/Abdomen/Pelvis 12/12/15: 1. 2 large pulmonary masses within the right and left upper lobes consistent with malignancy. There is an additional 7 mm right middle lobe nodule. 2. Extensive left lower lobe atelectasis and pleural effusion. 3. Small right pleural effusion with basilar atelectasis. 4. 3.7 cm distal AAA. 5. No evidence of metastatic disease or acute pathology within the abdomen or pelvis. Limited study as described above. Assessment/plan 86 year old female with severe Dementia, lung cancer, schizophrenia, multiple CVA, non verbal, on ventilator via tracheostomy is admitted for Sepsis rt UTI/ HCAP, AFIB with RVR, Acute on chronic hypoxic respiratory failure present with Acute/subacute infarct in right temporal lobe. ASA 300 can be decreased to 81 or held if needed for Plt count Monitor platelet count Monitor blood pressure, goal <140/90 chronically Continue IV abx for sepsis Neurologically stable at this time
[2016-12-17] MEDS: PANTOPRAZOLE SODIUM 100 ML IVPB SCH (11:38)
[2016-12-17] MEDS: NYSTATIN 100,000 UNIT/GM TOPICAL CREAM 15 GM TUBE TP SCH ×2 (11:38→22:35)
[2016-12-17] MEDS: ZINC OXIDE 20% TOPICAL OINTMENT 30 GM TUBE TP SCH (11:38)
--- NOTE | 2016-12-17 11:56 | PN ---
Progress Note (short form) - Note Progress Note: No significant change in overall condition. Minimally respsonsive on AC mode of vent, 28% FiO2. Intake & Output 12/14/16 12/15/16 12/16/16 12/17/16 23:59 23:59 23:59 23:59 Intake Total 2280 2410.6 1820 1070 Output Total 900 1700 350 350 Balance 1380 710.6 1470 720 Weight 127 lb 8 oz 131 lb 2.801 oz 132 lb 133 lb Last Vital Signs Temp Pulse Resp BP Pulse Ox 98.9 F 80 17 141/78 96 12/16/16 22:00 12/17/16 10:30 12/17/16 10:30 12/17/16 05:41 12/17/16 10:30 Active Medications Acetaminophen (Tylenol Suppository -) 325 mg [place] Q4H PRN PRN Reason: FEVER OR PAIN Last Admin: 12/16/16 16:21 Dose: 325 mg Ascorbic Acid (Vitamin C Oral Solution -) 500 mg PEG DAILY [facility] Last Admin: 12/17/16 09:40 Dose: 500 mg Diltiazem HCl (Cardizem -) 60 mg PEG Q6HPO [facility] Last Admin: 12/17/16 11:39 Dose: 60 mg Imipenem/Cilastatin Sodium 500 (mg/ Sodium Chloride) 100 mls @ 100 mls/hr IVPB Q8H-IV [facility] PRN Reason: Protocol Last Admin: 12/17/16 09:39 Dose: 100 mls/hr Pantoprazole Sodium (Protonix 40mg Ivpb (Pre-Docked)) 100 mls @ 200 mls/hr IVPB DAILY [facility] Last Admin: 12/17/16 11:38 Dose: 200 mls/hr Vancomycin HCl (Vancomycin (Pre-Docked)) 250 mls @ 200 mls/hr IVPB DAILY@1300 [facility] Last Admin: 12/16/16 13:17 Dose: 200 mls/hr Metoprolol Tartrate (Lopressor -) 50 mg NGT TID [facility] Last Admin: 12/17/16 05:30 Dose: 50 mg Morphine Sulfate (Morphine Injection -) 1 mg IVPUSH Q4H PRN PRN Reason: PAIN Multi-Ingredient Ointment (Zinc Oxide) 1 applic TP DAILY [facility] Last Admin: 12/17/16 11:38 Dose: 1 applic Nystatin (Mycostatin Cream -) 1 applic TP BID [facility] Last Admin: 12/17/16 11:38 Dose: 1 applic Ondansetron HCl (Zofran Injection) 4 mg IVPB Q6H PRN PRN Reason: NAUSEA Polyethylene Glycol (Miralax (For Daily Use) -) 17 gm PEG DAILY [facility] Last Admin: 12/17/16 09:39 Dose: 17 gm Potassium Phos/Sodium Phos (Phos-Nak Packet -) 1 packet PEG TID [facility] Last Admin: 12/17/16 05:30 Dose: 1 packet Senna (Senna Oral Solution -) 8.8 mg PO HS [facility] Last Admin: 12/16/16 22:48 Dose: 8.8 mg Zinc Sulfate (Orazinc -) 220 mg GT DAILY [facility] Last Admin: 12/17/16 09:39 Dose: 220 mg Gen: vented, NAD Heart: RRR Lung: decreased breath sounds at the bases Abd: soft, nontender, +g tube Ext: + edema Laboratory Results - last 24 hr 12/15/16 12/15/16 12/16/16 05:00 05:00 14:30 WBC RBC Hgb Hct MCV MCHC RDW Plt Count MPV Sodium Potassium Chloride Carbon Dioxide Anion Gap BUN Creatinine Creat Clearance w eGFR Random Glucose Calcium Phosphorus Magnesium Total Bilirubin AST ALT Alkaline Phosphatase Total Protein Albumin Urine Color Yen Urine Appearance Cloudy Urine pH 5.0 Ur Specific [place] 1.020 Urine Protein 1+ H Urine Glucose (UA) 1+ H Urine Ketones Trace H Urine Blood Negative Urine Nitrite Negative Urine Bilirubin 2.0 Urine Urobilinogen 4.0 e.u/dl H Ur Leukocyte Esterase 3+ H Urine RBC 27 Urine WBC 192 Hyaline Casts 11 Granular Casts 7 Urine Mucus Rare Urine Yeast Many Hep-Induced Plt Ab Rapid 0.255 Hep A IgM Ab Confirm Negative Hepatitis A Ab Total Positive H Hep Bs Antigen Negative Hep Bs Antibody Non reactive Hep B Core Total Ab Negative 12/17/16 12/17/16 06:00 06:00 WBC 14.4 H D RBC 2.91 L D Hgb 8.2 L D Hct 26.1 L D MCV 89.7 MCHC 31.4 L RDW 20.6 H Plt Count 43 L D MPV 11.3 H Sodium 142 Potassium 3.6 Chloride 111 H Carbon Dioxide 21 Anion Gap 10 BUN 23 H Creatinine 0.5 L Creat Clearance w eGFR > 60 Random Glucose 138 H D Calcium 7.5 L Phosphorus 1.7 L D Magnesium 1.6 L Total Bilirubin 1.7 H AST 21 ALT 14 D Alkaline Phosphatase 125 H Total Protein 4.5 L Albumin 1.1 L Urine Color Urine Appearance Urine pH Ur Specific [place] Urine Protein Urine Glucose (UA) Urine Ketones Urine Blood Urine Nitrite Urine Bilirubin Urine Urobilinogen Ur Leukocyte Esterase Urine RBC Urine WBC Hyaline Casts Granular Casts Urine Mucus Urine Yeast Hep-Induced Plt Ab Rapid Hep A IgM Ab Confirm Hepatitis A Ab Total Hep Bs Antigen Hep Bs Antibody Hep B Core Total Ab ASSESSMENT AND PLAN: Chronic Respiratory Failure UTI Pneumonia Severe Sepsis resolving Lactic Acidosis resolved Acute Kidney Injury improving Hypernatremia/Dehydration Atrial Fibrillation with RVR Hypokalemia resolved LV Diastolic Dysfunction Pleural Effusion HTN Severe h/o CVA Lung Masses likely malignant Dementia - continue antibiotics per ID - increase free water replacement via G tube - continue volume assist control - poor candidate for weaning at this time due to poor mental status - enteral feeds - DVT/GI prophylaxis - continue discussions regarding advanced directives/goals of care - contact isolation Dr Kerr
[2016-12-17] MEDS: VANCOMYCIN 1 GRAM (PRE-DOCKED) 250 ML IVPB SCH (14:00)
[2016-12-17] MEDS ORDERED: MAGNESIUM SULF 50% (8.12 MEQ/2 ML-1 GM VIAL) IVPB ONE (14:53)
[2016-12-17] MEDS ORDERED: POTASSIUM PHOSPHATE 15 MM in SODIUM CHLORIDE 250 ML IVPB ONE (14:54)
--- NOTE | 2016-12-17 15:08 | PN ---
Progress Note, Physician Chief Complaint: ID seemingly impossible situation from standpoint of end of life care with possibility of new stroke. From ID standpoint resistant organisms from multiple sites. Currently on Vanco and Imipenem Fevers less then admission but intermittent low grade WBC coming down - Current Medication List Current Medications: Active Medications Acetaminophen (Tylenol Suppository -) 325 mg [place] Q4H PRN PRN Reason: FEVER OR PAIN Last Admin: 12/16/16 16:21 Dose: 325 mg Ascorbic Acid (Vitamin C Oral Solution -) 500 mg PEG DAILY [facility] Last Admin: 12/17/16 09:40 Dose: 500 mg Diltiazem HCl (Cardizem -) 60 mg PEG Q6HPO [facility] Last Admin: 12/17/16 11:39 Dose: 60 mg Imipenem/Cilastatin Sodium 500 (mg/ Sodium Chloride) 100 mls @ 100 mls/hr IVPB Q8H-IV [facility] PRN Reason: Protocol Last Admin: 12/17/16 09:39 Dose: 100 mls/hr Pantoprazole Sodium (Protonix 40mg Ivpb (Pre-Docked)) 100 mls @ 200 mls/hr IVPB DAILY [facility] Last Admin: 12/17/16 11:38 Dose: 200 mls/hr Vancomycin HCl (Vancomycin (Pre-Docked)) 250 mls @ 200 mls/hr IVPB DAILY@1300 [facility] Last Admin: 12/17/16 14:00 Dose: 200 mls/hr Magnesium Sulfate (Magnesium Sulfate) 2 gm IVPB ONCE ONE Stop: 12/17/16 14:54 Metoprolol Tartrate (Lopressor -) 50 mg NGT TID [facility] Last Admin: 12/17/16 13:59 Dose: 50 mg Morphine Sulfate (Morphine Injection -) 1 mg IVPUSH Q4H PRN PRN Reason: PAIN Multi-Ingredient Ointment (Zinc Oxide) 1 applic TP DAILY [facility] Last Admin: 12/17/16 11:38 Dose: 1 applic Nystatin (Mycostatin Cream -) 1 applic TP BID [facility] Last Admin: 12/17/16 11:38 Dose: 1 applic Ondansetron HCl (Zofran Injection) 4 mg IVPB Q6H PRN PRN Reason: NAUSEA Polyethylene Glycol (Miralax (For Daily Use) -) 17 gm PEG DAILY [facility] Last Admin: 12/17/16 12:49 Dose: Not Given Potassium Phos/Sodium Phos (Phos-Nak Packet -) 1 packet PEG TID [facility] Last Admin: 12/17/16 14:01 Dose: 1 packet Senna (Senna Oral Solution -) 8.8 mg PO HS [facility] Last Admin: 12/16/16 22:48 Dose: 8.8 mg Zinc Sulfate (Orazinc -) 220 mg GT DAILY [facility] Last Admin: 12/17/16 09:39 Dose: 220 mg - Objective Vital Signs: Vital Signs Temperature 98.9 F 12/16/16 22:00 Pulse Rate 88 12/17/16 12:00 Respiratory Rate 21 12/17/16 13:55 Blood Pressure 110/60 12/17/16 12:00 O2 Sat by Pulse Oximetry (%) 96 12/17/16 10:30 Constitutional: Yes: Other (Vent dependent) Labs: CBC, BMP 12/17/16 06:00 12/17/16 06:00 INR, PTT INR 1.20 (0.82-1.09) H 12/16/16 06:15 Fibrinogen 350.0 mg/dL (238-498) 12/15/16 05:00 Problem List - Problems (1) Acute kidney injury Code(s): N17.9 - ACUTE KIDNEY FAILURE, UNSPECIFIED (2) Atrial fibrillation with rapid ventricular response Code(s): I48.91 - UNSPECIFIED ATRIAL FIBRILLATION (3) Lung cancer Code(s): C34.90 - MALIGNANT NEOPLASM OF UNSP PART OF UNSP BRONCHUS OR LUNG (4) UTI (urinary tract infection), bacterial Code(s): N39.0 - URINARY TRACT INFECTION, SITE NOT SPECIFIED A49.9 - BACTERIAL INFECTION, UNSPECIFIED Assessment/Plan Microbiology 12/17/16 06:00 Stool Clostridium difficile Antigen (CRISTINA) - Final 12/17/16 06:00 Stool Clostridium difficile Toxin Assay - Final 12/12/16 06:00 Sputum - Endotrachea Suction/Ventilator Gram Stain - Final 12/12/16 06:00 Sputum - Endotrachea Suction/Ventilator Sputum Culture - Final Proteus Mirabilis Acinetobacter Baumannii/Haemol 12/16/16 14:30 Urine - Urine [place] Urine Culture - Preliminary 12/16/16 12:52 Blood - Peripheral Venous Blood Culture - Preliminary NO GROWTH OBTAINED AFTER 24 HOURS, INCUBATION TO CONTINUE FOR 4 DAYS. 02/15/17 12:29 Blood - Peripheral Venous Blood Culture - Preliminary NO GROWTH OBTAINED AFTER 24 HOURS, INCUBATION TO CONTINUE FOR 4 DAYS. 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
[2016-12-17] MEDS ORDERED: AMPICILLIN NA/SULBACTAM NA 1.5 GM in SODIUM CHLORIDE 100 ML IVPB SCH (15:45)
--- NOTE | 2016-12-17 16:03 | PN ---
Progress Note (short form) - Note Progress Note: Subjective: The patient was seen and examined at the bedside, she is non-verbal , on the vent, appears comfortable Platelets continue to drop, 43 today C.diff Ag positive, toxin negative Imipenem and Vancomycin discontinued, Unasyn started per ID Current Medications Generic Name Dose Route Start Last Admin Trade Name Freq PRN Reason Stop Dose Admin Acetaminophen 325 mg 12/15/16 19:31 12/16/16 16:21 Tylenol Suppository - NY 325 mg Q4H PRN Administration FEVER OR PAIN Ascorbic Acid 500 mg 12/16/16 10:00 12/17/16 09:40 Vitamin C Oral Solution - PEG 500 mg DAILY SELVIN Administration Diltiazem HCl 60 mg 12/16/16 00:00 12/17/16 11:39 Cardizem - PEG 60 mg Q6HPO SELVIN Administration Pantoprazole Sodium 100 mls @ 200 mls/hr 12/16/16 10:00 12/17/16 11:38 Protonix 40mg Ivpb (Pre-Docked) IVPB 200 mls/hr DAILY SELVIN Administration Potassium Phosphate 15 mm/ 255 mls @ 63.75 mls/hr 12/17/16 14:54 Sodium Chloride IVPB 12/17/16 18:53 ONCE ONE 15 MM/4 HR Ampicillin Sodium/Sulbactam Sodium 100 mls @ 200 mls/hr 12/17/16 15:50 16:07 Unasyn 1.5 Gm (Pre-Docked) IVPB 200 mls/hr Q6H-IV SELVIN Administration Metoprolol Tartrate 50 mg 12/15/16 22:00 12/17/16 13:59 Lopressor - NGT 50 mg TID SELVIN Administration Morphine Sulfate 1 mg 12/15/16 19:31 Morphine Injection - IVPUSH Q4H PRN PAIN Multi-Ingredient Ointment 1 applic 12/16/16 10:00 12/17/16 11:38 Zinc Oxide TP 1 applic DAILY SELVIN Administration Nystatin 1 applic 12/15/16 22:00 12/17/16 11:38 Mycostatin Cream - TP 1 applic BID SELVIN Administration Ondansetron HCl 4 mg 12/15/16 19:31 Zofran Injection IVPB Q6H PRN NAUSEA Polyethylene Glycol 17 gm 12/16/16 18:35 12/17/16 12:49 Miralax (For Daily Use) - PEG Not Given DAILY SELVIN Potassium Phos/Sodium Phos 1 packet 12/15/16 15:30 12/17/16 14:01 Phos-Nak Packet - PEG 1 packet TID SELVIN Administration Senna 8.8 mg 12/15/16 22:00 12/16/16 22:48 Senna Oral Solution - PO 8.8 mg HS SELVIN Administration Zinc Sulfate 220 mg 12/16/16 10:00 12/17/16 09:39 Orazinc - GT 220 mg DAILY SELVIN Administration Objective: Vital Signs Period Temp Pulse Resp BP Sys/Chase Pulse Ox Last 24 Hr 98.9 F 72-90 17-27 95-141/47-78 96-97 Physical Exam: General: NAD, Non-verbal, on vent Lungs: Anterior breath sounds with rhonchi throughout Heart: Irregular rate and rhythm Abd: PEG tube in place. Normoactive bowel sounds Ext: Warm, well-perfused, 2+ DP/PT bilaterally. B/l upper and lower extremity 2 + pitting edema Neuro: Opens eyes spontaneously CBCD WBC 14.4 K/mm3 (4.0-10.0) H D 12/17/16 06:00 RBC 2.91 M/mm3 (3.60-5.2) L D 12/17/16 06:00 Hgb 8.2 GM/dL (10.7-15.3) L D 12/17/16 06:00 Hct 26.1 % (32.4-45.2) L D 12/17/16 06:00 MCV 89.7 fl (80-96) 12/17/16 06:00 MCHC 31.4 g/dl (32.0-36.0) L 12/17/16 06:00 RDW 20.6 % (11.6-15.6) H 12/17/16 06:00 Plt Count 43 K/MM3 (134-434) L D 12/17/16 06:00 MPV 11.3 fl (7.5-11.1) H 12/17/16 06:00 CMP Sodium 142 mmol/L (136-145) 12/17/16 06:00 Potassium 3.6 mmol/L (3.5-5.1) 12/17/16 06:00 Chloride 111 mmol/L (98-107) H 12/17/16 06:00 Carbon Dioxide 21 mmol/L (21-32) 12/17/16 06:00 Anion Gap 10 (8-16) 12/17/16 06:00 BUN 23 mg/dL (7-18) H 12/17/16 06:00 Creatinine 0.5 mg/dL (0.55-1.02) L 12/17/16 06:00 Creat Clearance w eGFR > 60 (>60) 12/17/16 06:00 Random Glucose 138 mg/dL (74-106) H D 12/17/16 06:00 Calcium 7.5 mg/dL (8.5-10.1) L 12/17/16 06:00 Total Bilirubin 1.7 mg/dL (0.2-1.0) H 12/17/16 06:00 AST 21 U/L (15-37) 12/17/16 06:00 ALT 14 U/L (12-78) D 12/17/16 06:00 Alkaline Phosphatase 125 U/L (45-117) H 12/17/16 06:00 Total Protein 4.5 g/dl (6.4-8.2) L 12/17/16 06:00 Albumin 1.1 g/dl (3.4-5.0) L 12/17/16 06:00 CARDIAC ENZYMES Creatine Kinase 28 IU/L (26-192) 12/12/16 05:20 Troponin I 0.15 ng/ml (0.00-0.05) H 12/12/16 05:20 Microbiology 12/16/16 12:52 Blood - Peripheral Venous Blood Culture - Preliminary NO GROWTH OBTAINED AFTER 24 HOURS, INCUBATION TO CONTINUE FOR 4 DAYS. 12/16/16 12:29 Blood - Peripheral Venous Blood Culture - Preliminary NO GROWTH OBTAINED AFTER 24 HOURS, INCUBATION TO CONTINUE FOR 4 DAYS. 12/17/16 06:00 Stool Clostridium difficile Antigen (CRISTINA) - Final 12/17/16 06:00 Stool Clostridium difficile Toxin Assay - Final 12/16/16 14:30 Urine - Urine [place] Urine Culture - Preliminary 12/11/16 10:50 Blood - Peripheral Venous Blood Culture - Final NO GROWTH AFTER 5 DAYS INCUBATION 12/11/16 10:50 Blood - Peripheral Venous Blood Culture - Final NO GROWTH AFTER 5 DAYS INCUBATION 12/11/16 16:10 Nasopharyngeal Swab Respiratory Virus Panel - Preliminary 12/12/16 06:00 Sputum - Endotrachea Suction/Ventilator Gram Stain - Final 12/12/16 06:00 Sputum - Endotrachea Suction/Ventilator Sputum Culture - Final Proteus Mirabilis Acinetobacter Baumannii/Haemol 12/11/16 11:50 Urine - Urine - Catheterized Urine Culture - Final Klebsiella Pneumoniae 12/12/16 06:00 Nares - Mrsa Screen - Right MRSA Screen - Final NO MRSA ISOLATED 12/12/16 06:00 Nares - Mrsa Screen - Left MRSA Screen - Final S Aureus 12/11/16 16:10 Nose MRSA Screen - Final Mr S Aureus 12/11/16 16:10 Nasopharyngeal Swab Influenza Types A,B Antigen (CRISTINA) - Final 12/11/16 16:10 Nasopharyngeal Swab - Final Assessment: This is an 86 year old female with PMHx of severe dementia, lung cancer, HTN, schizophrenia, anxiety, aortic stenosis, mitral regurgitation, atrial fibrillation, chronic diastolic heart failure, chronic respiratory failure (on vent), who presented to the ED with tachycardia Plan: 1) ID: Severe sepsis 2/ UTI, pneumonia - CT chest with extensive consolidation of the left lower lobe - Primaxin and Vancomycin d/c on 12/17 - Unasyn started on 12/17 - No temps recorded today, Tmax 12/16 100.5 - Chest x-ray on 12/16: remains consolidation with atelectasis in the left lower love with interval airspace disease and moderate pleural effusion. Mild bilateral increased interstitial markings suggestive of mild pulmonary venous congestion - UA still with 3+ leuks - Repeat UA and urine culture - Appreciate ID consult 2) Cardiology: A.fib with RVR - Per SOHAN Lam (supervisor type disk quality control at [facility]), the patient is not on any anticoagulation as an outpatient - Per daughter (Amada), the patient has never taking any anticoagulation for a.fib - [id number] score of 7, should be on anticoagulation, will defer starting to cardiology - Continue Lopressor - Continue Cardizem - Appreciate cardiology consult Elevated troponin - Per cards, trended down 3) : ELLIE - Resolved 4) GI: Transaminitis - Resolving - HCV Ab positive - Per GI, no treatment at this time 5) Pulmonary: Lung cancer, pleural effusions - Not on any active chemotherapy or radiation therapy - Appreciate pulmonary consult 6) Neuro: acute/subacute right temporal lobe infarct - CT head with Encephalomalacia/old infarct in the right occipital lobe, medially. Findings suspicious for interval acute/subacute infarct in the right temporal lobe - Hold ASA 81mg 2/2 thrombocytopenia - Appreciate neuro consult 7) Hematology: Worsening thrombocytopenia - Suspect 2/2 sepsis +/- coagulopathy - Platelets continue to drop, 43 - HIT Ab negative - Appreciate hematology consult 8) F/E/N: - Hypophosphatemia: replete - Hypomagnesemia: replete - Jevity tube feeds, decreased free water flushes to 30ml/hr as sodium has corrected 9) Prophylaxis: - Hold all chemical dvt prophylaxis 2/2 thrombocytopenia - SCDs bilaterally 10) Dispo: - Requires continued inpatient care CODE STATUS: FULL CODE Visit type - Emergency Visit Emergency Visit: Yes ED Registration Date: 12/11/16 Care time: The patient presented to the Emergency Department on the above date and was hospitalized for further evaluation of their emergent condition. - New Patient This patient is new to me today: No - Critical Care Critical Care patient: No
[2016-12-17] MEDS: AMPICILLIN NA/SULBACTAM NA 100 ML IVPB SCH ×2 (16:07→22:34)
--- NOTE | 2016-12-17 16:09 | PN ---
Progress Note, Physician History of Present Illness: Non-verbal, minimal responsive. - Current Medication List Current Medications: Active Medications Acetaminophen (Tylenol Suppository -) 325 mg SD Q4H PRN PRN Reason: FEVER OR PAIN Last Admin: 12/16/16 16:21 Dose: 325 mg Ascorbic Acid (Vitamin C Oral Solution -) 500 mg PEG DAILY [facility] Last Admin: 12/17/16 09:40 Dose: 500 mg Diltiazem HCl (Cardizem -) 60 mg PEG Q6HPO [facility] Last Admin: 12/17/16 11:39 Dose: 60 mg Pantoprazole Sodium (Protonix 40mg Ivpb (Pre-Docked)) 100 mls @ 200 mls/hr IVPB DAILY [facility] Last Admin: 12/17/16 11:38 Dose: 200 mls/hr Potassium Phosphate 15 mm/ (Sodium Chloride) 255 mls @ 63.75 mls/hr IVPB ONCE ONE PRN Reason: 15 MM/4 HR Stop: 12/17/16 18:53 Ampicillin Sodium/Sulbactam Sodium (Unasyn 1.5 Gm (Pre-Docked)) 100 mls @ 200 mls/hr IVPB Q6H-IV [facility] Last Admin: 12/17/16 16:07 Dose: 200 mls/hr Metoprolol Tartrate (Lopressor -) 50 mg NGT TID [facility] Last Admin: 12/17/16 13:59 Dose: 50 mg Morphine Sulfate (Morphine Injection -) 1 mg IVPUSH Q4H PRN PRN Reason: PAIN Multi-Ingredient Ointment (Zinc Oxide) 1 applic TP DAILY [facility] Last Admin: 12/17/16 11:38 Dose: 1 applic Nystatin (Mycostatin Cream -) 1 applic TP BID [facility] Last Admin: 12/17/16 11:38 Dose: 1 applic Ondansetron HCl (Zofran Injection) 4 mg IVPB Q6H PRN PRN Reason: NAUSEA Polyethylene Glycol (Miralax (For Daily Use) -) 17 gm PEG DAILY [facility] Last Admin: 12/17/16 12:49 Dose: Not Given Potassium Phos/Sodium Phos (Phos-Nak Packet -) 1 packet PEG TID [facility] Last Admin: 12/17/16 14:01 Dose: 1 packet Senna (Senna Oral Solution -) 8.8 mg PO HS [facility] Last Admin: 12/16/16 22:48 Dose: 8.8 mg Zinc Sulfate (Orazinc -) 220 mg GT DAILY [facility]EL[facility]IN Last Admin: 12/17/16 09:39 Dose: 220 mg - Objective Vital Signs: Vital Signs Temperature 98.9 F 12/16/16 22:00 Pulse Rate 87 12/17/16 15:34 Respiratory Rate 27 H 12/17/16 15:34 Blood Pressure 102/47 12/17/16 15:34 O2 Sat by Pulse Oximetry (%) 96 12/17/16 10:30 Constitutional: Yes: No Distress, Calm Neck: Yes: Supple Cardiovascular: Yes: Pulse Irregular, Murmur (2/6 SM) Respiratory: Yes: Regular, Diminished Gastrointestinal: Yes: Normal Bowel Sounds, Soft Edema: No Labs: CBC, BMP 12/17/16 06:00 12/17/16 06:00 INR, PTT INR 1.20 (0.82-1.09) H 12/16/16 06:15 Fibrinogen 350.0 mg/dL (238-498) 12/15/16 05:00 Problem List - Problems (1) Pneumonia Code(s): J18.9 - PNEUMONIA, UNSPECIFIED ORGANISM Qualifiers: Pneumonia type: due to unspecified organism Laterality: unspecified laterality Lung location: unspecified part of lung Qualified Code(s): J18.9 - Pneumonia, unspecified organism (2) Aortic stenosis Code(s): Q25.3 - SUPRAVALVULAR AORTIC STENOSIS (3) CVA (cerebral vascular accident) Code(s): I63.9 - CEREBRAL INFARCTION, UNSPECIFIED Qualifiers: CVA mechanism: unspecified Qualified Code(s): I63.9 - Cerebral infarction, unspecified (4) Dementia Code(s): F03.90 - UNSPECIFIED DEMENTIA WITHOUT BEHAVIORAL DISTURBANCE Qualifiers: Dementia type: unspecified type Dementia behavioral disturbance: without behavioral disturbance Qualified Code(s): F03.90 - Unspecified dementia without behavioral disturbance (5) Dysphagia Code(s): R13.10 - DYSPHAGIA, UNSPECIFIED (6) Hypertension Code(s): I10 - ESSENTIAL (PRIMARY) HYPERTENSION Qualifiers: Hypertension type: essential hypertension Qualified Code(s): I10 - Essential (primary) hypertension (7) Metastatic breast cancer Code(s): C50.919 - MALIGNANT NEOPLASM OF UNSP SITE OF UNSPECIFIED FEMALE BREAST C79.9 - SECONDARY MALIGNANT NEOPLASM OF UNSPECIFIED SITE (8) Mitral regurgitation Code(s): I34.0 - NONRHEUMATIC MITRAL (VALVE) INSUFFICIENCY Qualifiers: Cardiac valve disease etiology: nonrheumatic Qualified Code(s): I34.0 - Nonrheumatic mitral (valve) insufficiency (9) Tricuspid regurgitation Code(s): I07.1 - RHEUMATIC TRICUSPID INSUFFICIENCY Qualifiers: Cardiac valve disease etiology: nonrheumatic Qualified Code(s): I36.1 - Nonrheumatic tricuspid (valve) insufficiency (10) UTI (urinary tract infection) Code(s): N39.0 - URINARY TRACT INFECTION, SITE NOT SPECIFIED Qualifiers: Urinary tract infection type: site unspecified Hematuria presence: without hematuria Qualified Code(s): N39.0 - Urinary tract infection, site not specified (11) Atrial fibrillation Code(s): I48.91 - UNSPECIFIED ATRIAL FIBRILLATION Qualifiers: Atrial fibrillation type: persistent Qualified Code(s): I48.1 - Persistent atrial fibrillation (12) PEG tube malfunction Code(s): K94.23 - GASTROSTOMY MALFUNCTION (13) Demand ischemia Code(s): I24.8 - OTHER FORMS OF ACUTE ISCHEMIC HEART DISEASE Assessment/Plan 10/16/2015 Echo: Normal LV size and fxn, mild LOLY, mod-severe MR, severe TR, severe , mild AR, pleural effusion 12/15/2016 Echo: Normal LV size and fxn, mod MR and TR, mild AR, severe THIAGO 0.7 cm^2 CT head 12/12/15 Extensive periventricular white matter chronic microvascular ischemic changes. Left subinsular and left thalamic old lacunar infarct. Encephalomalacia/old infarct in the right occipital lobe, medially. Findings suspicious for interval acute/subacute infarct in the right temporal lobe. Correlation with noncontrast MRI of the brain would be the study of choice for further evaluation CT chest/Abdomen/Pelvis 12/12/15: 1. 2 large pulmonary masses within the right and left upper lobes consistent with malignancy. There is an additional 7 mm right middle lobe nodule. 2. Extensive left lower lobe atelectasis and pleural effusion. 3. Small right pleural effusion with basilar atelectasis. 4. 3.7 cm distal AAA. 5. No evidence of metastatic disease or acute pathology within the abdomen or pelvis. Limited study as described above. Assessment: 1. Chronic ventilator-dependent respiratory failure post trach, pneumonia, UTI 2. 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 Chronic LV diastolic dysfunction with class I NYHA classification LV failure , compensated 4. Severe 5. Persistent atrial fibrillation [id number] score of 7, on no A/C 6. HTN 7. 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 Pre-renal ELLIE with Hypernatremia improving 10. Thrombocytopenia and Coagulopathy referable to sepsis 11. Lung masses PLAN: 1. Free water repletion with monitor Na, replete K 2. As outlined in prior notes ideally should be A/C unless it is absolutely contraindicated considering the above noted [id number] score of 7 otherwise Continue ASA 81 qd 3. Continue Lopressor 50 tid and cardizem 60 q6 4. Vent management as per primary/critical care teams 5. Antibiotics as per the ID team 6. Enteral feeds, DVT and GI prophylaxis, advanced directives/goals of care
[2016-12-18] MEDS: AMPICILLIN NA/SULBACTAM NA 100 ML IVPB SCH ×4 (02:49→22:25)
[2016-12-18] MEDS: dilTIAZem HCL 60 MG TABLET (FP) PEG SCH ×4 (05:43→23:25)
[2016-12-18] MEDS: NAPH,MB-DB/K PH,MBDB POWDER PACKET PEG SCH ×3 (05:43→22:27)
[2016-12-18] MEDS: METOPROLOL TARTRATE 50 MG TABLET (FP) NGT SCH ×3 (05:43→22:32)
[2016-12-18 08:15] LABS: MCH 28.1 pg (25.7-33.7); MCHC 31.7 g/dl (32.0-36.0); MEAN CELL VOLUME 88.7 fl (80-96); MEAN PLT VOLUME 12.4 fl (7.5-11.1); PLATELET COUNT 117 K/MM3 (134-434); RDW 20.4 % (11.6-15.6); WHITE BLOOD COUNT 15.2 K/mm3 (4.0-10.0)
[2016-12-18] MEDS ORDERED: PT OWN MED DRAWER 7, Y5N ONE (08:30)
[2016-12-18 08:40] LABS: ALBUMIN 1.2 g/dl (3.4-5.0); ANION GAP 9 (8-16); BILIRUBIN,TOTAL 1.9 mg/dL (0.2-1.0); CALCIUM 7.1 mg/dL (8.5-10.1); CO2 24 mmol/L (21-32); GLUCOSE,RANDOM 157 mg/dL (74-106); MAGNESIUM 1.8 mg/dL (1.8-2.4); PHOSPHOROUS 2.4 mg/dL (2.5-4.9); SGOT/AST 19 U/L (15-37); TOT PROT 5.1 g/dl (6.4-8.2)
[2016-12-18 08:41] LABS: ALK PHOS 144 U/L (45-117); CREATININE 0.5 mg/dL (0.55-1.02); SGPT/ALT 12 U/L (12-78)
[2016-12-18] MEDS: ZINC SULFATE 220 MG CAPSULE (FP) GT SCH (09:30)
[2016-12-18] MEDS: POLYETHYLENE GLYCOL 3350 119 GM BTL PEG SCH (09:31)
[2016-12-18] MEDS: ASCORBIC ACID 500 MG/5 ML UNIT DOSE CUP PEG SCH (09:31)
--- NOTE | 2016-12-18 10:18 | PN ---
Progress Note (short form) - Note Progress Note: Neurology follow up note: Patient seen previously by Dr. Khan. Patient with tracheostomy on vent, remains non verbal, minimally responsive though opened eyes briefly during encounter. Remains in ICU in critical care for sepsis, CVA, respiratory depression, Afib. No significant neurologic changes. Remains on Abx. Neurologically no changes overnight. Active Medications Acetaminophen (Tylenol Suppository -) 325 mg [place] Q4H PRN PRN Reason: FEVER OR PAIN Last Admin: 12/16/16 16:21 Dose: 325 mg Ascorbic Acid (Vitamin C Oral Solution -) 500 mg PEG DAILY [facility] Last Admin: 12/18/16 09:31 Dose: 500 mg Diltiazem HCl (Cardizem -) 60 mg PEG Q6HPO [facility] Last Admin: 12/18/16 05:43 Dose: 60 mg Pantoprazole Sodium (Protonix 40mg Ivpb (Pre-Docked)) 100 mls @ 200 mls/hr IVPB DAILY [facility] Last Admin: 12/17/16 11:38 Dose: 200 mls/hr Ampicillin Sodium/Sulbactam Sodium (Unasyn 1.5 Gm (Pre-Docked)) 100 mls @ 200 mls/hr IVPB Q6H-IV [facility] Last Admin: 12/18/16 09:30 Dose: 200 mls/hr Metoprolol Tartrate (Lopressor -) 50 mg NGT TID [facility] Last Admin: 12/18/16 05:43 Dose: 50 mg Morphine Sulfate (Morphine Injection -) 1 mg IVPUSH Q4H PRN PRN Reason: PAIN Multi-Ingredient Ointment (Zinc Oxide) 1 applic TP DAILY [facility] Last Admin: 12/17/16 11:38 Dose: 1 applic Nystatin (Mycostatin Cream -) 1 applic TP BID [facility] Last Admin: 12/17/16 22:35 Dose: 1 applic Ondansetron HCl (Zofran Injection) 4 mg IVPB Q6H PRN PRN Reason: NAUSEA Polyethylene Glycol (Miralax (For Daily Use) -) 17 gm PEG DAILY [facility] Last Admin: 12/18/16 09:31 Dose: Not Given Potassium Phos/Sodium Phos (Phos-Nak Packet -) 1 packet PEG TID [facility] Last Admin: 12/18/16 05:43 Dose: 1 packet Zinc Sulfate (Orazinc -) 220 mg GT DAILY [facility] Last Admin: 02/17/17 09:30 Dose: 220 mg Last Vital Signs Temp Pulse Resp BP Pulse Ox 98.2 F 81 28 H 142/76 96 12/18/16 06:00 12/18/16 06:00 12/18/16 06:10 12/18/16 06:00 12/17/16 22:00 GENERAL: Intubated, sedated, look uncomfortable . HEENT: Normocephalic, atraumatic. Pinpoint pupil, sluggish, dry mucus membrane, right facial droop. CARDIOVASCULAR: irregular S1, S2. rate and rhythm. PULMONARY: b/l ronchi. ABDOMEN: Soft, non-distended, non-tender. peg tube in place EXTREMITIES: limited ROM in all four extremities. b/l hands contracted . SKIN: Warm, dry. No rash NEUROLOGICAL: Awake, respond to tactile stimuli only by open eye. non verbal, no purposeful movement. Unable to assess Cranial nerves 2-12 intact. light touch and temperature .left sided paralysis. plantar reflex intact in right foot. no reflex in left PSYCHIATRIC: Unable to cooperate. No eye contact. CBCD WBC 14.4 K/mm3 (4.0-10.0) H D 12/17/16 06:00 RBC 2.91 M/mm3 (3.60-5.2) L D 12/17/16 06:00 Hgb 8.2 GM/dL (10.7-15.3) L D 12/17/16 06:00 Hct 26.1 % (32.4-45.2) L D 12/17/16 06:00 MCV 89.7 fl (80-96) 12/17/16 06:00 MCHC 31.4 g/dl (32.0-36.0) L 12/17/16 06:00 RDW 20.6 % (11.6-15.6) H 12/17/16 06:00 Plt Count 43 K/MM3 (134-434) L D 12/17/16 06:00 MPV 11.3 fl (7.5-11.1) H 12/17/16 06:00 CMP Sodium 142 mmol/L (136-145) 12/17/16 06:00 Potassium 3.6 mmol/L (3.5-5.1) 12/17/16 06:00 Chloride 111 mmol/L (98-107) H 12/17/16 06:00 Carbon Dioxide 21 mmol/L (21-32) 12/17/16 06:00 Anion Gap 10 (8-16) 12/17/16 06:00 BUN 23 mg/dL (7-18) H 12/17/16 06:00 Creatinine 0.5 mg/dL (0.55-1.02) L 12/17/16 06:00 Creat Clearance w eGFR > 60 (>60) 12/17/16 06:00 Calcium 7.5 mg/dL (8.5-10.1) L 12/17/16 06:00 Total Bilirubin 1.7 mg/dL (0.2-1.0) H 12/17/16 06:00 AST 21 U/L (15-37) 12/17/16 06:00 ALT 14 U/L (12-78) D 12/17/16 06:00 Alkaline Phosphatase 125 U/L (45-117) H 12/17/16 06:00 Total Protein 4.5 g/dl (6.4-8.2) L 12/17/16 06:00 Albumin 1.1 g/dl (3.4-5.0) L 12/17/16 06:00 Imaging: CT head 12/12/15 Extensive periventricular white matter chronic microvascular ischemic changes. Left subinsular and left thalamic old lacunar infarct. Encephalomalacia/old infarct in the right occipital lobe, medially. Findings suspicious for interval acute/subacute infarct in the right temporal lobe. Correlation with noncontrast MRI of the brain would be the study of choice for further evaluation CT chest/Abdomen/Pelvis 12/12/15: 1. 2 large pulmonary masses within the right and left upper lobes consistent with malignancy. There is an additional 7 mm right middle lobe nodule. 2. Extensive left lower lobe atelectasis and pleural effusion. 3. Small right pleural effusion with basilar atelectasis. 4. 3.7 cm distal AAA. 5. No evidence of metastatic disease or acute pathology within the abdomen or pelvis. Limited study as described above. Assessment/plan 86 year old female with severe Dementia, lung cancer, schizophrenia, multiple CVA, non verbal, on ventilator via tracheostomy is admitted for Sepsis rt UTI/ HCAP, AFIB with RVR, Acute on chronic hypoxic respiratory failure present with Acute/subacute infarct in right temporal lobe. ASA 300 can be decreased to 81 or held if needed for Plt count, if held, will need to make sure it is restarted Monitor platelet count Monitor blood pressure, goal <140/90 chronically Continue IV abx for sepsis Neurologically stable at this time
[2016-12-18 10:19] LABS: HCV LOG 10 5.961 (.)
[2016-12-18] MEDS: PANTOPRAZOLE SODIUM 100 ML IVPB SCH (11:36)
[2016-12-18] MEDS: NYSTATIN 100,000 UNIT/GM TOPICAL CREAM 15 GM TUBE TP SCH ×2 (11:37→22:33)
[2016-12-18] MEDS: ZINC OXIDE 20% TOPICAL OINTMENT 30 GM TUBE TP SCH (11:37)
[2016-12-18] MEDS: ASPIRIN 81 MG CHEWABLE TABLETS GT SCH (12:20)
--- NOTE | 2016-12-18 13:25 | PN ---
Progress Note (short form) - Note Progress Note: Subjective: The patient was seen and examined at the bedside, she is non-verbal , on the vent, appears comfortable Platelets increased 43->117 WBC trending up 14.4->15.2 ENT consult for possible airleak Current Medications Generic Name Dose Route Start Last Admin Trade Name Freq PRN Reason Stop Dose Admin Acetaminophen 325 mg 12/15/16 19:31 12/16/16 16:21 Tylenol Suppository - GA 325 mg Q4H PRN Administration FEVER OR PAIN Ascorbic Acid 500 mg 12/16/16 10:00 12/18/16 09:31 Vitamin C Oral Solution - PEG 500 mg DAILY SELVIN Administration Aspirin 81 mg 12/18/16 12:00 12/18/16 12:20 Asa - GT 81 mg DAILY SELVIN Administration Diltiazem HCl 60 mg 12/16/16 00:00 12/18/16 11:37 Cardizem - PEG 60 mg Q6HPO SELVIN Administration Pantoprazole Sodium 100 mls @ 200 mls/hr 12/16/16 10:00 12/18/16 11:36 Protonix 40mg Ivpb (Pre-Docked) IVPB 200 mls/hr DAILY SELVIN Administration Ampicillin Sodium/Sulbactam Sodium 100 mls @ 200 mls/hr 12/17/16 15:50 14:33 Unasyn 1.5 Gm (Pre-Docked) IVPB 200 mls/hr Q6H-IV SELVIN Administration Metoprolol Tartrate 50 mg 12/15/16 22:00 12/18/16 14:33 Lopressor - NGT 50 mg TID SELVIN Administration Morphine Sulfate 1 mg 12/15/16 19:31 Morphine Injection - IVPUSH Q4H PRN PAIN Multi-Ingredient Ointment 1 applic 12/16/16 10:00 12/18/16 11:37 Zinc Oxide TP 1 applic DAILY SELVIN Administration Nystatin 1 applic 12/15/16 22:00 12/18/16 11:37 Mycostatin Cream - TP 1 applic BID SELVIN Administration Ondansetron HCl 4 mg 12/15/16 19:31 Zofran Injection IVPB Q6H PRN NAUSEA Polyethylene Glycol 17 gm 12/16/16 18:35 12/18/16 09:31 Miralax (For Daily Use) - PEG Not Given DAILY SELVIN Potassium Phos/Sodium Phos 1 packet 02/14/17 15:30 12/18/16 14:33 Phos-Nak Packet - PEG 1 packet TID SELVIN Administration Zinc Sulfate 220 mg 12/16/16 10:00 12/18/16 09:30 Orazinc - GT 220 mg DAILY SELVIN Administration Objective: Vital Signs Period Temp Pulse Resp BP Sys/Chase Pulse Ox Last 24 Hr 97.7 F-100.6 F 67-88 12-29 102-142/47-78 96-97 Physical Exam: General: NAD, Non-verbal, on vent Lungs: Anterior breath sounds with rhonchi throughout Heart: Irregular rate and rhythm Abd: PEG tube in place. Normoactive bowel sounds Ext: Warm, well-perfused, 2+ DP/PT bilaterally. B/l upper and lower extremity 2 + pitting edema Neuro: Opens eyes spontaneously CBCD WBC 15.2 K/mm3 (4.0-10.0) H 12/18/16 05:48 RBC 3.62 M/mm3 (3.60-5.2) D 12/18/16 05:48 Hgb 10.2 GM/dL (10.7-15.3) L D 12/18/16 05:48 Hct 32.1 % (32.4-45.2) L D 12/18/16 05:48 MCV 88.7 fl (80-96) 12/18/16 05:48 MCHC 31.7 g/dl (32.0-36.0) L 12/18/16 05:48 RDW 20.4 % (11.6-15.6) H 12/18/16 05:48 Plt Count 117 K/MM3 (134-434) L D 12/18/16 05:48 MPV 12.4 fl (7.5-11.1) H 12/18/16 05:48 CMP Sodium 142 mmol/L (136-145) 12/18/16 05:48 Potassium 4.2 mmol/L (3.5-5.1) 12/18/16 05:48 Chloride 109 mmol/L (98-107) H 12/18/16 05:48 Carbon Dioxide 24 mmol/L (21-32) 12/18/16 05:48 Anion Gap 9 (8-16) 12/18/16 05:48 BUN 21 mg/dL (7-18) H 12/18/16 05:48 Creatinine 0.5 mg/dL (0.55-1.02) L 12/18/16 05:48 Creat Clearance w eGFR > 60 (>60) 12/18/16 05:48 Random Glucose 157 mg/dL (74-106) H 12/18/16 05:48 Calcium 7.1 mg/dL (8.5-10.1) L 12/18/16 05:48 Total Bilirubin 1.9 mg/dL (0.2-1.0) H 12/18/16 05:48 AST 19 U/L (15-37) 12/18/16 05:48 ALT 12 U/L (12-78) 12/18/16 05:48 Alkaline Phosphatase 144 U/L (45-117) H 12/18/16 05:48 Total Protein 5.1 g/dl (6.4-8.2) L 12/18/16 05:48 Albumin 1.2 g/dl (3.4-5.0) L 12/18/16 05:48 CARDIAC ENZYMES Creatine Kinase 28 IU/L (26-192) 12/12/16 05:20 Troponin I 0.15 ng/ml (0.00-0.05) H 12/12/16 05:20 Microbiology 12/16/16 14:30 Urine - Urine [place] Urine Culture - Final Yeast Like Organism 12/16/16 12:52 Blood - Peripheral Venous Blood Culture - Preliminary NO GROWTH OBTAINED AFTER 48 HOURS, INCUBATION TO CONTINUE FOR 3 DAYS. 12/16/16 12:29 Blood - Peripheral Venous Blood Culture - Preliminary NO GROWTH OBTAINED AFTER 48 HOURS, INCUBATION TO CONTINUE FOR 3 DAYS. 12/17/16 06:00 Stool Clostridium difficile Antigen (CRISTINA) - Final 12/17/16 06:00 Stool Clostridium difficile Toxin Assay - Final 12/11/16 10:50 Blood - Peripheral Venous Blood Culture - Final NO GROWTH AFTER 5 DAYS INCUBATION 12/11/16 10:50 Blood - Peripheral Venous Blood Culture - Final NO GROWTH AFTER 5 DAYS INCUBATION 12/11/16 16:10 Nasopharyngeal Swab Respiratory Virus Panel - Preliminary 12/12/16 06:00 Sputum - Endotrachea Suction/Ventilator Gram Stain - Final 12/12/16 06:00 Sputum - Endotrachea Suction/Ventilator Sputum Culture - Final Proteus Mirabilis Acinetobacter Baumannii/Haemol 12/11/16 11:50 Urine - Urine - Catheterized Urine Culture - Final Klebsiella Pneumoniae 12/12/16 06:00 Nares - Mrsa Screen - Right MRSA Screen - Final NO MRSA ISOLATED 12/12/16 06:00 Nares - Mrsa Screen - Left MRSA Screen - Final S Aureus 12/11/16 16:10 Nose MRSA Screen - Final S Aureus 12/11/16 16:10 Nasopharyngeal Swab Influenza Types A,B Antigen (CRISTINA) - Final 12/11/16 16:10 Nasopharyngeal Swab - Final Assessment: This is an 86 year old female with PMHx of severe dementia, lung cancer, HTN, schizophrenia, anxiety, aortic stenosis, mitral regurgitation, atrial fibrillation, chronic diastolic heart failure, chronic respiratory failure (on vent), who presented to the ED with tachycardia Plan: 1) ID: Severe sepsis 2/2 UTI, pneumonia - CT chest with extensive consolidation of the left lower lobe - Tmax 100.6 - Primaxin and Vancomycin d/c on 12/17 - Unasyn started on 12/17 - Appreciate ID consult 2) Cardiology: A.fib with RVR - Per SOHAN Lam (supervisor mold construction at [facility]), the patient is not on any anticoagulation as an outpatient - Per daughter (Amada), the patient has never taking any anticoagulation for a.fib - [id number] score of 7, should be on anticoagulation, will defer starting to cardiology - Continue Lopressor - Continue Cardizem - Appreciate cardiology consult Elevated troponin - Management per cards 3) : ELLIE - Resolved 4) GI: Transaminitis - Resolving, total bili and alk phos remain elevated - HCV Ab positive - Per GI, no treatment at this time 5) Pulmonary: Lung cancer, pleural effusions - Not on any active chemotherapy or radiation therapy - Appreciate pulmonary consult 6) Neuro: acute/subacute right temporal lobe infarct - CT head with Encephalomalacia/old infarct in the right occipital lobe, medially. Findings suspicious for interval acute/subacute infarct in the right temporal lobe - Will restart ASA 81mg GT daily - Appreciate neuro consult 7) Hematology: thrombocytopenia - Improving - Suspect 2/2 sepsis +/- coagulopathy +/- Imipenem - HIT Ab negative - Appreciate hematology consult 8) F/E/N: - Hypophosphatemia: replete - Jevity tube feeds, decreased free water flushes to 30ml/hr as sodium has corrected 9) Prophylaxis: - Hold all chemical dvt prophylaxis 2/2 thrombocytopenia - SCDs bilaterally 10) Dispo: - Requires continued inpatient care CODE STATUS: FULL CODE Visit type - Emergency Visit Emergency Visit: Yes ED Registration Date: 12/11/16 Care time: The patient presented to the Emergency Department on the above date and was hospitalized for further evaluation of their emergent condition. - New Patient This patient is new to me today: No - Critical Care Critical Care patient: No
--- NOTE | 2016-12-18 17:01 | PN ---
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
--- NOTE | 2016-12-18 17:32 | PN ---
Progress Note (short form) - Note Progress Note: Patient seen and examined Non verbal On trach- Last Vital Signs Temp Pulse Resp BP Pulse Ox 98.8 F 80 26 H 122/44 97 12/18/16 14:32 12/18/16 14:32 12/18/16 14:32 12/18/16 14:32 12/18/16 10:30 Lungs with rhonchi and upper respiratory sounds Cor-RSR Abd- distension Ext- extensors CBC, BMP 12/18/16 05:48 12/18/16 05:48 Current Medications Generic Name Dose Route Start Last Admin Trade Name Freq PRN Reason Stop Dose Admin Acetaminophen 325 mg 12/15/16 19:31 12/16/16 16:21 Tylenol Suppository - PA 325 mg Q4H PRN Administration FEVER OR PAIN Ascorbic Acid 500 mg 12/16/16 10:00 12/18/16 09:31 Vitamin C Oral Solution - PEG 500 mg DAILY SELVIN Administration Aspirin 81 mg 12/18/16 12:00 12/18/16 12:20 Asa - GT 81 mg DAILY SELVIN Administration Diltiazem HCl 60 mg 12/16/16 00:00 12/18/16 11:37 Cardizem - PEG 60 mg Q6HPO SELVIN Administration Pantoprazole Sodium 100 mls @ 200 mls/hr 12/16/16 10:00 12/18/16 11:36 Protonix 40mg Ivpb (Pre-Docked) IVPB 200 mls/hr DAILY SELVIN Administration Ampicillin Sodium/Sulbactam Sodium 100 mls @ 200 mls/hr 12/17/16 15:50 14:33 Unasyn 1.5 Gm (Pre-Docked) IVPB 200 mls/hr Q6H-IV SELVIN Administration Metoprolol Tartrate 50 mg 12/15/16 22:00 12/18/16 14:33 Lopressor - NGT 50 mg TID SELVIN Administration Morphine Sulfate 1 mg 12/15/16 19:31 Morphine Injection - IVPUSH Q4H PRN PAIN Multi-Ingredient Ointment 1 applic 12/16/16 10:00 12/18/16 11:37 Zinc Oxide TP 1 applic DAILY SELVIN Administration Nystatin 1 applic 12/15/16 22:00 12/18/16 11:37 Mycostatin Cream - TP 1 applic BID SELVIN Administration Ondansetron HCl 4 mg 12/15/16 19:31 Zofran Injection IVPB Q6H PRN NAUSEA Polyethylene Glycol 17 gm 12/16/16 18:35 12/18/16 09:31 Miralax (For Daily Use) - PEG Not Given DAILY SELVIN Potassium Phos/Sodium Phos 1 packet 12/15/16 15:30 12/18/16 14:33 Phos-Nak Packet - PEG 1 packet TID SELVIN Administration Zinc Sulfate 220 mg 12/16/16 10:00 12/18/16 09:30 Orazinc - GT 220 mg DAILY SELVIN Administration Impression: Klebsiella urosepsis Trach - air leak Pneumonia Anemia- chronic disease Thrombocytopenia- improved likely secondary to sepsis Plan: Assess goals of care.
--- NOTE | 2016-12-18 17:54 | PN ---
Progress Note, Physician History of Present Illness: Non-verbal, minimal responsive. - Current Medication List Current Medications: Active Medications Acetaminophen (Tylenol Suppository -) 325 mg DC Q4H PRN PRN Reason: FEVER OR PAIN Last Admin: 12/16/16 16:21 Dose: 325 mg Ascorbic Acid (Vitamin C Oral Solution -) 500 mg PEG DAILY [facility] Last Admin: 12/18/16 09:31 Dose: 500 mg Aspirin (Asa -) 81 mg GT DAILY [facility] Last Admin: 12/18/16 12:20 Dose: 81 mg Diltiazem HCl (Cardizem -) 60 mg PEG Q6HPO SELVIN Last Admin: 12/18/16 11:37 Dose: 60 mg Pantoprazole Sodium (Protonix 40mg Ivpb (Pre-Docked)) 100 mls @ 200 mls/hr IVPB DAILY [facility] Last Admin: 12/18/16 11:36 Dose: 200 mls/hr Ampicillin Sodium/Sulbactam Sodium (Unasyn 1.5 Gm (Pre-Docked)) 100 mls @ 200 mls/hr IVPB Q6H-IV SELVIN Last Admin: 12/18/16 14:33 Dose: 200 mls/hr Metoprolol Tartrate (Lopressor -) 50 mg NGT TID [facility] Last Admin: 12/18/16 14:33 Dose: 50 mg Morphine Sulfate (Morphine Injection -) 1 mg IVPUSH Q4H PRN PRN Reason: PAIN Multi-Ingredient Ointment (Zinc Oxide) 1 applic TP DAILY [facility] Last Admin: 12/18/16 11:37 Dose: 1 applic Nystatin (Mycostatin Cream -) 1 applic TP BID [facility] Last Admin: 12/18/16 11:37 Dose: 1 applic Ondansetron HCl (Zofran Injection) 4 mg IVPB Q6H PRN PRN Reason: NAUSEA Polyethylene Glycol (Miralax (For Daily Use) -) 17 gm PEG DAILY [facility] Last Admin: 12/18/16 09:31 Dose: Not Given Potassium Phos/Sodium Phos (Phos-Nak Packet -) 1 packet PEG TID [facility] Last Admin: 12/18/16 14:33 Dose: 1 packet Zinc Sulfate (Orazinc -) 220 mg GT DAILY [facility] Last Admin: 12/18/16 09:30 Dose: 220 mg - Objective Vital Signs: Vital Signs Temperature 98.8 F 12/18/16 14:32 Pulse Rate 80 12/18/16 14:32 Respiratory Rate 26 H 12/18/16 14:32 Blood Pressure 122/44 12/18/16 14:32 O2 Sat by Pulse Oximetry (%) 97 12/18/16 10:30 Constitutional: Yes: No Distress, Calm Neck: Yes: Supple Cardiovascular: Yes: Pulse Irregular Respiratory: Yes: Intubated, Mechanically Ventilated, Rhonchi Gastrointestinal: Yes: Normal Bowel Sounds, Soft Edema: Yes Labs: CBC, BMP 12/18/16 05:48 12/18/16 05:48 INR, PTT INR 1.20 (0.82-1.09) H 12/16/16 06:15 Fibrinogen 350.0 mg/dL (238-498) 12/15/16 05:00 Problem List - Problems (1) Pneumonia Code(s): J18.9 - PNEUMONIA, UNSPECIFIED ORGANISM Qualifiers: Pneumonia type: due to unspecified organism Laterality: unspecified laterality Lung location: unspecified part of lung Qualified Code(s): J18.9 - Pneumonia, unspecified organism (2) Aortic stenosis Code(s): Q25.3 - SUPRAVALVULAR AORTIC STENOSIS (3) CVA (cerebral vascular accident) Code(s): I63.9 - CEREBRAL INFARCTION, UNSPECIFIED Qualifiers: CVA mechanism: unspecified Qualified Code(s): I63.9 - Cerebral infarction, unspecified (4) Dementia Code(s): F03.90 - UNSPECIFIED DEMENTIA WITHOUT BEHAVIORAL DISTURBANCE Qualifiers: Dementia type: unspecified type Dementia behavioral disturbance: without behavioral disturbance Qualified Code(s): F03.90 - Unspecified dementia without behavioral disturbance (5) Dysphagia Code(s): R13.10 - DYSPHAGIA, UNSPECIFIED (6) Hypertension Code(s): I10 - ESSENTIAL (PRIMARY) HYPERTENSION Qualifiers: Hypertension type: essential hypertension Qualified Code(s): I10 - Essential (primary) hypertension (7) Metastatic breast cancer Code(s): C50.919 - MALIGNANT NEOPLASM OF UNSP SITE OF UNSPECIFIED FEMALE BREAST C79.9 - SECONDARY MALIGNANT NEOPLASM OF UNSPECIFIED SITE (8) Mitral regurgitation Code(s): I34.0 - NONRHEUMATIC MITRAL (VALVE) INSUFFICIENCY Qualifiers: Cardiac valve disease etiology: nonrheumatic Qualified Code(s): I34.0 - Nonrheumatic mitral (valve) insufficiency (9) Tricuspid regurgitation Code(s): I07.1 - RHEUMATIC TRICUSPID INSUFFICIENCY Qualifiers: Cardiac valve disease etiology: nonrheumatic Qualified Code(s): I36.1 - Nonrheumatic tricuspid (valve) insufficiency (10) UTI (urinary tract infection) Code(s): N39.0 - URINARY TRACT INFECTION, SITE NOT SPECIFIED Qualifiers: Urinary tract infection type: site unspecified Hematuria presence: without hematuria Qualified Code(s): N39.0 - Urinary tract infection, site not specified (11) Atrial fibrillation Code(s): I48.91 - UNSPECIFIED ATRIAL FIBRILLATION Qualifiers: Atrial fibrillation type: persistent Qualified Code(s): I48.1 - Persistent atrial fibrillation (12) PEG tube malfunction Code(s): K94.23 - GASTROSTOMY MALFUNCTION (13) Demand ischemia Code(s): I24.8 - OTHER FORMS OF ACUTE ISCHEMIC HEART DISEASE Assessment/Plan 10/16/2015 Echo: Normal LV size and fxn, mild LOLY, mod-severe MR, severe TR, severe , mild AR, pleural effusion 12/15/2016 Echo: Normal LV size and fxn, mod MR and TR, mild AR, severe THIAGO 0.7 cm^2 CT head 12/12/15 Extensive periventricular white matter chronic microvascular ischemic changes. Left subinsular and left thalamic old lacunar infarct. Encephalomalacia/old infarct in the right occipital lobe, medially. Findings suspicious for interval acute/subacute infarct in the right temporal lobe. Correlation with noncontrast MRI of the brain would be the study of choice for further evaluation CT chest/Abdomen/Pelvis 12/12/15: 1. 2 large pulmonary masses within the right and left upper lobes consistent with malignancy. There is an additional 7 mm right middle lobe nodule. 2. Extensive left lower lobe atelectasis and pleural effusion. 3. Small right pleural effusion with basilar atelectasis. 4. 3.7 cm distal AAA. 5. No evidence of metastatic disease or acute pathology within the abdomen or pelvis. Limited study as described above. Assessment: 1. Chronic ventilator-dependent respiratory failure post trach, pneumonia, UTI 2. 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 Chronic LV diastolic dysfunction with class I NYHA classification LV failure , compensated 4. Severe 5. Persistent atrial fibrillation [id number] score of 7, on no A/C 6. HTN 7. 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 Pre-renal ELLIE with Hypernatremia improving 10. Thrombocytopenia and Coagulopathy referable to sepsis 11. Lung masses PLAN: 1. Free water repletion with monitor Na 2. As outlined in prior notes ideally should be A/C unless it is absolutely contraindicated considering the above noted [id number] score of 7 otherwise Continue ASA 81 qd 3. Continue Lopressor 50 tid and cardizem 60 q6 4. Vent management as per primary/critical care teams 5. Antibiotics as per the ID team 6. Enteral feeds, DVT and GI prophylaxis, advanced directives/goals of care
--- NOTE | 2016-12-18 18:55 | CON.ENT ---
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: Dementia Cardio/Vascular: Yes: AFIB, Aortic Stenosis, CHF, HTN, Mitral Insufficiency Pulmonary: Yes: Cancer (bilatreal suspicious lung masses and effusions as well as infiltates ), Pneumonia, Other (trachestomy for presumed chronic pulmonary probems) Gastrointestinal: Yes: Other (indwelling G tube) ...: No Infectious Disease: Yes: MRSA Psych: Yes: Anxiety, Schizophrenia Dermatology: Yes: Other (suspect excision of left cheek skin cancer by the scar left behind) - Past Surgical History Additional Surgical History: Oblique RUQ and vertical suprapubic incisions suggest GB surgery and a hystrectomy or C section. Has G tube LUQ - Alcohol/Substance Use Hx Alcohol Use: No - Smoking History Smoking history: Never smoked Have you smoked in the past 12 months: No Aproximately how many cigarettes per day: 0 - Social History Usual Living Arrangement: [facility] ADL: Support Services History of Recent Travel: No Home Medications - Allergies Allergies/Adverse Reactions: Allergies Allergy/AdvReac Type Severity Reaction Status Date / Time cefuroxime axetil Allergy Mild Rash Verified 12/11/16 10:43 [From Ceftin] - Home Medications Home Medications: Ambulatory Orders Acetaminophen [Tylenol .Regular Strength -] 325 mg PO Q6H PRN 01/29/14 Vit A/Vitamin D3/E/Aloe V/Znox [Periguard Ointment] 5 gm TP TID 01/29/14 Zinc Oxide 20% Topical Oint 454 gm TP DAILY 10/15/15 Zinc Sulfate 220 mg GT DAILY 10/15/15 Ascorbate Calcium [Vitamin C] 500 mg PEG DAILY #0 11/17/15 Aspirin [ASA -] 81 mg PO DAILY #30 tab.chew 11/17/15 Diltiazem [Cardizem -] 60 mg NGT Q6HPO #30 tablet 11/17/15 Metoprolol Tartrate [Lopressor -] 50 mg NGT TID #60 tablet 11/17/15 Nystatin Cream [Mycostatin Cream -] 1 applic TP BID applic 11/17/15 Polyethylene Glycol 3350 [Miralax 119 gm Btl -] 17 gm PEG DAILY #14 bottle 11/17 Docusate Liquid [Colace Liquid -] 50 mg GT DAILY 12/11/16 Physical Exam-ENT Vital Signs: Vital Signs Temperature 98.8 F 12/18/16 14:32 Pulse Rate 80 12/18/16 14:32 Respiratory Rate 31 H 12/18/16 17:55 Blood Pressure 122/44 12/18/16 14:32 O2 Sat by Pulse Oximetry (%) 97 12/18/16 10:30 Constitutional: Yes: No Distress Head: Yes: WNL Face: Yes: WNL Eyes: Yes: Other (closed, no spontaneous eye opening) Nose: Yes: WNL Outer Ear: Yes: WNL Neck: Yes: Other (8 shiley trach, removed Very large stoma and proximal trachea (abnormally large) cuff was inflated and had to be deflated to remove. 7 Portex tube inserted, cuff inflated, functions well but postional, has to be fully inserted. then good exhaled volumes on vent. SaO2 94%) Imaging - Results Chest X-ray: Report Reviewed, Image Reviewed Cat Scan: Report Reviewed, Image Reviewed (CT chest ++tube in place but very dilated proximal trachea, then back to more normal diameter distally.) Problem List - Problems (1) Tracheostomy dependence Assessment/Plan: trach tube changed proximal trachea and stoma are very dilated, suspect Shiley tube cuff was over inflated and perhaps tube not fully inserted. CT scan shows significant tracheal dilation which affects the degree of seal from a standard tracheotomy tube. Recommend: Thoracic surgery or Pulmonology may consider an endotracheal tube to be inserted more distally and secured., Longer term an extra long tracheotomy tube should be ordered. Thank you for consultation Checo Gonzales MD Code(s): Z93.0 - TRACHEOSTOMY STATUS
--- NOTE | 2016-12-18 19:16 | HOSP ---
Physical Examination Vital Signs: Vital Signs Temperature 98.8 F 12/18/16 14:32 Pulse Rate 80 12/18/16 14:32 Respiratory Rate 31 H 12/18/16 17:55 Blood Pressure 122/44 12/18/16 14:32 O2 Sat by Pulse Oximetry (%) 97 12/18/16 10:30 Labs: CBC, BMP 12/18/16 05:48 12/18/16 05:48 Hospitalist Encounter Assessment: Called by RN to evaluate patient for desaturation and "zero" tidal volumes. Per ENT evaluation for cuff leak earlier today, there is significant tracheal dilation affecting the seal of the standard tracheostomy tube. Pulmonary or CT surgery evaluation for insertion/securing of endotracheal tube is recommended; longer term, the patient will require insertion of extra long tracheostomy tube. Respiratory therapy was able to locate extra-long tracheostomy tube and this was inserted. The patient is now pulling 7 mL/kg TV and is saturating 100% with unlabored work of breathing. If again decompensating, attempt to increase MVe by increasing RR. Otherwise, patient may require transfer to ICU and orotracheal intubation. Please re-call if needed. [phone]
[2016-12-19] MEDS: AMPICILLIN NA/SULBACTAM NA 100 ML IVPB SCH ×4 (02:10→20:44)
[2016-12-19] MEDS: dilTIAZem HCL 60 MG TABLET (FP) PEG SCH ×4 (06:30→23:39)
[2016-12-19] MEDS: METOPROLOL TARTRATE 50 MG TABLET (FP) NGT SCH ×3 (06:30→22:05)
[2016-12-19] MEDS: NAPH,MB-DB/K PH,MBDB POWDER PACKET PEG SCH ×3 (06:31→22:03)
[2016-12-19] MEDS ORDERED: PT OWN MED DRAWER 7, Y5N ONE ×2 (07:09→07:50)
[2016-12-19] MEDS ORDERED: INSULIN DETEMIR 100 UNITS/ML MDV SQ ONE (07:50)
[2016-12-19] MEDS: ASPIRIN 81 MG CHEWABLE TABLETS GT SCH (09:50)
[2016-12-19] MEDS: POLYETHYLENE GLYCOL 3350 119 GM BTL PEG SCH (09:50)
[2016-12-19] MEDS: ZINC SULFATE 220 MG CAPSULE (FP) GT SCH (09:50)
[2016-12-19] MEDS: PANTOPRAZOLE SODIUM 100 ML IVPB SCH (09:51)
[2016-12-19] MEDS: ASCORBIC ACID 500 MG/5 ML UNIT DOSE CUP PEG SCH (09:51)
[2016-12-19] MEDS: NYSTATIN 100,000 UNIT/GM TOPICAL CREAM 15 GM TUBE TP SCH ×2 (09:53→22:03)
[2016-12-19 10:08] LABS: ALBUMIN 1.2 g/dl (3.4-5.0); ANION GAP 10 (8-16); CALCIUM 7.3 mg/dL (8.5-10.1); CO2 23 mmol/L (21-32); CREATININE 0.5 mg/dL (0.55-1.02); GLUCOSE,RANDOM 148 mg/dL (74-106); MAGNESIUM 1.7 mg/dL (1.8-2.4); PHOSPHOROUS 2.5 mg/dL (2.5-4.9); SGOT/AST 25 U/L (15-37); SGPT/ALT 12 U/L (12-78)
[2016-12-19 10:10] LABS: ALK PHOS 145 U/L (45-117); BILIRUBIN,TOTAL 2.2 mg/dL (0.2-1.0); TOT PROT 5.3 g/dl (6.4-8.2)
[2016-12-19 10:17] LABS: BASOPHIL 0.6 % (0-2.0); EOSINOPHIL 0.8 % (0-4.5); MCH 27.8 pg (25.7-33.7); MCHC 31.7 g/dl (32.0-36.0); MEAN CELL VOLUME 87.8 fl (80-96); MEAN PLT VOLUME 11.5 fl (7.5-11.1); NEUTROPHILS 90.5 % (42.8-82.8); PLATELET COUNT 148 K/MM3 (134-434); RDW 20.2 % (11.6-15.6); WHITE BLOOD COUNT 17.4 K/mm3 (4.0-10.0)
--- NOTE | 2016-12-19 10:21 | PN ---
[id number] status improved, pulling good tidal volumes. Vital Signs Period Temp Pulse Resp BP Sys/Chase Pulse Ox Last 24 Hr 97.4 F-98.8 F 80-88 21-31 111-124/44-74 97-99 GENERAL: The patient is awake, alert, opens eyes spontaneously. EYES: PERRL, extraocular movements intact, sclera anicteric, conjunctiva clear. No ptosis. ENT: Ears normal, nares patent, oropharynx clear without exudates, moist mucous membranes. NECK: Tacheostomy in place. LUNGS: Scattered ronchi. HEART: Irregular rhythm, S1/S2 without murmur, rub or gallop. ABDOMEN: Soft, nontender, nondistended, normoactive bowel sounds, no guarding, no rebound, no hepatosplenomegaly, no masses, PEG in place. EXTREMITIES: 2+ pulses, warm, well-perfused, 2+ pitting edema in all extremities. NEUROLOGICAL: E 4 V 1 M 4 = 9 SKIN: Warm, dry, normal turgor, no rashes or lesions noted Laboratory Results - last 24 hr 12/19/16 12/19/16 08:50 08:50 WBC Cancelled Corrected WBC (auto) Cancelled RBC Cancelled Hgb Cancelled Hct Cancelled MCV Cancelled MCHC Cancelled RDW Cancelled Plt Count Cancelled MPV Cancelled Add Manual Diff Cancelled Neutrophils % Cancelled Lymphocytes % Cancelled Monocytes % Cancelled Eosinophils % Cancelled Basophils % Cancelled Differential Comment Cancelled Smudge Cells Cancelled Platelet Estimate Cancelled Platelet Comment Cancelled Normal RBC Morphology Cancelled RBC Morphology Cancelled Sodium 140 Potassium 4.7 Chloride 107 Carbon Dioxide 23 Anion Gap 10 BUN 21 H Creatinine 0.5 L Creat Clearance w eGFR > 60 Random Glucose 148 H Calcium 7.3 L Phosphorus 2.5 Magnesium 1.7 L Total Bilirubin 2.2 H AST 25 D ALT 12 Alkaline Phosphatase 145 H Total Protein 5.3 L Albumin 1.2 L Active Medications Generic Name Dose Route Start Last Admin Trade Name Freq PRN Reason Stop Dose Admin Acetaminophen 325 mg 12/15/16 19:31 12/16/16 16:21 Tylenol Suppository - NE 325 mg Q4H PRN Administration FEVER OR PAIN Ascorbic Acid 500 mg 12/16/16 10:00 12/19/16 09:51 Vitamin C Oral Solution - PEG 500 mg DAILY SELVIN Administration Aspirin 81 mg 12/18/16 12:00 12/19/16 09:50 Asa - GT 81 mg DAILY SELVIN Administration Diltiazem HCl 60 mg 12/16/16 00:00 12/19/16 06:30 Cardizem - PEG 60 mg Q6HPO SELVIN Administration Ampicillin Sodium/Sulbactam Sodium 100 mls @ 200 mls/hr 12/17/16 15:50 09:50 Unasyn 1.5 Gm (Pre-Docked) IVPB 200 mls/hr Q6H-IV SELVIN Administration Metoprolol Tartrate 50 mg 12/15/16 22:00 12/19/16 06:30 Lopressor - NGT 50 mg TID SELVIN Administration Multi-Ingredient Ointment 1 applic 12/16/16 10:00 12/18/16 11:37 Zinc Oxide TP 1 applic DAILY SELVIN Administration Nystatin 1 applic 12/15/16 22:00 12/19/16 09:53 Mycostatin Cream - TP 1 applic BID SELVIN Administration Ondansetron HCl 4 mg 12/15/16 19:31 Zofran Injection IVPB Q6H PRN NAUSEA Pantoprazole Sodium 40 mg 12/20/16 10:00 Protonix Packets For Oral Suspension - NGT DAILY SELVIN Polyethylene Glycol 17 gm 12/16/16 18:35 12/19/16 09:50 Miralax (For Daily Use) - PEG Not Given DAILY SELVIN Potassium Phos/Sodium Phos 1 packet 12/15/16 15:30 12/19/16 06:31 Phos-Nak Packet - PEG 1 packet TID SELVIN Administration Zinc Sulfate 220 mg 12/16/16 10:00 12/19/16 09:50 Orazinc - GT 220 mg DAILY SELVIN Administration ASSESSMENT/PLAN: 86 year old female admitted on 12/11 with severe sepsis secondary to pulmonary and sources, Afib with RVR, and ELLIE. 1. ID: Sepsis secondary to UTI, PNA -CT chest with extensive consolidation of the left lower lobe -Primaxin and Vancomycin d/c on 12/17, Unasyn started on 12/17 -WBCs have overall trended down from 37 to 17 -Blood cultures no growth to date -Urine culture shows yeast-like organism: will treat with Diflucan per GT -C diff Ag is positive; do not treat per ID 2. CARDS: A.fib with RVR -[id number] score of 7; will start Eliquis 2.5mg bid (age >80, weight 60kg) -Rate-controlled on Lopressor and Cardizem 3. RENAL: ELLIE - Resolved 4. GI: Transaminitis -Resolving, total bili and alk phos remain elevated -HCV Ab positive -Per GI, no treatment at this time 5. PULM: Lung cancer, pleural effusions -Not on any active chemotherapy or RTX 6. NEURO: Acute/subacute right temporal lobe infarct -CT head with Encephalomalacia/old infarct in the right occipital lobe, medially. Findings suspicious for interval acute/subacute infarct in the right temporal lobe -No need to continue ASA while on NOAC 7. HEME: Thrombocytopenia -Resolved -Suspect 2/2 sepsis +/- Imipenem -HIT Ab negative -Monitor 8. F/E/N: -Hypophosphatemia, resolved -Jevity tube feeds, decreased free water flushes to 30ml/hr as sodium has corrected 9. Prophylaxis: - Hold all chemical dvt prophylaxis 2/2 thrombocytopenia - SCDs bilaterally 10) Dispo: - Requires continued inpatient care; anticipate discharge on Wednesday CODE STATUS: FULL CODE Visit type - Emergency Visit Emergency Visit: Yes ED Registration Date: 12/11/16 Care time: The patient presented to the Emergency Department on the above date and was hospitalized for further evaluation of their emergent condition. - New Patient This patient is new to me today: Yes Date on this admission: 12/19/16 - Critical Care Critical Care patient: No
[2016-12-19] MEDS ORDERED: MAGNESIUM SULF 50% (8.12 MEQ/2 ML-1 GM VIAL) IVPB ONE (11:05)
[2016-12-19] MEDS ORDERED: FLUCONAZOLE 40 MG/ML SUSPENSION 35 ML BOTTLE PO SCH (11:30)
[2016-12-19] MEDS: APIXABAN 2.5 MG TABLET PO SCH ×2 (12:12→22:03)
[2016-12-19] MEDS: ZINC OXIDE 20% TOPICAL OINTMENT 30 GM TUBE TP SCH (12:20)
--- NOTE | 2016-12-19 12:42 | PN ---
Progress Note (short form) - Note Progress Note: PULMONARY CHART REVIEWED PATIENT EXAMINED NO SIGNIFICANT CHANGE IN CLINICAL EXAM TRACH CHANGED VIA RESPIRATORY NO LEAK PRESENTLY Assessment/Plan ASSESSMENT AND PLAN: Chronic Respiratory Failure UTI Pneumonia Severe Sepsis resolving Lactic Acidosis resolved Acute Kidney Injury improving Hypernatremia/Dehydration Atrial Fibrillation with RVR Hypokalemia resolved LV Diastolic Dysfunction Pleural Effusion HTN Severe h/o CVA Lung Masses likely malignant Dementia - antibiotics per ID - monitor urine output, creatinine - rate control with cardizem and metoprolol - increase free water replacement via G tube - continue volume assist control - poor candidate for weaning at this time - enteral feeds - DVT/GI prophylaxis - continue discussions regarding advanced directives/goals of care - strict contact isolation - prognosis is poor Pascual BENITEZ MD
--- NOTE | 2016-12-19 12:42 | PN ---
Progress Note (short form) - Note Progress Note: Neurology follow up note: Patient seen previously by Dr. Khan. Patient with tracheostomy on vent, remains non verbal, minimally responsive though opened eyes briefly during encounter. Was previously critical care for sepsis, CVA, respiratory depression , Afib. Downgraded to floor earlier this week. No significant neurologic changes. Remains on Abx. Neurologically no changes overnight. Being treated for ongoing infection. Active Medications Acetaminophen (Tylenol Suppository -) 325 mg LA Q4H PRN PRN Reason: FEVER OR PAIN Last Admin: 12/16/16 16:21 Dose: 325 mg Apixaban (Eliquis -) 2.5 mg PO BID [facility] Last Admin: 12/19/16 12:12 Dose: 2.5 mg Ascorbic Acid (Vitamin C Oral Solution -) 500 mg PEG DAILY [facility] Last Admin: 12/19/16 09:51 Dose: 500 mg Diltiazem HCl (Cardizem -) 60 mg PEG Q6HPO [facility] Last Admin: 12/19/16 12:20 Dose: 60 mg Fluconazole (Diflucan 10mg/Ml *Pediatric Suspension* -) 150 mg PO ONCE ONE Stop: 12/19/16 13:01 Ampicillin Sodium/Sulbactam Sodium (Unasyn 1.5 Gm (Pre-Docked)) 100 mls @ 200 mls/hr IVPB Q6H-IV [facility] Last Admin: 12/19/16 09:50 Dose: 200 mls/hr Metoprolol Tartrate (Lopressor -) 50 mg NGT TID [facility] Last Admin: 12/19/16 06:30 Dose: 50 mg Multi-Ingredient Ointment (Zinc Oxide) 1 applic TP DAILY [facility] Last Admin: 12/19/16 12:20 Dose: 1 applic Nystatin (Mycostatin Cream -) 1 applic TP BID [facility] Last Admin: 12/19/16 09:53 Dose: 1 applic Ondansetron HCl (Zofran Injection) 4 mg IVPB Q6H PRN PRN Reason: NAUSEA Pantoprazole Sodium (Protonix Packets For Oral Suspension -) 40 mg NGT DAILY [facility] Polyethylene Glycol (Miralax (For Daily Use) -) 17 gm PEG DAILY [facility] Last Admin: 12/19/16 09:50 Dose: Not Given Potassium Phos/Sodium Phos (Phos-Nak Packet -) 1 packet PEG TID [facility] Last Admin: 12/19/16 06:31 Dose: 1 packet Zinc Sulfate (Orazinc -) 220 mg GT DAILY SELVIN Last Admin: 12/19/16 09:50 Dose: 220 mg Last Vital Signs Temp Pulse Resp BP Pulse Ox 98.6 F 69 19 112/56 99 12/19/16 10:00 12/19/16 10:00 12/19/16 10:28 12/19/16 10:00 12/18/16 21:00 GENERAL: Intubated, sedated, look uncomfortable . HEENT: Normocephalic, atraumatic. Pinpoint pupil, sluggish, dry mucus membrane, right facial droop. CARDIOVASCULAR: irregular S1, S2. rate and rhythm. PULMONARY: b/l ronchi. ABDOMEN: Soft, non-distended, non-tender. peg tube in place EXTREMITIES: limited ROM in all four extremities. b/l hands contracted . SKIN: Warm, dry. No rash NEUROLOGICAL: Awake, respond to tactile stimuli only by open eye. non verbal, no purposeful movement. Unable to assess Cranial nerves 2-12 intact. light touch and temperature .left sided paralysis. plantar reflex intact in right foot. no reflex in left PSYCHIATRIC: Unable to cooperate. No eye contact. CBCD WBC 17.4 K/mm3 (4.0-10.0) H 12/19/16 10:00 RBC 3.70 M/mm3 (3.60-5.2) 12/19/16 10:00 Hgb 10.3 GM/dL (10.7-15.3) L 12/19/16 10:00 Hct 32.4 % (32.4-45.2) 12/19/16 10:00 MCV 87.8 fl (80-96) 12/19/16 10:00 MCHC 31.7 g/dl (32.0-36.0) L 12/19/16 10:00 RDW 20.2 % (11.6-15.6) H 12/19/16 10:00 Plt Count 148 K/MM3 (134-434) D 12/19/16 10:00 MPV 11.5 fl (7.5-11.1) H 12/19/16 10:00 CMP Sodium 140 mmol/L (136-145) 12/19/16 08:50 Potassium 4.7 mmol/L (3.5-5.1) 12/19/16 08:50 Chloride 107 mmol/L (98-107) 12/19/16 08:50 Carbon Dioxide 23 mmol/L (21-32) 12/19/16 08:50 Anion Gap 10 (8-16) 12/19/16 08:50 BUN 21 mg/dL (7-18) H 12/19/16 08:50 Creatinine 0.5 mg/dL (0.55-1.02) L 12/19/16 08:50 Creat Clearance w eGFR > 60 (>60) 12/19/16 08:50 Calcium 7.3 mg/dL (8.5-10.1) L 12/19/16 08:50 Total Bilirubin 2.2 mg/dL (0.2-1.0) H 12/19/16 08:50 AST 25 U/L (15-37) D 12/19/16 08:50 ALT 12 U/L (12-78) 12/19/16 08:50 Alkaline Phosphatase 145 U/L (45-117) H 12/19/16 08:50 Total Protein 5.3 g/dl (6.4-8.2) L 12/19/16 08:50 Albumin 1.2 g/dl (3.4-5.0) L 12/19/16 08:50 Imaging: CT head 12/12/15 Extensive periventricular white matter chronic microvascular ischemic changes. Left subinsular and left thalamic old lacunar infarct. Encephalomalacia/old infarct in the right occipital lobe, medially. Findings suspicious for interval acute/subacute infarct in the right temporal lobe. Correlation with noncontrast MRI of the brain would be the study of choice for further evaluation CT chest/Abdomen/Pelvis 12/12/15: 1. 2 large pulmonary masses within the right and left upper lobes consistent with malignancy. There is an additional 7 mm right middle lobe nodule. 2. Extensive left lower lobe atelectasis and pleural effusion. 3. Small right pleural effusion with basilar atelectasis. 4. 3.7 cm distal AAA. 5. No evidence of metastatic disease or acute pathology within the abdomen or pelvis. Limited study as described above. Assessment/plan 86 year old female with severe Dementia, lung cancer, schizophrenia, multiple CVA, non verbal, on ventilator via tracheostomy is admitted for Sepsis rt UTI/ HCAP, AFIB with RVR, Acute on chronic hypoxic respiratory failure present with Acute/subacute infarct in right temporal lobe. ASA 300 can be decreased to 81 or held if needed for Plt count, if held, will need to make sure it is restarted Monitor platelet count Monitor blood pressure, goal <140/90 chronically Continue IV abx for sepsis Neurologically stable at this time
[2016-12-19] MEDS ORDERED: FLUCONAZOLE 10 MG/ML PO ONE (13:00)
--- NOTE | 2016-12-19 14:18 | PN ---
Progress Note, Physician Chief Complaint: Events noted Remains on vent via trache Non-verbal History of Present Illness: Patient was seen and examined on floor. Remains on vent via trache - underlying dementia and nonverbal. Chart was reviewed - Current Medication List Current Medications: Active Medications Acetaminophen (Tylenol Suppository -) 325 mg [place] Q4H PRN PRN Reason: FEVER OR PAIN Last Admin: 12/16/16 16:21 Dose: 325 mg Apixaban (Eliquis -) 2.5 mg PO BID [facility] Last Admin: 12/19/16 12:12 Dose: 2.5 mg Ascorbic Acid (Vitamin C Oral Solution -) 500 mg PEG DAILY [facility] Last Admin: 12/19/16 09:51 Dose: 500 mg Diltiazem HCl (Cardizem -) 60 mg PEG Q6HPO [facility] Last Admin: 12/19/16 12:20 Dose: 60 mg Ampicillin Sodium/Sulbactam Sodium (Unasyn 1.5 Gm (Pre-Docked)) 100 mls @ 200 mls/hr IVPB Q6H-IV [facility] Last Admin: 12/19/16 09:50 Dose: 200 mls/hr Metoprolol Tartrate (Lopressor -) 50 mg NGT TID [facility] Last Admin: 12/19/16 06:30 Dose: 50 mg Multi-Ingredient Ointment (Zinc Oxide) 1 applic TP DAILY [facility] Last Admin: 12/19/16 12:20 Dose: 1 applic Nystatin (Mycostatin Cream -) 1 applic TP BID [facility] Last Admin: 12/19/16 09:53 Dose: 1 applic Ondansetron HCl (Zofran Injection) 4 mg IVPB Q6H PRN PRN Reason: NAUSEA Pantoprazole Sodium (Protonix Packets For Oral Suspension -) 40 mg NGT DAILY [facility] Polyethylene Glycol (Miralax (For Daily Use) -) 17 gm PEG DAILY [facility] Last Admin: 12/19/16 09:50 Dose: Not Given Potassium Phos/Sodium Phos (Phos-Nak Packet -) 1 packet PEG TID [facility] Last Admin: 12/19/16 06:31 Dose: 1 packet Zinc Sulfate (Orazinc -) 220 mg GT DAILY [facility] Last Admin: 12/19/16 09:50 Dose: 220 mg - Objective Vital Signs: Vital Signs Temperature 97.9 F 12/19/16 13:45 Pulse Rate 71 12/19/16 13:45 Respiratory Rate 21 12/19/16 13:45 Blood Pressure 128/65 12/19/16 13:45 O2 Sat by Pulse Oximetry (%) 98 12/19/16 10:00 Cardiovascular: Yes: Pulse Irregular, S1, S2 Respiratory: Yes: Diminished, Mechanically Ventilated Gastrointestinal: Yes: Normal Bowel Sounds, Soft. No: Tenderness Edema: No Labs: CBC, BMP 12/19/16 10:00 12/19/16 08:50 Problem List - Problems (1) Atrial fibrillation with rapid ventricular response Code(s): I48.91 - UNSPECIFIED ATRIAL FIBRILLATION (2) Demand ischemia Code(s): I24.8 - OTHER FORMS OF ACUTE ISCHEMIC HEART DISEASE (3) Hyperkalemia Code(s): E87.5 - HYPERKALEMIA (4) Hypernatremia Code(s): E87.0 - HYPEROSMOLALITY AND HYPERNATREMIA (5) PEG tube malfunction Code(s): K94.23 - GASTROSTOMY MALFUNCTION (6) Aortic stenosis Code(s): Q25.3 - SUPRAVALVULAR AORTIC STENOSIS (7) CVA (cerebral vascular accident) Code(s): I63.9 - CEREBRAL INFARCTION, UNSPECIFIED Qualifiers: CVA mechanism: unspecified Qualified Code(s): I63.9 - Cerebral infarction, unspecified (8) Chronic diastolic heart failure Code(s): I50.32 - CHRONIC DIASTOLIC (CONGESTIVE) HEART FAILURE (9) Chronic respiratory failure with hypoxia Code(s): J96.11 - CHRONIC RESPIRATORY FAILURE WITH HYPOXIA (10) Dementia Code(s): F03.90 - UNSPECIFIED DEMENTIA WITHOUT BEHAVIORAL DISTURBANCE Qualifiers: Dementia type: unspecified type Dementia behavioral disturbance: without behavioral disturbance Qualified Code(s): F03.90 - Unspecified dementia without behavioral disturbance (11) Hypertension Code(s): I10 - ESSENTIAL (PRIMARY) HYPERTENSION Qualifiers: Hypertension type: essential hypertension Qualified Code(s): I10 - Essential (primary) hypertension (12) Mitral regurgitation Code(s): I34.0 - NONRHEUMATIC MITRAL (VALVE) INSUFFICIENCY Qualifiers: Cardiac valve disease etiology: nonrheumatic Qualified Code(s): I34.0 - Nonrheumatic mitral (valve) insufficiency (13) Tricuspid regurgitation Code(s): I07.1 - RHEUMATIC TRICUSPID INSUFFICIENCY Qualifiers: Cardiac valve disease etiology: nonrheumatic Qualified Code(s): I36.1 - Nonrheumatic tricuspid (valve) insufficiency (14) Pneumonia Code(s): J18.9 - PNEUMONIA, UNSPECIFIED ORGANISM Qualifiers: Pneumonia type: due to unspecified organism Laterality: unspecified laterality Lung location: unspecified part of lung Qualified Code(s): J18.9 - Pneumonia, unspecified organism Assessment/Plan 1. Chronic ventilator-dependent respiratory failure post trache and history of pneumonia and UTI 2. 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 Chronic LV diastolic dysfunction with class I NYHA classification LV failure 4. Severe 5. Persistent atrial fibrillation [id number] score of 7 on no A/C 6. HTN 7. 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 Pre-renal ELLIE with Hypernatremia 10. Thrombocytopenia and coagulopathy referable to sepsis 11. Lung masses PLAN: 2. Ideally should be on anticoagulation unless it is absolutely contraindicated considering the above noted [id number] score of 7 otherwise would continue ASA 81 mg QD 3. Continue Lopressor 50 mg TID and cardizem 60 mg Q6hr 4. Vent management 5. Antibiotics as per the ID service 6. Enteral feeds, DVT and GI prophylaxis and advanced directives/goals of care to follow Umer Fritz MD
[2016-12-20] MEDS: AMPICILLIN NA/SULBACTAM NA 100 ML IVPB SCH ×4 (02:11→21:27)
[2016-12-20] MEDS: NAPH,MB-DB/K PH,MBDB POWDER PACKET PEG SCH ×3 (05:21→21:28)
[2016-12-20] MEDS: METOPROLOL TARTRATE 50 MG TABLET (FP) NGT SCH ×3 (05:21→21:28)
[2016-12-20] MEDS: dilTIAZem HCL 60 MG TABLET (FP) PEG SCH ×4 (05:21→23:29)
[2016-12-20 08:05] LABS: MCH 27.6 pg (25.7-33.7); MCHC 31.2 g/dl (32.0-36.0); MEAN CELL VOLUME 88.6 fl (80-96); MEAN PLT VOLUME 11.7 fl (7.5-11.1); PLATELET COUNT 165 K/MM3 (134-434); RDW 20.7 % (11.6-15.6)
[2016-12-20 08:36] LABS: CALCIUM 7.8 mg/dL (8.5-10.1); CREATININE 0.5 mg/dL (0.55-1.02)
[2016-12-20 10:34] LABS: METAMYELOCYTE 1 % (0-2)
[2016-12-20] MEDS ORDERED: PT OWN MED DRAWER 7, Y5N ONE ×4 (10:53→23:10)
[2016-12-20] MEDS: APIXABAN 2.5 MG TABLET PO SCH ×2 (10:59→21:27)
[2016-12-20] MEDS: ZINC SULFATE 220 MG CAPSULE (FP) GT SCH (10:59)
[2016-12-20] MEDS: ZINC OXIDE 20% TOPICAL OINTMENT 30 GM TUBE TP SCH (10:59)
[2016-12-20] MEDS: ASCORBIC ACID 500 MG/5 ML UNIT DOSE CUP PEG SCH (11:00)
[2016-12-20] MEDS: PANTOPRAZOLE SOD 40 MG SUSPENSION PACKET NGT SCH (11:00)
[2016-12-20] MEDS: POLYETHYLENE GLYCOL 3350 119 GM BTL PEG SCH (11:00)
[2016-12-20] MEDS: NYSTATIN 100,000 UNIT/GM TOPICAL CREAM 15 GM TUBE TP SCH ×2 (11:03→21:28)
--- NOTE | 2016-12-20 11:22 | PN ---
Progress Note (short form) - Note Progress Note: Subjective: The patient was seen and examined at the bedside, she is non-verbal , on the vent, appears comfortable Platelets 165 WBC trending up 17.4->18 Current Medications Generic Name Dose Route Start Last Admin Trade Name Freq PRN Reason Stop Dose Admin Acetaminophen 325 mg 12/15/16 19:31 12/16/16 16:21 Tylenol Suppository - [place] 325 mg Q4H PRN Administration FEVER OR PAIN Apixaban 2.5 mg 12/19/16 11:30 12/20/16 10:59 Eliquis - PO 2.5 mg BID SELVIN Administration Ascorbic Acid 500 mg 12/16/16 10:00 12/20/16 11:00 Vitamin C Oral Solution - PEG 500 mg DAILY SELVIN Administration Diltiazem HCl 60 mg 12/16/16 00:00 12/20/16 05:21 Cardizem - PEG 60 mg Q6HPO SELVIN Administration Ampicillin Sodium/Sulbactam Sodium 100 mls @ 200 mls/hr 12/17/16 15:50 10:59 Unasyn 1.5 Gm (Pre-Docked) IVPB 200 mls/hr Q6H-IV SELVIN Administration Metoprolol Tartrate 50 mg 12/15/16 22:00 12/20/16 05:21 Lopressor - NGT 50 mg TID SELVIN Administration Multi-Ingredient Ointment 1 applic 12/16/16 10:00 12/20/16 10:59 Zinc Oxide TP 1 applic DAILY SELVIN Administration Nystatin 1 applic 12/15/16 22:00 12/20/16 11:03 Mycostatin Cream - TP 1 applic BID SELVIN Administration Ondansetron HCl 4 mg 12/15/16 19:31 Zofran Injection IVPB Q6H PRN NAUSEA Pantoprazole Sodium 40 mg 12/20/16 10:00 12/20/16 11:00 Protonix Packets For Oral Suspension - NGT 40 mg DAILY SELVIN Administration Polyethylene Glycol 17 gm 12/16/16 18:35 12/20/16 11:00 Miralax (For Daily Use) - PEG Not Given DAILY [facility]EL[facility]IN Potassium Phos/Sodium Phos 1 packet 12/15/16 15:30 12/20/16 05:21 Phos-Nak Packet - PEG 1 packet TID SELVIN Administration Zinc Sulfate 220 mg 12/16/16 10:00 12/20/16 10:59 Orazinc - GT 220 mg DAILY SELVIN Administration Objective: Vital Signs Period Temp Pulse Resp BP Sys/Chase Pulse Ox Last 24 Hr 97.9 F-98.4 F 68-75 16-23 114-140/57-76 92 Physical Exam: General: NAD, Non-verbal, on vent Lungs: Anterior breath sounds with rhonchi throughout Heart: Irregular rate and rhythm Abd: PEG tube in place. Normoactive bowel sounds Ext: Warm, well-perfused, 2+ DP/PT bilaterally. B/l upper and lower extremity 2 + pitting edema Neuro: Opens eyes spontaneously CBCD WBC 18.0 K/mm3 (4.0-10.0) H 12/20/16 07:15 RBC 3.49 M/mm3 (3.60-5.2) L 12/20/16 07:15 Hgb 9.6 GM/dL (10.7-15.3) L 12/20/16 07:15 Hct 30.9 % (32.4-45.2) L 12/20/16 07:15 MCV 88.6 fl (80-96) 12/20/16 07:15 MCHC 31.2 g/dl (32.0-36.0) L 12/20/16 07:15 RDW 20.7 % (11.6-15.6) H 12/20/16 07:15 Plt Count 165 K/MM3 (134-434) 12/20/16 07:15 MPV 11.7 fl (7.5-11.1) H 12/20/16 07:15 CMP Sodium 141 mmol/L (136-145) 12/20/16 07:15 Potassium 4.6 mmol/L (3.5-5.1) 12/20/16 07:15 Chloride 108 mmol/L (98-107) H 12/20/16 07:15 Carbon Dioxide 25 mmol/L (21-32) 12/20/16 07:15 Anion Gap 8 (8-16) 12/20/16 07:15 BUN 20 mg/dL (7-18) H 12/20/16 07:15 Creatinine 0.5 mg/dL (0.55-1.02) L 12/20/16 07:15 Creat Clearance w eGFR > 60 (>60) 12/19/16 08:50 Random Glucose 159 mg/dL (74-106) H 12/20/16 07:15 Calcium 7.8 mg/dL (8.5-10.1) L 12/20/16 07:15 Total Bilirubin 2.2 mg/dL (0.2-1.0) H 12/19/16 08:50 AST 25 U/L (15-37) D 12/19/16 08:50 ALT 12 U/L (12-78) 12/19/16 08:50 Alkaline Phosphatase 145 U/L (45-117) H 12/19/16 08:50 Total Protein 5.3 g/dl (6.4-8.2) L 12/19/16 08:50 Albumin 1.2 g/dl (3.4-5.0) L 12/19/16 08:50 CARDIAC ENZYMES Creatine Kinase 28 IU/L (26-192) 12/12/16 05:20 Troponin I 0.15 ng/ml (0.00-0.05) H 12/12/16 05:20 Microbiology 12/16/16 12:52 Blood - Peripheral Venous Blood Culture - Preliminary NO GROWTH OBTAINED AFTER 72 HOURS, INCUBATION TO CONTINUE FOR 2 DAYS. 12/16/16 12:29 Blood - Peripheral Venous Blood Culture - Preliminary NO GROWTH OBTAINED AFTER 72 HOURS, INCUBATION TO CONTINUE FOR 2 DAYS. 12/16/16 14:30 Urine - Urine [place] Urine Culture - Final Yeast Like Organism 12/17/16 06:00 Stool Clostridium difficile Antigen (CRISTINA) - Final 12/17/16 06:00 Stool Clostridium difficile Toxin Assay - Final 12/11/16 10:50 Blood - Peripheral Venous Blood Culture - Final NO GROWTH AFTER 5 DAYS INCUBATION 12/11/16 10:50 Blood - Peripheral Venous Blood Culture - Final NO GROWTH AFTER 5 DAYS INCUBATION 12/11/16 16:10 Nasopharyngeal Swab Respiratory Virus Panel - Preliminary 12/12/16 06:00 Sputum - Endotrachea Suction/Ventilator Gram Stain - Final 12/12/16 06:00 Sputum - Endotrachea Suction/Ventilator Sputum Culture - Final Proteus Mirabilis Acinetobacter Baumannii/Haemol 12/11/16 11:50 Urine - Urine - Catheterized Urine Culture - Final Klebsiella Pneumoniae 12/12/16 06:00 Nares - Mrsa Screen - Right MRSA Screen - Final NO MRSA ISOLATED 12/12/16 06:00 Nares - Mrsa Screen - Left MRSA Screen - Final Mr S Aureus 12/11/16 16:10 Nose MRSA Screen - Final Mr S Aureus 12/11/16 16:10 Nasopharyngeal Swab Influenza Types A,B Antigen (CRISTINA) - Final 12/11/16 16:10 Nasopharyngeal Swab - Final Assessment: This is an 86 year old female with PMHx of severe dementia, lung cancer, HTN, schizophrenia, anxiety, aortic stenosis, mitral regurgitation, atrial fibrillation, chronic diastolic heart failure, chronic respiratory failure (on vent), who presented to the ED with tachycardia Plan: 1) ID: Severe sepsis / UTI, pneumonia - CT chest with extensive consolidation of the left lower lobe - Afebrile - WBC trending up - Primaxin and Vancomycin d/c on 12/17 - Unasyn started on 12/17 - Appreciate ID consult C.diff Ag positive, toxin negative - Per ID, will not treat - Patient has more formed stool today per RN 2) Cardiology: A.fib with RVR - Rate controlled now - [id number] score of 7, started on Eliquis 12/19 - Continue Lopressor - Continue Cardizem - Appreciate cardiology consult Elevated troponin - Management per cards 3) : ELLIE - Resolved 4) GI: Transaminitis - Resolving, total bili and alk phos remain elevated - HCV Ab positive - Per GI, no treatment at this time 5) Pulmonary: Lung cancer, pleural effusions - Not on any active chemotherapy or radiation therapy - Appreciate pulmonary consult 6) Neuro: acute/subacute right temporal lobe infarct - CT head with Encephalomalacia/old infarct in the right occipital lobe, medially. Findings suspicious for interval acute/subacute infarct in the right temporal lobe - Continue ASA 81mg GT daily - Appreciate neuro consult 7) Hematology: thrombocytopenia - Resolved - Suspect 2/2 sepsis +/- coagulopathy +/- Imipenem - HIT Ab negative - Appreciate hematology consult 8) F/E/N: - Hypophosphatemia: resolved - Jevity tube feeds 9) Prophylaxis: - On Eliquis - SCDs bilaterally 10) Dispo: - Requires continued inpatient care CODE STATUS: FULL CODE Visit type - Emergency Visit Emergency Visit: Yes ED Registration Date: 12/11/16 Care time: The patient presented to the Emergency Department on the above date and was hospitalized for further evaluation of their emergent condition. - New Patient This patient is new to me today: No - Critical Care Critical Care patient: No
--- NOTE | 2016-12-20 13:01 | PN ---
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
[2016-12-21] MEDS: AMPICILLIN NA/SULBACTAM NA 100 ML IVPB SCH ×4 (02:43→21:56)
[2016-12-21] MEDS: dilTIAZem HCL 60 MG TABLET (FP) PEG SCH ×4 (07:16→23:00)
[2016-12-21] MEDS: METOPROLOL TARTRATE 50 MG TABLET (FP) NGT SCH ×3 (07:17→21:57)
[2016-12-21] MEDS: NAPH,MB-DB/K PH,MBDB POWDER PACKET PEG SCH ×3 (07:17→21:58)
[2016-12-21 08:27] LABS: MCH 28.4 pg (25.7-33.7); MCHC 31.5 g/dl (32.0-36.0); MEAN CELL VOLUME 90.2 fl (80-96); MEAN PLT VOLUME 11.9 fl (7.5-11.1); PLATELET COUNT 174 K/MM3 (134-434); WHITE BLOOD COUNT 17.8 K/mm3 (4.0-10.0)
[2016-12-21] MEDS ORDERED: PT OWN MED DRAWER 7, Y5N ONE ×2 (08:55→21:51)
[2016-12-21] MEDS: PANTOPRAZOLE SOD 40 MG SUSPENSION PACKET NGT SCH (09:00)
[2016-12-21] MEDS: ZINC SULFATE 220 MG CAPSULE (FP) GT SCH (09:00)
[2016-12-21] MEDS: APIXABAN 2.5 MG TABLET PO SCH ×2 (09:00→21:56)
[2016-12-21] MEDS: POLYETHYLENE GLYCOL 3350 119 GM BTL PEG SCH (09:00)
[2016-12-21] MEDS: NYSTATIN 100,000 UNIT/GM TOPICAL CREAM 15 GM TUBE TP SCH ×2 (09:01→21:57)
[2016-12-21] MEDS: ZINC OXIDE 20% TOPICAL OINTMENT 30 GM TUBE TP SCH (09:01)
[2016-12-21] MEDS: ASCORBIC ACID 500 MG/5 ML UNIT DOSE CUP PEG SCH (09:01)
--- NOTE | 2016-12-21 09:32 | PN ---
Progress Note (short form) - Note Progress Note: Patient seen and examined Non verbal, not responsive to painful stimuli On ventilator Last Vital Signs Temp Pulse Resp BP Pulse Ox 97.4 F L 86 24 124/71 97 12/21/16 06:00 12/21/16 06:00 12/21/16 07:16 12/21/16 06:00 12/20/16 09:00 Trach Rhonchi anteriorely and posteriorly Atrial fib, systolic murmur Soft abdomen, Ext- SCD CBC, BMP 12/21/16 05:40 Current Medications Generic Name Dose Route Start Last Admin Trade Name Freq PRN Reason Stop Dose Admin Acetaminophen 325 mg 12/15/16 19:31 12/16/16 16:21 Tylenol Suppository - [place] 325 mg Q4H PRN Administration FEVER OR PAIN Apixaban 2.5 mg 12/19/16 11:30 12/21/16 09:00 Eliquis - PO 2.5 mg BID SELVIN Administration Ascorbic Acid 500 mg 12/16/16 10:00 12/21/16 09:01 Vitamin C Oral Solution - PEG 500 mg DAILY SELVIN Administration Diltiazem HCl 60 mg 12/16/16 00:00 12/21/16 07:16 Cardizem - PEG 60 mg Q6HPO SELVIN Administration Ampicillin Sodium/Sulbactam Sodium 100 mls @ 200 mls/hr 12/17/16 15:50 08:57 Unasyn 1.5 Gm (Pre-Docked) IVPB 200 mls/hr Q6H-IV SELVIN Administration Metoprolol Tartrate 50 mg 12/15/16 22:00 12/21/16 07:17 Lopressor - NGT 50 mg TID SELVIN Administration Multi-Ingredient Ointment 1 applic 12/16/16 10:00 12/21/16 09:01 Zinc Oxide TP 1 applic DAILY SELVIN Administration Nystatin 1 applic 12/15/16 22:00 12/21/16 09:01 Mycostatin Cream - TP 1 applic BID SELVIN Administration Ondansetron HCl 4 mg 12/15/16 19:31 Zofran Injection IVPB Q6H PRN NAUSEA Pantoprazole Sodium 40 mg 12/20/16 10:00 12/21/16 09:00 Protonix Packets For Oral Suspension - NGT 40 mg DAILY SELVIN Administration Polyethylene Glycol 17 gm 12/16/16 18:35 12/21/16 09:00 Miralax (For Daily Use) - PEG Not Given DAILY SELVIN Potassium Phos/Sodium Phos 1 packet 12/15/16 15:30 12/21/16 07:17 Phos-Nak Packet - PEG 1 packet TID SELVIN Administration Zinc Sulfate 220 mg 12/16/16 10:00 12/21/16 09:00 Orazinc - GT 220 mg DAILY SELVIN Administration Impression: Sepsis -antibiotics per ID Pulmonary masses- likely malignant- not suitable for Rx chronic trach Atrial fib Anemia [id number] negative Pneumonia UTI Plan: Antibiotics per I.D. Continue eliquis Goals of care?
[2016-12-21 10:03] LABS: ALBUMIN 1.1 g/dl (3.4-5.0); ALK PHOS 142 U/L (45-117); ANION GAP 8 (8-16); BILIRUBIN,TOTAL 2.5 mg/dL (0.2-1.0); CALCIUM 7.9 mg/dL (8.5-10.1); CO2 27 mmol/L (21-32); CREATININE 0.4 mg/dL (0.55-1.02); GLUCOSE,RANDOM 155 mg/dL (74-106); MAGNESIUM 1.8 mg/dL (1.8-2.4); SGOT/AST 24 U/L (15-37); SGPT/ALT 10 U/L (12-78); TOT PROT 5.2 g/dl (6.4-8.2)
[2016-12-21 10:57] LABS: ANISOCYTOSIS 3+; HYPOCHROMIA 3+; MICROCYTOSIS FEW; OVALOCYTES FEW; PLATELET ESTIMATE ADEQUATE (NORMAL); POLYCHROMASIA 1+; SCHISTOCYTES RARE; TARGET CELLS 2+
--- NOTE | 2016-12-21 12:46 | PN ---
Progress Note, Physician History of Present Illness: pulmonary no change,unresponsive on vent support,ac mode - Current Medication List Current Medications: Active Medications Acetaminophen (Tylenol Suppository -) 325 mg [place] Q4H PRN PRN Reason: FEVER OR PAIN Last Admin: 12/16/16 16:21 Dose: 325 mg Apixaban (Eliquis -) 2.5 mg PO BID [facility] Last Admin: 12/21/16 09:00 Dose: 2.5 mg Ascorbic Acid (Vitamin C Oral Solution -) 500 mg PEG DAILY [facility] Last Admin: 12/21/16 09:01 Dose: 500 mg Diltiazem HCl (Cardizem -) 60 mg PEG Q6HPO [facility] Last Admin: 12/21/16 07:16 Dose: 60 mg Ampicillin Sodium/Sulbactam Sodium (Unasyn 1.5 Gm (Pre-Docked)) 100 mls @ 200 mls/hr IVPB Q6H-IV [facility] Last Admin: 12/21/16 08:57 Dose: 200 mls/hr Metoprolol Tartrate (Lopressor -) 50 mg NGT TID [facility] Last Admin: 12/21/16 07:17 Dose: 50 mg Multi-Ingredient Ointment (Zinc Oxide) 1 applic TP DAILY [facility] Last Admin: 12/21/16 09:01 Dose: 1 applic Nystatin (Mycostatin Cream -) 1 applic TP BID [facility] Last Admin: 12/21/16 09:01 Dose: 1 applic Ondansetron HCl (Zofran Injection) 4 mg IVPB Q6H PRN PRN Reason: NAUSEA Pantoprazole Sodium (Protonix Packets For Oral Suspension -) 40 mg NGT DAILY [facility] Last Admin: 12/21/16 09:00 Dose: 40 mg Polyethylene Glycol (Miralax (For Daily Use) -) 17 gm PEG DAILY [facility] Last Admin: 12/21/16 09:00 Dose: Not Given Potassium Phos/Sodium Phos (Phos-Nak Packet -) 1 packet PEG TID [facility] Last Admin: 12/21/16 07:17 Dose: 1 packet Zinc Sulfate (Orazinc -) 220 mg GT DAILY [facility] Last Admin: 12/21/16 09:00 Dose: 220 mg - Objective Vital Signs: Vital Signs Temperature 98.7 F 12/21/16 10:22 Pulse Rate 77 12/21/16 10:22 Respiratory Rate 26 H 12/21/16 10:30 Blood Pressure 116/73 12/21/16 10:22 O2 Sat by Pulse Oximetry (%) 97 12/20/16 09:00 Constitutional: Yes: Thin, Other (unresponsive) Eyes: Yes: WNL HENT: Yes: WNL Neck: Yes: Supple (trach) Cardiovascular: Yes: Pulse Irregular, S1, S2 Respiratory: Yes: Rhonchi (luzmaria rhonchi) Gastrointestinal: Yes: Normal Bowel Sounds, Soft Extremities: Yes: WNL Edema: No Labs: CBC, BMP 12/21/16 05:40 12/21/16 05:40 INR, PTT INR 1.20 (0.82-1.09) H 12/16/16 06:15 Fibrinogen 350.0 mg/dL (238-498) 12/15/16 05:00 Problem List - Problems (1) Atrial fibrillation with rapid ventricular response Code(s): I48.91 - UNSPECIFIED ATRIAL FIBRILLATION (2) Dehydration Code(s): E86.0 - DEHYDRATION (3) Demand ischemia Code(s): I24.8 - OTHER FORMS OF ACUTE ISCHEMIC HEART DISEASE (4) Hypercalcemia Code(s): E83.52 - HYPERCALCEMIA (5) PEG tube malfunction Code(s): K94.23 - GASTROSTOMY MALFUNCTION (6) UTI (urinary tract infection) Code(s): N39.0 - URINARY TRACT INFECTION, SITE NOT SPECIFIED Qualifiers: Urinary tract infection type: site unspecified Hematuria presence: without hematuria Qualified Code(s): N39.0 - Urinary tract infection, site not specified (7) Aortic stenosis Code(s): Q25.3 - SUPRAVALVULAR AORTIC STENOSIS (8) Atrial fibrillation Code(s): I48.91 - UNSPECIFIED ATRIAL FIBRILLATION Qualifiers: Atrial fibrillation type: persistent Qualified Code(s): I48.1 - Persistent atrial fibrillation (9) CVA (cerebral vascular accident) Code(s): I63.9 - CEREBRAL INFARCTION, UNSPECIFIED Qualifiers: CVA mechanism: unspecified Qualified Code(s): I63.9 - Cerebral infarction, unspecified (10) Chronic diastolic heart failure Code(s): I50.32 - CHRONIC DIASTOLIC (CONGESTIVE) HEART FAILURE (11) Chronic respiratory failure with hypoxia Code(s): J96.11 - CHRONIC RESPIRATORY FAILURE WITH HYPOXIA (12) Dementia Code(s): F03.90 - UNSPECIFIED DEMENTIA WITHOUT BEHAVIORAL DISTURBANCE Qualifiers: Dementia type: unspecified type Dementia behavioral disturbance: without behavioral disturbance Qualified Code(s): F03.90 - Unspecified dementia without behavioral disturbance (13) Dysphagia Code(s): R13.10 - DYSPHAGIA, UNSPECIFIED (14) Metastatic breast cancer Code(s): C50.919 - MALIGNANT NEOPLASM OF UNSP SITE OF UNSPECIFIED FEMALE BREAST C79.9 - SECONDARY MALIGNANT NEOPLASM OF UNSPECIFIED SITE (15) Pneumonia Code(s): J18.9 - PNEUMONIA, UNSPECIFIED ORGANISM Qualifiers: Pneumonia type: due to unspecified organism Laterality: unspecified laterality Lung location: unspecified part of lung Qualified Code(s): J18.9 - Pneumonia, unspecified organism Assessment/Plan ASSESSMENT AND PLAN: Chronic Respiratory Failure UTI Pneumonia Severe Sepsis resolving Lactic Acidosis resolved Acute Kidney Injury improving Hypernatremia/Dehydration Atrial Fibrillation with RVR Hypokalemia resolved LV Diastolic Dysfunction Pleural Effusion HTN Severe h/o CVA 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
--- NOTE | 2016-12-21 13:12 | PN ---
Physical Exam: SUBJECTIVE: Patient seen and examined. She was minimally responsive to tactile stimuli. Minimally opened eyes to sternal rub. OBJECTIVE: GENERAL: Lethargic, opens eyes, non responsive, non verbal HEAD: Normal with no signs of trauma. ENT: Ears normal, nares patent, oropharynx clear without exudates NECK:She is vented on volume assist control. LUNGS: anterior breath sounds with congestion, scattered rhonchi anteriorly HEART: heart rate irregular 60s, - distant heart sounds ABDOMEN: Soft, nontender, nondistended, new G tube present - LUQ EXTREMITIES: 2+ pulses, warm, well-perfused, non pitting edema on bilateral arms NEUROLOGICAL: unresponsive to tactile stimuli - minimally opens eyes PSYCH: lethargic,unable to fully assess SKIN: G tube present LUQ Vital Signs Period Temp Pulse Resp BP Sys/Chase Pulse Ox Last 24 Hr 97.4 F-99.0 F 74-86 16-26 114-129/67-73 Laboratory Results - last 24 hr 12/21/16 12/21/16 05:40 05:40 WBC 17.8 H RBC 3.36 L Hgb 9.5 L Hct 30.3 L MCV 90.2 MCHC 31.5 L RDW 21.0 H Plt Count 174 MPV 11.9 H Neutrophils % 89.0 H Lymphocytes % 6.0 L D Monocytes % 2.0 L Eosinophils % Reservations Clerk Basophils % Reservations Clerk Myelocytes 3 H D Differential Comment Manual diff done Platelet Estimate Adequate Polychromasia 1+ Hypochromic-Microcytic 3+ Anisocytosis 3+ Microcytosis Few Macrocytosis Few Target Cells 2+ Ovalocytes Few Schistocytes Rare Sodium 142 Potassium 4.4 Chloride 107 Carbon Dioxide 27 Anion Gap 8 BUN 19 H Creatinine 0.4 L Creat Clearance w eGFR > 60 Random Glucose 155 H Calcium 7.9 L Phosphorus 3.0 Magnesium 1.8 Total Bilirubin 2.5 H AST 24 ALT 10 L Alkaline Phosphatase 142 H Total Protein 5.2 L Albumin 1.1 L Active Medications Generic Name Dose Route Start Last Admin Trade Name Freq PRN Reason Stop Dose Admin Acetaminophen 325 mg 12/15/16 19:31 12/16/16 16:21 Tylenol Suppository - [place] 325 mg Q4H PRN Administration FEVER OR PAIN Apixaban 2.5 mg 12/19/16 11:30 12/21/16 09:00 Eliquis - PO 2.5 mg BID SELVIN Administration Ascorbic Acid 500 mg 12/16/16 10:00 12/21/16 09:01 Vitamin C Oral Solution - PEG 500 mg DAILY SELVIN Administration Diltiazem HCl 60 mg 12/16/16 00:00 12/21/16 07:16 Cardizem - PEG 60 mg Q6HPO SELVIN Administration Ampicillin Sodium/Sulbactam Sodium 100 mls @ 200 mls/hr 12/17/16 15:50 08:57 Unasyn 1.5 Gm (Pre-Docked) IVPB 200 mls/hr Q6H-IV SELVIN Administration Metoprolol Tartrate 50 mg 12/15/16 22:00 12/21/16 07:17 Lopressor - NGT 50 mg TID SELVIN Administration Multi-Ingredient Ointment 1 applic 12/16/16 10:00 12/21/16 09:01 Zinc Oxide TP 1 applic DAILY SELVIN Administration Nystatin 1 applic 12/15/16 22:00 12/21/16 09:01 Mycostatin Cream - TP 1 applic BID SELVIN Administration Ondansetron HCl 4 mg 12/15/16 19:31 Zofran Injection IVPB Q6H PRN NAUSEA Pantoprazole Sodium 40 mg 12/20/16 10:00 12/21/16 09:00 Protonix Packets For Oral Suspension - NGT 40 mg DAILY SELVIN Administration Polyethylene Glycol 17 gm 12/16/16 18:35 12/21/16 09:00 Miralax (For Daily Use) - PEG Not Given DAILY SELVIN Potassium Phos/Sodium Phos 1 packet 12/15/16 15:30 12/21/16 07:17 Phos-Nak Packet - PEG 1 packet TID SELVIN Administration Zinc Sulfate 220 mg 12/16/16 10:00 12/21/16 09:00 Orazinc - GT 220 mg DAILY SELVIN Administration ASSESSMENT/PLAN: Patient is an 86 year old female who resides at the [facility]. She has a significant past medical history of severe dementia,schizophrenia, anxiety, lung cancer (stage?), uterine cancer with hysterectomy, malignant melanoma, hypertension, aortic stenosis, mitral regurgitation, atrial fibrillation, chronic diastolic heart failure and chronic respiratory failure ( had percutaneous trach placed on 11/12/2015). She was being sent to the hospital via EMS for a scheduled G tube replacement when EMS noted patient to have tachycardia. She was given Adenosine various times and then brought into the ER. In the ER, she was found to have a temperature of 102.4 and a WBC of 37.2. Her electrolytes on admission: Sodium 158, K 5.7, BUN 74, creatinine 1.3, calcium 11.4 and lactic acid was 3.068. Further her UA showed 1+ protein, 2+ blood, urobilinogen 4.0, 3+ leukocyte esterase and WBC of 994. She was admitted to the ICU. Imaging: Chest Xray - 12/11/16 increasing left bone density and left pleural effusion, right upper lobe opacity is now noted and possibility also left upper lobe opacity. Chest Xray - 12/14/16 with persistent left pleural effusion and left base density - focal opacity in upper lobes are seen corresponding to pulmonary masses. Chest Xray - 12/16/16 with focal masslike opacity in the right and left upper lobe again seen - there remains consolidation with atelectasis in the LL lobe with airspace disease in left mid lung as well as a moderate left pleural effusion. CT/Head CT without contrast 12/11/16 - extensive periventricular white matter chronic microvascular ischemic changes. left subinsular and left thalamic old lacunar infarct. Encephalomalacia/old infarct in the right occipital lobe, medially. Findings suspicious for interval acute/subacute infarct in the right temporal lobe. CT/Abdomen & Pelvis CT w/o contrast 12/11/2016 CT/Chest CT without contrast 12/11/2016 (1) 2 large pulmonary masses w/in the right and left upper lobes consistent with malignancy with additional 7mm right mid lobe nodule (2) extensive left lower lobe atelectasis and pleural effusion (3) small right pleural effusion with basilar atelactasis (4) 3.7cm distal AAA (5) no acute evidence of metastatic disease or acute path. within abdomen/ pelvis. ID: Severe sepsis likely secondary to UTI and/or Health care associated pneumonia Assessment/Plan: Lactic acidosis on admission, now has since resolved. WBC 37.2>17.8 On Unasyn q6 per ID Urinary Tract Infection - acute Assessment/Plan: on admission UA showed 1+ protein, 2+ blood, urobilinogen 4.0, 3+ leukocyte esterase and WBC of 994. Urine culture with Klebsilella Pneumoniae TMAX 100.6 12/17 Pneumonia - possible health care associated - acute Assessment/Plan: She is vented on volume assist control for chronic hypoxic respiratory failure - had trach placed 11/2015 + Proteus Mirabilis in sputum, + MRSA in nares, On contact precautions Hematology: Thrombocytopenia - resolved Assessment/Plan: likely secondary to severe sepsis vs. Imipenum HIT panel reviewed Cardiology: Hypertension/atrial fibrillation/CHF - chronic Assessment/Plan: Started on Lopressor thru GT 50mg TID, anticoagulated with Eliquis Neuro: CT/Head CT without contrast with Encephalomalacia/old infarct in the right occipital lobe, medially. Findings suspicious for interval acute/subacute infarct in the right temporal lobe. Assessment/Plan: CT suggestive of acute/subacute infarct in right temporal lobe. Neurology following : Acute Kidney Injury - resolved Assessment/Plan: continue to monitor trend GI: Peg tube dislodgment - resolved, new peg placed by GI on 12/14/2016 Psyche: Anxiety/Schizophrenia Assessment/Plan: Monitor, for now, unable to assess as pt is lethargic Oncology: Lung cancer - chronic Assessment/Plan: Not on any active chemo/treatment As per her daughter, pt has been treated for uterine cancer and malignant melanoma in the past F.E.N. Fluids: no IVF, started on Jevity 1.5 @ 60cc with water flushes Electrolytes: Hypernatremia: resolved HypoKalemia: resolved Phosphorus: within normal limits Nutrition: Jevity 1.5 with water flushes Prophylaxis: DVT: SCDs - on Eliquis, SCDs bilaterally GI: Protonix Disposition: Continues to require inpatient hospitalization. Full Code. Palliative care following to continue to address goals of care with family. Visit type - Emergency Visit Emergency Visit: Yes ED Registration Date: 12/11/16 Care time: The patient presented to the Emergency Department on the above date and was hospitalized for further evaluation of their emergent condition. - New Patient This patient is new to me today: No - Critical Care Critical Care patient: No - Discharge Referral Referred to [facility] No
--- NOTE | 2016-12-21 13:30 | PN ---
Progress Note, Physician Chief Complaint: Events noted Remains on vent via trache Non-verbal History of Present Illness: Patient was seen and examined. Remains on vent via trache - underlying dementia and nonverbal. Chart was reviewed - Current Medication List Current Medications: Active Medications Acetaminophen (Tylenol Suppository -) 325 mg [place] Q4H PRN PRN Reason: FEVER OR PAIN Last Admin: 12/16/16 16:21 Dose: 325 mg Apixaban (Eliquis -) 2.5 mg PO BID [facility] Last Admin: 12/21/16 09:00 Dose: 2.5 mg Ascorbic Acid (Vitamin C Oral Solution -) 500 mg PEG DAILY [facility] Last Admin: 12/21/16 09:01 Dose: 500 mg Diltiazem HCl (Cardizem -) 60 mg PEG Q6HPO [facility] Last Admin: 12/21/16 13:19 Dose: 60 mg Ampicillin Sodium/Sulbactam Sodium (Unasyn 1.5 Gm (Pre-Docked)) 100 mls @ 200 mls/hr IVPB Q6H-IV [facility] Last Admin: 12/21/16 08:57 Dose: 200 mls/hr Metoprolol Tartrate (Lopressor -) 50 mg NGT TID [facility] Last Admin: 12/21/16 13:19 Dose: 50 mg Multi-Ingredient Ointment (Zinc Oxide) 1 applic TP DAILY [facility] Last Admin: 12/21/16 09:01 Dose: 1 applic Nystatin (Mycostatin Cream -) 1 applic TP BID [facility] Last Admin: 12/21/16 09:01 Dose: 1 applic Ondansetron HCl (Zofran Injection) 4 mg IVPB Q6H PRN PRN Reason: NAUSEA Pantoprazole Sodium (Protonix Packets For Oral Suspension -) 40 mg NGT DAILY [facility] Last Admin: 12/21/16 09:00 Dose: 40 mg Polyethylene Glycol (Miralax (For Daily Use) -) 17 gm PEG DAILY [facility] Last Admin: 12/21/16 09:00 Dose: Not Given Potassium Phos/Sodium Phos (Phos-Nak Packet -) 1 packet PEG TID [facility] Last Admin: 12/21/16 13:20 Dose: 1 packet Zinc Sulfate (Orazinc -) 220 mg GT DAILY [facility] Last Admin: 12/21/16 09:00 Dose: 220 mg - Objective Vital Signs: Vital Signs Temperature 98.7 F 12/21/16 10:22 Pulse Rate 77 12/21/16 10:22 Respiratory Rate 26 H 12/21/16 10:30 Blood Pressure 116/73 12/21/16 10:22 O2 Sat by Pulse Oximetry (%) 97 12/20/16 09:00 Cardiovascular: Yes: Regular Rate and Rhythm, S1, S2 Respiratory: Yes: Diminished, Mechanically Ventilated, Rhonchi Gastrointestinal: Yes: Normal Bowel Sounds, Soft. No: Tenderness Edema: No Labs: CBC, BMP 12/21/16 05:40 12/21/16 05:40 Problem List - Problems (1) Atrial fibrillation with rapid ventricular response Code(s): I48.91 - UNSPECIFIED ATRIAL FIBRILLATION (2) Demand ischemia Code(s): I24.8 - OTHER FORMS OF ACUTE ISCHEMIC HEART DISEASE (3) Hyperkalemia Code(s): E87.5 - HYPERKALEMIA (4) Hypernatremia Code(s): E87.0 - HYPEROSMOLALITY AND HYPERNATREMIA (5) PEG tube malfunction Code(s): K94.23 - GASTROSTOMY MALFUNCTION (6) Aortic stenosis Code(s): Q25.3 - SUPRAVALVULAR AORTIC STENOSIS (7) CVA (cerebral vascular accident) Code(s): I63.9 - CEREBRAL INFARCTION, UNSPECIFIED Qualifiers: CVA mechanism: unspecified Qualified Code(s): I63.9 - Cerebral infarction, unspecified (8) Chronic diastolic heart failure Code(s): I50.32 - CHRONIC DIASTOLIC (CONGESTIVE) HEART FAILURE (9) Chronic respiratory failure with hypoxia Code(s): J96.11 - CHRONIC RESPIRATORY FAILURE WITH HYPOXIA (10) Dementia Code(s): F03.90 - UNSPECIFIED DEMENTIA WITHOUT BEHAVIORAL DISTURBANCE Qualifiers: Dementia type: unspecified type Dementia behavioral disturbance: without behavioral disturbance Qualified Code(s): F03.90 - Unspecified dementia without behavioral disturbance (11) Hypertension Code(s): I10 - ESSENTIAL (PRIMARY) HYPERTENSION Qualifiers: Hypertension type: essential hypertension Qualified Code(s): I10 - Essential (primary) hypertension (12) Mitral regurgitation Code(s): I34.0 - NONRHEUMATIC MITRAL (VALVE) INSUFFICIENCY Qualifiers: Cardiac valve disease etiology: nonrheumatic Qualified Code(s): I34.0 - Nonrheumatic mitral (valve) insufficiency (13) Tricuspid regurgitation Code(s): I07.1 - RHEUMATIC TRICUSPID INSUFFICIENCY Qualifiers: Cardiac valve disease etiology: nonrheumatic Qualified Code(s): I36.1 - Nonrheumatic tricuspid (valve) insufficiency (14) Pneumonia Code(s): J18.9 - PNEUMONIA, UNSPECIFIED ORGANISM Qualifiers: Pneumonia type: due to unspecified organism Laterality: unspecified laterality Lung location: unspecified part of lung Qualified Code(s): J18.9 - Pneumonia, unspecified organism Assessment/Plan 1. Chronic ventilator-dependent respiratory failure post trache and history of pneumonia and UTI 2. 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 Chronic LV diastolic dysfunction with class I NYHA classification LV failure 4. Severe 5. Persistent atrial fibrillation [id number] score of 7 on no A/C 6. HTN 7. 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 Pre-renal ELLIE with Hypernatremia 10. Thrombocytopenia and coagulopathy referable to sepsis 11. Lung masses PLAN: 1. Currently on Eliquis 2.5 mg BID 2. Continue Lopressor 50 mg TID and Cardizem 60 mg Q6hr 3. Vent management 4. Antibiotics as per the ID service 5. Enteral feeds, DVT and GI prophylaxis and advanced directives/goals of care to follow. Supportive care. Umer Fritz MD
[2016-12-22] MEDS: AMPICILLIN NA/SULBACTAM NA 100 ML IVPB SCH ×3 (02:10→17:44)
[2016-12-22] MEDS: METOPROLOL TARTRATE 50 MG TABLET (FP) NGT SCH ×3 (06:35→22:19)
[2016-12-22] MEDS: dilTIAZem HCL 60 MG TABLET (FP) PEG SCH ×3 (06:35→23:32)
[2016-12-22] MEDS: NAPH,MB-DB/K PH,MBDB POWDER PACKET PEG SCH ×3 (06:39→22:20)
[2016-12-22 07:19] LABS: MCH 28.7 pg (25.7-33.7); MCHC 32.2 g/dl (32.0-36.0); MEAN CELL VOLUME 89.1 fl (80-96); MEAN PLT VOLUME 11.4 fl (7.5-11.1); PLATELET COUNT 193 K/MM3 (134-434); RDW 20.4 % (11.6-15.6); WHITE BLOOD COUNT 17.8 K/mm3 (4.0-10.0)
[2016-12-22 08:06] LABS: ALBUMIN 1.2 g/dl (3.4-5.0); ALK PHOS 166 U/L (45-117); ANION GAP 6 (8-16); CALCIUM 8.2 mg/dL (8.5-10.1); CO2 30 mmol/L (21-32); CREATININE 0.5 mg/dL (0.55-1.02); GLUCOSE,RANDOM 157 mg/dL (74-106); PHOSPHOROUS 3.1 mg/dL (2.5-4.9); SGOT/AST 31 U/L (15-37); SGPT/ALT 13 U/L (12-78); TOT PROT 5.5 g/dl (6.4-8.2)
[2016-12-22 09:12] LABS: METAMYELOCYTE 3 % (0-2); PLATELET ESTIMATE ADEQUATE (NORMAL)
[2016-12-22] MEDS ORDERED: PT OWN MED DRAWER 7, Y5N ONE ×2 (10:36→21:07)
[2016-12-22] MEDS: NYSTATIN 100,000 UNIT/GM TOPICAL CREAM 15 GM TUBE TP SCH ×2 (10:47→22:20)
[2016-12-22] MEDS: POLYETHYLENE GLYCOL 3350 119 GM BTL PEG SCH (10:47)
[2016-12-22] MEDS: APIXABAN 2.5 MG TABLET PO SCH ×2 (10:47→22:19)
[2016-12-22] MEDS: ZINC SULFATE 220 MG CAPSULE (FP) GT SCH (10:47)
[2016-12-22] MEDS: PANTOPRAZOLE SOD 40 MG SUSPENSION PACKET NGT SCH (10:48)
[2016-12-22] MEDS: ASCORBIC ACID 500 MG/5 ML UNIT DOSE CUP PEG SCH (10:48)
[2016-12-22] MEDS: ZINC OXIDE 20% TOPICAL OINTMENT 30 GM TUBE TP SCH (10:49)
--- NOTE | 2016-12-22 12:39 | PN ---
Progress Note (short form) - Note Progress Note: PULMONARY Vented on volume assist control, poorly responsive but eyes open. No fevers recorded Last Vital Signs Temp Pulse Resp BP Pulse Ox 96.9 F L 79 26 H 125/59 99 12/22/16 10:00 12/22/16 10:00 12/22/16 10:02 12/22/16 10:00 12/22/16 01:47 Gen: vented, poorly responsive Heart: RRR, +systolic murmur at base Lung: scattered rhonchi Abd: soft, nontender Ext: no edema CBC, BMP 12/22/16 05:35 12/22/16 05:35 Active Medications Acetaminophen (Tylenol Suppository -) 325 mg IN Q4H PRN PRN Reason: FEVER OR PAIN Last Admin: 12/16/16 16:21 Dose: 325 mg Apixaban (Eliquis -) 2.5 mg PO BID [facility] Last Admin: 12/22/16 10:47 Dose: 2.5 mg Ascorbic Acid (Vitamin C Oral Solution -) 500 mg PEG DAILY [facility] Last Admin: 12/22/16 10:48 Dose: 500 mg Diltiazem HCl (Cardizem -) 60 mg PEG Q6HPO [facility] Last Admin: 12/22/16 06:35 Dose: 60 mg Ampicillin Sodium/Sulbactam Sodium (Unasyn 1.5 Gm (Pre-Docked)) 100 mls @ 200 mls/hr IVPB Q6H-IV [facility] Last Admin: 12/22/16 09:42 Dose: 200 mls/hr Metoprolol Tartrate (Lopressor -) 50 mg NGT TID [facility] Last Admin: 12/22/16 06:35 Dose: 50 mg Multi-Ingredient Ointment (Zinc Oxide) 1 applic TP DAILY [facility] Last Admin: 12/22/16 10:49 Dose: 1 applic Nystatin (Mycostatin Cream -) 1 applic TP BID [facility] Last Admin: 12/22/16 10:47 Dose: 1 applic Ondansetron HCl (Zofran Injection) 4 mg IVPB Q6H PRN PRN Reason: NAUSEA Pantoprazole Sodium (Protonix Packets For Oral Suspension -) 40 mg NGT DAILY [facility] Last Admin: 12/22/16 10:48 Dose: 40 mg Polyethylene Glycol (Miralax (For Daily Use) -) 17 gm PEG DAILY [facility] Last Admin: 12/22/16 10:47 Dose: Not Given Potassium Phos/Sodium Phos (Phos-Nak Packet -) 1 packet PEG TID [facility] Last Admin: 12/22/16 06:39 Dose: 1 packet Zinc Sulfate (Orazinc -) 220 mg GT DAILY [facility] Last Admin: 12/22/16 10:47 Dose: 220 mg A/P Chronic Respiratory Failure UTI Pneumonia Severe Sepsis resolving Lactic Acidosis resolved Acute Kidney Injury improving Hypernatremia/Dehydration Atrial Fibrillation with RVR Hypokalemia LV Diastolic Dysfunction Pleural Effusion HTN Severe h/o CVA Lung Masses likely malignant Dementia - continue antibiotics per ID - rate control with cardizem, metoprolol - increase free water replacement - continue volume assist control - poor candidate for weaning at this time - enteral feeds - DVT/GI prophylaxis - continue discussions regarding advanced directives/goals of care
--- NOTE | 2016-12-22 14:55 | PN ---
Physical Exam: SUBJECTIVE: Patient seen and examined. She is minimally responsive to sternal rub. May open eyes intermittently but continues to be lethargic, largely non responsive to tactile stimuli. OBJECTIVE: GENERAL: Lethargic, opens eyes, non responsive, non verbal HEAD: Normal with no signs of trauma. ENT: Ears normal, nares patent, oropharynx clear without exudates NECK:She is vented on volume assist control. LUNGS: anterior breath sounds with congestion, scattered rhonchi anteriorly HEART: heart rate irregular 60s, - distant heart sounds ABDOMEN: Soft, nontender, nondistended, new G tube present - LUQ EXTREMITIES: 2+ pulses, warm, well-perfused, non pitting edema on bilateral arms NEUROLOGICAL: unresponsive to tactile stimuli - minimally opens eyes PSYCH: lethargic,unable to fully assess SKIN: G tube present LUQ Vital Signs Period Temp Pulse Resp BP Sys/Chase Pulse Ox Last 24 Hr 96.9 F-98.9 F 76-104 16-30 120-130/59-79 98-99 Laboratory Results - last 24 hr 12/22/16 12/22/16 05:35 05:35 WBC 17.8 H RBC 3.53 L Hgb 10.1 L Hct 31.4 L MCV 89.1 MCHC 32.2 RDW 20.4 H Plt Count 193 MPV 11.4 H Neutrophils % 87.0 H Lymphocytes % 1.0 L D Monocytes % 4.0 D Basophils % 1.0 Band Neutrophils 1.0 D Metamyelocytes 3 H D Myelocytes 3 H Differential Comment Manual diff done Platelet Estimate Adequate Platelet Comment Few giant plts Sodium 141 Potassium 4.5 Chloride 105 Carbon Dioxide 30 Anion Gap 6 L BUN 20 H Creatinine 0.5 L D Creat Clearance w eGFR > 60 Random Glucose 157 H Calcium 8.2 L Phosphorus 3.1 Total Bilirubin 3.0 H AST 31 D ALT 13 D Alkaline Phosphatase 166 H Total Protein 5.5 L Albumin 1.2 L Active Medications Generic Name Dose Route Start Last Admin Trade Name Freq PRN Reason Stop Dose Admin Acetaminophen 325 mg 12/15/16 19:31 12/16/16 16:21 Tylenol Suppository - [place] 325 mg Q4H PRN Administration FEVER OR PAIN Apixaban 2.5 mg 12/19/16 11:30 12/22/16 10:47 Eliquis - PO 2.5 mg BID [facility] Administration Ascorbic Acid 500 mg 12/16/16 10:00 12/22/16 10:48 Vitamin C Oral Solution - PEG 500 mg DAILY [facility] Administration Diltiazem HCl 60 mg 12/16/16 00:00 12/22/16 06:35 Cardizem - PEG 60 mg Q6HPO [facility] Administration Ampicillin Sodium/Sulbactam Sodium 100 mls @ 200 mls/hr 12/17/16 15:50 09:42 Unasyn 1.5 Gm (Pre-Docked) IVPB 200 mls/hr Q6H-IV [facility] Administration Metoprolol Tartrate 50 mg 12/15/16 22:00 12/22/16 06:35 Lopressor - NGT 50 mg TID [facility] Administration Multi-Ingredient Ointment 1 applic 12/16/16 10:00 12/22/16 10:49 Zinc Oxide TP 1 applic DAILY [facility] Administration Nystatin 1 applic 12/15/16 22:00 12/22/16 10:47 Mycostatin Cream - TP 1 applic BID [facility] Administration Ondansetron HCl 4 mg 12/15/16 19:31 Zofran Injection IVPB Q6H PRN NAUSEA Pantoprazole Sodium 40 mg 12/20/16 10:00 12/22/16 10:48 Protonix Packets For Oral Suspension - NGT 40 mg DAILY [facility] Administration Polyethylene Glycol 17 gm 12/16/16 18:35 12/22/16 10:47 Miralax (For Daily Use) - PEG Not Given DAILY [facility] Potassium Phos/Sodium Phos 1 packet 12/15/16 15:30 12/22/16 06:39 Phos-Nak Packet - PEG 1 packet TID [facility] Administration Zinc Sulfate 220 mg 12/16/16 10:00 12/22/16 10:47 Orazinc - GT 220 mg DAILY [facility] Administration ASSESSMENT/PLAN: Patient is an 86 year old female who resides at the [facility]. She has a significant past medical history of severe dementia,schizophrenia, anxiety, lung cancer (stage?), uterine cancer with hysterectomy, malignant melanoma, hypertension, aortic stenosis, mitral regurgitation, atrial fibrillation, chronic diastolic heart failure and chronic respiratory failure ( had percutaneous trach placed on 11/12/2015). She was being sent to the hospital via EMS for a scheduled G tube replacement when EMS noted patient to have tachycardia. She was given Adenosine various times and then brought into the ER. In the ER, she was found to have a temperature of 102.4 and a WBC of 37.2. Her electrolytes on admission: Sodium 158, K 5.7, BUN 74, creatinine 1.3, calcium 11.4 and lactic acid was 3.068. Further her UA showed 1+ protein, 2+ blood, urobilinogen 4.0, 3+ leukocyte esterase and urine WBC of 994 Imaging: Chest Xray - 12/11/16 increasing left bone density and left pleural effusion, right upper lobe opacity is now noted and possibility also left upper lobe opacity. Chest Xray - 12/14/16 with persistent left pleural effusion and left base density - focal opacity in upper lobes are seen corresponding to pulmonary masses. Chest Xray - 12/16/16 with focal masslike opacity in the right and left upper lobe again seen - there remains consolidation with atelectasis in the LL lobe with airspace disease in left mid lung as well as a moderate left pleural effusion. CT/Head CT without contrast 12/11/16 - extensive periventricular white matter chronic microvascular ischemic changes. left subinsular and left thalamic old lacunar infarct. Encephalomalacia/old infarct in the right occipital lobe, medially. Findings suspicious for interval acute/subacute infarct in the right temporal lobe. CT/Abdomen & Pelvis CT w/o contrast 12/11/2016 CT/Chest CT without contrast 12/11/2016 (1) 2 large pulmonary masses w/in the right and left upper lobes consistent with malignancy with additional 7mm right mid lobe nodule (2) extensive left lower lobe atelectasis and pleural effusion (3) small right pleural effusion with basilar atelactasis (4) 3.7cm distal AAA (5) no acute evidence of metastatic disease or acute path. within abdomen/ pelvis. ID: Severe sepsis likely secondary to UTI and/or Health care associated pneumonia - acute Assessment/Plan: On admission noted to have temperature of 102.4 and a WBC of 37.2 and lactic acid was 3.068. Further her UA showed 1+ protein, 2+ blood, urobilinogen 4.0, 3+ leukocyte esterase and urine WBC of 994 Lactic acidosis is now resolved, has remained afebrile since 12/17, WBC trending down 37.2>17.8 On Unasyn q6 per ID Urinary Tract Infection - acute Assessment/Plan: on admission UA showed 1+ protein, 2+ blood, urobilinogen 4.0, 3+ leukocyte esterase and WBC of 994. Urine culture with Klebsilella Pneumoniae TMAX 100.6 12/17 Pneumonia - possible health care associated - acute Assessment/Plan: She is vented on volume assist control for chronic hypoxic respiratory failure - had trach placed 11/2015 + Proteus Mirabilis in sputum, + MRSA in nares, On contact precautions Hematology: Thrombocytopenia - resolved Assessment/Plan: likely secondary to severe sepsis vs. Imipenum HIT panel reviewed Cardiology: Hypertension/atrial fibrillation/CHF - chronic Assessment/Plan: Started on Lopressor thru GT 50mg TID, anticoagulated with Eliquis Neuro: CT/Head CT without contrast with Encephalomalacia/old infarct in the right occipital lobe, medially. Findings suspicious for interval acute/subacute infarct in the right temporal lobe. Assessment/Plan: CT suggestive of acute/subacute infarct in right temporal lobe. Neurology following : Acute Kidney Injury - resolved Assessment/Plan: continue to monitor trend GI: Peg tube dislodgment - resolved, new peg placed by GI on 12/14/2016 Psyche: Anxiety/Schizophrenia Assessment/Plan: Monitor, for now, unable to assess as pt is lethargic Oncology: Lung cancer - chronic Assessment/Plan: Not on any active chemo/treatment As per her daughter, pt has been treated for uterine cancer and malignant melanoma in the past F.E.N. Fluids: no IVF, started on Jevity 1.5 with water flushes Electrolytes: Hypernatremia: resolved HypoKalemia: resolved Phosphorus: within normal limits Nutrition: Jevity 1.5 with water flushes Prophylaxis: DVT: SCDs - on Eliquis, SCDs bilaterally GI: Protonix Disposition: Continues to require inpatient hospitalization. Full Code. Palliative care following to continue to address goals of care with family. Visit type - Emergency Visit Emergency Visit: Yes ED Registration Date: 12/11/16 Care time: The patient presented to the Emergency Department on the above date and was hospitalized for further evaluation of their emergent condition. - New Patient This patient is new to me today: No - Critical Care Critical Care patient: No - Discharge Referral Referred to [facility] No
--- NOTE | 2016-12-22 16:33 | PN ---
Progress Note (short form) - Note Progress Note: asked to followup for persistent leukocytosis HD 11 unresponsive trach to vent no diarrhea Vital Signs Period Temp Pulse Resp BP Sys/Chase Pulse Ox Last 24 Hr 96.9 F-98.9 F 76-104 16-30 120-130/59-79 98-99 cor-rrr lungs decreased bs at bases abd soft, +gt ext +edema weeping arms CBC, BMP 12/22/16 05:35 12/22/16 05:35 Microbiology 12/16/16 12:52 Blood - Peripheral Venous Blood Culture - Final NO GROWTH AFTER 5 DAYS INCUBATION 12/16/16 12:29 Blood - Peripheral Venous Blood Culture - Final NO GROWTH AFTER 5 DAYS INCUBATION 12/16/16 14:30 Urine - Urine [place] Urine Culture - Final Yeast Like Organism 12/17/16 06:00 Stool Clostridium difficile Antigen (CRISTINA) - Final 12/17/16 06:00 Stool Clostridium difficile Toxin Assay - Final 12/11/16 10:50 Blood - Peripheral Venous Blood Culture - Final NO GROWTH AFTER 5 DAYS INCUBATION 12/11/16 10:50 Blood - Peripheral Venous Blood Culture - Final NO GROWTH AFTER 5 DAYS INCUBATION 12/11/16 16:10 Nasopharyngeal Swab Respiratory Virus Panel - Preliminary 12/12/16 06:00 Sputum - Endotrachea Suction/Ventilator Gram Stain - Final 12/12/16 06:00 Sputum - Endotrachea Suction/Ventilator Sputum Culture - Final Proteus Mirabilis Acinetobacter Baumannii/Haemol 12/11/16 11:50 Urine - Urine - Catheterized Urine Culture - Final Klebsiella Pneumoniae 12/12/16 06:00 Nares - Mrsa Screen - Right MRSA Screen - Final NO MRSA ISOLATED 12/12/16 06:00 Nares - Mrsa Screen - Left MRSA Screen - Final Mr S Aureus 12/11/16 16:10 Nose MRSA Screen - Final Mr S Aureus 12/11/16 16:10 Nasopharyngeal Swab Influenza Types A,B Antigen (CRISTINA) - Final 12/11/16 16:10 Nasopharyngeal Swab - Final ccxray unchanged Current Medications Acetaminophen (Tylenol Suppository -) 325 mg [place] Q4H PRN PRN Reason: FEVER OR PAIN Last Admin: 12/16/16 16:21 Dose: 325 mg Apixaban (Eliquis -) 2.5 mg PO BID [facility] Last Admin: 12/22/16 10:47 Dose: 2.5 mg Ascorbic Acid (Vitamin C Oral Solution -) 500 mg PEG DAILY [facility] Last Admin: 12/22/16 10:48 Dose: 500 mg Diltiazem HCl (Cardizem -) 60 mg PEG Q6HPO [facility] Last Admin: 12/22/16 12:32 Dose: 60 mg Ampicillin Sodium/Sulbactam Sodium (Unasyn 1.5 Gm (Pre-Docked)) 100 mls @ 200 mls/hr IVPB Q6H-IV [facility] Last Admin: 12/22/16 09:42 Dose: 200 mls/hr Metoprolol Tartrate (Lopressor -) 50 mg NGT TID [facility] Last Admin: 12/22/16 14:31 Dose: 50 mg Multi-Ingredient Ointment (Zinc Oxide) 1 applic TP DAILY [facility] Last Admin: 12/22/16 10:49 Dose: 1 applic Nystatin (Mycostatin Cream -) 1 applic TP BID [facility] Last Admin: 12/22/16 10:47 Dose: 1 applic Ondansetron HCl (Zofran Injection) 4 mg IVPB Q6H PRN PRN Reason: NAUSEA Pantoprazole Sodium (Protonix Packets For Oral Suspension -) 40 mg NGT DAILY [facility] Last Admin: 12/22/16 10:48 Dose: 40 mg Polyethylene Glycol (Miralax (For Daily Use) -) 17 gm PEG DAILY [facility] Last Admin: 12/22/16 10:47 Dose: Not Given Potassium Phos/Sodium Phos (Phos-Nak Packet -) 1 packet PEG TID [facility] Last Admin: 12/22/16 14:32 Dose: 1 packet Zinc Sulfate (Orazinc -) 220 mg GT DAILY [facility] Last Admin: 12/22/16 10:47 Dose: 220 mg a/p sepsis- s/p 11 days of antibiotics d/c antibiotics and observe, reculture off antibiotics if needed chronic resp failure bilateral lung masses baseline dementia/history of schizophrenia probable cva
[2016-12-23] MEDS: dilTIAZem HCL 60 MG TABLET (FP) PEG SCH ×4 (06:28→23:00)
[2016-12-23] MEDS: METOPROLOL TARTRATE 50 MG TABLET (FP) NGT SCH ×3 (06:29→22:58)
[2016-12-23] MEDS: NAPH,MB-DB/K PH,MBDB POWDER PACKET PEG SCH ×3 (06:30→22:59)
[2016-12-23 08:19] LABS: MCH 28.4 pg (25.7-33.7); MCHC 31.9 g/dl (32.0-36.0); MEAN PLT VOLUME 10.9 fl (7.5-11.1); PLATELET COUNT 198 K/MM3 (134-434); RDW 21.1 % (11.6-15.6); WHITE BLOOD COUNT 17.9 K/mm3 (4.0-10.0)
[2016-12-23 08:49] LABS: ALBUMIN 1.2 g/dl (3.4-5.0); ANION GAP 7 (8-16); CALCIUM 8.2 mg/dL (8.5-10.1); CO2 28 mmol/L (21-32); GLUCOSE,RANDOM 141 mg/dL (74-106)
[2016-12-23 08:53] LABS: ALK PHOS 168 U/L (45-117); BILIRUBIN,TOTAL 2.6 mg/dL (0.2-1.0); CREATININE 0.4 mg/dL (0.55-1.02); PHOSPHOROUS 3.1 mg/dL (2.5-4.9); SGOT/AST 32 U/L (15-37); SGPT/ALT 11 U/L (12-78); TOT PROT 5.5 g/dl (6.4-8.2)
[2016-12-23] MEDS ORDERED: PT OWN MED DRAWER 7, Y5N ONE ×3 (09:56→22:01)
[2016-12-23] MEDS: POLYETHYLENE GLYCOL 3350 119 GM BTL PEG SCH (10:13)
[2016-12-23] MEDS: APIXABAN 2.5 MG TABLET PO SCH ×2 (10:13→22:58)
[2016-12-23] MEDS: PANTOPRAZOLE SOD 40 MG SUSPENSION PACKET NGT SCH (10:14)
[2016-12-23] MEDS: ASCORBIC ACID 500 MG/5 ML UNIT DOSE CUP PEG SCH (10:14)
[2016-12-23] MEDS: ZINC SULFATE 220 MG CAPSULE (FP) GT SCH (10:14)
[2016-12-23] MEDS: NYSTATIN 100,000 UNIT/GM TOPICAL CREAM 15 GM TUBE TP SCH ×2 (11:46→22:59)
[2016-12-23] MEDS: ZINC OXIDE 20% TOPICAL OINTMENT 30 GM TUBE TP SCH (11:46)
[2016-12-23 11:53] LABS: ANISOCYTOSIS 1+; HYPOCHROMIA 1+; METAMYELOCYTE 2 % (0-2); PLATELET ESTIMATE ADEQUATE (NORMAL)
--- NOTE | 2016-12-23 12:24 | PN ---
Progress Note, Physician History of Present Illness: pulmonary no change,poorly responsive on vent support,ac mode - Current Medication List Current Medications: Active Medications Acetaminophen (Tylenol Suppository -) [address] Q4H PRN PRN Reason: FEVER OR PAIN Last Admin: 12/16/16 16:21 Dose: 325 mg Apixaban (Eliquis -) 2.5 mg PO BID [facility] Last Admin: 12/23/16 10:13 Dose: 2.5 mg Ascorbic Acid (Vitamin C Oral Solution -) 500 mg PEG DAILY [facility] Last Admin: 12/23/16 10:14 Dose: 500 mg Diltiazem HCl (Cardizem -) 60 mg PEG Q6HPO [facility] Last Admin: 12/23/16 11:46 Dose: 60 mg Metoprolol Tartrate (Lopressor -) 50 mg NGT TID [facility] Last Admin: 12/23/16 06:29 Dose: 50 mg Multi-Ingredient Ointment (Zinc Oxide) 1 applic TP DAILY [facility] Last Admin: 12/23/16 11:46 Dose: 1 applic Nystatin (Mycostatin Cream -) 1 applic TP BID [facility] Last Admin: 12/23/16 11:46 Dose: 1 applic Ondansetron HCl (Zofran Injection) 4 mg IVPB Q6H PRN PRN Reason: NAUSEA Pantoprazole Sodium (Protonix Packets For Oral Suspension -) 40 mg NGT DAILY [facility] Last Admin: 12/23/16 10:14 Dose: 40 mg Polyethylene Glycol (Miralax (For Daily Use) -) 17 gm PEG DAILY [facility] Last Admin: 12/23/16 10:13 Dose: Not Given Potassium Phos/Sodium Phos (Phos-Nak Packet -) 1 packet PEG TID [facility] Last Admin: 12/23/16 06:30 Dose: 1 packet Zinc Sulfate (Orazinc -) 220 mg GT DAILY [facility] Last Admin: 12/23/16 10:14 Dose: 220 mg - Objective Vital Signs: Vital Signs Temperature 98.7 F 12/23/16 06:00 Pulse Rate 78 12/23/16 10:39 Respiratory Rate 24 12/23/16 10:39 Blood Pressure 134/73 12/23/16 06:00 O2 Sat by Pulse Oximetry (%) 96 12/23/16 10:39 Constitutional: Yes: Thin, Other (unresponsive) Eyes: Yes: Occular Prosthesis HENT: Yes: WNL Neck: Yes: Supple (trach) Cardiovascular: Yes: Pulse Irregular, S1, S2 Respiratory: Yes: Rhonchi (luzmaria rhonchi) Gastrointestinal: Yes: Normal Bowel Sounds, Soft Extremities: Yes: WNL Edema: Yes Labs: CBC, BMP 12/23/16 07:00 12/23/16 07:00 INR, PTT INR 1.20 (0.82-1.09) H 12/16/16 06:15 Fibrinogen 350.0 mg/dL (238-498) 12/15/16 05:00 Problem List - Problems (1) Atrial fibrillation with rapid ventricular response Code(s): I48.91 - UNSPECIFIED ATRIAL FIBRILLATION (2) Dehydration Code(s): E86.0 - DEHYDRATION (3) Demand ischemia Code(s): I24.8 - OTHER FORMS OF ACUTE ISCHEMIC HEART DISEASE (4) Hypercalcemia Code(s): E83.52 - HYPERCALCEMIA (5) PEG tube malfunction Code(s): K94.23 - GASTROSTOMY MALFUNCTION (6) UTI (urinary tract infection) Code(s): N39.0 - URINARY TRACT INFECTION, SITE NOT SPECIFIED Qualifiers: Urinary tract infection type: site unspecified Hematuria presence: without hematuria Qualified Code(s): N39.0 - Urinary tract infection, site not specified (7) Aortic stenosis Code(s): Q25.3 - SUPRAVALVULAR AORTIC STENOSIS (8) Atrial fibrillation Code(s): I48.91 - UNSPECIFIED ATRIAL FIBRILLATION Qualifiers: Atrial fibrillation type: persistent Qualified Code(s): I48.1 - Persistent atrial fibrillation (9) CVA (cerebral vascular accident) Code(s): I63.9 - CEREBRAL INFARCTION, UNSPECIFIED Qualifiers: CVA mechanism: unspecified Qualified Code(s): I63.9 - Cerebral infarction, unspecified (10) Chronic diastolic heart failure Code(s): I50.32 - CHRONIC DIASTOLIC (CONGESTIVE) HEART FAILURE (11) Chronic respiratory failure with hypoxia Code(s): J96.11 - CHRONIC RESPIRATORY FAILURE WITH HYPOXIA (12) Dementia Code(s): F03.90 - UNSPECIFIED DEMENTIA WITHOUT BEHAVIORAL DISTURBANCE Qualifiers: Dementia type: unspecified type Dementia behavioral disturbance: without behavioral disturbance Qualified Code(s): F03.90 - Unspecified dementia without behavioral disturbance (13) Dysphagia Code(s): R13.10 - DYSPHAGIA, UNSPECIFIED (14) Metastatic breast cancer Code(s): C50.919 - MALIGNANT NEOPLASM OF UNSP SITE OF UNSPECIFIED FEMALE BREAST C79.9 - SECONDARY MALIGNANT NEOPLASM OF UNSPECIFIED SITE (15) Pneumonia Code(s): J18.9 - PNEUMONIA, UNSPECIFIED ORGANISM Qualifiers: Pneumonia type: due to unspecified organism Laterality: unspecified laterality Lung location: unspecified part of lung Qualified Code(s): J18.9 - Pneumonia, unspecified organism Assessment/Plan ASSESSMENT AND PLAN: Chronic Respiratory Failure UTI Pneumonia Severe Sepsis resolving Lactic Acidosis resolved Acute Kidney Injury improving Hypernatremia/Dehydration improved Atrial Fibrillation with RVR Hypokalemia resolved LV Diastolic Dysfunction Pleural Effusion HTN Severe h/o CVA Lung Masses likely malignant Dementia - monitor urine output, creatinine - rate control with cardizem and metoprolol - continue volume assist control - poor candidate for weaning at this time - enteral feeds - DVT/GI prophylaxis - strict contact isolation DR RICHARDS
--- NOTE | 2016-12-23 13:31 | PN ---
Progress Note (short form) - Note Progress Note: remains unresponsive trach to vent several soft stools since yesterday Vital Signs Period Temp Pulse Resp BP Sys/Chase Pulse Ox Last 24 Hr 97.4 F-98.7 F 78-101 17-30 120-135/65-90 96-98 cor-rrr lungs decreased bs at bases abd soft,+BS ext +edema ccxray unchanged CBC, BMP 12/23/16 07:00 12/23/16 07:00 Current Medications Acetaminophen (Tylenol Suppository -) 325 mg [place] Q4H PRN PRN Reason: FEVER OR PAIN Last Admin: 12/16/16 16:21 Dose: 325 mg Apixaban (Eliquis -) 2.5 mg PO BID [facility] Last Admin: 12/22/16 10:47 Dose: 2.5 mg Ascorbic Acid (Vitamin C Oral Solution -) 500 mg PEG DAILY [facility] Last Admin: 12/22/16 10:48 Dose: 500 mg Diltiazem HCl (Cardizem -) 60 mg PEG Q6HPO [facility] Last Admin: 12/22/16 12:32 Dose: 60 mg Ampicillin Sodium/Sulbactam Sodium (Unasyn 1.5 Gm (Pre-Docked)) 100 mls @ 200 mls/hr IVPB Q6H-IV [facility] Last Admin: 12/22/16 09:42 Dose: 200 mls/hr Metoprolol Tartrate (Lopressor -) 50 mg NGT TID [facility] Last Admin: 12/22/16 14:31 Dose: 50 mg Multi-Ingredient Ointment (Zinc Oxide) 1 applic TP DAILY [facility] Last Admin: 12/22/16 10:49 Dose: 1 applic Nystatin (Mycostatin Cream -) 1 applic TP BID [facility] Last Admin: 12/22/16 10:47 Dose: 1 applic Ondansetron HCl (Zofran Injection) 4 mg IVPB Q6H PRN PRN Reason: NAUSEA Pantoprazole Sodium (Protonix Packets For Oral Suspension -) 40 mg NGT DAILY [facility] Last Admin: 12/22/16 10:48 Dose: 40 mg Polyethylene Glycol (Miralax (For Daily Use) -) 17 gm PEG DAILY [facility] Last Admin: 12/22/16 10:47 Dose: Not Given Potassium Phos/Sodium Phos (Phos-Nak Packet -) 1 packet PEG TID [facility] Last Admin: 12/22/16 14:32 Dose: 1 packet Zinc Sulfate (Orazinc -) 220 mg GT DAILY [facility] Last Admin: 12/22/16 10:47 Dose: 220 mg a/p sepsis- antibiotics d/lucien yesterday , observe reculture off antibiotics if needed chronic resp failure bilateral lung masses baseline dementia/history of schizophrenia probable cva persistent leukocytosis- repeat stool cdiff
--- NOTE | 2016-12-23 15:50 | PN ---
Physical Exam: SUBJECTIVE: Patient seen and examined. She is opening her eyes intermittently, non verbal. No pain behaviours, having soft stools as per I&Os, ID aware and ordering repeat stool for cdiff. Has persistent leukocytosis. I spoke to primary nurse Caroline at the [facility] who verified that the vent will continue to be managed there on discharge. Last vent settings at the [facility]:AC, Peep 5, Vol. 402, set resp. rate 14, airway pressure 32. OBJECTIVE: Vital Signs Period Temp Pulse Resp BP Sys/Chase Pulse Ox Last 24 Hr 97.5 F-98.7 F 78-101 18-24 120-135/65-90 96-96 GENERAL: Lethargic, opens eyes, non responsive, non verbal HEAD: Normal with no signs of trauma. ENT: Ears normal, nares patent, oropharynx clear without exudates NECK:She is vented on volume assist control. LUNGS: anterior breath sounds with congestion, scattered rhonchi anteriorly HEART: heart rate irregular 60s, - distant heart sounds ABDOMEN: Soft, nontender, nondistended, new G tube present - LUQ EXTREMITIES: 2+ pulses, warm, well-perfused, non pitting edema on bilateral arms NEUROLOGICAL: unresponsive to tactile stimuli - minimally opens eyes PSYCH: lethargic,unable to fully assess SKIN: G tube present LUQ Laboratory Results - last 24 hr 12/23/16 12/23/16 07:00 07:00 WBC 17.9 H RBC 3.36 L Hgb 9.6 L Hct 29.9 L MCV 89.0 MCHC 31.9 L RDW 21.1 H Plt Count 198 MPV 10.9 Neutrophils % 86.0 H Lymphocytes % 4.0 L D Monocytes % 2.0 L Eosinophils % 1.0 Basophils % 0.0 Band Neutrophils 5.0 D Metamyelocytes 2 D Differential Comment Manual diff done Platelet Estimate Adequate Hypochromic-Microcytic 1+ Anisocytosis 1+ Sodium 138 Potassium 4.8 Chloride 103 Carbon Dioxide 28 Anion Gap 7 L BUN 20 H Creatinine 0.4 L Creat Clearance w eGFR > 60 Random Glucose 141 H Calcium 8.2 L Phosphorus 3.1 Total Bilirubin 2.6 H AST 32 ALT 11 L Alkaline Phosphatase 168 H Total Protein 5.5 L Albumin 1.2 L Active Medications Generic Name Dose Route Start Last Admin Trade Name Freq PRN Reason Stop Dose Admin Acetaminophen 325 mg 12/15/16 19:31 12/16/16 16:21 Tylenol Suppository - CO 325 mg Q4H PRN Administration FEVER OR PAIN Apixaban 2.5 mg 12/19/16 11:30 12/23/16 10:13 Eliquis - PO 2.5 mg BID SELVIN Administration Ascorbic Acid 500 mg 12/16/16 10:00 12/23/16 10:14 Vitamin C Oral Solution - PEG 500 mg DAILY SELVIN Administration Diltiazem HCl 60 mg 12/16/16 00:00 12/23/16 11:46 Cardizem - PEG 60 mg Q6HPO SELVIN Administration Metoprolol Tartrate 50 mg 12/15/16 22:00 12/23/16 14:46 Lopressor - NGT 50 mg TID SELVIN Administration Multi-Ingredient Ointment 1 applic 12/16/16 10:00 12/23/16 11:46 Zinc Oxide TP 1 applic DAILY SELVIN Administration Nystatin 1 applic 12/15/16 22:00 12/23/16 11:46 Mycostatin Cream - TP 1 applic BID SELVIN Administration Ondansetron HCl 4 mg 12/15/16 19:31 Zofran Injection IVPB Q6H PRN NAUSEA Pantoprazole Sodium 40 mg 12/20/16 10:00 12/23/16 10:14 Protonix Packets For Oral Suspension - NGT 40 mg DAILY SELVIN Administration Polyethylene Glycol 17 gm 12/16/16 18:35 12/23/16 10:13 Miralax (For Daily Use) - PEG Not Given DAILY SELVIN Potassium Phos/Sodium Phos 1 packet 12/15/16 15:30 12/23/16 14:46 Phos-Nak Packet - PEG 1 packet TID SELVIN Administration Zinc Sulfate 220 mg 12/16/16 10:00 12/23/16 10:14 Orazinc - GT 220 mg DAILY SELVIN Administration ASSESSMENT/PLAN: Patient is an 86 year old female who resides at the [facility]. She has a significant past medical history of severe dementia,schizophrenia, anxiety, lung cancer (stage?), uterine cancer with hysterectomy, malignant melanoma, hypertension, aortic stenosis, mitral regurgitation, atrial fibrillation, chronic diastolic heart failure and chronic respiratory failure ( had percutaneous trach placed on 11/12/2015). She was being sent to the hospital via EMS for a scheduled G tube replacement when EMS noted patient to have tachycardia. She was given Adenosine various times and then brought into the ER. In the ER, she was found to have a temperature of 102.4 and a WBC of 37.2. Her electrolytes on admission: Sodium 158, K 5.7, BUN 74, creatinine 1.3, calcium 11.4 and lactic acid was 3.068. Further her UA showed 1+ protein, 2+ blood, urobilinogen 4.0, 3+ leukocyte esterase and WBC of 994. She was admitted to the ICU. Imaging: Chest Xray - 12/11/16 increasing left bone density and left pleural effusion, right upper lobe opacity is now noted and possibility also left upper lobe opacity. Chest Xray - 12/14/16 with persistent left pleural effusion and left base density - focal opacity in upper lobes are seen corresponding to pulmonary masses. Chest Xray - 12/16/16 with focal masslike opacity in the right and left upper lobe again seen - there remains consolidation with atelectasis in the LL lobe with airspace disease in left mid lung as well as a moderate left pleural effusion. CT/Head CT without contrast 12/11/16 - extensive periventricular white matter chronic microvascular ischemic changes. left subinsular and left thalamic old lacunar infarct. Encephalomalacia/old infarct in the right occipital lobe, medially. Findings suspicious for interval acute/subacute infarct in the right temporal lobe. CT/Abdomen & Pelvis CT w/o contrast 12/11/2016 CT/Chest CT without contrast 12/11/2016 (1) 2 large pulmonary masses w/in the right and left upper lobes consistent with malignancy with additional 7mm right mid lobe nodule (2) extensive left lower lobe atelectasis and pleural effusion (3) small right pleural effusion with basilar atelactasis (4) 3.7cm distal AAA (5) no acute evidence of metastatic disease or acute path. within abdomen/ pelvis. ID: Severe sepsis likely secondary to UTI and/or Health care associated pneumonia Assessment/Plan: Lactic acidosis on admission, now has since resolved. WBC 37.2>17.9 Off antibiotics since yesterday, WBC continues to be elevated, ID aware and ordered repeat Cdiff studies. Urinary Tract Infection - acute Assessment/Plan: on admission UA showed 1+ protein, 2+ blood, urobilinogen 4.0, 3+ leukocyte esterase and WBC of 994. Urine culture with Klebsilella Pneumoniae TMAX 100.6 12/17 Pneumonia - possible health care associated - acute Assessment/Plan: She is vented on volume assist control for chronic hypoxic respiratory failure - had trach placed 11/2015 + Proteus Mirabilis in sputum, + MRSA in nares, On contact precautions Hematology: Thrombocytopenia - resolved Assessment/Plan: likely secondary to severe sepsis vs. Imipenum HIT panel reviewed Cardiology: Hypertension/atrial fibrillation/CHF - chronic Assessment/Plan: Started on Lopressor thru GT 50mg TID, anticoagulated with Eliquis Neuro: CT/Head CT without contrast with Encephalomalacia/old infarct in the right occipital lobe, medially. Findings suspicious for interval acute/subacute infarct in the right temporal lobe. Assessment/Plan: CT suggestive of acute/subacute infarct in right temporal lobe. Neurology following : Acute Kidney Injury - resolved Assessment/Plan: continue to monitor trend GI: Peg tube dislodgment - resolved, new peg placed by GI on 12/14/2016 Psyche: Anxiety/Schizophrenia Assessment/Plan: Monitor, for now, unable to assess as pt is lethargic Oncology: Lung cancer - chronic Assessment/Plan: Not on any active chemo/treatment As per her daughter, pt has been treated for uterine cancer and malignant melanoma in the past F.E.N. Fluids: no IVF, started on Jevity 1.5 @ 60cc with water flushes Electrolytes: Hypernatremia: resolved HypoKalemia: resolved Phosphorus: within normal limits Nutrition: Jevity 1.5 with water flushes Prophylaxis: DVT: SCDs - on Eliquis, SCDs bilaterally GI: Protonix Disposition: Continues to require inpatient hospitalization. Full Code. Palliative care following to continue to address goals of care with family. Visit type - Emergency Visit Emergency Visit: Yes ED Registration Date: 12/11/16 Care time: The patient presented to the Emergency Department on the above date and was hospitalized for further evaluation of their emergent condition. - New Patient This patient is new to me today: No - Critical Care Critical Care patient: No - Discharge Referral Referred to [facility] Med P.C.: No
[2016-12-24] MEDS: METOPROLOL TARTRATE 50 MG TABLET (FP) NGT SCH ×2 (06:52→14:58)
[2016-12-24] MEDS: NAPH,MB-DB/K PH,MBDB POWDER PACKET PEG SCH ×2 (06:53→15:00)
[2016-12-24] MEDS: dilTIAZem HCL 60 MG TABLET (FP) PEG SCH ×2 (06:55→12:27)
[2016-12-24 08:10] LABS: MCH 28.9 pg (25.7-33.7); MCHC 32.2 g/dl (32.0-36.0); MEAN CELL VOLUME 89.7 fl (80-96); MEAN PLT VOLUME 11.2 fl (7.5-11.1); PLATELET COUNT 205 K/MM3 (134-434); RDW 21.2 % (11.6-15.6); WHITE BLOOD COUNT 16.6 K/mm3 (4.0-10.0)
[2016-12-24 08:33] LABS: ALBUMIN 1.2 g/dl (3.4-5.0); ALK PHOS 168 U/L (45-117); ANION GAP 7 (8-16); BILIRUBIN,TOTAL 2.5 mg/dL (0.2-1.0); CALCIUM 8.2 mg/dL (8.5-10.1); CO2 27 mmol/L (21-32); CREATININE 0.4 mg/dL (0.55-1.02); GLUCOSE,RANDOM 128 mg/dL (74-106); SGOT/AST 32 U/L (15-37); SGPT/ALT 13 U/L (12-78); TOT PROT 5.4 g/dl (6.4-8.2)
[2016-12-24] MEDS ORDERED: PT OWN MED DRAWER 7, Y5N ONE (09:25)
[2016-12-24] MEDS: PANTOPRAZOLE SOD 40 MG SUSPENSION PACKET NGT SCH (10:25)
[2016-12-24] MEDS: APIXABAN 2.5 MG TABLET PO SCH (10:25)
[2016-12-24] MEDS: ZINC SULFATE 220 MG CAPSULE (FP) GT SCH (10:25)
[2016-12-24] MEDS: POLYETHYLENE GLYCOL 3350 119 GM BTL PEG SCH (10:26)
[2016-12-24] MEDS: ASCORBIC ACID 500 MG/5 ML UNIT DOSE CUP PEG SCH (10:26)
[2016-12-24] MEDS: NYSTATIN 100,000 UNIT/GM TOPICAL CREAM 15 GM TUBE TP SCH (11:55)
[2016-12-24] MEDS: ZINC OXIDE 20% TOPICAL OINTMENT 30 GM TUBE TP SCH (11:55)
[2016-12-24 12:08] LABS: METAMYELOCYTE 1 % (0-2)
--- NOTE | 2016-12-24 12:08 | PN ---
Progress Note (short form) - Note Progress Note: PULMONARY Vented on volume assist control, poorly responsive but eyes open. No fevers recorded Last Vital Signs Temp Pulse Resp BP Pulse Ox 98.7 F 78 20 128/66 98 12/24/16 06:00 12/24/16 10:30 12/24/16 10:30 12/24/16 06:00 12/24/16 10:30 Gen: vented, poorly responsive Heart: RRR, +systolic murmur at base Lung: scattered rhonchi Abd: soft, nontender Ext: no edema CBC, BMP 12/24/16 07:50 12/24/16 07:50 Active Medications Acetaminophen (Tylenol Suppository -) 325 mg IN Q4H PRN PRN Reason: FEVER OR PAIN Last Admin: 12/16/16 16:21 Dose: 325 mg Apixaban (Eliquis -) 2.[address] [facility] Last Admin: 12/24/16 10:25 Dose: 2.5 mg Ascorbic Acid (Vitamin C Oral Solution -) [address] [facility] Last Admin: 12/24/16 10:26 Dose: 500 mg Diltiazem HCl (Cardizem -) [address] [facility] Last Admin: 12/24/16 06:55 Dose: 60 mg Metoprolol Tartrate (Lopressor -) [address] [facility] Last Admin: 12/24/16 06:52 Dose: 50 mg Multi-Ingredient Ointment (Zinc Oxide) [address] [facility] Last Admin: 12/23/16 11:46 Dose: 1 applic Nystatin (Mycostatin Cream -) [address] [facility] Last Admin: 12/23/16 22:59 Dose: 1 applic Ondansetron HCl (Zofran Injection) 4 mg IVPB Q6H PRN PRN Reason: NAUSEA Pantoprazole Sodium (Protonix Packets For Oral Suspension -) [address] [facility] Last Admin: 12/24/16 10:25 Dose: 40 mg Polyethylene Glycol (Miralax (For Daily Use) -) [address] [facility] Last Admin: 12/24/16 10:26 Dose: Not Given Potassium Phos/Sodium Phos (Phos-Nak Packet -) [address] [facility] Last Admin: 12/24/16 06:53 Dose: 1 packet Zinc Sulfate (Orazinc -) 220 mg GT DAILY SELVIN Last Admin: 12/24/16 10:25 Dose: 220 mg A/P Chronic Respiratory Failure UTI Pneumonia Severe Sepsis resolving Lactic Acidosis resolved Acute Kidney Injury improving Hypernatremia/Dehydration Atrial Fibrillation with RVR Hypokalemia LV Diastolic Dysfunction Pleural Effusion HTN Severe h/o CVA Lung Masses likely malignant Dementia - s/p antibiotics - rate control with cardizem, metoprolol - continue volume assist control - poor candidate for weaning at this time - enteral feeds - DVT/GI prophylaxis - continue discussions regarding advanced directives/goals of care
[2016-12-24] MEDS ORDERED: metroNIDAZOLE 250 MG TABLET PO SCH ×2 (12:15→14:00)
--- NOTE | 2016-12-24 14:27 | DS ---
Physical Exam: SUBJECTIVE: Patient seen and examined. she is awake. appears in nad OBJECTIVE: Vital Signs Period Temp Pulse Resp BP Sys/Chase Pulse Ox Last 24 Hr 97 F-99.7 F 63-85 15-26 97-128/57-66 98-99 PHYSICAL EXAM Neuro: opens eyes, awake Pulm: diminished w/ rhonchi diffusely + trach, vented CV: s1s2 irregular rhythm, + murmur Abd: + peg tube CDI abd soft Ext: Upper Ext weeping + 2 edema Skin: excoriated labia majora, erythema, sacral ulcer stage 2 Laboratory Results - last 24 hr 12/24/16 12/24/16 07:50 07:50 WBC 16.6 H RBC 3.21 L Hgb 9.2 L Hct 28.7 L MCV 89.7 MCHC 32.2 RDW 21.2 H Plt Count 205 MPV 11.2 H Neutrophils % 84.0 H Lymphocytes % 2.0 L D Monocytes % 9.0 D Band Neutrophils 1.0 D Metamyelocytes 1 D Myelocytes 3 H Differential Comment Manual diff done Sodium 137 Potassium 4.7 Chloride 103 Carbon Dioxide 27 Anion Gap 7 L BUN 19 H Creatinine 0.4 L Creat Clearance w eGFR > 60 Random Glucose 128 H Calcium 8.2 L Total Bilirubin 2.5 H AST 32 ALT 13 Alkaline Phosphatase 168 H Total Protein 5.4 L Albumin 1.2 L HOSPITAL COURSE: Date of Admission:12/11/16 Date of Discharge: 12/24/16 Minutes to complete discharge: 35 Discharge Summary Reason For Visit: SEPSIS,PNEUMONIA Current Active Problems Acute kidney injury (Acute) Atrial fibrillation with rapid ventricular response (Acute) Dehydration (Acute) Demand ischemia (Acute) Granuloma of liver (Acute) Hypercalcemia (Acute) Hyperkalemia (Acute) Hypernatremia (Acute) Hypoalbuminemia due to protein-calorie malnutrition (Acute) Lung cancer (Acute) PEG tube malfunction (Acute) Severe sepsis (Acute) Tracheostomy dependence (Acute) UTI (urinary tract infection) (Acute) UTI (urinary tract infection), bacterial (Acute) Aortic stenosis (Chronic) Atrial fibrillation (Chronic) CVA (cerebral vascular accident) (Chronic) Chronic diastolic heart failure (Chronic) Chronic respiratory failure with hypoxia (Chronic) Dementia (Chronic) Dysphagia (Chronic) Hypertension (Chronic) Metastatic breast cancer (Chronic) Mitral regurgitation (Chronic) Schizophrenia (Chronic) Squamous carcinoma of lung (Chronic) Tricuspid regurgitation (Chronic) Hospital Course: Initial Hospital Course: This is an 86 year old female with pmhx of severe dementia, lung cancer, HTN, schizophrenia, anxiety, aortic stenosis, mitral regurgitation, atrial fibrillation, chronic diastolic heart failure, chronic respiratory failure who resides at [facility] and was being sent to the hospital today for G-tube replacement when EMS noted she was tachycardic. She was given Adenosine 6 mg, 6 mg, 12 mg then brought to the ER. She is unable to provide any history which is obtained from prior records. The patient's PEG was noted to be dislodged and replacement was ordered on 12/08. She was scheduled to have it done today. Imaging: - CT/Head CT w/o contrast 12/11/16 - extensive periventricular white matter chronic microvascular ischemic changes. left subinsular and left thalamic old lacunar infarct. Encephalomalacia/old infarct in the right occipital lobe, medially. Findings suspicious for interval acute/subacute infarct in the right temporal lobe. - CTAP, CT chest w/o contrast 12/11/2016 1. 2 large pulmonary masses w/in the right and left upper lobes consistent with malignancy with additional 7mm right mid lobe nodule 2. extensive left lower lobe atelectasis and pleural effusion 3. small right pleural effusion with basilar atelactasis 4. 3.7cm distal AAA 5. no acute evidence of metastatic disease or acute path. within abdomen/pelvis. Subsequent Hospital Course/Progress Note/Discharge Summary by a/p: Plan: 1. Severe sepsis d/t UTI and hospital acquired pna - Improved - Positive proteus Mirabilis in sputum - Imipenem and Vancomycin d/c on 12/17 - s/p 5 days Unasyn - WBC w/ over all downtrend 2. UTI d/t Klebsiella Pneumoniae - Meds above 2. C diff - Repeat cx toxin negative, antigen positive - Due to continue diarrhea, start flagyl 500mg TID x10 days - C diff PCR sent 3. Lung Cancer, pleural effusions - Not a candidate for RXT - Per daughter, uterine cancer and malignant melanoma in the past 4. Chronic Respiratory Failure - Vented on volume AC 5. A.fib with RVR - [id number] score of 7 - Eliquis 2.5mg BID - Rate-controlled on Lopressor and Cardizem 6. Chronic diastolic heart failure - No overload at dc - Continue lopressor 7. ELLIE - d/t dehydration - Resolved 8. Hypernatremia, hyperkalemia, hypercalcemia secondary to dehydration - Corrected with fluids and electrolytes 9. Hepatic transaminitis, hyperbilirubinemia - Possibly secondary to sepsis, metastatic disease 10. Acute/subacute right temporal lobe infarct - No ASA while on NOAC 11. Thrombocytopenia - Resolved - Suspect 12/03 sepsis +/- Imipenem - HIT Ab negative 12. Peg tube dislodgment - Resolved, replaced on 12/14/2016 13. Dementia - Opens eyes 14. Schizophrenia 15. Anxiety 16. Nutrition - Jevity 1.5 @ 60cc with water flushes Dispo: - [facility] transfer - Continue conversation with daughter re goals of care Condition: Stable - Instructions Diet, Activity, Other Instructions: Please return to the ED for any new, persistent, or worsening symptoms. Follow up with your pcp in 1 week Take medications as directed on home medication list Complete course of flagyl until completed Replacement extented long trach has been ordered by [facility], follow up as needed Referrals: [facility] [Outside] Shayy Carranza MD [Staff Physician] - Zenaida Cruz MD [Primary Care Provider] - Brain Ferreira MD, MD [Staff Physician] - Disposition: [facility] - Home Medications Comprehensive Discharge Medication List: Ambulatory Orders Acetaminophen [Tylenol .Regular Strength -] 325 mg PO Q6H PRN 01/29/14 Vit A/Vitamin D3/E/Aloe V/Znox [Periguard Ointment] 5 gm TP TID 01/29/14 Zinc Oxide 20% Topical Oint 454 gm TP DAILY 10/15/15 Zinc Sulfate 220 mg GT DAILY 10/15/15 Ascorbate Calcium [Vitamin C] 500 mg PEG DAILY #0 11/17/15 Aspirin [ASA -] 81 mg PO DAILY #30 tab.chew 11/17/15 Diltiazem [Cardizem -] 60 mg NGT Q6HPO #30 tablet 11/17/15 Metoprolol Tartrate [Lopressor -] 50 mg NGT TID #60 tablet 11/17/15 Nystatin Cream [Mycostatin Cream -] 1 applic TP BID applic 11/17/15 Polyethylene Glycol 3350 [Miralax 119 gm Btl -] 17 gm PEG DAILY #14 bottle 11/17 Docusate Liquid [Colace Liquid -] 50 mg GT DAILY 12/11/16 Apixaban [Eliquis -] 2.5 mg PO BID #60 tablet 12/24/16 Metronidazole [Flagyl -] 500 mg PEG TID #29 tablet 12/24/16 This patient is new to me today: Yes Date on this admission: 12/26/16 Emergency Visit: Yes ED Registration Date: 12/11/16 Care time: The patient presented to the Emergency Department on the above date and was hospitalized for further evaluation of their emergent condition. Critical Care patient: No Total Critical Care Time (in minutes): 35 Critical Care Statement: The care of this patient involved high complexity decision making to prevent further life threatening deterioration of the patient 's condition and/or to evalute & treat vital organ system(s) failure or risk of failure. - Discharge Referral Referred to [facility] Med P.C.: No
[2016-12-24 14:57] VITALS: PULSE 75
[2016-12-24 14:58] VITALS: BP 129/63
[2016-12-24 15:54] VITALS: TEMP 100.3
== END 2016-12-24 16:46 | DRG 870 ==
LOC: JER 10:25 → JERBED 11:53 → JICU 16:53 → J5S 12-15 21:32
PROVIDERS: ADMIT Internal Medicine; ATTEND Nurse Practitioner Acute Care
PROC: 5A1955Z Respiratory Ventilation, Greater than 96 Consecutive Hours (ICD-10-PCS; 2016-12-11)
PROC: 0D20XUZ Change Feeding Device in Upper Intestinal Tract, External Approach (ICD-10-PCS; principal; 2016-12-14)
PROC: 3E0H76Z Introduction of Nutritional Substance into Lower GI, Via Natural or Artificial Opening (ICD-10-PCS; 2016-12-15)
PROC: 0B21XFZ Change Tracheostomy Device in Trachea, External Approach (ICD-10-PCS; 2016-12-18)
DX: A41.89 Other specified sepsis (principal); J18.9 Pneumonia, unspecified organism; I50.32 Chronic diastolic (congestive) heart failure; F20.89 Other schizophrenia; R64 Cachexia; N17.9 Acute kidney failure, unspecified; J96.11 Chronic respiratory failure with hypoxia; E87.0 Hyperosmolality and hypernatremia; I24.8 Other forms of acute ischemic heart disease; E46 Unspecified protein-calorie malnutrition; K94.23 Gastrostomy malfunction; E87.2 Acidosis; J98.11 Atelectasis; C34.90 Malignant neoplasm of unspecified part of unspecified bronchus or lung; D68.8 Other specified coagulation defects; J95.03 Malfunction of tracheostomy stoma; R65.20 Severe sepsis without septic shock; F03.90 Unspecified dementia, unspecified severity, without behavioral disturbance, psychotic disturbance, mood disturbance, and anxiety; I11.0 Hypertensive heart disease with heart failure; Z68.24 Body mass index [BMI] 24.0-24.9, adult; I35.0 Nonrheumatic aortic (valve) stenosis; I34.0 Nonrheumatic mitral (valve) insufficiency; E86.0 Dehydration; K75.3 Granulomatous hepatitis, not elsewhere classified; E87.6 Hypokalemia; E87.5 Hyperkalemia; E83.52 Hypercalcemia; E80.6 Other disorders of bilirubin metabolism; I48.2 Chronic atrial fibrillation; D69.6 Thrombocytopenia, unspecified; R73.9 Hyperglycemia, unspecified; E83.39 Other disorders of phosphorus metabolism; R13.10 Dysphagia, unspecified; E83.42 Hypomagnesemia; D63.8 Anemia in other chronic diseases classified elsewhere; I71.4 Abdominal aortic aneurysm, without rupture; L89.621 Pressure ulcer of left heel, stage 1; L89.611 Pressure ulcer of right heel, stage 1; G93.89 Other specified disorders of brain; Y83.8 Other surgical procedures as the cause of abnormal reaction of the patient, or of later complication, without mention of misadventure at the time of the procedure; Z93.1 Gastrostomy status; Z88.1 Allergy status to other antibiotic agents; Z86.14 Personal history of Methicillin resistant Staphylococcus aureus infection; Z93.0 Tracheostomy status; Z85.42 Personal history of malignant neoplasm of other parts of uterus; Z85.820 Personal history of malignant melanoma of skin
CPT/HCPCS: 36415; 70450-TC; 71010-TC; 71250-TC; 74000-TC; 74176-TC; 80048; 80053; 80076; 81003; 81015; 82550; 82553; 82803; 83605; 83735; 84100; 84132; 84484; 85025; 85027; 85362; 85384; 85610; 85730; 86022; 86704; 86706; 86708; 86850; 86900; 86901; 87040; 87070; 87077; 87081; 87086; 87186; 87205; 87254; 87324; 87340; 87449; 87493; 87522; 87804; 93005; 93010; 93306-TC; 94002; 99285-25; G0480; J1644

== ENCOUNTER 2016-12-27 01:58 | Inpatient (IN) | payer OTHER ==
[2016-12-27 02:18] VITALS: BMI 26.9
[2016-12-27] MEDS ORDERED: SODIUM CHLORIDE 1,000 ML IV SCH (03:00)
[2016-12-27 03:41] LABS: BASOPHIL 0.6 % (0-2.0); EOSINOPHIL 0.6 % (0-4.5); MCH 29.5 pg (25.7-33.7); MCHC 32.2 g/dl (32.0-36.0); MEAN CELL VOLUME 91.6 fl (80-96); MEAN PLT VOLUME 10.9 fl (7.5-11.1); NEUTROPHILS 92.4 % (42.8-82.8); PLATELET COUNT 245 K/MM3 (134-434); RDW 22.4 % (11.6-15.6); WHITE BLOOD COUNT 16.7 K/mm3 (4.0-10.0)
[2016-12-27 03:56] LABS: URINE APPEARANCE SLCLOUDY; URINE BILIRUBIN NEGATIVE (NEGATIVE); URINE BLOOD NEGATIVE (NEGATIVE); URINE COLOR AMBER; URINE GLUCOSE (UA) NEGATIVE (NEGATIVE); URINE KETONE NEGATIVE (NEGATIVE); URINE NITRITE NEGATIVE (NEGATIVE); URINE UROBILINOGEN 4.0 E.U/dl E.U./dl (0.2-1.0)
[2016-12-27 04:05] LABS: INR 1.51 (0.82-1.09); PROTHROMBIN TIME (PATIENT) 16.7 SEC (9.98-11.88)
[2016-12-27 04:16] LABS: ALBUMIN 1.3 g/dl (3.4-5.0); ALK PHOS 181 U/L (45-117); ANION GAP 7 (8-16); BILIRUBIN,TOTAL 2.4 mg/dL (0.2-1.0); CALCIUM 8.5 mg/dL (8.5-10.1); CO2 30 mmol/L (21-32); CREATININE 0.5 mg/dL (0.55-1.02); GLUCOSE,RANDOM 176 mg/dL (74-106); SGOT/AST 35 U/L (15-37); SGPT/ALT 16 U/L (12-78); TOT PROT 5.9 g/dl (6.4-8.2)
[2016-12-27 04:36] LABS: URINE LEUK ESTERASE 3+ (NEGATIVE); URINE PROTEIN 1+ (NEGATIVE)
[2016-12-27 04:41] LABS: URINE RBC 2 /hpf (0-3)
[2016-12-27 04:42] LABS: URINE BACTERIA FEW /hpf (NONE SEEN)
[2016-12-27 04:43] LABS: URINE WBC 200 /hpf (3-5)
[2016-12-27 04:57] LABS: PLATELET COMMENT2 NO CLOTTING DETECTED; PLATELET COMMENT3 MOD LARGE PLTS; PLATELET ESTIMATE ADEQUATE (NORMAL)
[2016-12-27 04:58] LABS: ANISOCYTOSIS 1+; HYPOCHROMIA 1+; POIKILOCYTOSIS 1+; POLYCHROMASIA 1+
[2016-12-27] MEDS ORDERED: LEVOFLOXACIN 750 MG IVPB 150 ML IVPB ONE ×2 (06:18→06:35)
--- NOTE | 2016-12-27 06:35 | PDOC ---
History of Present Illness - General Chief Complaint: Respiratory Stated Complaint: RESPITORY Time Seen by Provider: 12/27/16 02:28 History Source: Care Home Records, Old Records Exam Limitations: Clinical Condition - History of Present Illness Initial Comments: 12/27/16 02:45 86yo Female patient with PmHx: acute respiratory failure with trach, HTN, COPD, Lung CA, Hypoxia, presents to ED via EMS from [facility] for rapid breathing and rapid respiratory rate. No other complaints identified. Patient was last seen in this ED 2 weeks ago according to previous records. Past History - Travel Traveled outside of the country in the last 30 days: No Close contact w/someone who was outside of country & ill: No - Past Medical History Allergies/Adverse Reactions: Allergies Allergy/AdvReac Type Severity Reaction Status Date / Time cefuroxime axetil Allergy Mild Rash Verified 12/11/16 10:43 [From Ceftin] Home Medications: Ambulatory Orders Acetaminophen [Tylenol] 650 mg PO Q6H PRN 01/09/17 Albuterol 2.5/Ipratropium 0.5 [Duoneb -] 1 amp NEB Q4H 01/09/17 Amoxicillin/Potassium Clav [Augmentin 875-125 Tablet] 1 each PO BID MDD 7 DAYS 01/09/17 Apixaban [Eliquis] 2.5 mg GT BID 01/09/17 Ascorbic Acid [Vitamin C -] 500 mg GT DAILY 01/09/17 Ceftriaxone [Rocephin -] 1 gm IVPB ONCE 01/09/17 Diltiazem [Cardizem -] 60 mg PO QID 01/09/17 Ipratropium [place] 0.2 mg IH Q6H 01/09/17 Magnesium Hydroxide [Milk of Magnesia] 30 mg PO PRN PRN 01/09/17 Metoprolol Tartrate [Lopressor] 50 mg PO Q8H 01/09/17 Nystatin Cream [Mycostatin Cream -] 1 applic TP DAILY 01/09/17 Polyethylene Glycol 3350 [Miralax (For Bowel Prep) -] 17 gm PO DAILY 01/09/17 Zinc Oxide 20% Topical Oint 0 gm TP BID 01/09/17 Zinc Sulfate [Zinc-220] 220 mg GT DAILY 01/09/17 Anemia: No Asthma: No Cancer: No Cardiac Disorders: No CVA: No COPD: No CHF: No Dementia: Yes Diabetes: No GI Disorders: No Disorders: Yes (UTI) HTN: Yes Hypercholesterolemia: No Liver Disease: No Psychiatric Problems: Yes (Psychosis) Seizures: No Thyroid Disease: No - Immunization History Immunization Up to Date: Yes - Psycho/Social/Smoking Cessation Hx Anxiety: No Suicidal Ideation: No Smoking Status: No Smoking History: Never smoked Have you smoked in the past 12 months: No Number of Cigarettes Smoked Daily: 0 Information on smoking cessation initiated: No Hx Alcohol Use: No Drug/Substance Use Hx: No Substance Use Type: None Hx Substance Use Treatment: No Respiratory Specific PMHX - Complaint Specific PMHX Angina: No Bronchitis: Yes Pneumonia: Yes Pulmonary Embolus: No TB (Tuberculosis): No Review of Systems - Review of Systems Able to Perform ROS?: No Is the patient limited Bulgarian proficient: Yes Constitutional: Yes: Fever Respiratory: Yes: Cough, Shortness of Breath, Wheezing Cardiac (ROS): No: Chest Pain, Syncope ABD/GI: No: Constipated, Diarrhea, Nausea, Poor Appetite, Poor Fluid Intake, Vomiting : Yes: Incontinence. No: Discharge, Pain Musculoskeletal: No: Back Pain Integumentary: No: Bruising, Erythema, Rash All Other Systems: Reviewed and Negative *Physical Exam - Vital Signs Last Vital Signs Temp Pulse Resp BP Pulse Ox 99.4 F 103 H 24 121/80 99 12/27/16 02:11 12/27/16 02:11 12/27/16 02:13 12/27/16 02:11 12/27/16 02:11 - Physical Exam General Appearance: Yes: Appropriately Dressed, Other. No: Nourished, Apparent Distress, Mild Distress, Moderate Distress, Severe Distress, Intoxicated, Cachetic, Obese Respiratory/Chest: positive: Rales, Rhonchi, Other (Vent dependent.). negative : Chest Tender, Accessory Muscle Use Cardiovascular: positive: Regular Rhythm, Regular Rate Gastrointestinal/Abdominal: positive: Normal Bowel Sounds, Soft, Distended. negative: Guarding, Rebound, Tenderness Musculoskeletal: positive: Normal Inspection. negative: CVA Tenderness Extremity: positive: Normal Range of Motion Integumentary: positive: Dry, Warm, Pale. negative: Hives Neurologic: positive: Alert ED Treatment Course - LABORATORY CBC & Chemistry Diagram: 12/29/16 06:30 12/29/16 06:30 - ADDITIONAL ORDERS Additional order review: Laboratory Results 12/27/16 12/27/16 12/27/16 03:40 03:28 03:28 INR Sodium 138 Potassium 4.4 Chloride 101 Carbon Dioxide 30 Anion Gap 7 L BUN 19 H Creatinine 0.5 L D Creat Clearance w eGFR > 60 Random Glucose 176 H D Lactic Acid 1.779 Calcium 8.5 Total Bilirubin 2.4 H AST 35 ALT 16 D Alkaline Phosphatase 181 H Total Protein 5.9 L Albumin 1.3 L Urine Color Yen Urine Appearance Slcloudy Urine pH 6.0 Ur Specific Williams 1.013 Urine Protein 1+ H Urine Glucose (UA) Negative Urine Ketones Negative Urine Blood Negative Urine Nitrite Negative Urine Bilirubin Negative Urine Urobilinogen 4.0 e.u/dl H Ur Leukocyte Esterase 3+ H Urine RBC 2 Urine WBC 200 Ur Epithelial Cells Few Urine Bacteria Few 12/27/16 03:28 INR 1.51 H Sodium Potassium Chloride Carbon Dioxide Anion Gap BUN Creatinine Creat Clearance w eGFR Random Glucose Lactic Acid Calcium Total Bilirubin AST ALT Alkaline Phosphatase Total Protein Albumin Urine Color Urine Appearance Urine pH Ur Specific Williams Urine Protein Urine Glucose (UA) Urine Ketones Urine Blood Urine Nitrite Urine Bilirubin Urine Urobilinogen Ur Leukocyte Esterase Urine RBC Urine WBC Ur Epithelial Cells Urine Bacteria 12/27/16 03:28 RBC 3.28 L MCV 91.6 MCHC 32.2 RDW 22.4 H MPV 10.9 Neutrophils % 92.4 H Lymphocytes % 1.6 L Monocytes % 4.8 Eosinophils % 0.6 Basophils % 0.6 D - RADIOLOGY Radiology Studies Ordered: Category Date Time Status CHEST X-RAY PORTABLE* [RAD] Stat Radiology 12/27/16 02:57 Taken *DC/Admit/Observation/Transfer Diagnosis at time of Disposition: Pleural effusion - Discharge Dispostion Disposition: ASSISTED FACILITY Condition at time of disposition: Stable Admit: No
[2016-12-27] MEDS ORDERED: ACETAMINOPHEN 650 MG/20.3 ML ORAL SOLUTION (CUPS) NGT PRN (10:27)
[2016-12-27] MEDS: dilTIAZem HCL 60 MG TABLET (FP) NGT SCH ×3 (12:51→23:00)
--- NOTE | 2016-12-27 13:52 | HP ---
Admitting History and Physical - Primary Care Physician PCP: Rosa Isela Soni - Admission History of Present Illness: Pt of Dr. 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: Yes: Dementia Cardiovascular: Yes: AFIB, Aortic Stenosis, CHF, HTN, Mitral Insufficiency Pulmonary: Yes: Cancer (bilatreal suspicious lung masses and effusions as well as infiltates ), Pneumonia, Other (trachestomy for presumed chronic pulmonary probems) Gastrointestinal: Yes: Other (indwelling G tube) Infectious Disease: Yes: MRSA Psych: Yes: Anxiety, Schizophrenia Dermatology: Yes: Other (suspect excision of left cheek skin cancer by the scar left behind) - Smoking History Smoking history: Never smoked Have you smoked in the past 12 months: No Aproximately how many cigarettes per day: 0 - Alcohol/Substance Use Hx Alcohol Use: No - Social History ADL: Support Services History of Recent Travel: No Home Medications - Allergies Allergies/Adverse Reactions: Allergies Allergy/AdvReac Type Severity Reaction Status Date / Time cefuroxime axetil Allergy Mild Rash Verified 12/11/16 10:43 [From Ceftin] - Home Medications Home Medications: Ambulatory Orders Acetaminophen [Tylenol .Regular Strength -] 325 mg GT Q6H PRN 01/29/14 Zinc Oxide 20% Topical Oint 0 gm TP BID 10/15/15 Zinc Sulfate 220 mg GT DAILY 10/15/15 Ascorbate Calcium [Vitamin C] 500 mg PEG DAILY #0 11/17/15 Nystatin Cream [Mycostatin Cream -] 1 applic TP BID applic 11/17/15 Polyethylene Glycol 3350 [Miralax 119 gm Btl -] 17 gm PEG DAILY #14 bottle 11/17 Docusate Liquid [Colace Liquid -] 50 mg GT DAILY 12/11/16 Metronidazole [Flagyl -] 500 mg PEG TID #29 tablet 12/24/16 Albuterol 0.083% Nebulizer Jayla [Ventolin 0.083% Nebulizer Soln -] 1 neb NEB Q6H PRN 12/27/16 Apixaban [Eliquis] 2.5 mg GT BID 12/27/16 Aspirin [ASA -] 81 mg GT DAILY 12/27/16 Clotrimazole [Lotrimin AF] 0 gm TP BID 12/27/16 Diltiazem [Cardizem -] 60 mg GT Q6H 12/27/16 Ipratropium 0.02% Nebulizer [Atrovent] 1 neb NEB Q6H 12/27/16 Magnesium Hydroxide [Milk of Magnesia] 30 ml GT ASDIR 12/27/16 Metoprolol Tartrate 50 mg GT Q8H 12/27/16 Na Phos,M-B/Na Phos,Di-Ba [Fleet Enema] 118 ml RC ASDIR 12/27/16 Physical Examination Vital Signs: Vital Signs Temperature 99.4 F 12/27/16 02:11 Pulse Rate 78 12/27/16 10:30 Respiratory Rate 16 12/27/16 10:30 Blood Pressure 160/90 12/27/16 10:30 O2 Sat by Pulse Oximetry (%) 100 12/27/16 10:30
[2016-12-27] MEDS: METOPROLOL TARTRATE 50 MG TABLET (FP) NGT SCH ×2 (14:20→21:22)
[2016-12-27 14:30] LABS: ARTERIAL BLD GAS O2 SATURATION 98.4 % (90-98.9); ARTERIAL BLOOD GAS BASE EXCESS 4.5 meq/l (-2-2); ARTERIAL BLOOD GAS HCO3 27.8 meq/L (22-26); ARTERIAL BLOOD GAS PO2 98.5 mmHg (68-100); ARTERIAL BLOOD GAS pH 7.48 (7.35-7.45)
[2016-12-27 14:31] LABS: ALLENS TEST POSITIVE; ART PUNCT SITE LEFT RADIAL; LPM/O2% 40%; MECH. VENT. Y; PT. ON O2? YES; TYPE OF O2 VENT; VENT RATE 14; VT/PRESS 400
--- NOTE | 2016-12-27 15:16 | HP ---
Admitting History and Physical - Admission History of Present Illness: 86 year old female with pmhx of severe dementia, lung cancer, HTN, schizophrenia , anxiety, aortic stenosis, mitral regurgitation, atrial fibrillation, chronic diastolic heart failure, chronic hypoxic respiratory failure s/p Trach/PEG sent from [facility] for tachypnea. At time of this evaluation pt is resting comfortably in bed. 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 Cardiovascular: Yes: AFIB, Aortic Stenosis, CHF, HTN, Mitral Insufficiency Pulmonary: Yes: Cancer (bilatreal suspicious lung masses and effusions as well as infiltates ), Pneumonia, Other (trachestomy for presumed chronic pulmonary probems) Gastrointestinal: Yes: Other (indwelling G tube) Infectious Disease: Yes: MRSA Psych: Yes: Anxiety, Schizophrenia Dermatology: Yes: Other (suspect excision of left cheek skin cancer by the scar left behind) - Smoking History Smoking history: Never smoked Have you smoked in the past 12 months: No Aproximately how many cigarettes per day: 0 - Alcohol/Substance Use Hx Alcohol Use: No - Social History ADL: Support Services History of Recent Travel: No Home Medications - Allergies Allergies/Adverse Reactions: Allergies Allergy/AdvReac Type Severity Reaction Status Date / Time cefuroxime axetil Allergy Mild Rash Verified 12/11/16 10:43 [From Ceftin] - Home Medications Home Medications: Ambulatory Orders Acetaminophen [Tylenol .Regular Strength -] 325 mg GT Q6H PRN 01/29/14 Zinc Oxide 20% Topical Oint 0 gm TP BID 10/15/15 Zinc Sulfate 220 mg GT DAILY 10/15/15 Ascorbate Calcium [Vitamin C] 500 mg PEG DAILY #0 11/17/15 Nystatin Cream [Mycostatin Cream -] 1 applic TP BID applic 11/17/15 Polyethylene Glycol 3350 [Miralax 119 gm Btl -] 17 gm PEG DAILY #14 bottle 11/17 Docusate Liquid [Colace Liquid -] 50 mg GT DAILY 12/11/16 Metronidazole [Flagyl -] 500 mg PEG TID #29 tablet 12/24/16 Albuterol 0.083% Nebulizer Jayla [Ventolin 0.083% Nebulizer Soln -] 1 neb NEB Q6H PRN 12/27/16 Apixaban [Eliquis] 2.5 mg GT BID 12/27/16 Aspirin [ASA -] 81 mg GT DAILY 12/27/16 Clotrimazole [Lotrimin AF] 0 gm TP BID 12/27/16 Diltiazem [Cardizem -] 60 mg GT Q6H 12/27/16 Ipratropium 0.02% Nebulizer [Atrovent] 1 neb NEB Q6H 12/27/16 Magnesium Hydroxide [Milk of Magnesia] 30 ml GT ASDIR 12/27/16 Metoprolol Tartrate 50 mg GT Q8H 12/27/16 Na Phos,M-B/Na Phos,Di-Ba [Fleet Enema] 118 ml RC ASDIR 12/27/16 Family Disease History - Family Disease History Family History: Unable to Obtain Review of Systems Unable to obtain ROS, reason: due to dementia Physical Examination Vital Signs: Vital Signs Temperature 99.4 F 12/27/16 02:11 Pulse Rate 78 12/27/16 10:30 Respiratory Rate 24 12/27/16 14:05 Blood Pressure 160/90 12/27/16 10:30 O2 Sat by Pulse Oximetry (%) 100 12/27/16 10:30 Constitutional: Yes: Well Nourished, No Distress, Calm Eyes: Yes: WNL, Conjunctiva Clear, EOM Intact HENT: Yes: Atraumatic, Normocephalic, Other (trach in place) Neck: Yes: Supple, Trachea Midline, Other (trach in place attacted to vent) Cardiovascular: Yes: Tachycardia Respiratory: Yes: Rhonchi Gastrointestinal: Yes: Normal Bowel Sounds, Soft, Other (PEG in place) Musculoskeletal: Yes: WNL Extremities: Yes: WNL Edema: Yes Edema: LUE: 2+, RUE: 2+, LLE: 1+, RLE: 1+ Integumentary: Yes: WNL Neurological: No: Alert, Oriented ...Motor Strength: WNL Psychiatric: Yes: WNL Assessment/Plan 86 year old female with pmhx of severe dementia, lung cancer, HTN, schizophrenia , anxiety, aortic stenosis, mitral regurgitation, atrial fibrillation, chronic diastolic heart failure, chronic hypoxic respiratory failure s/p Trach/PEG sent from [facility] for tachypnea. -was asked by Physician who covers [facility] to accept patient as she was just on [facility] service -At time of this evaluation pt is resting comfortably in bed. -Discussed case with RN who had the patient 3 days ago during last admission and she states that pt looks much better clinically than she did on the day of discharge -no new interventions needed at this time Visit type - Emergency Visit Emergency Visit: Yes ED Registration Date: 12/27/16 Care time: The patient presented to the Emergency Department on the above date and was hospitalized for further evaluation of their emergent condition. - New Patient This patient is new to me today: Yes Date on this admission: 12/27/16 - Critical Care Critical Care patient: No
--- NOTE | 2016-12-27 18:13 | EKG ---
Test Reason : Blood Pressure : / mmHG Vent. Rate : 109 BPM Atrial Rate : 174 BPM P-R Int : 000 ms QRS Dur : 078 ms QT Int : 362 ms P-R-T Axes : 000 020 063 degrees QTc Int : 487 ms ATRIAL FIBRILLATION WITH RAPID VENTRICULAR RESPONSE SEPTAL INFARCT (CITED ON OR BEFORE 23-OCT-2015) ABNORMAL ECG WHEN COMPARED WITH ECG OF 11-DEC-2016 10:37, VENT. RATE HAS DECREASED BY [address] NO LONGER DEPRESSED IN ANTEROLATERAL LEADS T WAVE INVERSION NO LONGER EVIDENT IN INFERIOR LEADS T WAVE INVERSION NO LONGER EVIDENT IN ANTEROLATERAL LEADS Confirmed by JACY BARFIELD MD ([id number]) on 12/27/2016 6:13:18 PM Referred By: Confirmed By:JACY BARFIELD MD
--- NOTE | 2016-12-27 18:35 | PN ---
Progress Note (short form) - Note Progress Note: ID Consult dictated 86 y/o female PMH lung ca, chronic resp failure readmitted from NH with resp distress CXR + bilateral masses/ infiltrates U/A + pyuria Cephalosporin allergy; has tolerated Unasyn and Zosyn in past Await c/s empiric zosyn
[2016-12-27] MEDS: PIPERACILLIN/TAZOB 3.375 GM 50 ML IVPB SCH (18:53)
--- NOTE | 2016-12-27 20:11 | CONS ---
DATE OF CONSULTATION: 12/27/2016 The patient is an 86-year-old female with a history of lung cancer, history of chronic respiratory failure, re-admitted with labored breathing. The patient was recently hospitalized at [facility] for 2 weeks, from December 11 through December 24, 2016. Her course at that time was complicated by pneumonia, respiratory failure, and persistent leukocytosis. She was ultimately taken off antibiotics and observed. She now returns from the group home within 72 hours with labored breathing. Chest x-ray shows bilateral masses and infiltrates. Her white blood cell count remains elevated. Urinalysis shows pyuria. She is unable to give a history secondary to her dementia. Past medical history positive for dementia, chronic respiratory failure, bilateral lung masses, hypertension, COPD, valvular heart disease, atrial fibrillation. PAST SURGICAL HISTORY: Status post tracheostomy and feeding gastrostomy. Allergies to CEFTIN (rash). The patient has tolerated Unasyn and Zosyn in the past. LABORATORY DATA: White count 16.7, hematocrit 30.0, platelet count 245. Creatinine 0.5. Urinalysis: 200 white cells. PHYSICAL EXAMINATION: General: She is unresponsive. Vital Signs: Temperature 98.7. Blood pressure 122/74. Pulse 126, regular. Respiration 22 per minute. Heart Sounds: S1, S2. Lungs: Air entry bilaterally. Abdomen: Soft. No tenderness elicited. No mass, rebound or rigidity. Extremities: Positive for edema. IMPRESSION: An 86-year-old female with a history of lung cancer, chronic respiratory failure, now re-admitted from the group home with respiratory distress. Chest x-ray shows bilateral masses/infiltrates. Urinalysis shows pyuria. Patient with a history of CEPHALOSPORIN allergy, has tolerated Unasyn and Zosyn in the past. Pending sepsis workup, empiric antibiotic coverage with Zosyn. Continue ventilatory support and supportive care. Will follow. Thank you for the kind referral. RUBY SMITH M.D. [id number]
[2016-12-27] MEDS ORDERED: PT OWN MED DRAWER 7, Y5N ONE (20:44)
[2016-12-27] MEDS: APIXABAN 2.5 MG TABLET GT SCH (21:21)
[2016-12-27] MEDS: NYSTATIN 100,000 UNIT/GM TOPICAL CREAM 15 GM TUBE TP SCH (21:23)
[2016-12-28] MEDS: PIPERACILLIN/TAZOB 3.375 GM 50 ML IVPB SCH ×2 (02:26→10:54)
[2016-12-28] MEDS: dilTIAZem HCL 60 MG TABLET (FP) NGT SCH ×3 (06:56→17:35)
[2016-12-28] MEDS: METOPROLOL TARTRATE 50 MG TABLET (FP) NGT SCH ×3 (06:56→21:56)
[2016-12-28 08:44] LABS: BASOPHIL 0.8 % (0-2.0); MCH 29.6 pg (25.7-33.7); MCHC 32.3 g/dl (32.0-36.0); MEAN CELL VOLUME 91.5 fl (80-96); MEAN PLT VOLUME 10.6 fl (7.5-11.1); NEUTROPHILS 88.1 % (42.8-82.8); PLATELET COUNT 264 K/MM3 (134-434); RDW 23.2 % (11.6-15.6); WHITE BLOOD COUNT 12.9 K/mm3 (4.0-10.0)
[2016-12-28 09:05] LABS: ALBUMIN 1.3 g/dl (3.4-5.0); ANION GAP 9 (8-16); CALCIUM 9.3 mg/dL (8.5-10.1); CO2 28 mmol/L (21-32); GLUCOSE,RANDOM 157 mg/dL (74-106); MAGNESIUM 1.9 mg/dL (1.8-2.4)
[2016-12-28 09:08] LABS: ALK PHOS 162 U/L (45-117); BILIRUBIN,TOTAL 2.3 mg/dL (0.2-1.0); CREATININE 0.5 mg/dL (0.55-1.02); SGOT/AST 31 U/L (15-37); SGPT/ALT 14 U/L (12-78); TOT PROT 5.5 g/dl (6.4-8.2)
[2016-12-28] MEDS: POLYETHYLENE GLYCOL 3350 119 GM BTL PEG SCH (10:00)
[2016-12-28] MEDS ORDERED: LEVOFLOXACIN 500 MG IVPB 100 ML IVPB SCH (10:00)
[2016-12-28] MEDS ORDERED: DOCUSATE GT SCH (10:00)
--- NOTE | 2016-12-28 10:13 | PN ---
Physical Exam: SUBJECTIVE: Patient seen and examined. In no acute distress, stable on vent AC mode, no tachypnea. OBJECTIVE: Vital Signs Period Temp Pulse Resp BP Sys/Chase Pulse Ox Last 24 Hr 98.1 F-98.8 F 78-129 16-24 122-160/68-102 94-100 PE Neuro: NAD, opens eyes to verbal stimuli and touch Pulm: +copious secretions around trach, scattered rhonchi, vented CV: s1s2 irregular rhythm, + 3/6murmur Abd: + peg tube CDI abd soft : connolly, chaim clear urine Ext: Upper Ext + 2 edema, LE +3 CBCD WBC 12.9 K/mm3 (4.0-10.0) H 12/28/16 07:15 RBC 3.17 M/mm3 (3.60-5.2) L 12/28/16 07:15 Hgb 9.4 GM/dL (10.7-15.3) L 12/28/16 07:15 Hct 29.0 % (32.4-45.2) L 12/28/16 07:15 MCV 91.5 fl (80-96) 12/28/16 07:15 MCHC 32.3 g/dl (32.0-36.0) 12/28/16 07:15 RDW 23.2 % (11.6-15.6) H 12/28/16 07:15 Plt Count 264 K/MM3 (134-434) 12/28/16 07:15 MPV 10.6 fl (7.5-11.1) 12/28/16 07:15 CMP Sodium 138 mmol/L (136-145) 12/28/16 07:15 Potassium 4.0 mmol/L (3.5-5.1) 12/28/16 07:15 Chloride 101 mmol/L (98-107) 12/28/16 07:15 Carbon Dioxide 28 mmol/L (21-32) 12/28/16 07:15 Anion Gap 9 (8-16) 12/28/16 07:15 BUN 18 mg/dL (7-18) 12/28/16 07:15 Creatinine 0.5 mg/dL (0.55-1.02) L 12/28/16 07:15 Creat Clearance w eGFR > 60 (>60) 12/28/16 07:15 Calcium 9.3 mg/dL (8.5-10.1) 12/28/16 07:15 Total Bilirubin 2.3 mg/dL (0.2-1.0) H 12/28/16 07:15 AST 31 U/L (15-37) 12/28/16 07:15 ALT 14 U/L (12-78) 12/28/16 07:15 Alkaline Phosphatase 162 U/L (45-117) H 12/28/16 07:15 Total Protein 5.5 g/dl (6.4-8.2) L 12/28/16 07:15 Albumin 1.3 g/dl (3.4-5.0) L 12/28/16 07:15 Active Medications Generic Name Dose Route Start Last Admin Trade Name Freq PRN Reason Stop Dose Admin Acetaminophen 325 mg 12/27/16 10:27 Tylenol Oral Solution - NGT Q6H PRN PAIN Apixaban 2.5 mg 12/27/16 22:00 12/27/16 21:21 Eliquis - GT 2.5 mg BID SELVIN Administration Ascorbic Acid 500 mg 12/28/16 10:00 Vitamin C Oral Solution - PEG DAILY SELVIN Aspirin 81 mg 12/28/16 10:00 Asa - NGT DAILY SELVIN Diltiazem HCl 60 mg 12/27/16 12:00 12/28/16 06:56 Cardizem - NGT 60 mg Q6HPO SELVIN Administration Piperacillin Sod/Tazobactam Sod 50 mls @ 100 mls/hr 12/27/16 18:45 12/28/16 02: 26 Zosyn 3.375gm Ivpb (Pre-Docked) IVPB 100 mls/hr Q8H-IV SELVIN Administration Protocol Metoprolol Tartrate 50 mg 12/27/16 14:00 12/28/16 06:56 Lopressor - NGT 50 mg TID SELVIN Administration Multi-Ingredient Ointment 1 applic 12/28/16 10:00 Zinc Oxide TP DAILY SELVIN Nystatin 1 applic 12/27/16 22:00 12/27/16 21:23 Mycostatin Cream - TP 1 applic BID SELVIN Administration Pantoprazole Sodium 40 mg 12/28/16 10:00 Protonix Packets For Oral Suspension - NGT DAILY SELVIN Polyethylene Glycol 17 gm 12/28/16 10:00 Miralax (For Daily Use) - PEG DAILY SELVIN Vitamin A/Vitamin D 1 applic 12/28/16 10:00 Vitamin A & D Top Oint - TP DAILY SELVIN Zinc Sulfate 220 mg 12/28/16 10:00 Orazinc - GT DAILY SELVIN Assessment: 86 year old female with pmhx of severe dementia, lung cancer, HTN, schizophrenia, anxiety, aortic stenosis, mitral regurgitation, atrial fibrillation, chronic diastolic heart failure, hx of right temporal cva, chronic hypoxic respiratory failure s/p Trach/PEG, recently admitted for sepsis d/t UTI and HAP sent from [facility] for tachypnea. Plan: 1. Worsening bilateral infiltrates/effusions - Blood and urine cx negative - Empiric zosyn (day1 ) - Leukocytosis markedly improved from previous admission - ID seeing 2. UTI - Urine cx negative - UA with same +3LE, wbc mildly elevated 192->200 - Abx as above 3. Lung Cancer, pleural effusions - Not a candidate for RXT - Per daughter, uterine cancer and malignant melanoma in the past 4. Chronic Respiratory Failure - Vented on volume AC 5. A.fib with RVR - Eliquis 2.5mg BID - Lopressor 50mg TID - Cardizem 60mg q6h 6. Chronic diastolic heart failure - Continue lopressor 7. R temporal CVA - On eliquis, no ASA 8. Nutrition via Peg tube (12/14 replacement) - Jevity 1.5 @ 60cc with water flushes Visit type - Emergency Visit Emergency Visit: Yes ED Registration Date: 12/27/16 Care time: The patient presented to the Emergency Department on the above date and was hospitalized for further evaluation of their emergent condition. - New Patient This patient is new to me today: Yes Date on this admission: 12/28/16 - Critical Care Critical Care patient: No
[2016-12-28] MEDS ORDERED: PT OWN MED DRAWER 7, Y5N ONE ×4 (10:21→21:32)
[2016-12-28] MEDS: ZINC SULFATE 220 MG CAPSULE (FP) GT SCH (10:54)
[2016-12-28] MEDS: PANTOPRAZOLE SOD 40 MG SUSPENSION PACKET NGT SCH (10:54)
[2016-12-28] MEDS: APIXABAN 2.5 MG TABLET GT SCH ×2 (10:55→21:57)
[2016-12-28] MEDS: ASPIRIN 81 MG CHEWABLE TABLETS NGT SCH (10:55)
[2016-12-28] MEDS: ASCORBIC ACID 500 MG/5 ML UNIT DOSE CUP PEG SCH (10:55)
[2016-12-28] MEDS: VITAMINS A AND D TOPICAL OINTMENT 60 GM TUBE TP SCH (11:06)
[2016-12-28] MEDS: ZINC OXIDE 20% TOPICAL OINTMENT 30 GM TUBE TP SCH (11:07)
--- NOTE | 2016-12-28 11:09 | CONSULT ---
Consultation: REQUESTING PROVIDER: CONSULT REQUEST: We have been asked to medically evaluate this patient for ( specify). HISTORY OF PRESENT ILLNESS: This is an 86 yo F with PMH of dementia, metastatic breast CA, lung CA, HTN, schizophrenia, aortic stenosis, MR, a-fib, HFPEF, chronic hypoxic respiratory failure s/p trach and PEG, discharged from here last wed, who presents from [facility] due to tachypnea. According to RN who took care fo patient last admission, patient is in better state than was on d/c. patienr resting in bed comfortably, on vent, afebrile and hemodynamically stable. REVIEW OF SYSTEMS: unable to obtain due to mental status PHYSICAL EXAMINATION Vital Signs - 24 hr 12/27/16 12/27/16 12/27/16 14:05 15:00 15:43 Temperature 98.7 F Pulse Rate 126 H Respiratory 24 20 Rate Blood Pressure 122/74 O2 Sat by Pulse 100 Oximetry (%) 12/27/16 12/27/16 12/27/16 18:00 18:07 21:00 Temperature 98.1 F Pulse Rate 129 H Respiratory 20 16 Rate Blood Pressure 140/102 O2 Sat by Pulse 94 L Oximetry (%) 12/27/16 12/28/16 12/28/16 22:20 00:10 02:20 Temperature 98.5 F Pulse Rate 84 Respiratory 18 22 24 Rate Blood Pressure 129/68 O2 Sat by Pulse Oximetry (%) 12/28/16 12/28/16 12/28/16 06:00 06:38 11:05 Temperature 98.8 F Pulse Rate 107 H 87 Respiratory 16 22 22 Rate Blood Pressure 151/90 146/76 O2 Sat by Pulse Oximetry (%) GENERAL: unresponsive HEAD: Normal with no signs of trauma. EYES: Pupils equal, round and reactive to light EARS, NOSE, THROAT: Moist mucous membranes. NECK: supple, trach. LUNGS:diffuse ronchi, reduced coarse breath sounds HEART: irregular ABDOMEN: Soft, not distended, normoactive bowel sounds MUSCULOSKELETAL: No bony deformities UPPER EXTREMITIES: 2+ pulses No peripheral edema. LOWER EXTREMITIES: 2+ pulses, trace peripheral edema. NEUROLOGICAL: unable to assess, face grossly symmetrical PSYCHIATRIC: unable to assess, unresponsive SKIN: Warm, dry Laboratory Results - last 24 hr 12/27/16 12/27/16 12/28/16 14:25 19:44 07:15 WBC 12.9 H RBC 3.17 L Hgb 9.4 L Hct 29.0 L MCV 91.5 MCHC 32.3 RDW 23.2 H Plt Count 264 MPV 10.6 Neutrophils % 88.1 H Lymphocytes % 3.6 L D Monocytes % 6.5 Eosinophils % 1.0 Basophils % 0.8 Anticoagulation Therapy Y Puncture Site Left radial ABG pH 7.48 H ABG pCO2 at Pt Temp 37.4 ABG pO2 at Pt Temp 98.5 D ABG HCO3 27.8 H ABG O2 Sat (Measured) 98.4 ABG O2 Content 13.4 L ABG Base Excess 4.5 H Leonidas Test Positive O2 Delivery Device Vent Oxygen Flow Rate 40% Vent Mode A/c Vent Rate 14 Mechanical Rate Y PEEP 5.0 Pressure Support Vent 400 Sodium Potassium Chloride Carbon Dioxide Anion Gap BUN Creatinine Creat Clearance w eGFR POC Glucometer 136 Random Glucose Calcium Magnesium Total Bilirubin AST ALT Alkaline Phosphatase Total Protein Albumin 12/28/16 07:15 WBC RBC Hgb Hct MCV MCHC RDW Plt Count MPV Neutrophils % Lymphocytes % Monocytes % Eosinophils % Basophils % Anticoagulation Therapy Puncture Site ABG pH ABG pCO2 at Pt Temp ABG pO2 at Pt Temp ABG HCO3 ABG O2 Sat (Measured) ABG O2 Content ABG Base Excess Leonidas Test O2 Delivery Device Oxygen Flow Rate Vent Mode Vent Rate Mechanical Rate PEEP Pressure Support Vent Sodium 138 Potassium 4.0 Chloride 101 Carbon Dioxide 28 Anion Gap 9 BUN 18 Creatinine 0.5 L Creat Clearance w eGFR > 60 POC Glucometer Random Glucose 157 H Calcium 9.3 Magnesium 1.9 Total Bilirubin 2.3 H AST 31 ALT 14 Alkaline Phosphatase 162 H Total Protein 5.5 L Albumin 1.3 L Active Medications Generic Name Dose Route Start Last Admin Trade Name Freq PRN Reason Stop Dose Admin Acetaminophen 325 mg 12/27/16 10:27 Tylenol Oral Solution - NGT Q6H PRN PAIN Apixaban 2.5 mg 12/27/16 22:00 12/28/16 10:55 Eliquis - GT 2.5 mg BID SELVIN Administration Ascorbic Acid 500 mg 12/28/16 10:00 12/28/16 10:55 Vitamin C Oral Solution - PEG 500 mg DAILY SELVIN Administration Aspirin 81 mg 12/28/16 10:00 12/28/16 10:55 Asa - NGT 81 mg DAILY SELVIN Administration Diltiazem HCl 60 mg 12/27/16 12:00 12/28/16 06:56 Cardizem - NGT 60 mg Q6HPO SELVIN Administration Piperacillin Sod/Tazobactam Sod 50 mls @ 100 mls/hr 12/27/16 18:45 12/28/16 10: 54 Zosyn 3.375gm Ivpb (Pre-Docked) IVPB 100 mls/hr Q8H-IV SELVIN Administration Protocol Metoprolol Tartrate 50 mg 12/27/16 14:00 12/28/16 06:56 Lopressor - NGT 50 mg TID SELVIN Administration Multi-Ingredient Ointment 1 applic 12/28/16 10:00 Zinc Oxide TP DAILY SELVIN Nystatin 1 applic 12/27/16 22:00 12/27/16 21:23 Mycostatin Cream - TP 1 applic BID SELVIN Administration Pantoprazole Sodium 40 mg 12/28/16 10:00 12/28/16 10:54 Protonix Packets For Oral Suspension - NGT 40 mg DAILY SELVIN Administration Polyethylene Glycol 17 gm 12/28/16 10:00 Miralax (For Daily Use) - PEG DAILY SELVIN Vitamin A/Vitamin D 1 applic 12/28/16 10:00 Vitamin A & D Top Oint - TP DAILY SELVIN Zinc Sulfate 220 mg 12/28/16 10:00 12/28/16 10:54 Orazinc - GT 220 mg DAILY SELVIN Administration ASSESSMENT/PLAN: Dispo: We will continue to follow the patient. Thank you for this consultative opportunity. Acute on chronic respiratory failure -CXR increased b/l pleural effusion, b/l upper lobe densities -albuterol prn -Vented -not a candidate for weaning -recommend palliative care Sepsis -due to PNA vs UTI (pyuria) -leukocytosis improving (12.7) -afebrile -urine, blood, sputum cultures -ID consult: IV zosyn day 2 Lung CA -recommend palliative care Metastatic breast CA -recommend palliative care Anemia -stable A fib -rate controlled Dementia -unresponsive Problem List - Problems (1) Anemia Code(s): D64.9 - ANEMIA, UNSPECIFIED (2) Atrial fibrillation with rapid ventricular response Code(s): I48.91 - UNSPECIFIED ATRIAL FIBRILLATION (3) Demand ischemia Code(s): I24.8 - OTHER FORMS OF ACUTE ISCHEMIC HEART DISEASE (4) Lung cancer Code(s): C34.90 - MALIGNANT NEOPLASM OF UNSP PART OF UNSP BRONCHUS OR LUNG (5) Tracheostomy dependence Code(s): Z93.0 - TRACHEOSTOMY STATUS (6) UTI (urinary tract infection) Code(s): N39.0 - URINARY TRACT INFECTION, SITE NOT SPECIFIED Qualifiers: Urinary tract infection type: site unspecified Hematuria presence: without hematuria Qualified Code(s): N39.0 - Urinary tract infection, site not specified (7) Aortic stenosis Code(s): Q25.3 - SUPRAVALVULAR AORTIC STENOSIS (8) Atrial fibrillation Code(s): I48.91 - UNSPECIFIED ATRIAL FIBRILLATION Qualifiers: Atrial fibrillation type: persistent Qualified Code(s): I48.1 - Persistent atrial fibrillation (9) CVA (cerebral vascular accident) Code(s): I63.9 - CEREBRAL INFARCTION, UNSPECIFIED Qualifiers: CVA mechanism: unspecified Qualified Code(s): I63.9 - Cerebral infarction, unspecified (10) Chronic diastolic heart failure Code(s): I50.32 - CHRONIC DIASTOLIC (CONGESTIVE) HEART FAILURE (11) Chronic respiratory failure with hypoxia Code(s): J96.11 - CHRONIC RESPIRATORY FAILURE WITH HYPOXIA (12) Dementia Code(s): F03.90 - UNSPECIFIED DEMENTIA WITHOUT BEHAVIORAL DISTURBANCE Qualifiers: Dementia type: unspecified type Dementia behavioral disturbance: without behavioral disturbance Qualified Code(s): F03.90 - Unspecified dementia without behavioral disturbance (13) Hypertension Code(s): I10 - ESSENTIAL (PRIMARY) HYPERTENSION Qualifiers: Hypertension type: essential hypertension Qualified Code(s): I10 - Essential (primary) hypertension (14) Metastatic breast cancer Code(s): C50.919 - MALIGNANT NEOPLASM OF UNSP SITE OF UNSPECIFIED FEMALE BREAST C79.9 - SECONDARY MALIGNANT NEOPLASM OF UNSPECIFIED SITE (15) Mitral regurgitation Code(s): I34.0 - NONRHEUMATIC MITRAL (VALVE) INSUFFICIENCY Qualifiers: Cardiac valve disease etiology: nonrheumatic Qualified Code(s): I34.0 - Nonrheumatic mitral (valve) insufficiency (16) Schizophrenia Code(s): F20.9 - SCHIZOPHRENIA, UNSPECIFIED Qualifiers: Schizophrenia type: unspecified Qualified Code(s): F20.9 - Schizophrenia, unspecified (17) Pneumonia Code(s): J18.9 - PNEUMONIA, UNSPECIFIED ORGANISM Qualifiers: Pneumonia type: due to unspecified organism Laterality: unspecified laterality Lung location: unspecified part of lung Qualified Code(s): J18.9 - Pneumonia, unspecified organism (18) Acute respiratory failure Code(s): J96.00 - ACUTE RESPIRATORY FAILURE, UNSP W HYPOXIA OR HYPERCAPNIA Qualifiers: Respiratory failure complication: hypoxia Qualified Code(s): J96.01 - Acute respiratory failure with hypoxia Visit type - Emergency Visit Emergency Visit: Yes ED Registration Date: 12/27/16 Care time: The patient presented to the Emergency Department on the above date and was hospitalized for further evaluation of their emergent condition. - New Patient This patient is new to me today: Yes Date on this admission: 12/28/16 - Critical Care Critical Care patient: No
--- NOTE | 2016-12-28 13:48 | PN ---
Teaching Attending Note Name of Resident: Valerie Baeza ATTENDING PHYSICIAN STATEMENT I saw and evaluated the patient. I reviewed the resident's note and discussed the case with the resident. I agree with the resident's findings and plan as documented. PULMONARY IMP ACUTE ON CHRONIC RESPIRATORY FAILURE LUNG CA METASTATIC BREAST CA AFIB SEPSIS DEMENTIA ANEMIA PLAN: VENT SUPPORT ON AC MODE INHALED BRONCHODILATORS ANTIBIOTICS PER ID CULTURES MONITOR LYTES PT NOT A CANDIDATE FOR WEANING DR RICHARDS Problem List - Problems (1) Atrial fibrillation with rapid ventricular response Code(s): I48.91 - UNSPECIFIED ATRIAL FIBRILLATION (2) Lung cancer Code(s): C34.90 - MALIGNANT NEOPLASM OF UNSP PART OF UNSP BRONCHUS OR LUNG (3) Tracheostomy dependence Code(s): Z93.0 - TRACHEOSTOMY STATUS (4) UTI (urinary tract infection) Code(s): N39.0 - URINARY TRACT INFECTION, SITE NOT SPECIFIED Qualifiers: Urinary tract infection type: site unspecified Hematuria presence: without hematuria Qualified Code(s): N39.0 - Urinary tract infection, site not specified (5) Aortic stenosis Code(s): Q25.3 - SUPRAVALVULAR AORTIC STENOSIS (6) Atrial fibrillation Code(s): I48.91 - UNSPECIFIED ATRIAL FIBRILLATION Qualifiers: Atrial fibrillation type: persistent Qualified Code(s): I48.1 - Persistent atrial fibrillation (7) CVA (cerebral vascular accident) Code(s): I63.9 - CEREBRAL INFARCTION, UNSPECIFIED Qualifiers: CVA mechanism: unspecified Qualified Code(s): I63.9 - Cerebral infarction, unspecified (8) Chronic diastolic heart failure Code(s): I50.32 - CHRONIC DIASTOLIC (CONGESTIVE) HEART FAILURE (9) Chronic respiratory failure with hypoxia Code(s): J96.11 - CHRONIC RESPIRATORY FAILURE WITH HYPOXIA (10) Dementia Code(s): F03.90 - UNSPECIFIED DEMENTIA WITHOUT BEHAVIORAL DISTURBANCE Qualifiers: Dementia type: unspecified type Dementia behavioral disturbance: without behavioral disturbance Qualified Code(s): F03.90 - Unspecified dementia without behavioral disturbance (11) Metastatic breast cancer Code(s): C50.919 - MALIGNANT NEOPLASM OF UNSP SITE OF UNSPECIFIED FEMALE BREAST C79.9 - SECONDARY MALIGNANT NEOPLASM OF UNSPECIFIED SITE (12) Squamous carcinoma of lung Code(s): C34.90 - MALIGNANT NEOPLASM OF UNSP PART OF UNSP BRONCHUS OR LUNG (13) Pneumonia Code(s): J18.9 - PNEUMONIA, UNSPECIFIED ORGANISM Qualifiers: Pneumonia type: due to unspecified organism Laterality: unspecified laterality Lung location: unspecified part of lung Qualified Code(s): J18.9 - Pneumonia, unspecified organism (14) Anemia Code(s): D64.9 - ANEMIA, UNSPECIFIED
--- NOTE | 2016-12-28 14:20 | PN ---
Progress Note (short form) - Note Progress Note: ID Zosyn day 1 therapy No fever Selected Entries 12/27/16 12/27/16 18:00 18:07 Temperature 98.1 F Pulse Rate 129 H Respiratory 16 Rate Blood Pressure 140/102 Microbiology 12/27/16 03:40 Urine - Urine - Catheterized Urine Culture - Final NO GROWTH OBTAINED 12/27/16 03:28 Blood - Peripheral Venous Blood Culture - Preliminary NO GROWTH OBTAINED AFTER 24 HOURS, INCUBATION TO CONTINUE FOR 4 DAYS. Laboratory Tests 12/27/16 12/28/16 12/28/16 03:28 07:15 07:15 WBC 16.7 H 12.9 H Hgb 9.4 L Hct 29.0 L Plt Count 264 BUN 18 Creatinine 0.5 L Assessment Cancer metastatic Respiratory failure Dementia Switch to Unasyn based on prior respiratory culture few days 2-3 then stop Prognosis poor Kindly recall as needed Avi VENTURA
[2016-12-28] MEDS: NYSTATIN 100,000 UNIT/GM TOPICAL CREAM 15 GM TUBE TP SCH ×2 (14:47→21:57)
[2016-12-28] MEDS: AMPICILLIN NA/SULBACTAM NA 100 ML IVPB SCH ×2 (15:30→21:56)
[2016-12-28] MEDS ORDERED: ALBUTEROL SO4 0.083% IH SOL 2.5 MG/3 ML VIAL.NEB. NEB PRN (15:51)
[2016-12-29] MEDS: dilTIAZem HCL 60 MG TABLET (FP) NGT SCH ×4 (00:07→17:48)
[2016-12-29] MEDS: AMPICILLIN NA/SULBACTAM NA 100 ML IVPB SCH ×4 (03:02→22:12)
[2016-12-29] MEDS: METOPROLOL TARTRATE 50 MG TABLET (FP) NGT SCH ×3 (06:23→22:13)
[2016-12-29 07:25] LABS: BASOPHIL 0.8 % (0-2.0); EOSINOPHIL 1.3 % (0-4.5); MCH 29.7 pg (25.7-33.7); MCHC 32.2 g/dl (32.0-36.0); MEAN CELL VOLUME 92.2 fl (80-96); MEAN PLT VOLUME 10.6 fl (7.5-11.1); NEUTROPHILS 85.7 % (42.8-82.8); PLATELET COUNT 266 K/MM3 (134-434); RDW 23.2 % (11.6-15.6); WHITE BLOOD COUNT 11.6 K/mm3 (4.0-10.0)
[2016-12-29 07:54] LABS: ALBUMIN 1.3 g/dl (3.4-5.0); ANION GAP 6 (8-16); BILIRUBIN,TOTAL 1.9 mg/dL (0.2-1.0); CALCIUM 8.8 mg/dL (8.5-10.1); CO2 30 mmol/L (21-32); CREATININE 0.5 mg/dL (0.55-1.02); GLUCOSE,RANDOM 140 mg/dL (74-106); MAGNESIUM 1.7 mg/dL (1.8-2.4); PHOSPHOROUS 2.1 mg/dL (2.5-4.9); SGOT/AST 36 U/L (15-37); SGPT/ALT 17 U/L (12-78); TOT PROT 5.7 g/dl (6.4-8.2)
[2016-12-29 07:55] LABS: ALK PHOS 172 U/L (45-117)
[2016-12-29] MEDS ORDERED: PT OWN MED DRAWER 7, Y5N ONE ×2 (09:10→21:42)
[2016-12-29] MEDS: APIXABAN 2.5 MG TABLET GT SCH ×2 (09:18→22:13)
[2016-12-29] MEDS: ZINC SULFATE 220 MG CAPSULE (FP) GT SCH (09:18)
[2016-12-29] MEDS: POLYETHYLENE GLYCOL 3350 119 GM BTL PEG SCH (09:18)
[2016-12-29] MEDS: PANTOPRAZOLE SOD 40 MG SUSPENSION PACKET NGT SCH (09:18)
[2016-12-29] MEDS: ASPIRIN 81 MG CHEWABLE TABLETS NGT SCH (09:18)
[2016-12-29] MEDS: NYSTATIN 100,000 UNIT/GM TOPICAL CREAM 15 GM TUBE TP SCH ×2 (09:19→22:13)
[2016-12-29] MEDS: ZINC OXIDE 20% TOPICAL OINTMENT 30 GM TUBE TP SCH (09:19)
[2016-12-29] MEDS: VITAMINS A AND D TOPICAL OINTMENT 60 GM TUBE TP SCH (11:00)
[2016-12-29] MEDS ORDERED: MAGNESIUM SULF 50% (8.12 MEQ/2 ML-1 GM VIAL) IVPB ONE (11:45)
[2016-12-29] MEDS: ASCORBIC ACID 500 MG/5 ML UNIT DOSE CUP PEG SCH (12:04)
--- NOTE | 2016-12-29 12:40 | PN ---
Teaching Attending Note Name of Resident: Valerie Baeza ATTENDING PHYSICIAN STATEMENT I saw and evaluated the patient. I reviewed the resident's note and discussed the case with the resident. I agree with the resident's findings and plan as documented. PULMONARY NO CHANGE POORLY RESPONSIVE ON VENT SUPPORT AC MODE IMP ACUTE ON CHRONIC RESPIRATORY FAILURE LUNG CA METASTATIC BREAST CA AFIB SEPSIS DEMENTIA ANEMIA PLAN: VENT SUPPORT ON AC MODE INHALED BRONCHODILATORS ANTIBIOTICS PER ID MONITOR LYTES PT NOT A CANDIDATE FOR WEANING DR RICHARDS Problem List - Problems (1) Atrial fibrillation with rapid ventricular response Code(s): I48.91 - UNSPECIFIED ATRIAL FIBRILLATION (2) Lung cancer Code(s): C34.90 - MALIGNANT NEOPLASM OF UNSP PART OF UNSP BRONCHUS OR LUNG (3) Tracheostomy dependence Code(s): Z93.0 - TRACHEOSTOMY STATUS (4) UTI (urinary tract infection) Code(s): N39.0 - URINARY TRACT INFECTION, SITE NOT SPECIFIED Qualifiers: Urinary tract infection type: site unspecified Hematuria presence: without hematuria Qualified Code(s): N39.0 - Urinary tract infection, site not specified (5) Aortic stenosis Code(s): Q25.3 - SUPRAVALVULAR AORTIC STENOSIS (6) Atrial fibrillation Code(s): I48.91 - UNSPECIFIED ATRIAL FIBRILLATION Qualifiers: Atrial fibrillation type: persistent Qualified Code(s): I48.1 - Persistent atrial fibrillation (7) CVA (cerebral vascular accident) Code(s): I63.9 - CEREBRAL INFARCTION, UNSPECIFIED Qualifiers: CVA mechanism: unspecified Qualified Code(s): I63.9 - Cerebral infarction, unspecified (8) Chronic diastolic heart failure Code(s): I50.32 - CHRONIC DIASTOLIC (CONGESTIVE) HEART FAILURE (9) Chronic respiratory failure with hypoxia Code(s): J96.11 - CHRONIC RESPIRATORY FAILURE WITH HYPOXIA (10) Dementia Code(s): F03.90 - UNSPECIFIED DEMENTIA WITHOUT BEHAVIORAL DISTURBANCE Qualifiers: Dementia type: unspecified type Dementia behavioral disturbance: without behavioral disturbance Qualified Code(s): F03.90 - Unspecified dementia without behavioral disturbance (11) Metastatic breast cancer Code(s): C50.919 - MALIGNANT NEOPLASM OF UNSP SITE OF UNSPECIFIED FEMALE BREAST C79.9 - SECONDARY MALIGNANT NEOPLASM OF UNSPECIFIED SITE (12) Squamous carcinoma of lung Code(s): C34.90 - MALIGNANT NEOPLASM OF UNSP PART OF UNSP BRONCHUS OR LUNG (13) Pneumonia Code(s): J18.9 - PNEUMONIA, UNSPECIFIED ORGANISM Qualifiers: Pneumonia type: due to unspecified organism Laterality: unspecified laterality Lung location: unspecified part of lung Qualified Code(s): J18.9 - Pneumonia, unspecified organism (14) Anemia Code(s): D64.9 - ANEMIA, UNSPECIFIED Problem List - Problems (1) Atrial fibrillation with rapid ventricular response Code(s): I48.91 - UNSPECIFIED ATRIAL FIBRILLATION (2) Lung cancer Code(s): C34.90 - MALIGNANT NEOPLASM OF UNSP PART OF UNSP BRONCHUS OR LUNG (3) Tracheostomy dependence Code(s): Z93.0 - TRACHEOSTOMY STATUS (4) UTI (urinary tract infection) Code(s): N39.0 - URINARY TRACT INFECTION, SITE NOT SPECIFIED Qualifiers: Urinary tract infection type: site unspecified Hematuria presence: without hematuria Qualified Code(s): N39.0 - Urinary tract infection, site not specified (5) Aortic stenosis Code(s): Q25.3 - SUPRAVALVULAR AORTIC STENOSIS (6) Atrial fibrillation Code(s): I48.91 - UNSPECIFIED ATRIAL FIBRILLATION Qualifiers: Atrial fibrillation type: persistent Qualified Code(s): I48.1 - Persistent atrial fibrillation (7) CVA (cerebral vascular accident) Code(s): I63.9 - CEREBRAL INFARCTION, UNSPECIFIED Qualifiers: CVA mechanism: unspecified Qualified Code(s): I63.9 - Cerebral infarction, unspecified (8) Chronic diastolic heart failure Code(s): I50.32 - CHRONIC DIASTOLIC (CONGESTIVE) HEART FAILURE (9) Chronic respiratory failure with hypoxia Code(s): J96.11 - CHRONIC RESPIRATORY FAILURE WITH HYPOXIA (10) Dementia Code(s): F03.90 - UNSPECIFIED DEMENTIA WITHOUT BEHAVIORAL DISTURBANCE Qualifiers: Dementia type: unspecified type Dementia behavioral disturbance: without behavioral disturbance Qualified Code(s): F03.90 - Unspecified dementia without behavioral disturbance (11) Metastatic breast cancer Code(s): C50.919 - MALIGNANT NEOPLASM OF UNSP SITE OF UNSPECIFIED FEMALE BREAST C79.9 - SECONDARY MALIGNANT NEOPLASM OF UNSPECIFIED SITE (12) Squamous carcinoma of lung Code(s): C34.90 - MALIGNANT NEOPLASM OF UNSP PART OF UNSP BRONCHUS OR LUNG (13) Pneumonia Code(s): J18.9 - PNEUMONIA, UNSPECIFIED ORGANISM Qualifiers: Pneumonia type: due to unspecified organism Laterality: unspecified laterality Lung location: unspecified part of lung Qualified Code(s): J18.9 - Pneumonia, unspecified organism (14) Anemia Code(s): D64.9 - ANEMIA, UNSPECIFIED
--- NOTE | 2016-12-29 14:22 | PN ---
Physical Exam: SUBJECTIVE: Patient seen and examined Patien resting in bed NAD, No acute events. afebrile and hemodynamically stable. Primary team attempting to reach [facility] pall[facility]. Planning to transfer to [facility]. OBJECTIVE: Vital Signs Period Temp Pulse Resp BP Sys/Chase Pulse Ox Last 24 Hr 97.7 F-99.7 F 74-95 16-22 106-156/53-96 93 GENERAL: unresponsive HEAD: Normal with no signs of trauma. EYES: Pupils equal, round and reactive to light EARS, NOSE, THROAT: Moist mucous membranes. NECK: supple, trach. LUNGS:diffuse ronchi, reduced coarse breath sounds HEART: irregular ABDOMEN: Soft, not distended, normoactive bowel sounds MUSCULOSKELETAL: No bony deformities UPPER EXTREMITIES: 2+ pulses No peripheral edema. LOWER EXTREMITIES: 2+ pulses, trace peripheral edema. NEUROLOGICAL: unable to assess, face grossly symmetrical PSYCHIATRIC: unable to assess, unresponsive SKIN: Warm, dry Laboratory Results - last 24 hr 12/28/16 12/29/16 12/29/16 20:27 06:26 06:30 WBC 11.6 H RBC 3.22 L Hgb 9.6 L Hct 29.7 L MCV 92.2 MCHC 32.2 RDW 23.2 H Plt Count 266 MPV 10.6 Neutrophils % 85.7 H Lymphocytes % 4.6 L D Monocytes % 7.6 Eosinophils % 1.3 Basophils % 0.8 Sodium Potassium Chloride Carbon Dioxide Anion Gap BUN Creatinine Creat Clearance w eGFR POC Glucometer 148 132 Random Glucose Calcium Phosphorus Magnesium Total Bilirubin AST ALT Alkaline Phosphatase Total Protein Albumin 12/29/16 06:30 WBC RBC Hgb Hct MCV MCHC RDW Plt Count MPV Neutrophils % Lymphocytes % Monocytes % Eosinophils % Basophils % Sodium 136 Potassium 3.8 Chloride 100 Carbon Dioxide 30 Anion Gap 6 L BUN 17 Creatinine 0.5 L Creat Clearance w eGFR > 60 POC Glucometer Random Glucose 140 H Calcium 8.8 Phosphorus 2.1 L D Magnesium 1.7 L Total Bilirubin 1.9 H AST 36 ALT 17 D Alkaline Phosphatase 172 H Total Protein 5.7 L Albumin 1.3 L Active Medications Generic Name Dose Route Start Last Admin Trade Name Freq PRN Reason Stop Dose Admin Acetaminophen 325 mg 12/27/16 10:27 Tylenol Oral Solution - NGT Q6H PRN PAIN Albuterol Sulfate 1 amp 12/28/16 15:51 Ventolin 0.083% Nebulizer Soln - NEB Q4H PRN SHORT OF BREATH/WHEEZING Apixaban 2.5 mg 12/27/16 22:00 12/29/16 09:18 Eliquis - GT 2.5 mg BID SELVIN Administration Ascorbic Acid 500 mg 12/28/16 10:00 12/29/16 12:04 Vitamin C Oral Solution - PEG 500 mg DAILY SELVIN Administration Aspirin 81 mg 12/28/16 10:00 12/29/16 09:18 Asa - NGT 81 mg DAILY SELVIN Administration Diltiazem HCl 60 mg 12/27/16 12:00 12/29/16 12:01 Cardizem - NGT 60 mg Q6HPO SELVIN Administration Ampicillin Sodium/Sulbactam Sodium 100 mls @ 200 mls/hr 12/28/16 16:00 09:17 Unasyn 1.5 Gm (Pre-Docked) IVPB 200 mls/hr Q6H-IV SELVIN Administration Metoprolol Tartrate 50 mg 12/27/16 14:00 12/29/16 13:31 Lopressor - NGT 50 mg TID SELVIN Administration Multi-Ingredient Ointment 1 applic 12/28/16 10:00 12/29/16 09:19 Zinc Oxide TP 1 applic DAILY SEVLIN Administration Nystatin 1 applic 12/27/16 22:00 12/29/16 09:19 Mycostatin Cream - TP 1 applic BID SELVIN Administration Pantoprazole Sodium 40 mg 12/28/16 10:00 12/29/16 09:18 Protonix Packets For Oral Suspension - NGT 40 mg DAILY SELVIN Administration Polyethylene Glycol 17 gm 12/28/16 10:00 12/29/16 09:18 Miralax (For Daily Use) - PEG 17 gm DAILY SELVIN Administration Vitamin A/Vitamin D 1 applic 12/28/16 10:00 12/29/16 11:00 Vitamin A & D Top Oint - TP 1 applic DAILY SELVIN Administration Zinc Sulfate 220 mg 12/28/16 10:00 12/29/16 09:18 Orazinc - GT 220 mg DAILY SELVIN Administration ASSESSMENT/PLAN: Acute on chronic respiratory failure -CXR increased b/l pleural effusion, b/l upper lobe densities -albuterol prn -Vented -not a candidate for weaning -recommend palliative care Sepsis -due to PNA vs UTI (pyuria) -leukocytosis improving (11.6) -afebrile -urine, blood, sputum cultures -ID consult: unasyn day 2 Lung CA -recommend palliative care Metastatic breast CA -recommend palliative care Anemia -stable A fib -rate controlled Dementia -unresponsive Dispo: We will continue to follow the patient. Thank you for this consultative opportunity. Problem List - Problems (1) Anemia Code(s): D64.9 - ANEMIA, UNSPECIFIED (2) Atrial fibrillation with rapid ventricular response Code(s): I48.91 - UNSPECIFIED ATRIAL FIBRILLATION (3) Demand ischemia Code(s): I24.8 - OTHER FORMS OF ACUTE ISCHEMIC HEART DISEASE (4) Lung cancer Code(s): C34.90 - MALIGNANT NEOPLASM OF UNSP PART OF UNSP BRONCHUS OR LUNG (5) Tracheostomy dependence Code(s): Z93.0 - TRACHEOSTOMY STATUS (6) UTI (urinary tract infection) Code(s): N39.0 - URINARY TRACT INFECTION, SITE NOT SPECIFIED Qualifiers: Urinary tract infection type: site unspecified Hematuria presence: without hematuria Qualified Code(s): N39.0 - Urinary tract infection, site not specified (7) Aortic stenosis Code(s): Q25.3 - SUPRAVALVULAR AORTIC STENOSIS (8) Atrial fibrillation Code(s): I48.91 - UNSPECIFIED ATRIAL FIBRILLATION Qualifiers: Atrial fibrillation type: persistent Qualified Code(s): I48.1 - Persistent atrial fibrillation (9) CVA (cerebral vascular accident) Code(s): I63.9 - CEREBRAL INFARCTION, UNSPECIFIED Qualifiers: CVA mechanism: unspecified Qualified Code(s): I63.9 - Cerebral infarction, unspecified (10) Chronic diastolic heart failure Code(s): I50.32 - CHRONIC DIASTOLIC (CONGESTIVE) HEART FAILURE (11) Chronic respiratory failure with hypoxia Code(s): J96.11 - CHRONIC RESPIRATORY FAILURE WITH HYPOXIA (12) Dementia Code(s): F03.90 - UNSPECIFIED DEMENTIA WITHOUT BEHAVIORAL DISTURBANCE Qualifiers: Dementia type: unspecified type Dementia behavioral disturbance: without behavioral disturbance Qualified Code(s): F03.90 - Unspecified dementia without behavioral disturbance (13) Hypertension Code(s): I10 - ESSENTIAL (PRIMARY) HYPERTENSION Qualifiers: Hypertension type: essential hypertension Qualified Code(s): I10 - Essential (primary) hypertension (14) Metastatic breast cancer Code(s): C50.919 - MALIGNANT NEOPLASM OF UNSP SITE OF UNSPECIFIED FEMALE BREAST C79.9 - SECONDARY MALIGNANT NEOPLASM OF UNSPECIFIED SITE (15) Mitral regurgitation Code(s): I34.0 - NONRHEUMATIC MITRAL (VALVE) INSUFFICIENCY Qualifiers: Cardiac valve disease etiology: nonrheumatic Qualified Code(s): I34.0 - Nonrheumatic mitral (valve) insufficiency (16) Schizophrenia Code(s): F20.9 - SCHIZOPHRENIA, UNSPECIFIED Qualifiers: Schizophrenia type: unspecified Qualified Code(s): F20.9 - Schizophrenia, unspecified (17) Pneumonia Code(s): J18.9 - PNEUMONIA, UNSPECIFIED ORGANISM Qualifiers: Pneumonia type: due to unspecified organism Laterality: unspecified laterality Lung location: unspecified part of lung Qualified Code(s): J18.9 - Pneumonia, unspecified organism (18) Acute respiratory failure Code(s): J96.00 - ACUTE RESPIRATORY FAILURE, UNSP W HYPOXIA OR HYPERCAPNIA Qualifiers: Respiratory failure complication: hypoxia Qualified Code(s): J96.01 - Acute respiratory failure with hypoxia Visit type - Emergency Visit Emergency Visit: Yes ED Registration Date: 12/27/16 Care time: The patient presented to the Emergency Department on the above date and was hospitalized for further evaluation of their emergent condition. - New Patient This patient is new to me today: No - Critical Care Critical Care patient: No - Discharge Referral Referred to [facility] Med P.C.: No
--- NOTE | 2016-12-29 18:06 | PN ---
Physical Exam: SUBJECTIVE: Patient seen and examined. No fevers, stable on vent. OBJECTIVE: Vital Signs Period Temp Pulse Resp BP Sys/Chase Pulse Ox Last 24 Hr 97.7 F-99.5 F 74-86 16-22 106-156/53-90 93 PE Neuro: NAD, opens eyes to verbal stimuli and touch Pulm: +copious secretions around trach, scattered rhonchi, vented CV: s1s2 irregular rhythm, + 3/6murmur Abd: + peg tube CDI abd soft : connolly Ext: Upper Ext + 2 edema, LE +3 CBCD WBC 11.6 K/mm3 (4.0-10.0) H 12/29/16 06:30 RBC 3.22 M/mm3 (3.60-5.2) L 12/29/16 06:30 Hgb 9.6 GM/dL (10.7-15.3) L 12/29/16 06:30 Hct 29.7 % (32.4-45.2) L 12/29/16 06:30 MCV 92.2 fl (80-96) 12/29/16 06:30 MCHC 32.2 g/dl (32.0-36.0) 12/29/16 06:30 RDW 23.2 % (11.6-15.6) H 12/29/16 06:30 Plt Count 266 K/MM3 (134-434) 12/29/16 06:30 MPV 10.6 fl (7.5-11.1) 12/29/16 06:30 CMP Sodium 136 mmol/L (136-145) 12/29/16 06:30 Potassium 3.8 mmol/L (3.5-5.1) 12/29/16 06:30 Chloride 100 mmol/L (98-107) 12/29/16 06:30 Carbon Dioxide 30 mmol/L (21-32) 12/29/16 06:30 Anion Gap 6 (8-16) L 12/29/16 06:30 BUN 17 mg/dL (7-18) 12/29/16 06:30 Creatinine 0.5 mg/dL (0.55-1.02) L 12/29/16 06:30 Creat Clearance w eGFR > 60 (>60) 12/29/16 06:30 Calcium 8.8 mg/dL (8.5-10.1) 12/29/16 06:30 Total Bilirubin 1.9 mg/dL (0.2-1.0) H 12/29/16 06:30 AST 36 U/L (15-37) 12/29/16 06:30 ALT 17 U/L (12-78) D 12/29/16 06:30 Alkaline Phosphatase 172 U/L (45-117) H 12/29/16 06:30 Total Protein 5.7 g/dl (6.4-8.2) L 12/29/16 06:30 Albumin 1.3 g/dl (3.4-5.0) L 12/29/16 06:30 Active Medications Generic Name Dose Route Start Last Admin Trade Name Freq PRN Reason Stop Dose Admin Acetaminophen 325 mg 12/27/16 10:27 Tylenol Oral Solution - NGT Q6H PRN PAIN Albuterol Sulfate 1 amp 12/28/16 15:51 Ventolin 0.083% Nebulizer Soln - NEB Q4H PRN SHORT OF BREATH/WHEEZING Apixaban 2.5 mg 12/27/16 22:00 12/29/16 09:18 Eliquis - GT 2.5 mg BID SELVIN Administration Ascorbic Acid 500 mg 12/28/16 10:00 12/29/16 12:04 Vitamin C Oral Solution - PEG 500 mg DAILY SELVIN Administration Aspirin 81 mg 12/28/16 10:00 12/29/16 09:18 Asa - NGT 81 mg DAILY SELVIN Administration Diltiazem HCl 60 mg 12/27/16 12:00 12/29/16 17:48 Cardizem - NGT 60 mg Q6HPO SELVIN Administration Ampicillin Sodium/Sulbactam Sodium 100 mls @ 200 mls/hr 12/28/16 16:00 14:51 Unasyn 1.5 Gm (Pre-Docked) IVPB 200 mls/hr Q6H-IV SELVIN Administration Metoprolol Tartrate 50 mg 12/27/16 14:00 12/29/16 13:31 Lopressor - NGT 50 mg TID SELVIN Administration Multi-Ingredient Ointment 1 applic 12/28/16 10:00 12/29/16 09:19 Zinc Oxide TP 1 applic DAILY SELVIN Administration Nystatin 1 applic 12/27/16 22:00 12/29/16 09:19 Mycostatin Cream - TP 1 applic BID SELVIN Administration Pantoprazole Sodium 40 mg 12/28/16 10:00 12/29/16 09:18 Protonix Packets For Oral Suspension - NGT 40 mg DAILY SELVIN Administration Polyethylene Glycol 17 gm 12/28/16 10:00 12/29/16 09:18 Miralax (For Daily Use) - PEG 17 gm DAILY SELVIN Administration Vitamin A/Vitamin D 1 applic 12/28/16 10:00 12/29/16 11:00 Vitamin A & D Top Oint - TP 1 applic DAILY SELVIN Administration Zinc Sulfate 220 mg 12/28/16 10:00 12/29/16 09:18 Orazinc - GT 220 mg DAILY SELVIN Administration Assessment: 86 year old female with pmhx of severe dementia, metastatic breast ca to lungs, HTN, schizophrenia, anxiety, aortic stenosis, mitral regurgitation , atrial fibrillation, chronic diastolic heart failure, hx of right temporal cva , chronic hypoxic respiratory failure s/p Trach/PEG, recently admitted for sepsis d/t UTI and HAP sent from [facility] for tachypnea. Plan: 1. Worsening bilateral infiltrates/effusions - Cultures negative - Unasyn (day 2) - Will stop abx tomorrow - D/w ID 2. Metastatic breast ca to lungs, pleural effusions - Not a candidate for RXT 3. Acute on chronic Respiratory Failure - Tachypnea resolved - Vented on volume AC, trach dependent 4. A.fib with RVR - Eliquis 2.5mg BID - Lopressor 50mg TID - Cardizem 60mg q6h 5. Chronic diastolic heart failure - Continue lopressor 6. R temporal CVA - On eliquis, no ASA 7. Nutrition via Peg tube (12/14 replacement) - Jevity 1.5 @ 60cc with water flushes 8. Social - Long discussion with HCP daughter Amada along with Tanya, pt is DNR and she would like to transition mother to comfort care. - Pt will be discharged tomorrow and return to [facility] on comfort care - Will have SW team reach out to Tanesha at [facility] CODE STATUS: DNR Visit type - Emergency Visit Emergency Visit: Yes ED Registration Date: 12/27/16 Care time: The patient presented to the Emergency Department on the above date and was hospitalized for further evaluation of their emergent condition. - New Patient This patient is new to me today: No - Critical Care Critical Care patient: No - Discharge Referral Referred to [facility] Med P.C.: No
[2016-12-30] MEDS: dilTIAZem HCL 60 MG TABLET (FP) NGT SCH ×5 (00:22→23:00)
[2016-12-30] MEDS: AMPICILLIN NA/SULBACTAM NA 100 ML IVPB SCH ×4 (04:26→21:31)
[2016-12-30] MEDS: METOPROLOL TARTRATE 50 MG TABLET (FP) NGT SCH ×3 (06:34→21:36)
[2016-12-30] MEDS: APIXABAN 2.5 MG TABLET GT SCH ×2 (10:29→21:32)
[2016-12-30] MEDS: ASPIRIN 81 MG CHEWABLE TABLETS NGT SCH (10:29)
[2016-12-30] MEDS: POLYETHYLENE GLYCOL 3350 119 GM BTL PEG SCH (10:30)
[2016-12-30] MEDS: NYSTATIN 100,000 UNIT/GM TOPICAL CREAM 15 GM TUBE TP SCH ×2 (10:31→21:36)
[2016-12-30] MEDS: PANTOPRAZOLE SOD 40 MG SUSPENSION PACKET NGT SCH (10:32)
[2016-12-30] MEDS: ZINC SULFATE 220 MG CAPSULE (FP) GT SCH (10:32)
[2016-12-30] MEDS: VITAMINS A AND D TOPICAL OINTMENT 60 GM TUBE TP SCH (10:33)
[2016-12-30] MEDS: ASCORBIC ACID 500 MG/5 ML UNIT DOSE CUP PEG SCH (10:33)
[2016-12-30] MEDS: ZINC OXIDE 20% TOPICAL OINTMENT 30 GM TUBE TP SCH (10:33)
--- NOTE | 2016-12-30 10:37 | PN ---
Physical Exam: SUBJECTIVE: Patient seen and examined OBJECTIVE: Vital Signs Period Temp Pulse Resp BP Sys/Chase Pulse Ox Last 24 Hr 98.4 F-99.1 F 71-81 16-24 130-188/71-81 93-99 GENERAL: The patient is awake, alert, and fully oriented, in no acute distress. HEAD: Normal with no signs of trauma. EYES: PERRL, extraocular movements intact, sclera anicteric, conjunctiva clear. No ptosis. ENT: Ears normal, nares patent, oropharynx clear without exudates, moist mucous membranes. NECK: Trachea midline, full range of motion, supple. LUNGS: Breath sounds equal, clear to auscultation bilaterally, no wheezes, no crackles, no accessory muscle use. HEART: Regular rate and rhythm, S1, S2 without murmur, rub or gallop. ABDOMEN: Soft, nontender, nondistended, normoactive bowel sounds, no guarding, no rebound, no hepatosplenomegaly, no masses. EXTREMITIES: 2+ pulses, warm, well-perfused, no edema. NEUROLOGICAL: Cranial nerves II through XII grossly intact. Normal speech, gait not observed. PSYCH: Normal mood, normal affect. SKIN: Warm, dry, normal turgor, no rashes or lesions noted Laboratory Results - last 24 hr 12/29/16 12/30/16 16:31 06:33 POC Glucometer 183 130 Active Medications Generic Name Dose Route Start Last Admin Trade Name Freq PRN Reason Stop Dose Admin Acetaminophen 325 mg 12/27/16 10:27 Tylenol Oral Solution - NGT Q6H PRN PAIN Albuterol Sulfate 1 amp 12/28/16 15:51 Ventolin 0.083% Nebulizer Soln - NEB Q4H PRN SHORT OF BREATH/WHEEZING Apixaban 2.5 mg 12/27/16 22:00 12/30/16 10:29 Eliquis - GT 2.5 mg BID SEVLIN Administration Ascorbic Acid 500 mg 12/28/16 10:12/30/16 10:33 Vitamin C Oral Solution - PEG 500 mg DAILY SELVIN Administration Aspirin 81 mg 12/28/16 10:00 12/30/16 10:29 Asa - NGT 81 mg DAILY SELVIN Administration Diltiazem HCl 60 mg 12/27/16 12:00 12/30/16 06:34 Cardizem - NGT 60 mg Q6HPO SELVIN Administration Ampicillin Sodium/Sulbactam Sodium 100 mls @ 200 mls/hr 12/28/16 16:00 10:29 Unasyn 1.5 Gm (Pre-Docked) IVPB 200 mls/hr Q6H-IV SELVIN Administration Metoprolol Tartrate 50 mg 12/27/16 14:00 12/30/16 06:34 Lopressor - NGT 50 mg TID SELVIN Administration Multi-Ingredient Ointment 1 applic 12/28/16 10:00 12/30/16 10:33 Zinc Oxide TP 1 applic DAILY SELVIN Administration Nystatin 1 applic 12/27/16 22:00 12/30/16 10:31 Mycostatin Cream - TP 1 applic BID SELVIN Administration Pantoprazole Sodium 40 mg 12/28/16 10:00 12/30/16 10:32 Protonix Packets For Oral Suspension - NGT 40 mg DAILY SELVIN Administration Polyethylene Glycol 17 gm 12/28/16 10:00 12/30/16 10:30 Miralax (For Daily Use) - PEG 17 gm DAILY SELVIN Administration Vitamin A/Vitamin D 1 applic 12/28/16 10:00 12/30/16 10:33 Vitamin A & D Top Oint - TP 1 applic DAILY SELVIN Administration Zinc Sulfate 220 mg 12/28/16 10:00 12/30/16 10:32 Orazinc - GT 220 mg DAILY SELVIN Administration ASSESSMENT/PLAN: Problem List - Problems (1) Anemia Code(s): D64.9 - ANEMIA, UNSPECIFIED (2) Atrial fibrillation with rapid ventricular response Code(s): I48.91 - UNSPECIFIED ATRIAL FIBRILLATION (3) Demand ischemia Code(s): I24.8 - OTHER FORMS OF ACUTE ISCHEMIC HEART DISEASE (4) Lung cancer Code(s): C34.90 - MALIGNANT NEOPLASM OF UNSP PART OF UNSP BRONCHUS OR LUNG (5) Tracheostomy dependence Code(s): Z93.0 - TRACHEOSTOMY STATUS (6) UTI (urinary tract infection) Code(s): N39.0 - URINARY TRACT INFECTION, SITE NOT SPECIFIED Qualifiers: Urinary tract infection type: site unspecified Hematuria presence: without hematuria Qualified Code(s): N39.0 - Urinary tract infection, site not specified (7) Aortic stenosis Code(s): Q25.3 - SUPRAVALVULAR AORTIC STENOSIS (8) Atrial fibrillation Code(s): I48.91 - UNSPECIFIED ATRIAL FIBRILLATION Qualifiers: Atrial fibrillation type: persistent Qualified Code(s): I48.1 - Persistent atrial fibrillation (9) CVA (cerebral vascular accident) Code(s): I63.9 - CEREBRAL INFARCTION, UNSPECIFIED Qualifiers: CVA mechanism: unspecified Qualified Code(s): I63.9 - Cerebral infarction, unspecified (10) Chronic diastolic heart failure Code(s): I50.32 - CHRONIC DIASTOLIC (CONGESTIVE) HEART FAILURE (11) Chronic respiratory failure with hypoxia Code(s): J96.11 - CHRONIC RESPIRATORY FAILURE WITH HYPOXIA (12) Dementia Code(s): F03.90 - UNSPECIFIED DEMENTIA WITHOUT BEHAVIORAL DISTURBANCE Qualifiers: Dementia type: unspecified type Dementia behavioral disturbance: without behavioral disturbance Qualified Code(s): F03.90 - Unspecified dementia without behavioral disturbance (13) Hypertension Code(s): I10 - ESSENTIAL (PRIMARY) HYPERTENSION Qualifiers: Hypertension type: essential hypertension Qualified Code(s): I10 - Essential (primary) hypertension (14) Metastatic breast cancer Code(s): C50.919 - MALIGNANT NEOPLASM OF UNSP SITE OF UNSPECIFIED FEMALE BREAST C79.9 - SECONDARY MALIGNANT NEOPLASM OF UNSPECIFIED SITE (15) Mitral regurgitation Code(s): I34.0 - NONRHEUMATIC MITRAL (VALVE) INSUFFICIENCY Qualifiers: Cardiac valve disease etiology: nonrheumatic Qualified Code(s): I34.0 - Nonrheumatic mitral (valve) insufficiency (16) Schizophrenia Code(s): F20.9 - SCHIZOPHRENIA, UNSPECIFIED Qualifiers: Schizophrenia type: unspecified Qualified Code(s): F20.9 - Schizophrenia, unspecified (17) Pneumonia Code(s): J18.9 - PNEUMONIA, UNSPECIFIED ORGANISM Qualifiers: Pneumonia type: due to unspecified organism Laterality: unspecified laterality Lung location: unspecified part of lung Qualified Code(s): J18.9 - Pneumonia, unspecified organism (18) Acute respiratory failure Code(s): J96.00 - ACUTE RESPIRATORY FAILURE, UNSP W HYPOXIA OR HYPERCAPNIA Qualifiers: Respiratory failure complication: hypoxia Qualified Code(s): J96.01 - Acute respiratory failure with hypoxia
--- NOTE | 2016-12-30 11:57 | HP ---
CHIEF COMPLAINT: PCP: HISTORY OF PRESENT ILLNESS: ER course was notable for: (1) (2) (3) Recent Travel: PAST MEDICAL HISTORY: PAST SURGICAL HISTORY: Social History: Smoking: Alcohol: Drugs: Family History: Allergies cefuroxime axetil [From Ceftin] Allergy (Mild, Verified 12/11/16 10:43) Rash HOME MEDICATIONS: Home Medications Medication Instructions Recorded Acetaminophen [Tylenol .Regular 325 mg GT Q6H PRN 01/29/14 Strength -] Zinc Oxide 20% Topical Oint 0 gm TP BID 10/15/15 Zinc Sulfate 220 mg GT DAILY 10/15/15 Ascorbate Calcium [Vitamin C] 500 mg PEG DAILY #0 11/17/15 Nystatin Cream [Mycostatin Cream -] 1 applic TP BID applic 11/17/15 Polyethylene Glycol 3350 [Miralax 17 gm PEG DAILY #14 bottle 11/17/15 119 gm Btl -] Docusate Liquid [Colace Liquid -] 50 mg GT DAILY 12/11/16 Albuterol 0.083% Nebulizer Jayla 1 neb NEB Q6H PRN 12/27/16 [Ventolin 0.083% Nebulizer Soln -] Apixaban [Eliquis] 2.5 mg GT BID 12/27/16 Diltiazem [Cardizem -] 60 mg GT Q6H 12/27/16 Ipratropium 0.02% Nebulizer 1 neb NEB Q6H 12/27/16 [Atrovent 0.02% Nebulizer -] Metoprolol Tartrate 50 mg GT Q8H 12/27/16 Magnesium Hydroxide [Milk of 30 ml GT ASDIR PRN #0 12/30/16 Magnesia] Vitamin A & D Top Oint - 1 applic TP DAILY tube 12/30/16 REVIEW OF SYSTEMS CONSTITUTIONAL: Absent: fever, chills, diaphoresis, generalized weakness, malaise, loss of appetite, weight change HEENT: Absent: rhinorrhea, nasal congestion, throat pain, throat swelling, difficulty swallowing, mouth swelling, ear pain, eye pain, visual changes CARDIOVASCULAR: Absent: chest pain, syncope, palpitations, irregular heart rate, lightheadedness , peripheral edema RESPIRATORY: Absent: cough, shortness of breath, dyspnea with exertion, orthopnea, wheezing, stridor, hemoptysis GASTROINTESTINAL: Absent: abdominal pain, abdominal distension, nausea, vomiting, diarrhea, constipation, melena, hematochezia GENITOURINARY: Absent: dysuria, frequency, urgency, hesitancy, hematuria, flank pain, genital pain MUSCULOSKELETAL: Absent: myalgia, arthralgia, joint swelling, back pain, neck pain SKIN: Absent: rash, itching, pallor HEMATOLOGIC/IMMUNOLOGIC: Absent: easy bleeding, easy bruising, lymphadenopathy, frequent infections ENDOCRINE: Absent: unexplained weight gain, unexplained weight loss, heat intolerance, cold intolerance NEUROLOGIC: Absent: headache, focal weakness or paresthesias, dizziness, unsteady gait, seizure, mental status changes, bladder or bowel incontinence PSYCHIATRIC: Absent: anxiety, depression, suicidal or homicidal ideation, hallucinations. PHYSICAL EXAMINATION Vital Signs - 24 hr 12/29/16 12/29/16 12/29/16 13:21 14:00 14:40 Temperature 99.1 F Pulse Rate 80 Respiratory 22 22 Rate Blood Pressure 156/74 O2 Sat by Pulse Oximetry (%) 12/29/16 12/29/16 12/29/16 18:03 18:13 21:00 Temperature 98.4 F Pulse Rate 71 Respiratory 24 22 Rate Blood Pressure 130/71 O2 Sat by Pulse 99 Oximetry (%) 12/29/16 12/29/16 12/30/16 22:25 22:30 03:50 Temperature Pulse Rate 81 Respiratory 23 20 20 Rate Blood Pressure 188/81 O2 Sat by Pulse Oximetry (%) 12/30/16 12/30/16 12/30/16 06:00 06:30 10:25 Temperature 99.1 F Pulse Rate 76 Respiratory 16 18 16 Rate Blood Pressure 141/75 O2 Sat by Pulse Oximetry (%) 12/30/16 10:51 Temperature 98.8 F Pulse Rate 79 Respiratory 22 Rate Blood Pressure 151/79 O2 Sat by Pulse Oximetry (%) GENERAL: Awake, alert, and fully oriented, in no acute distress. HEAD: Normal with no signs of trauma. EYES: Pupils equal, round and reactive to light, extraocular movements intact, sclera anicteric, conjunctiva clear. No lid lag. EARS, NOSE, THROAT: Ears normal, nares patent, oropharynx clear without exudates. Moist mucous membranes. NECK: Normal range of motion, supple without lymphadenopathy, JVD, or masses. LUNGS: Breath sounds equal, clear to auscultation bilaterally. No wheezes, and no crackles. No accessory muscle use. HEART: Regular rate and rhythm, normal S1 and S2 without murmur, rub or gallop. ABDOMEN: Soft, nontender, not distended, normoactive bowel sounds, no guarding, no rebound, no masses. No hepatomegaly or splenomegaly. MUSCULOSKELETAL: Normal range of motion at all joints. No bony deformities or tenderness. No CVA tenderness. UPPER EXTREMITIES: 2+ pulses, warm, well-perfused. No cyanosis. No clubbing. Cap refill <2 seconds. No peripheral edema. LOWER EXTREMITIES: 2+ pulses, warm, well-perfused. No calf tenderness. No peripheral edema. NEUROLOGICAL: Cranial nerves II-XII intact. Normal speech. Normal gait. PSYCHIATRIC: Cooperative. Good eye contact. Appropriate mood and affect. SKIN: Warm, dry, normal turgor, no rashes or lesions noted. Laboratory Results - last 24 hr 12/29/16 12/30/16 16:31 06:33 POC Glucometer 183 130 ASSESSMENT/PLAN:
--- NOTE | 2016-12-30 11:57 | DS ---
Physical Exam: SUBJECTIVE: Patient seen and examined. Opens eyes to touch. No meaningful mental status changes OBJECTIVE: Vital Signs Period Temp Pulse Resp BP Sys/Chase Pulse Ox Last 24 Hr 98.4 F-99.1 F 71-81 16-24 130-188/71-81 99 PE Neuro: NAD, opens eyes to verbal stimuli and touch Pulm: +copious secretions around trach, scattered rhonchi, vented CV: s1s2 irregular rhythm, + 3/6murmur Abd: + peg tube CDI abd soft Ext: Upper Ext + 2 edema, LE +3 Laboratory Results - last 24 hr 12/29/16 12/30/16 16:31 06:33 POC Glucometer 183 130 HOSPITAL COURSE: Date of Admission:12/27/16 Date of Discharge: 12/30/16 Minutes to complete discharge: 35 Discharge Summary Reason For Visit: UTI, PNEUMONIA, CHRONIC RESPIRATORY FAILURE W HYPO Current Active Problems Acute respiratory failure (Acute) Anemia (Acute) Hospital Course: Initial Hospital Course: Briefly, this 86 year old female with pmhx of severe dementia, metastatic breast ca to lungs, HTN, schizophrenia, anxiety, aortic stenosis, mitral regurgitation, atrial fibrillation, chronic diastolic heart failure, hx of right temporal cva, chronic hypoxic respiratory failure s/p Trach/PEG, recently admitted for sepsis d/t UTI and HAP sent from [facility] for tachypnea. Subsequent Hospital Course/Progress Note/Discharge Summary by a/p: Plan: 1. Worsening bilateral infiltrates/effusions - Cultures negative - Unasyn s/p 3 days 2. Metastatic breast ca to lungs, pleural effusions - Not a candidate for RXT 3. Acute on chronic Respiratory Failure - Tachypnea resolved - Vented on volume AC, trach dependent 4. A.fib with RVR - Eliquis 2.5mg BID - Lopressor 50mg TID - Cardizem 60mg q6h 5. Chronic diastolic heart failure - Continue lopressor 6. R temporal CVA - On eliquis, no ASA 7. Nutrition via Peg tube (12/14 replacement) - Jevity 1.5 @ 60cc with water flushes 8. Social and Dispo - Long discussion with HCP daughter Amada along with Tanya, pt is DNR and she would like to transition mother to comfort care. - Comfort care and palliative measures going forward CODE STATUS: DNR Condition: Stable - Instructions Diet, Activity, Other Instructions: Patient will return [facility] under comfort care and palliative measures She is a DNR [facility]position: [facility] - Home Medications Comprehensive Discharge Medication List: Ambulatory Orders Acetaminophen [Tylenol .Regular Strength -] 325 mg GT Q6H PRN 01/29/14 Zinc Oxide 20% Topical Oint 0 gm TP BID 10/15/15 Zinc Sulfate 220 mg GT DAILY 10/15/15 Ascorbate Calcium [Vitamin C] 500 mg PEG DAILY #0 11/17/15 Nystatin Cream [Mycostatin Cream -] 1 applic TP BID applic 11/17/15 Polyethylene Glycol 3350 [Miralax 119 gm Btl -] 17 gm PEG DAILY #14 bottle 11/17 Docusate Liquid [Colace Liquid -] 50 mg GT DAILY 12/11/16 Albuterol 0.083% Nebulizer Jayla [Ventolin 0.083% Nebulizer Soln -] 1 neb NEB Q6H PRN 12/27/16 Apixaban [Eliquis] 2.5 mg GT BID 12/27/16 Diltiazem [Cardizem -] 60 mg GT Q6H 12/27/16 Ipratropium 0.02% Nebulizer [Atrovent 0.02% Nebulizer -] 1 neb NEB Q6H 12/27/16 Metoprolol Tartrate 50 mg GT Q8H 12/27/16 Magnesium Hydroxide [Milk of Magnesia] 30 ml GT ASDIR PRN #0 12/30/16 Vitamin A & D Top Oint - 1 applic TP DAILY tube 12/30/16 This patient is new to me today: No Emergency Visit: Yes ED Registration Date: 12/27/16 Care time: The patient presented to the Emergency Department on the above date and was hospitalized for further evaluation of their emergent condition. Critical Care patient: No - Discharge Referral Referred to [facility] Med P.C.: No
[2016-12-30] MEDS ORDERED: morphine CARPU-JECT 2 MG/1 ML DISP.SYRIN IVPUSH PRN (12:13)
--- NOTE | 2016-12-30 13:44 | PN ---
Teaching Attending Note Name of Resident: Valerie Baeza ATTENDING PHYSICIAN STATEMENT I saw and evaluated the patient. I reviewed the resident's note and discussed the case with the resident. I agree with the resident's findings and plan as documented. pulmonary no change ,poorly responsive on vent support IMP ACUTE ON CHRONIC RESPIRATORY FAILURE LUNG CA METASTATIC BREAST CA AFIB SEPSIS resolved DEMENTIA ANEMIA PLAN: VENT SUPPORT ON AC MODE INHALED BRONCHODILATORS ANTIBIOTICS PER ID PT NOT A CANDIDATE FOR WEANING DR RICHARDS Problem List - Problems (1) Atrial fibrillation with rapid ventricular response Code(s): I48.91 - UNSPECIFIED ATRIAL FIBRILLATION (2) Lung cancer Code(s): C34.90 - MALIGNANT NEOPLASM OF UNSP PART OF UNSP BRONCHUS OR LUNG (3) Tracheostomy dependence Code(s): Z93.0 - TRACHEOSTOMY STATUS (4) UTI (urinary tract infection) Code(s): N39.0 - URINARY TRACT INFECTION, SITE NOT SPECIFIED Qualifiers: Urinary tract infection type: site unspecified Hematuria presence: without hematuria Qualified Code(s): N39.0 - Urinary tract infection, site not specified (5) Aortic stenosis Code(s): Q25.3 - SUPRAVALVULAR AORTIC STENOSIS (6) Atrial fibrillation Code(s): I48.91 - UNSPECIFIED ATRIAL FIBRILLATION Qualifiers: Atrial fibrillation type: persistent Qualified Code(s): I48.1 - Persistent atrial fibrillation (7) CVA (cerebral vascular accident) Code(s): I63.9 - CEREBRAL INFARCTION, UNSPECIFIED Qualifiers: CVA mechanism: unspecified Qualified Code(s): I63.9 - Cerebral infarction, unspecified (8) Chronic diastolic heart failure Code(s): I50.32 - CHRONIC DIASTOLIC (CONGESTIVE) HEART FAILURE (9) Chronic respiratory failure with hypoxia Code(s): J96.11 - CHRONIC RESPIRATORY FAILURE WITH HYPOXIA (10) Dementia Code(s): F03.90 - UNSPECIFIED DEMENTIA WITHOUT BEHAVIORAL DISTURBANCE Qualifiers: Dementia type: unspecified type Dementia behavioral disturbance: without behavioral disturbance Qualified Code(s): F03.90 - Unspecified dementia without behavioral disturbance (11) Metastatic breast cancer Code(s): C50.919 - MALIGNANT NEOPLASM OF UNSP SITE OF UNSPECIFIED FEMALE BREAST C79.9 - SECONDARY MALIGNANT NEOPLASM OF UNSPECIFIED SITE (12) Squamous carcinoma of lung Code(s): C34.90 - MALIGNANT NEOPLASM OF UNSP PART OF UNSP BRONCHUS OR LUNG (13) Pneumonia Code(s): J18.9 - PNEUMONIA, UNSPECIFIED ORGANISM Qualifiers: Pneumonia type: due to unspecified organism Laterality: unspecified laterality Lung location: unspecified part of lung Qualified Code(s): J18.9 - Pneumonia, unspecified organism (14) Anemia Code(s): D64.9 - ANEMIA, UNSPECIFIED Problem List - Problems (1) Atrial fibrillation with rapid ventricular response Code(s): I48.91 - UNSPECIFIED ATRIAL FIBRILLATION (2) Lung cancer Code(s): C34.90 - MALIGNANT NEOPLASM OF UNSP PART OF UNSP BRONCHUS OR LUNG (3) Tracheostomy dependence Code(s): Z93.0 - TRACHEOSTOMY STATUS (4) UTI (urinary tract infection) Code(s): N39.0 - URINARY TRACT INFECTION, SITE NOT SPECIFIED Qualifiers: Urinary tract infection type: site unspecified Hematuria presence: without hematuria Qualified Code(s): N39.0 - Urinary tract infection, site not specified (5) Aortic stenosis Code(s): Q25.3 - SUPRAVALVULAR AORTIC STENOSIS (6) Atrial fibrillation Code(s): I48.91 - UNSPECIFIED ATRIAL FIBRILLATION Qualifiers: Atrial fibrillation type: persistent Qualified Code(s): I48.1 - Persistent atrial fibrillation (7) CVA (cerebral vascular accident) Code(s): I63.9 - CEREBRAL INFARCTION, UNSPECIFIED Qualifiers: CVA mechanism: unspecified Qualified Code(s): I63.9 - Cerebral infarction, unspecified (8) Chronic diastolic heart failure Code(s): I50.32 - CHRONIC DIASTOLIC (CONGESTIVE) HEART FAILURE (9) Chronic respiratory failure with hypoxia Code(s): J96.11 - CHRONIC RESPIRATORY FAILURE WITH HYPOXIA (10) Dementia Code(s): F03.90 - UNSPECIFIED DEMENTIA WITHOUT BEHAVIORAL DISTURBANCE Qualifiers: Dementia type: unspecified type Dementia behavioral disturbance: without behavioral disturbance Qualified Code(s): F03.90 - Unspecified dementia without behavioral disturbance (11) Metastatic breast cancer Code(s): C50.919 - MALIGNANT NEOPLASM OF UNSP SITE OF UNSPECIFIED FEMALE BREAST C79.9 - SECONDARY MALIGNANT NEOPLASM OF UNSPECIFIED SITE (12) Squamous carcinoma of lung Code(s): C34.90 - MALIGNANT NEOPLASM OF UNSP PART OF UNSP BRONCHUS OR LUNG (13) Pneumonia Code(s): J18.9 - PNEUMONIA, UNSPECIFIED ORGANISM Qualifiers: Pneumonia type: due to unspecified organism Laterality: unspecified laterality Lung location: unspecified part of lung Qualified Code(s): J18.9 - Pneumonia, unspecified organism (14) Anemia Code(s): D64.9 - ANEMIA, UNSPECIFIED
[2016-12-30] MEDS ORDERED: PT OWN MED DRAWER 7, Y5N ONE (20:35)
[2016-12-31] MEDS: AMPICILLIN NA/SULBACTAM NA 100 ML IVPB SCH ×2 (02:07→08:29)
[2016-12-31] MEDS: METOPROLOL TARTRATE 50 MG TABLET (FP) NGT SCH (06:52)
[2016-12-31] MEDS: dilTIAZem HCL 60 MG TABLET (FP) NGT SCH (06:53)
[2016-12-31] MEDS ORDERED: PT OWN MED DRAWER 7, Y5N ONE (08:18)
[2016-12-31] MEDS: PANTOPRAZOLE SOD 40 MG SUSPENSION PACKET NGT SCH (09:54)
[2016-12-31] MEDS: APIXABAN 2.5 MG TABLET GT SCH (09:54)
[2016-12-31] MEDS: POLYETHYLENE GLYCOL 3350 119 GM BTL PEG SCH (09:54)
[2016-12-31] MEDS: ASPIRIN 81 MG CHEWABLE TABLETS NGT SCH (09:54)
[2016-12-31] MEDS: VITAMINS A AND D TOPICAL OINTMENT 60 GM TUBE TP SCH (09:55)
[2016-12-31] MEDS: NYSTATIN 100,000 UNIT/GM TOPICAL CREAM 15 GM TUBE TP SCH (09:55)
[2016-12-31] MEDS: ZINC OXIDE 20% TOPICAL OINTMENT 30 GM TUBE TP SCH (09:55)
[2016-12-31] MEDS: ZINC SULFATE 220 MG CAPSULE (FP) GT SCH (09:55)
[2016-12-31] MEDS: ASCORBIC ACID 500 MG/5 ML UNIT DOSE CUP PEG SCH (09:58)
[2016-12-31 10:15] VITALS: BP 136/64; PULSE 72; TEMP 98.4
== END 2016-12-31 10:29 | DRG 870 ==
LOC: JER 01:58 → JERBED 08:55 → J5S 11:28
PROVIDERS: ADMIT Internal Medicine; ATTEND Nurse Practitioner Family
PROC: 5A1955Z Respiratory Ventilation, Greater than 96 Consecutive Hours (ICD-10-PCS; principal; 2016-12-27)
DX: A41.9 Sepsis, unspecified organism (principal); J18.9 Pneumonia, unspecified organism; R53.2 Functional quadriplegia; J96.21 Acute and chronic respiratory failure with hypoxia; I50.32 Chronic diastolic (congestive) heart failure; N39.0 Urinary tract infection, site not specified; Z99.11 Dependence on respirator [ventilator] status; I48.1 Persistent atrial fibrillation; C78.00 Secondary malignant neoplasm of unspecified lung; J90 Pleural effusion, not elsewhere classified; F03.90 Unspecified dementia, unspecified severity, without behavioral disturbance, psychotic disturbance, mood disturbance, and anxiety; D64.9 Anemia, unspecified; Z93.0 Tracheostomy status; I35.0 Nonrheumatic aortic (valve) stenosis; Z93.1 Gastrostomy status; I11.0 Hypertensive heart disease with heart failure; Z86.73 Personal history of transient ischemic attack (TIA), and cerebral infarction without residual deficits; I34.0 Nonrheumatic mitral (valve) insufficiency; C50.919 Malignant neoplasm of unspecified site of unspecified female breast
CPT/HCPCS: 36415; 36600; 71010-TC; 80053; 81003; 81015; 82803; 83605; 83735; 84100; 85025; 85610; 87040; 87086; 93005; 93010; 94002; 99285-25